=== PATIENT | male | born 1945 | race Caucasian/White ===

== ENCOUNTER → 2020-03-13 14:28 | Outpatient (BNVA) | payer MEDICARE, SELFPAY | PROVIDERS: PCP Internal Medicine; Visit Provider Surgery | DX: D05.11 Intraductal carcinoma in situ of right breast (principal) | CPT/HCPCS: 99212 ==

== ENCOUNTER 2020-05-15 06:57 | Outpatient (REF) | payer MEDICARE, SELFPAY ==
[2020-05-15 07:47] LABS: MANUAL DIFF FLAG NO
[2020-05-15 07:58] LABS: Basophils Percent Auto 0.2 % (0-2); Eosinophils Absolute Auto 0.1 X10*3/uL (0.0-0.4); Eosinophils Percent Auto 2.6 % (0-4); Hemoglobin 13.9 g/dl (14.0-18.0); Imm Gran Abs Auto 0.03 X10*3/uL (0.00-0.03); Imm Gran Pct Auto 0.6 % (0.0-0.4); Lymphocytes Absolute Auto 1.3 X10*3/uL (1.2-4.9); Lymphocytes Percent Auto 28.7 % (20-40); Mean Corpuscular HGB Conc 33.1 g/dl (31.0-36.0); Mean Corpuscular Hemoglobin 30.3 pg (27.0-33.0); Mean Corpuscular Volume 91.5 fL (80-98); Mean Platelet Volume 9.2 fL (9.4-12.4); Monocytes Absolute Auto 0.6 X10*3/uL (0.1-1.2); Monocytes Percent Auto 12.5 % (2-11); Neutrophils Absolute Auto 2.6 X10*3/uL (2.0-8.3); Neutrophils Percent Auto 55.4 % (45-73); Platelet Count 229 X10*3/uL (160-400); Red Blood Count 4.59 X10*6/uL (4.60-5.80); Red Cell Distribution Width 12.6 % (11.0-16.0); White Blood Count 4.6 X10*3/uL (4.8-10.8)
[2020-05-15 08:05] LABS: Estimated Average Glucose 120 mg/dL; Hemoglobin A1c % 5.8 %
[2020-05-15 08:15] LABS: Glucose Urine UA NEG (NEG); Leukocyte Esterase Urine NEG (NEG); Nitrite Urine NEG (NEG); PH 6.5 (5.0-8.0); Urine Blood NEG (NEG); Urine Ketones NEG (NEG); Urine Protein NEG (NEG-TRACE)
[2020-05-15 08:19] LABS: Cholesterol 146 mg/dL; HDL Cholesterol 68 mg/dL; LDL Cholesterol Calculated 68 mg/dl; Triglycerides 51 mg/dL
[2020-05-15 08:20] LABS: Appearance Urine CLEAR; Color Urine YELLOW
[2020-05-15 08:23] LABS: Alanine Aminotransferase 12 U/L (0-40); Albumin Level 4.1 g/dL (3.5-5.0); Alkaline Phosphatase 81 U/L (39-117); Anion Gap 12 (12-20); Aspartate Amino Transferase 28 U/L (5-37); Bilirubin Total 0.8 mg/dL (0.0-1.0); Blood Urea Nitrogen 16 mg/dL (9-16); Carbon Dioxide 29 mmol/L (22-29); Chloride 102 mmol/L (96-108); Estimated Glomerular Filt Rate > 60; Glucose Fasting 182 mg/dL (60-99); Potassium 5.1 mmol/L (3.3-5.1); Sodium 138 mmol/L (135-145); Total Protein 6.9 g/dL (6.5-8.0)
[2020-05-15 08:26] LABS: Reflex LDLD? No
[2020-05-15 08:55] LABS: Prostate Specific Antigen Scr < 0.05 ng/mL (<0.05-4.0)
[2020-05-15 09:13] LABS: Creatinine Urine 75.25 mg/dL; Microalbumin Urine < 5.0 mg/L
== END 2020-05-15 06:58 | disposition home or self-care (01) ==
LOC: HO.LAB 06:57
PROVIDERS: Visit Provider Internal Medicine
DX: Z00.00 Encounter for general adult medical examination without abnormal findings (principal); E78.00 Pure hypercholesterolemia, unspecified; E10.9 Type 1 diabetes mellitus without complications
CPT/HCPCS: 36415; 80053; 80061; 81003; 82043; 83036; 84153; 85025

== ENCOUNTER → 2020-10-02 10:15 | Outpatient (BNVA) | payer MEDICARE, SELFPAY | PROVIDERS: PCP Internal Medicine; Referring Provider Internal Medicine; Visit Provider Surgery | DX: D05.11 Intraductal carcinoma in situ of right breast (principal) | CPT/HCPCS: 99212 ==

== ENCOUNTER 2020-10-16 15:36 | Outpatient (REF) | payer MEDICARE, SELFPAY ==
--- NOTE | ~2020-10-16 | XR_ITS ---
EXAMINATION: XR CHEST CLINICAL INFORMATION: Chest discomfort COMPARISON: None TECHNIQUE: 2 views of the chest were obtained. FINDINGS: The lungs are well-expanded and clear. Incidentally noted is a right upper lobe azygos lobe. The heart size and pulmonary vascularity is normal. There is moderate spondylosis dorsal spine. No lytic process. XR/XR chest 2V IMPRESSION: Unremarkable chest exam except for moderate dorsal spine spondylosis.
== END 2020-10-16 15:37 | disposition home or self-care (01) ==
LOC: HO.XRAY 15:36
PROVIDERS: PCP Internal Medicine; Visit Provider Internal Medicine
DX: R07.89 Other chest pain (principal)
CPT/HCPCS: 71046

== ENCOUNTER 2020-11-09 10:29 | Outpatient (REF) | payer MEDICARE, SELFPAY ==
[2020-11-09 11:03] LABS: Estimated Average Glucose 117 mg/dL; Hemoglobin A1c % 5.7 %
[2020-11-09 11:06] LABS: Alanine Aminotransferase 10 U/L (0-40); Albumin Level 3.9 g/dL (3.5-5.0); Alkaline Phosphatase 76 U/L (39-117); Aspartate Amino Transferase 27 U/L (5-37); Bilirubin Direct 0.4 mg/dL (0.0-0.5); Bilirubin Total 0.8 mg/dL (0.0-1.0); Cholesterol 139 mg/dL; Glucose Fasting 146 mg/dL (60-99); HDL Cholesterol 67 mg/dL; LDL Cholesterol Calculated 63 mg/dl; Total Protein 6.8 g/dL (6.5-8.0); Triglycerides 46 mg/dL
[2020-11-09 11:29] LABS: Reflex LDLD? No
== END 2020-11-09 10:30 | disposition home or self-care (01) ==
LOC: HO.LNP 10:29
PROVIDERS: Visit Provider Internal Medicine
DX: E78.00 Pure hypercholesterolemia, unspecified (principal); E10.9 Type 1 diabetes mellitus without complications
CPT/HCPCS: 80061; 80076; 82947; 83036

== ENCOUNTER → 2021-04-02 10:07 | Outpatient (BNVA) | payer MEDICARE, SELFPAY | PROVIDERS: PCP Internal Medicine; Referring Provider Internal Medicine; Visit Provider Surgery | DX: Z85.3 Personal history of malignant neoplasm of breast (principal); Z90.11 Acquired absence of right breast and nipple | CPT/HCPCS: 99212 ==

== ENCOUNTER 2021-05-30 11:27 | Outpatient (REF) | payer MEDICARE, SELFPAY ==
[2021-05-30 11:30] LABS: MANUAL DIFF FLAG NO
[2021-05-30 12:05] LABS: Appearance Urine HAZY; Color Urine YELLOW; Glucose Urine UA NEG (NEG); Leukocyte Esterase Urine NEG (NEG); Nitrite Urine NEG (NEG); PH 7.5 (5.0-8.0); Urine Blood NEG (NEG); Urine Ketones 5 MG/DL (NEG); Urine Protein NEG (NEG-TRACE)
[2021-05-30 12:07] LABS: Basophils Percent Auto 0.6 % (0-2); Eosinophils Absolute Auto 0.1 X10*3/uL (0.0-0.4); Eosinophils Percent Auto 2.9 % (0-4); Hematocrit 42.5 % (42.0-52.0); Hemoglobin 14.1 g/dl (14.0-18.0); Imm Gran Abs Auto 0.03 X10*3/uL (0.00-0.03); Imm Gran Pct Auto 0.6 % (0.0-0.4); Lymphocytes Absolute Auto 1.3 X10*3/uL (1.2-4.9); Lymphocytes Percent Auto 27.7 % (20-40); Mean Corpuscular HGB Conc 33.2 g/dl (31.0-36.0); Mean Corpuscular Hemoglobin 30.4 pg (27.0-33.0); Mean Corpuscular Volume 91.6 fL (80.0-98.0); Mean Platelet Volume 9.7 fL (9.4-12.4); Monocytes Absolute Auto 0.6 X10*3/uL (0.1-1.2); Neutrophils Absolute Auto 2.6 x10*3/uL (2.0-8.3); Neutrophils Percent Auto 55.2 % (45-73); Platelet Count 241 X10*3/uL (160-400); Red Blood Count 4.64 X10*6/uL (4.60-5.80); Red Cell Distribution Width 12.8 % (11.0-16.0); White Blood Count 4.8 X10*3/uL (4.8-10.8)
[2021-05-30 12:20] LABS: Estimated Average Glucose 131 mg/dL; Hemoglobin A1c % 6.2 %
[2021-05-30 12:30] LABS: Alanine Aminotransferase 12 U/L (0-40); Alkaline Phosphatase 78 U/L (39-117); Anion Gap 11 (12-20); Aspartate Amino Transferase 31 U/L (5-37); Blood Urea Nitrogen 19 mg/dL (9-16); Calcium 9.1 mg/dL (8.4-10.2); Carbon Dioxide 29 mmol/L (22-29); Chloride 102 mmol/L (96-108); Cholesterol 152 mg/dL; Estimated Glomerular Filt Rate > 60; Glucose Fasting 135 mg/dL (60-99); HDL Cholesterol 69 mg/dL; LDL Cholesterol Calculated 74 mg/dl; Potassium 4.2 mmol/L (3.3-5.1); Sodium 138 mmol/L (135-145); Total Protein 6.8 g/dL (6.5-8.0); Triglycerides 48 mg/dL
[2021-05-30 12:41] LABS: PSA,Total (Free>4and<10) < 0.05 ng/mL (0.00-4.00)
[2021-05-30 12:43] LABS: Creatinine Urine 64.76 mg/dL; Microalbumin Urine < 5.0 mg/L
== END 2021-05-30 11:28 | disposition home or self-care (01) ==
LOC: HO.LNP 11:27
PROVIDERS: PCP Internal Medicine; Visit Provider Internal Medicine
DX: Z12.5 Encounter for screening for malignant neoplasm of prostate (principal); C61 Malignant neoplasm of prostate; E10.9 Type 1 diabetes mellitus without complications; E78.00 Pure hypercholesterolemia, unspecified
CPT/HCPCS: 80053; 80061; 81003; 82043; 83036; 84153; 85025

== ENCOUNTER 2021-07-12 07:10 | Day surgery (SDC) | payer MEDICARE, SELFPAY ==
[2021-07-08 14:55] VITALS: BMI 24.7
--- NOTE | 2021-07-11 12:01 | P.CONAN_ITS ---
Documented by User: Raquel Jara NP 07/11/21 12:02 HPI - Anesthesia Eval Consult details Narrative: 75yo M for Colonoscopy insulin pump in situ PMFSH Active Problems Active Problems: All Active Problems (Updated 07/08/21 @ 14:57 by Laura Bustamante RN) Ductal carcinoma in situ (DCIS) of right breast (Acute) Past Medical History Medical History (Updated 07/08/21 @ 14:57 by Laura Bustamante RN) COVID-19 vaccine series completed Diabetes mellitus Ductal carcinoma in situ (DCIS) of right breast Elevated cholesterol Prostate cancer Ulcerative colitis Surgical History Surgical History (Updated 07/08/21 @ 14:33 by Laura Bustamante RN) History of appendectomy History of colonoscopy History of penile implant History of prostate surgery (2000) History of right total mastectomy Social History Social History Are you a primary post acute care nurse practitioner to a significant other at home: No Do you presently have visiting nurse or other home services: No Alcohol intake: current Alcohol intake frequency: does not drink Alcohol type: beer Patient Tobacco Use Status: Never used Tobacco Use of substances other than those prescribed or required for medical reasons: No Have you been hit, kicked, punched, or otherwise hurt by someone within the past year? If so, by whom?: No Are you DNR?: No Advance Directives Information Provided: Yes (will bring copy DOS) Advance Directives on File: No Recently lost weight without trying: No Eating poorly because of decreased appetite: No Nutrition Risks: No Nutritional Risk Meds Allergies Allergy/AdvReac Type Severity Reaction Status Date / Time Seasonal Allergies Allergy Mild Unknown Verified 04/02/21 10:19 Home Medications Medication Instructions Recorded Confirmed Last Taken Type atorvastatin 20 mg tablet 20 mg PO DAILY 03/13/20 07/08/21 Unknown History balsalazide 750 mg capsule 2,250 mg PO BID 03/13/20 07/08/21 Unknown History fluticasone propionate 50 1 spray INTRANASAL DAILY 03/13/20 07/08/21 Unknown History mcg/actuation nasal spray,suspension insulin lispro 100 unit/mL 100 unit SUBCUT CONT 03/13/20 07/08/21 Unknown History subcutaneous solution lisinopril 2.5 mg tablet 2.5 mg PO DAILY 03/13/20 04/03/21 Unknown History ascorbic acid (vitamin C) 500 mg 500 mg PO DAILY 12/03/20 07/08/21 Unknown History tablet (Vitamin C) aspirin 81 mg tablet,delayed 81 mg PO DAILY 12/03/20 07/08/21 Unknown History release multivitamin 1 tab PO DAILY 12/03/20 07/08/21 Unknown History omega 5-krk-kme-fish oil 1,200 mg 1 cap PO DAILY 12/03/20 07/08/21 Unknown History (144 mg-216 mg) capsule (Fish Oil) Exam Exam Date and Time: July 11, 2021 1201 Height,Weight and Vital Signs: Height 5 ft 6 in Weight 69.4 kg Pertinent Lab Results Pertinent Lab Results: Laboratory Tests 05/30/21 05/30/21 07:00 07:00 WBC 4.8 Hgb 14.1 Hct 42.5 Plt Count 241 Sodium 138 Potassium 4.2 Chloride 102 Carbon Dioxide 29 BUN 19 H Creatinine 0.82 Assessment and Plan Assessment Anesthesia Assessment: Chart Reviewed Documented by User: Diego Warner MD 07/12/21 09:59 [facility] Past Medical History Medical History (Updated 07/08/21 @ 14:57 by Laura Bustamante RN) COVID-19 vaccine series completed Diabetes mellitus Ductal carcinoma in situ (DCIS) of right breast Elevated cholesterol Prostate cancer Ulcerative colitis Functional capacity: independent ambulation Family History Family history of problems with anesthesia: No Surgical History Surgical History (Updated 07/08/21 @ 14:33 by Laura Bustamante RN) History of appendectomy History of colonoscopy History of penile implant History of prostate surgery (2000) History of right total mastectomy History of Problems with Anesthesia: No Social History Social History Are you a primary post acute care nurse practitioner to a significant other at home: No Do you presently have visiting nurse or other home services: No Alcohol intake: current Alcohol intake frequency: does not drink Alcohol type: beer Patient Tobacco Use Status: Never used Tobacco Use of substances other than those prescribed or required for medical reasons: No Have you been hit, kicked, punched, or otherwise hurt by someone within the past year? If so, by whom?: No Are you DNR?: No Advance Directives Information Provided: Yes (will bring copy DOS) Advance Directives on File: No Recently lost weight without trying: No Eating poorly because of decreased appetite: No Nutrition Risks: No Nutritional Risk Meds Allergies Allergy/AdvReac Type Severity Reaction Status Date / Time Seasonal Allergies Allergy Mild Unknown Verified 04/02/21 10:19 Home Medications Medication Instructions Recorded Confirmed Last Taken Type atorvastatin 20 mg tablet 20 mg PO DAILY 03/13/20 07/08/21 Unknown History balsalazide 750 mg capsule 2,250 mg PO BID 03/13/20 07/08/21 Unknown History fluticasone propionate 50 1 spray INTRANASAL DAILY 03/13/20 07/08/21 Unknown History mcg/actuation nasal spray,suspension insulin lispro 100 unit/mL 100 unit SUBCUT CONT 03/13/20 07/08/21 Unknown History subcutaneous solution lisinopril 2.5 mg tablet 2.5 mg PO DAILY 03/13/20 04/03/21 Unknown History ascorbic acid (vitamin C) 500 mg 500 mg PO DAILY 12/03/20 07/08/21 Unknown History tablet (Vitamin C) aspirin 81 mg tablet,delayed 81 mg PO DAILY 12/03/20 07/08/21 Unknown History release multivitamin 1 tab PO DAILY 12/03/20 07/08/21 Unknown History omega 7-cwa-pbt-fish oil 1,200 mg 1 cap PO DAILY 12/03/20 07/08/21 Unknown History (144 mg-216 mg) capsule (Fish Oil) Exam Airway Mallampati Class: III TM Dist: >3cm Neck ROM: Full Loose/Missing/Broken Teeth: Yes (Chipped teeth ) Heart: RRR Lungs: b/l breath sounds Assessment and Plan Assessment Anesthesia Assessment: Anesthesia Plan Discussed Final Anesthetic Review Family History of Problems with Anesthesia: No History of Problems with Anesthesia: No NPO: Yes ASA Class: II Final Preanesthetic Review: Meds/Allgs Chart Reviewed, Consent Obtained/Reviewed and Anes Risks/Benef Reviewed Patient Risk: Intermediate Procedure Risk: Intermediate Anesthetic Plan Anesthetic Plan: MAC: Disposition: Standard PACU
[2021-07-12 07:53] VITALS: BP 121/57; PULSE 87; RESP 16; TEMP 36.1; O2SAT 100
[2021-07-12 07:57] LABS: Glucose, Whole Blood 185 mg/dL (60-115)
[2021-07-12] MEDS: Lactated Ringers 1,000 ML 100 ML IVCONT (08:09)
[2021-07-12 09:36] VITALS: BP 109/51; PULSE 80; RESP 16; TEMP 36.2; O2SAT 100
--- NOTE | 2021-07-12 09:38 | PM.OP ---
Brief Operative Note Date of Service: 07/12/21 Pre-op diagnosis: Screening, Ulcerative colitis Post-op diagnosis: other (R/O dysplasia, Diverticulosis) Procedure: Colonoscopy to the cecum and TI with biopsies Surgeon: Raul Li Anesthesia: MAC Was an [employer] Advisor used for this Procedure?: No Estimated blood loss (mL): 2.0 Pathology: other (A. Ascending colon B. Transverse colon C. Descending colon D. Sigmoid colon E. Rectum) Condition: stable Disposition: PACU
[2021-07-12 09:50] VITALS: BP 122/53; PULSE 79; RESP 20; TEMP 36.2; O2SAT 100
[2021-07-12 09:59] LABS: Glucose, Whole Blood 196 mg/dL (60-115)
--- NOTE | 2021-07-12 10:01 | OP_ITS ---
SURGEON: Raul Li MD INDICATIONS: The patient presents for evaluation of underlying ulcerative colitis and colorectal cancer screening. Full consent has been obtained from him for this, including risks of bleeding and perforation. PREOPERATIVE DIAGNOSIS: POSTOPERATIVE DIAGNOSIS: PROCEDURE PERFORMED: Colonoscopy to cecum and terminal ileum with multiple biopsies. ESTIMATED BLOOD LOSS: COMPLICATIONS: ANESTHESIA: Monitored anesthesia care. ASSISTANTS: SPECIMENS: PREOPERATIVE DIAGNOSES: Colorectal cancer screening and history of ulcerative colitis. POSTOPERATIVE DIAGNOSES: Colorectal cancer screening and history of ulcerative colitis, rule out dysplasia, sigmoid diverticulosis, and small internal hemorrhoids. DESCRIPTION OF PROCEDURE: The patient was placed in left lateral decubitus position. The digital rectal exam revealed no abnormalities. The Olympus video pediatric colonoscope was entered into the rectum and advanced easily to the cecum. Once in the cecum, I did identify normal-appearing cecal pouch with appendiceal orifice and a normal-appearing ileocecal valve. The terminal ileum was cannulated and appeared normal. Scope was withdrawn back in the colon. The entire cecum and ileocecal valve appeared normal. The scope was slowly withdrawn assessing all mucosal surfaces carefully. Preparation was excellent. I did not visualize any sign of colitis, polyps, nor angiodysplasia. There was a very minimal scarring in the rectum. Random biopsies were obtained in the ascending colon, transverse colon, descending colon, sigmoid colon, and rectum. There was a mild amount of sigmoid diverticulosis. In the rectum, scope was retroflexed visualizing some small internal hemorrhoids, but no other pathology. The scope was straightened and withdrawn from the patient. He tolerated the procedure well and was returned to recovery area in stable condition. IMPRESSION: 1. History of ulcerative colitis, rule out dysplasia. 2. Diverticulosis. 3. Internal hemorrhoids. PLAN: The results of the biopsies will be checked. Given his age, I do not think he will need any further screening colonoscopies in the future. He was advised not to use any aspirin and NSAIDs for at least 1 week. He was advised to see me in 1 year for followup in regard to the underlying colitis and was advised to continue his current regimen of the balsalazide 2.25 g b.i.d. He will call sooner as needed. MD MIKE Gil/MASOOD / [id number] [facility]
== END 2021-07-12 10:34 | disposition home or self-care (01) ==
PROVIDERS: PCP Internal Medicine; Visit Provider Internal Medicine
PROC: 0DJD8ZZ Inspection of Lower Intestinal Tract, Via Natural or Artificial Opening Endoscopic (ICD-10-PCS; CPT 45378; principal; 2021-07-12 08:20)
DX: Z12.11 Encounter for screening for malignant neoplasm of colon (principal); Z87.19 Personal history of other diseases of the digestive system; K51.90 Ulcerative colitis, unspecified, without complications; K64.8 Other hemorrhoids; E78.5 Hyperlipidemia, unspecified; E11.8 Type 2 diabetes mellitus with unspecified complications; Z96.41 Presence of insulin pump (external) (internal); Z79.4 Long term (current) use of insulin; Z79.899 Other long term (current) drug therapy; Z85.46 Personal history of malignant neoplasm of prostate; Z85.3 Personal history of malignant neoplasm of breast; Z98.890 Other specified postprocedural states
CPT/HCPCS: 45380; 82947; 88305

== ENCOUNTER → 2021-10-17 13:55 | Outpatient (BNVA) | payer MEDICARE, SELFPAY | PROVIDERS: PCP Internal Medicine; Visit Provider Surgery | DX: D05.11 Intraductal carcinoma in situ of right breast (principal); Z90.11 Acquired absence of right breast and nipple | CPT/HCPCS: 99212 ==

== ENCOUNTER 2021-11-29 10:32 | Outpatient (REF) | payer MEDICARE, SELFPAY ==
[2021-11-29 11:30] LABS: Estimated Average Glucose 114 mg/dL; Hemoglobin A1c % 5.6 %
[2021-11-29 11:32] LABS: Alanine Aminotransferase 11 U/L (0-40); Alkaline Phosphatase 73 U/L (39-117); Aspartate Amino Transferase 30 U/L (5-37); Bilirubin Direct 0.4 mg/dL (0.0-0.5); Cholesterol 130 mg/dL; Glucose Fasting 159 mg/dL (60-99); HDL Cholesterol 63 mg/dL; LDL Cholesterol Calculated 58 mg/dl; Total Protein 6.7 g/dL (6.5-8.0); Triglycerides 46 mg/dL
[2021-11-29 12:37] LABS: Reflex LDLD? No
== END 2021-11-29 10:33 | disposition home or self-care (01) ==
LOC: HO.LNP 10:32
PROVIDERS: Visit Provider Internal Medicine
DX: E10.9 Type 1 diabetes mellitus without complications (principal); E78.00 Pure hypercholesterolemia, unspecified
CPT/HCPCS: 80061; 80076; 82947; 83036

== ENCOUNTER 2022-06-05 10:43 | Outpatient (REF) | payer MEDICARE, SELFPAY ==
[2022-06-05 10:47] LABS: MANUAL DIFF FLAG NO
[2022-06-05 11:28] LABS: Appearance Urine Clear; Color Urine Yellow; Glucose Urine UA Negative (Negative); Leukocyte Esterase Urine Negative (Negative); Nitrite Urine Negative (Negative); Specific Gravity - Urine 1.015 (1.005-1.025); Urine Blood Negative (Negative); Urine Ketones 15 mg/dL (Negative); Urine Protein Negative (Neg-Trace)
[2022-06-05 11:33] LABS: Bacteria Urine None Seen (None Seen); Hyaline Casts Urine 0-2 /LPF (0-2); RBC Urine 0-2 /HPF (0-2); Squamous Epithelial Cell Urine 0-2 /HPF (0-2); WBC Urine 0-5 /HPF (0-5)
[2022-06-05 11:34] LABS: Estimated Average Glucose 120 mg/dL; Hemoglobin A1c % 5.8 %
[2022-06-05 11:41] LABS: Alanine Aminotransferase 18 U/L (0-40); Alkaline Phosphatase 76 U/L (39-117); Anion Gap 15 (12-20); Aspartate Amino Transferase 39 U/L (5-37); Bilirubin Total 1.2 mg/dL (0.0-1.0); Blood Urea Nitrogen 16 mg/dL (9-16); Calcium 8.8 mg/dL (8.4-10.2); Carbon Dioxide 27 mmol/L (22-29); Chloride 100 mmol/L (96-108); Cholesterol 140 mg/dL; Estimated Glomerular Filt Rate > 60; Glucose Fasting 138 mg/dL (60-99); HDL Cholesterol 52 mg/dL; LDL Cholesterol Calculated 70 mg/dl; Potassium 4.7 mmol/L (3.3-5.1); Sodium 137 mmol/L (135-145); Total Protein 6.7 g/dL (6.5-8.0); Triglycerides 90 mg/dL
[2022-06-05 12:02] LABS: PSA,Total (Free>4and<10) < 0.10 ng/mL (0.00-4.00)
[2022-06-05 12:26] LABS: Creatinine Urine 93.89 mg/dL; Microalbum/Creatinine Ratio Ur 6.3 ug/mg cr
[2022-06-05 14:06] LABS: Mean Corpuscular Hemoglobin 29.9 pg (27.0-33.0)
[2022-06-05 14:18] LABS: Basophils Percent Auto 0.4 % (0-2); Eosinophils Absolute Auto 0.2 X10*3/uL (0.0-0.4); Eosinophils Percent Auto 3.6 % (0-4); Hematocrit 41.6 % (42.0-52.0); Hemoglobin 13.9 g/dl (14.0-18.0); Imm Gran Abs Auto 0.01 X10*3/uL (0.00-0.03); Imm Gran Pct Auto 0.2 % (0.0-0.4); Lymphocytes Absolute Auto 1.2 X10*3/uL (1.2-4.9); Lymphocytes Percent Auto 21.5 % (20-40); Mean Corpuscular HGB Conc 33.4 g/dl (31.0-36.0); Mean Corpuscular Volume 89.5 fL (80.0-98.0); Mean Platelet Volume 9.2 fL (9.4-12.4); Monocytes Absolute Auto 0.7 X10*3/uL (0.1-1.2); Monocytes Percent Auto 12.6 % (2-11); Neutrophils Absolute Auto 3.4 x10*3/uL (2.0-8.3); Neutrophils Percent Auto 61.7 % (45-73); Platelet Count 241 X10*3/uL (160-400); Red Blood Count 4.65 X10*6/uL (4.60-5.80); Red Cell Distribution Width 13.1 % (11.0-16.0); White Blood Count 5.5 X10*3/uL (4.8-10.8)
== END 2022-06-05 10:44 | disposition home or self-care (01) ==
LOC: HO.LNP 10:43
PROVIDERS: Visit Provider Internal Medicine
DX: Z00.00 Encounter for general adult medical examination without abnormal findings (principal); E10.9 Type 1 diabetes mellitus without complications; E78.00 Pure hypercholesterolemia, unspecified; Z12.5 Encounter for screening for malignant neoplasm of prostate
CPT/HCPCS: 80053; 80061; 81001; 82043; 83036; 84153; 85025

== ENCOUNTER 2022-10-21 09:51 | Outpatient (AMB) | payer MEDICARE, SELFPAY ==
--- NOTE | 2022-10-21 09:56 | MHC.OFFVIS ---
Intake Vital Signs 10/21/22 10:03 Height 5 ft 6 in Weight 154 lb 4 oz BMI 24.9 BP 145/71 H Blood Pressure Location Lt brachial Position Sitting Pulse 76 Intake Visit Reasons: 1 year follow up breast exam Intake Note: Patient is seen in office for yearly breast exam. Pt c/o: denies any concerns or changes at the time of visit Nutrition Internship Required: No Accompanied by: Self / Same As Patient Allergies Seasonal Allergies Allergy (Mild, Verified 10/21/22 10:02) Unknown Medication List - Last Reconciled 10/21/22 by Jerry Lama MD ascorbic acid (vitamin C) (Vitamin C) 500 mg PO DAILY aspirin 81 mg PO DAILY atorvastatin 20 mg PO DAILY balsalazide 2,250 mg PO BID blood sugar diagnostic (FreeStyle Lite Strips) As directed fluticasone propionate 50 mcg/actuation 1 spray intranasal DAILY insulin lispro 100 units subcut CONT lisinopril 2.5 mg PO DAILY multivitamin 1 tab PO DAILY omega 7-rlz-nvx-fish oil 1,200 (144-216) mg (Fish Oil) 1 cap PO DAILY HPI HPI Comments History of Present Illness Details ?76-year-old male patient, former patient of Dr. Hniojosa, returning for follow-up? breast examination following surgery for ductal carcinoma in situ of the right breast.? Patient was noted to have a right breast lump noted on examination.? Subsequent core biopsy revealed ductal carcinoma in situ.? He underwent a right simple mastectomy and sentinel node biopsy on 02/03/[address] Hinojosa.? Pathology revealed a 4 mm focus of ductal carcinoma in situ.? Two right axillary sentinel nodes were benign. ? Genetic testing performed on 02/01/2018 revealed no deleterious mutations and no variants of uncertain significance.? Since his last visit he reports no new medical problems, no new medications, and no new breast/chest symptoms on either side.? He denies hand/arm swelling.? He is currently on no medications for the breast cancer. [facility] Medical History COVID-19 vaccine series completed Diabetes mellitus Ductal carcinoma in situ (DCIS) of right breast Elevated cholesterol Prostate cancer Ulcerative colitis Surgical History History of appendectomy History of colonoscopy History of penile implant History of prostate surgery (2000) History of right total mastectomy Social History Are you a primary reproductive healthcare assistant to a significant other at home: No Do you presently have visiting nurse or other home services: No Alcohol intake: current Alcohol intake frequency: does not drink Alcohol type: beer Patient Tobacco Use Status: Never used Tobacco Review of Systems Const All systems reviewed & are unremarkable except as noted in HPI and below Skin/Breast Denies breast skin changes, Denies breast pain, Denies breast mass, Denies change in breast shape, Denies change in pigmentation and Denies nipple discharge Tip/Lymph Denies lymphadenopathy Physical Exam Const General: cooperative, comfortable, no acute distress and well developed Orientation/consciousness: patient oriented x3 Limitations: no limitations Neck Neck: Yes no lymphadenopathy Chest Other: Well-healed right mastectomy incision with no palpable subcutaneous masses. No enlarged right axillary lymph nodes. No supraclavicular lymphadenopathy. Left breast with no skin changes, nipple discharge, nipple retraction, palpable mass or enlarged lymph nodes. Resp Effort & Inspection: normal respiratory effort, no cough, no stridor and not tachypneic Cardio Jugular venous distension: no JVD GI Inspection: Yes normal to inspection Skin General skin exam: no rashes or lesions noted Neuro General: patient oriented x3 Extrem General: Yes no clubbing, cyanosis or edema Assessment & Plan Assessment & Plan (1) Ductal carcinoma in situ (DCIS) of right breast: Comment: He continues to do well with regard to his history of DCIS of the right breast. Code(s): D05.11 - Intraductal carcinoma in situ of right breast Plan: 76-year-old male patient with a previous history of ductal carcinoma in situ, right breast status post right simple mastectomy. He continues to do well; examination today reveals no evidence of recurrence disease. He should continue self examination and return in 6 months for follow-up evaluation. He is welcome to call sooner for any concerns. Coding Level of Care Code Est Pt Level 3 (48375) Diagnoses Ductal carcinoma in situ (DCIS) of right breast D05.11
[2022-10-21 10:03] VITALS: BP 145/71; PULSE 76; BMI 24.9
== END 2022-10-21 10:08 | disposition home or self-care (01) ==
PROVIDERS: PCP Internal Medicine; Visit Provider Surgery
DX: Z86.000 Personal history of in-situ neoplasm of breast (principal)
CPT/HCPCS: 99213

== ENCOUNTER → 2022-10-21 09:51 | Outpatient (BNVA) | payer MEDICARE, SELFPAY | PROVIDERS: PCP Internal Medicine; Visit Provider Surgery | DX: D05.11 Intraductal carcinoma in situ of right breast (principal); C61 Malignant neoplasm of prostate; Z90.11 Acquired absence of right breast and nipple | CPT/HCPCS: 99212 ==

== ENCOUNTER 2022-12-12 11:30 | Outpatient (REF) | payer MEDICARE, SELFPAY ==
[2022-12-12 12:17] LABS: Cholesterol 144 mg/dL (<200); HDL Cholesterol 61 mg/dL (>40); LDL Cholesterol Calculated 72 mg/dL (<100); Triglycerides 57 mg/dL (<150)
[2022-12-12 12:19] LABS: Alanine Aminotransferase 11 U/L (0-40); Alkaline Phosphatase 66 U/L (39-117); Aspartate Amino Transferase 31 U/L (5-37); Bilirubin Direct 0.4 mg/dL (0.0-0.5); Bilirubin Total 0.9 mg/dL (0.0-1.0); Glucose Fasting 172 mg/dL (60-99); Total Protein 6.9 g/dL (6.5-8.0)
[2022-12-12 12:40] LABS: Reflex LDLD? No
[2022-12-12 12:58] LABS: Estimated Average Glucose 120 mg/dL; Hemoglobin A1c % 5.8 % (<6.0)
== END 2022-12-12 11:31 | disposition home or self-care (01) ==
LOC: HO.LNP 11:30
PROVIDERS: Visit Provider Internal Medicine
DX: E10.9 Type 1 diabetes mellitus without complications (principal); E78.00 Pure hypercholesterolemia, unspecified
CPT/HCPCS: 80061; 80076; 82947; 83036

== ENCOUNTER 2023-01-29 10:38 | Outpatient (REF) | payer MEDICARE, SELFPAY ==
[2023-01-29 12:02] LABS: Estimated Average Glucose 117 mg/dL; Hemoglobin A1c % 5.7 % (<6.0)
== END 2023-01-29 10:39 | disposition home or self-care (01) ==
LOC: HO.LAB 10:38
PROVIDERS: PCP Internal Medicine; Visit Provider Pediatrics
DX: E10.42 Type 1 diabetes mellitus with diabetic polyneuropathy (principal)
CPT/HCPCS: 36415; 83036

== ENCOUNTER 2023-02-19 23:10 | Emergency (ER) | payer MEDICARE, SELFPAY ==
[2023-02-19 23:21] VITALS: BP 145/65; PULSE 88; RESP 16; TEMP 36.6; O2SAT 98; BMI 24.1
[2023-02-19 23:24] LABS: Glucose, Whole Blood 79 mg/dL (60-115)
[2023-02-19 23:33] LABS: Glucose, Whole Blood 73 mg/dL (60-115)
--- NOTE | 2023-02-19 23:33 | PC.NURSE ---
provider into assess pt, food given per provider, poc was 79 repeat was 73, Will report off to ESTRELLITA Chaudhry.
--- NOTE | 2023-02-19 23:42 | ED_ITS ---
HPI - General Adult General Chief complaint: General Medical Stated complaint: HYPOGLYCEMIA,BGL 40-50'S Time Seen by Provider: 02/19/23 23:18 Source: patient and family Mode of arrival: ambulatory Limitations: no limitations History of Present Illness HPI narrative: Patient diabetic type 1 insulin-dependent on insulin pump for a while got a new brand insulin before yesterday unable to about its function, blood sugar was in 200 range few hours ago the patient took 5 units of bolus and then again he got another bolus total 3 boluses then started feeling lightheaded and dizzy with blood sugar checked at home was 29 patient had some marshmallows when EMS reached blood sugar was 53 and then dropped to 45 again was given D10 bolus and when patient arrived blood sugar was 112 and then it dropped to 73 again patient otherwise healthy does not have any fever or chills no cough patient was given sandwich Related Data Home Medications Medication Instructions Recorded Confirmed atorvastatin 20 mg tablet 20 mg PO DAILY 03/13/20 10/21/22 balsalazide 750 mg capsule 2,250 mg PO BID 03/13/20 10/21/22 fluticasone propionate 50 1 spray intranasal DAILY 03/13/20 10/21/22 mcg/actuation nasal spray,suspension insulin lispro 100 unit/mL 100 unit subcut CONT 03/13/20 10/21/22 subcutaneous solution lisinopril 2.5 mg tablet 2.5 mg PO DAILY 03/13/20 10/21/22 ascorbic acid (vitamin C) 500 mg 500 mg PO DAILY 12/03/20 10/21/22 tablet (Vitamin C) aspirin 81 mg tablet,delayed 81 mg PO DAILY 12/03/20 10/21/22 release multivitamin 1 tab PO DAILY 12/03/20 10/21/22 omega 8-lxp-ffg-fish oil 1,200 mg 1 cap PO DAILY 12/03/20 10/21/22 (144 mg-216 mg) capsule (Fish Oil) blood sugar diagnostic (FreeStyle #10 ea 10/21/22 10/21/22 Lite Strips) Allergies Allergy/AdvReac Type Severity Reaction Status Date / Time Seasonal Allergies Allergy Mild Unknown Verified 10/21/22 10:02 Review of Systems Review of Systems: Yes all other systems are reviewed and are negative PMFSH Past Medical History Medical History COVID-19 vaccine series completed Elevated cholesterol Diabetes mellitus Ulcerative colitis Prostate cancer Ductal carcinoma in situ (DCIS) of right breast Surgical History History of penile implant History of prostate surgery (2000) History of appendectomy History of colonoscopy History of right total mastectomy Social History Social History Are you a primary child care leader to a significant other at home: No Do you presently have visiting nurse or other home services: No Alcohol intake: current Alcohol intake frequency: does not drink Alcohol type: beer Patient Tobacco Use Status: Never used Tobacco Advance Directives: No Advance Directives Information Provided: Yes Physical Exam ED Vital Signs: Vital Signs - 24 hr 02/19/23 23:21 Temperature 97.8 F Pulse Rate 88 Respiratory Rate 16 Blood Pressure 145/65 H Pulse Oximetry 98 Oxygen Delivery Method Room Air BMI result Body Mass Index 24.1 Appearance: Alert. Oriented X3. No acute distress. Eyes: PERRLA, No Nystagmus ENT: Pharynx normal. Oral Mucosa moist Neck: Normal inspection. Neck supple. CVS: Normal heart rate and rhythm. Pulses normal. Respiratory: No respiratory distress. Equal air entry bilateral, no wheezing/rales/rhonchi Abdomen: Soft and nontender. Bowel sounds are present, no mass palpable, no CVA tenderness Skin: Skin warm and dry. Normal skin color. Normal skin turgor. Extremities: No lower extremity edema. No calf tenderness Neuro: Oriented X 3. No motor deficit. No sensory deficit.No cerebellar signs , cranial nerves II-XII intact Medications Administered Discontinued Medications Generic Name Dose Route Start Last Admin Trade Name Chikiq PRN Reason Stop Dose Admin Glucagon 1 mg 02/20/23 01:07 02/20/23 01:22 Glucagon Hcl 1 Mg Vial IM 02/20/23 01:08 1 mg ONCE ONE Administration Medical Decision Making Medical Decision Making [facility] Narrative: Patient hypoglycemic secondary to insulin use likely patient took extra insulin patient's blood sugar improved after patient had p.o. fluid and food was also given glucagon last POC was 101 will discharge patient home after rechecking 1 more time Differential Diagnosis Per [facility] Admission/Observation Consideration of admission/observation: Escalation of care including admission/observation considered Lab Data [facility] Lab Attestation statement: I reviewed the patient's lab results. Labs: Lab Results 02/19/23 02/19/23 02/19/23 Range/Units 23:17 23:30 23:55 POC Glucose 79 73 82 (60-115) mg/dL 02/20/23 02/20/23 Range/Units 00:29 01:07 POC Glucose 69 68 (60-115) mg/dL Discharge Plan Discharge Clinical Impression: Diabetes mellitus with hypoglycemia Patient Disposition: Home, Self-Care Instructions: Hypoglycemia in a Person with Diabetes (ED) Additional Instructions: Use a sliding scale of insulin as advised Read about how to use insulin pump Discussed with your PCP about a new insulin pump Prescriptions: No Action multivitamin Tablet 1 tab PO DAILY aspirin [Aspirin Low-Strength] 81 mg Tablet,Delayed Release (Dr/Ec) 81 mg PO DAILY ascorbic acid (vitamin C) [Vitamin C] 500 mg Tablet 500 mg PO DAILY omega 3-cct-akz-fish oil [Fish Oil] 1,200 (144-216) mg Capsule 1 cap PO DAILY lisinopril 2.5 mg tablet 2.5 mg PO DAILY atorvastatin 20 mg tablet 20 mg PO DAILY insulin lispro 100 unit/mL solution 100 unit subcut CONT Rx Instructions: via insulin pump-basal rate 0.5 ml/hr balsalazide 750 mg capsule 2,250 mg PO BID fluticasone propionate 50 mcg/actuation spray,suspension 1 spray intranasal DAILY (DME) FreeStyle Lite Strips Strip See Rx Instructions .ROUTE .MEDSUPPLY Qty: 10 Rx Instructions: As directed
--- OUTSIDE RECORDS SUMMARY | 2023-02-19 23:50 | XMS_ITS | Patient Health Record ---
Author Name Unknown Organization [facility] Address [address] [place] [id number] Care Team Providers Care Stem Sizer Name Role Phone Cliff Menjivar MD Primary Care Provider Raul Bhatt [phone] ALLERGIES No Known Allergies REASON FOR REFERRAL No Information MEDICATIONS Medication SIG (Take, Route, Frequency, Duration) Notes Start Date End Date Status Calcium Citrate 630mg 1 tablet Orally ev tao other day Active Aspirin 81 MG 1 tablet Orally Once a day Active Fish Oil 1200 MG 1 capsule Orally Onc e a day Active Simvastatin 20 MG 1 tablet in the even ing Orally Once a day Active Vitamin E 400 UNIT 1 capsule Orally Onc e a day Active HumaLOG 100 UNIT/ML Subcutaneous Active Balsalazide Disodium 750 MG 3 Orally Twice a day for 90 days 07/31/2022 Active Balsalazide Disodium 750 MG TAKE 3 CAPSULES BY MOUTH TWICE A DAY FOR 90 DAYS for 90 Active Lisinopril 2.5 MG 1 tablet Orally Once a day Not-Taking Multi Vitamin/Minerals - 250mcg senior Orally once in am Act armani Vitamin C 500 MG 1 tablet Orally Once a day Active IMMUNIZATIONS Vaccine Route Administration Date Status Comme nts Influenza Unknown 01/12/2018 Administered Influenza Unknown 01/05/2020 Administered SOCIAL HISTORY Sex Assigned At : Social History Observation Description Sex Assigned At Unknown PROBLEMS Problem Type ICD Code Onset Dates Problem Status W/U Status Risk SNOMED Code Notes Problem Encounter for screening for malignant neoplasm of colon (Z12.11) Active confirmed 311152794 Problem 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 21087246 Problem Ulcerative colitis (K51.90) Active confirmed Ulcerative colitis (90089858) Problem Diverticulosis of colon (K57.30) Active confirmed Diverticulosi s of colon (496906283) Encounters Encounter Location Date Provider Diagnosis [facility] [address] [place] [address] 02/05/2023 Raul Li Ulcerative colitis K51.90 [facility] [address] [place] [address] 07/31/2022 Raul Li ASSESSMENTS Encounter Date Diagnosis Assessment Notes Treatment Notes Treatment Clinical Notes 02/05/2023 Ulcerative colitis (ICD-10 - K51.90) Continue the 3 Balsalazide twice a day for the colitis PLAN OF TREATMENT Future Test Test Name Order Date COLONOSCOPY 02/21/2015 COLONOSCOPY 10/24/2020 Next Appt Details Provider Name:Raul Li , 02/11/2024 11:00:00 AM, [address], [address], [place], [address], Insurance Providers Payer Name Payer Address Payer Phone Subscriber Number Group Number Insured Name Patient Relationship to Insured Coverage Start Date Coverage End Date [address] [place] [phone] [id number] BRADLEY SHEPPARD Self - patient is the insured MEDICAL (GENERAL) HISTORY Medical History History ICD Code Colonoscopy 3--2009-no acti ve colitis, polyps, dysplasia-just some diverticulosis and internal hemorrhoids Ulcerative colitis-dx'd in the 1969's-ca me off the 6-MP in mid-2010 IDDM with insulin pump Prostate cancer treated with radioactive seed implants-2000 Denies NC,CVA,Lung disease,renal disease Hyperlipidemia Colonoscopy 08/2012-no active colitis, no polyps, bx neg for dysplasia Colonoscopy 07/2015--no acrti ve colitis, no polyps, biopsies negative for dysplasia Breast cancer on right breas t--had surgery with Dr. Hinojosa--no chemo, no XRT Colonoscopy 07/2021--no activ e colitis, no polyps; biopsies negataive for dysplasia Surgical History Surgery Date(Month/Year) Appendectomy Penile implant, with subsequent removal Cataract surgery Prostatectomy Right breast cancer surgery as above
--- OUTSIDE RECORDS SUMMARY | 2023-02-19 23:50 | XMS_ITS | Patient Health Record ---
Author Name Unknown Organization Cliff Menjivar MD Address [address] [place] [phone] Care Team Providers Care Logger Name Role Phone Cliff Menjivar Primary Care Provider ALLERGIES No Known Allergies RESULTS Component Value Reference Range Notes Complete Blood Count Auto Di ff Reviewed date:06/05/2022 05:02:41 PM Interpretation: Performing Lab:[facility], [address] [place] [phone] Notes/Report: White Blood Count 5.5 4.8-10.8 X10*3/uL Red Blood Count 4.65 4.60-5.80 X10*6/uL Hemoglobin 13.9 14.0-18.0 g/dl Hematocrit 41.6 42.0-52.0 % Mean Corpuscular Volume 89.5 80.0-98.0 fL Mean Corpuscular Hemoglobin 29.9 27.0-33.0 pg Mean Corpuscular HGB Conc 33.4 31.0-36.0 g/dl Red Cell Distribution Width 13.1 11.0-16.0 % Platelet Count 241 160-400 X10*3/uL Mean Platelet Volume 9.2 9.4-12.4 fL Neutrophils Percent Auto 61.7 45-73 % Imm Gran Pct Auto 0.2 0.0-0.4 % Lymphocytes Percent Auto 21.5 20-40 % Monocytes Percent Auto 12.6 2-11 % Eosinophils Percent Auto 3.6 0-4 % Basophils Percent Auto 0.4 0-2 % NRBC Pct Auto 0.0 0.0-0.2 /100WBC Neutrophils Absolute Auto 3.4 2.0-8.3 x10*3/u L Imm Gran Abs Auto 0.01 0.00-0.03 X10*3/uL Lymphocytes Absolute Auto 1.2 1.2-4.9 X10*3/u L Monocytes Absolute Auto 0.7 0.1-1.2 X10*3/uL Eosinophils Absolute Auto 0.2 0.0-0.4 X10*3/u L Basophils Absolute Auto 0.0 0.0-0.2 X10*3/uL NRBC Abs Auto 0.000 0.0-0.012 X10*3/uL Comprehensive [place]. Panel Fa st Reviewed date:06/05/2022 05:02:20 PM Interpretation: Performing Lab:[facility], [address] [place] [id number] Notes/Report: Sodium 137 135-145 mmol/L Potassium 4.7 3.3-5.1 mmol/L Chloride 100 96-108 mmol/L Carbon Dioxide 27 22-29 mmol/L Anion Gap 15 12-20 Blood Urea Nitrogen 16 9-16 mg/dL Creatinine 0.86 0.5-1.4 mg/dL Estimated Glomerular Filt Rate > 60 NOTE: For -E[place]ian individuals, multiply the result by 1.210. Chronic Kidney Disease: Estimated GFR < 60 mL/min/1.73m2 Severe Kidney Disease: Estimated GFR < 15 mL/min/1.73m2 Glucose Fasting 138 60-99 mg/dL A fasting glucose of 126 mg/dl or greater on more than one occasion is considered diagnostic of diabetes. Calcium 8.8 8.4-10.2 mg/dL Bilirubin Total 1.2 0.0-1.0 mg/dL Aspartate Amino Transferase 39 5-37 U/L Alanine Aminotransferase 18 0-40 U/L Total Protein 6.7 6.5-8.0 g/dL Albumin Level 4.0 3.5-5.0 g/dL Alkaline Phosphatase 76 39-117 U/L Lipid Panel Reviewed date:06/05/2022 12:30:21 PM Interpretation: Performing Lab:[facility], [address] [place] [phone] Notes/Report: Triglycerides 90 Desirable Triglyceride: less than 150 mg/dL Borderline High Triglyceride 150-199 mg/dL High Triglyceride: 200-499 mg/dL Very High Triglyceride: greater than or equal to 5OO mg/dL Cholesterol 140 Desirable Cholesterol: less than 200 mg/dL Borderline High Cholesterol: 200-239 mg/dL High Cholesterol: greater than 239 mg/dL LDL Cholesterol Calculated 70 Desirable LDL: less than 100 mg/dL Near Optimal/Above Optimal LDL: 110-129 mg/dL Borderline High LDL: 130-159 mg/dL High LDL: 160-189 mg/dL Very High LDL: greater than or equal to 190 mg/dL HDL Cholesterol 52 Desirable HDL: greater than 40 mg/dL Note: This HDL assay may give artificially low results in patients with liver disease. PSA,Total (Free>4and<10) Reviewed date:06/05/2022 12:29:53 PM Interpretation: Performing Lab:[facility], [address] [place] [phone] Notes/Report: PSA,Total (Free>4and<10) < 0.10 0.00-4.00 ng/mL A Free PSA was not performed: The percentage of Free PSA can be used to enhance the differentiation of prostate cancer from benign prostatic disease in subjects whose PSA levels are between 4.0 and 10.0 ng/mL. For subjects whose PSA levels are below 4.0 or above 10.0 ng/mL, the risk of prostate cancer is determined on the basis of the PSA alone. Therefore the % Free PSA is recommended only for those subjects whose PSA levels are between 4.0 and 10.0 ng/mL. PSA methodology: Morton Alinity i Chemiluminescent Microparticle Immunoassay (CMIA) Microalbumin, Random Reviewed date:06/05/2022 12:30:02 PM Interpretation: Performing Lab:[facility], [address] [place] [phone] Notes/Report: Creatinine Urine 93.89 Microalbumin Urine 6.0 Microalbum/Creatinine Ratio Ur 6.3 Albumin/Creatinine Ratio Reference Ranges: Normal: < 30 ug/mg creatinine Microalbuminuria: 30 - 300 ug/mg creatinine Clinical Albuminuria: > 300 ug/mg creatinine Hemoglobin A1c Reviewed date:06/05/2022 12:29:44 PM Interpretation: Performing Lab:[facility], [address] [place] [phone] Notes/Report: Hemoglobin A1c % 5.8 Hemoglobin A1C Reference Range Adults: 4.8 - 6.0 % Non diabetic: < 6.0 % Goal: < 7.0 % Additional Action Suggested: > 8.0 % Note: Hemoglobin A1c results are invalid for patients with abnormal amounts of HbF. Blood transfusions may impact the HbA1c concentration in the patient sample. Estimated Average Glucose 120 eAG = Estimated average glucose which is %A1C expressed as average glucose, using the formula of the J2O-Pgskggv Average Glucose study (ADAG), Diabetes Care, Vol.31,#8, 2007 UA ClnCatch+Micro w/rflx Cul t Reviewed date:06/05/2022 12:32:18 PM Interpretation: Performing Lab:[facility], [address] [place] [phone] Notes/Report: [id number] Urine, Clean Catch Color Urine Yellow Appearance Urine Clear PH 7.0 5.0-9.0 Glucose Urine UA Negative Negative mg/dL Urine Blood Negative Negative Specific Arnold - Urine 1.015 1.005-1.025 Urine Protein Negative Neg-Trace mg/dL Urine Ketones 15 Negative mg/dL Nitrite Urine Negative Negative Leukocyte Esterase Urine Negative Negative RBC Urine 0-2 0-2 /HPF WBC Urine 0-5 0-5 /HPF Squamous Epithelial Cell Urine 0-2 0-2 /HPF Bacteria Urine None Seen None Seen Hyaline Casts Urine 0-2 0-2 /LPF Diabetic Eye Exam Reviewed date:07/28/2022 09:58:26 AM Interpretation:No Diabetic Retinopathy Performing Lab: Notes/Report: No Diabetic Retinopathy Diabetic Eye Exam Reviewed date:02/17/2023 01:07:10 PM Interpretation:Nonproliferative diabetic retinopathy OU Performing Lab: Notes/Report: Nonproliferative diabetic retinopathy OU Liver Panel Reviewed date:12/13/2022 06:25:28 PM Interpretation: Performing Lab:[facility], [address] [place] [phone] Notes/Report: Bilirubin Total 0.9 0.0-1.0 mg/dL Bilirubin Direct 0.4 0.0-0.5 mg/dL Aspartate Amino Transferase 31 5-37 U/L Alanine Aminotransferase 11 0-40 U/L Total Protein 6.9 6.5-8.0 g/dL Albumin Level 4.0 3.5-5.0 g/dL Alkaline Phosphatase 66 39-117 U/L Glucose Fasting Reviewed date:12/13/2022 06:24:09 PM Interpretation: Performing Lab:[facility], [address] [place] [phone] Notes/Report: Glucose Fasting 172 60-99 mg/dL A fasting glucose of 126 mg/dl or greater on more than one occasion is considered diagnostic of diabetes. Lipid Panel with Reflex Reviewed date:12/14/2022 08:24:06 AM Interpretation: Performing Lab:[facility], [address] [place] [phone] Notes/Report: Triglycerides 57 <150 mg/dL Desirable Triglyceride: less than 150 mg/dL Borderline High Triglyceride 150-199 mg/dL High Triglyceride: 200-499 mg/dL Very High Triglyceride: greater than or equal to 5OO mg/dL Cholesterol 144 <200 mg/dL Desirable Cholesterol: less than 200 mg/dL Borderline High Cholesterol: 200-239 mg/dL High Cholesterol: greater than 239 mg/dL LDL Cholesterol Calculated 72 <100 mg/dL Desirable LDL: less than 100 mg/dL Near Optimal/Above Optimal LDL: 110-129 mg/dL Borderline High LDL: 130-159 mg/dL High LDL: 160-189 mg/dL Very High LDL: greater than or equal to 190 mg/dL HDL Cholesterol 61 >40 mg/dL Desirable HDL: greater than 40 mg/dL Note: This HDL assay may give artificially low results in patients with liver disease. Hemoglobin A1c Reviewed date:12/13/2022 06:24:19 PM Interpretation: Performing Lab:[facility], [address] [place] [phone] Notes/Report: Hemoglobin A1c % 5.8 <6.0 % Hemoglobin A1C Reference Range Adults: 4.8 - 6.0 % Non diabetic: < 6.0 % Goal: < 7.0 % Additional Action Suggested: > 8.0 % Note: Hemoglobin A1c results are invalid for patients with abnormal amounts of HbF. Blood transfusions may impact the HbA1c concentration in the patient sample. Estimated Average Glucose 120 eAG = Estimated average glucose which is %A1C expressed as average glucose, using the formula of the U5N-Bhpehpr Average Glucose study (ADAG), Diabetes Care, Vol.31,#8, Nov. 2007 REASON FOR REFERRAL No Information MEDICATIONS Medication SIG (Take, Route, Frequency, Duration) Notes Start Date End Date Status Balsalazide Disodium 750 MG 3 capsules Orally Twice a day Active Insulin Pump Eng/Vietnamese R1000 Active Loratadine 10 MG 1 tablet Orally Once a day for 30 day(s) Active Atorvastatin Calcium 20 MG TAKE 1 TABLET BY MOUTH EVERY DAY FOR 90 DAYS Active Calcium 500 MG 1 tablet with meals Orally Twice a day for 30 day(s) Active Cyclobenzaprine HCl 10 MG as directed Or ally twice a day for 10 days 09/12/2019 Not-Taking Senior Multivitamin Plus as directed Orally Active Fluticasone Propionate 50 MCG/ACT INSTILL 1 SPRAY IN EACH NOSTRIL ONCE DAILY for 90 Not-Taking Tylenol 8 Hour 650 MG 2 tablets as neede d Orally every 8 hrs Active Triamcinolone Acetonide 0.1 % 1 application Externally Once a day for 30 days 04/09/2021 Active Fish Oil 500 MG 1 capsule Orally Onc e a day Active Diprolene AF 0.05 % 1 application to affected area Externally Once a day for 30 days 06/14/2013 Active Aspirin 81 MG 1 tablet Orally Once a day for 30 day(s) Active Doxycycline Hyclate 100 MG 1 capsule Ora lly Twice a day for 10 day(s) 02/02/2023 Active Vitamin C 500 MG 1 tablet Orally ever y 2 days Active Ketoconazole 2 % 1 application to affected area Externally Once a day Active Magnesium 400 MG 1 capsule with a alex l Orally every other day Active IMMUNIZATIONS Vaccine Route Administration Date Status Comme nts Flu Vaccine IM Intramuscular 12/17/2010 Administered Flu Vaccine Unknown 12/26/2010 Administered Shingles IM Intramuscular 07/14/2011 Administered Flu Vaccine IM Intramuscular 01/13/2012 Administered Flu Vaccine IM Intramuscular 01/11/2013 Administered Prevnar 13 IM Intramuscular 01/11/2013 Administered PPSV23 (Pnemovax) Unknown 08/15/2006 Administered zzz Unknown 01/11/2013 Administered Fluarix Quadrivalent IM Intramuscular 01/09/2014 Administe red Fluarix Quadrivalent IM Intramuscular 01/11/2015 Administe red Fluarix Quadrivalent IM Intramuscular 02/04/2016 Admindonnye red PPSV23 (Pnemovax) IM Intramuscular 04/01/2016 Administered Fluarix Quadrivalent IM Intramuscular 12/29/2016 Adminhussain red TDaP Unknown 08/05/2011 Administered Fluarix Quadrivalent IM Intramuscular 12/14/2017 Admindonnye red Influenza High Dose IM Intramuscular 01/11/2019 Administer ed Influenza High Dose IM Intramuscular 12/09/2019 Administer ed Covid Vaccine Unknown 05/10/2020 Administered SARS-COV-2 Pfizer Unknown 05/31/2020 Administered Influenza High Dose IM Intramuscular 01/11/2021 Administer ed SARS-COV-2 Pfizer Unknown 12/31/2020 Administered Influenza High Dose IM Intramuscular 01/14/2022 Administer ed Influenza High Dose IM Intramuscular 02/02/2023 Administer ed Flu Vaccine Unknown 01/09/2014 Pending SOCIAL HISTORY Tobacco Use: Social History Observation Description Date Details (start date - stop date) Never Smoker NA - NA Sex Assigned At : Social History Observation Description Sex Assigned At Unknown Tobacco Use/Smoking Question Answer Notes Patient is a nonsmoker Additional Findings: Tobacco Non-User Cu rrent non-smoker, currently using no form of tobacco Alcohol Screen Question Answer Notes Did you have a drink containing alcohol in the p ast year? 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 [id number] Encounters Encounter Location Date Provider Diagnosis Cliff Menjivar MD [address] [place], [place] [phone] 06/10/2022 Cliff Menjivar Pure hypercholestero lemia E78.00 ; Adult general medical exam Z00.00 ; Type 1 diabetes mellitus without complication E10.9 ; Prostate cancer C61 ; Ductal carcinoma in situ (DCIS) of right breast D05.11 and Depression screen Z13.31 Cliff Menjivar MD [address] [place] [id number] 06/05/2022 Cliff Menjivar Blood tests for rout ine general physical examination Z00.00 ; Type 1 diabetes mellitus without complication E10.9 and Pure hypercholesterolemia E78.00 Cliff Menjivar MD [address] [place] [id number] 12/12/2022 Cliff Menjivar Type 1 diabetes blade itus without complication E10.9 and Pure hypercholesterolemia E78.00 Cliff Menjivar MD [address] [place] [id number] 02/02/2023 Cliff Menjivar Encounter for immuni zation Z23 Cliff Menjivar MD [address] [place] [id number] 12/19/2022 Cliff Menjivar Prostate cancer C61 ; Type 1 diabetes mellitus without complication E10.9 and Ductal carcinoma in situ (DCIS) of right breast D05.11 Cliff Menjivar MD [address] [place] [id number] 02/02/2023 Cliff Menjivar Insect bite (nonveno mous) of abdominal wall, initial encounter S30.861A ASSESSMENTS Encounter Date Diagnosis Assessment Notes Treatment Notes Treatment Clinical Notes 06/10/2022 Pure hypercholestero lemia (ICD-10 - E78.00) doing great, will continue current regiment 06/10/2022 Adult general medica l exam (ICD-10 - Z00.00) labs reviewed and discussed with patient 06/05/2022 Type 1 diabetes blade itus without complication (ICD-10 - E10.9) 06/05/[address] ine general physical examination (ICD-10 - Z00.00) 12/12/2022 Type 1 diabetes blade itus without complication (ICD-10 - E10.9) 12/12/2022 Pure hypercholestero lemia (ICD-10 - E78.00) 02/02/2023 Encounter for immuni zation (ICD-10 - Z23) 12/19/2022 Prostate cancer (ICD -10 - C61) has no evidence of recurrance 12/19/2022 Type 1 diabetes blade itus without complication (ICD-10 - E10.9) very well controlled, will continue current regiment 02/02/2023 Insect bite (nonveno mous) of abdominal wall, initial encounter (ICD-10 - S30.861A) 06/10/2022 Type 1 diabetes blade itus without complication (ICD-10 - E10.9) good a1c, will continue current regiment 06/05/2022 Pure hypercholestero lemia (ICD-10 - E78.00) 12/19/2022 Ductal carcinoma in situ (DCIS) of right breast (ICD-10 - D05.11) follow by surgery 06/10/2022 Prostate cancer (ICD -10 - C61) no sign of recurrence 06/10/2022 Ductal carcinoma in situ (DCIS) of right breast (ICD-10 - D05.11) is going to surgeon 06/10/2022 Depression screen (I CD-10 - Z13.31) negative screen PLAN OF TREATMENT Pending Test Test Name Order Date Electrocardiogram (EKG) 03/12/2015 Electrocardiogram (EKG) 04/24/2017 Electrocardiogram (EKG) 05/13/2018 Electrocardiogram (EKG) 05/19/2019 XR CHEST 2 VIEW PA & LAT 10/16/2020 Future Test Test Name Order Date [facility] BREAST RIGHT ([facility] 018 Next Appt Details Provider Name:Cliff sarabia, 06/08/2023 07:45:00 AM, [address] [place] [address], [place] [id number], [place], [place], [phone], Provider Name:Cliff sarabia, 06/15/2023 01:00:00 PM, [address] [place] [address], [address], [place], [place], [phone], Insurance Providers Payer Name Payer Address Payer Phone Subscriber Number Group Number Insured Name Patient Relationship to Insured Coverage Start Date Coverage End Date [employer] PLAN [employer] [place] [employer] [address] [facility] [place] [phone] [id number] Lit Burnham Self - patient is the insured MEDICAL (GENERAL) HISTORY Medical History History ICD Code diabetes mellitus type I diabetes ulcerative colitis prostate cancer with seed implant 2001 colonoscopy 2009 due in 4 or 5 years; colonoscopy done 07/2015 - due in [address] Li: 07/12/21 colonoscopy done, no further needed. Intertriginous candidiasis
--- NOTE | 2023-02-19 23:57 | PC.NURSE ---
rechecked poc was 82 reported to Quincy Chaudhry
[2023-02-19 23:59] LABS: Glucose, Whole Blood 82 mg/dL (60-115)
[2023-02-20 00:33] LABS: Glucose, Whole Blood 69 mg/dL (60-115)
[2023-02-20 01:13] LABS: Glucose, Whole Blood 68 mg/dL (60-115)
[2023-02-20] MEDS: glucagon HCL 1 MG VIAL IM (01:22)
[2023-02-20 01:58] LABS: Glucose, Whole Blood 101 mg/dL (60-115)
[2023-02-20 02:25] VITALS: BP 131/62; PULSE 97; RESP 17; TEMP 36.7; O2SAT 96
[2023-02-20 02:34] LABS: Glucose, Whole Blood 113 mg/dL (60-115)
[2023-02-20 03:20] LABS: Glucose, Whole Blood 195 mg/dL (60-115)
== END 2023-02-20 03:23 | disposition home or self-care (01) ==
PROVIDERS: Emergency Provider Internal Medicine; PCP Internal Medicine
DX: E11.649 Type 2 diabetes mellitus with hypoglycemia without coma (principal); R42 Dizziness and giddiness; Z79.899 Other long term (current) drug therapy; Z79.4 Long term (current) use of insulin
CPT/HCPCS: 82947; 96372; 99284; J1610

== ENCOUNTER 2023-06-08 10:44 | Outpatient (REF) | payer MEDICARE, SELFPAY ==
[2023-06-08 10:47] LABS: MANUAL DIFF FLAG NO
[2023-06-08 11:42] LABS: Basophils Percent Auto 0.4 % (0-2); Eosinophils Absolute Auto 0.2 X10*3/uL (0.0-0.4); Eosinophils Percent Auto 4.2 % (0-4); Hematocrit 42.4 % (42.0-52.0); Hemoglobin 14.4 g/dl (14.0-18.0); Imm Gran Abs Auto 0.02 X10*3/uL (0.00-0.03); Imm Gran Pct Auto 0.4 % (0.0-0.4); Lymphocytes Absolute Auto 1.4 X10*3/uL (1.2-4.9); Mean Corpuscular Hemoglobin 30.5 pg (27.0-33.0); Mean Corpuscular Volume 89.8 fL (80.0-98.0); Mean Platelet Volume 9.2 fL (9.4-12.4); Monocytes Absolute Auto 0.6 X10*3/uL (0.1-1.2); Monocytes Percent Auto 11.6 % (2-11); Neutrophils Absolute Auto 2.5 x10*3/uL (2.0-8.3); Neutrophils Percent Auto 53.4 % (45-73); Platelet Count 231 X10*3/uL (160-400); Red Blood Count 4.72 X10*6/uL (4.60-5.80); Red Cell Distribution Width 12.9 % (11.0-16.0); White Blood Count 4.7 X10*3/uL (4.8-10.8)
[2023-06-08 11:43] LABS: Appearance Urine Clear; Color Urine Yellow; Glucose Urine UA Negative (Negative); Leukocyte Esterase Urine Negative (Negative); Nitrite Urine Negative (Negative); PH 7.5 (5.0-9.0); Urine Blood Negative (Negative); Urine Ketones Trace mg/dL (Negative); Urine Protein Negative (Neg-Trace)
[2023-06-08 11:47] LABS: Bacteria Urine None Seen (None Seen); Hyaline Casts Urine 0-2 /LPF (0-2); RBC Urine 0-2 /HPF (0-2); Squamous Epithelial Cell Urine 0-2 /HPF (0-2); WBC Urine 0-5 /HPF (0-5)
[2023-06-08 11:49] LABS: Estimated Average Glucose 134 mg/dL; Hemoglobin A1c % 6.3 % (<6.0)
[2023-06-08 11:55] LABS: Alanine Aminotransferase 13 U/L (0-40); Alkaline Phosphatase 76 U/L (39-117); Anion Gap 13 (12-20); Aspartate Amino Transferase 33 U/L (5-37); Blood Urea Nitrogen 12 mg/dL (9-16); Calcium 9.6 mg/dL (8.4-10.2); Carbon Dioxide 28 mmol/L (22-29); Chloride 101 mmol/L (96-108); Cholesterol 156 mg/dL (<200); Estimated Glomerular Filt Rate > 60; Glucose Fasting 170 mg/dL (60-99); HDL Cholesterol 75 mg/dL (>40); LDL Cholesterol Calculated 67 mg/dL (<100); Potassium 4.4 mmol/L (3.3-5.1); Sodium 138 mmol/L (135-145); Total Protein 7.4 g/dL (6.5-8.0); Triglycerides 70 mg/dL (<150)
[2023-06-08 12:11] LABS: PSA,Total (Free>4and<10) < 0.10 ng/mL (0.00-4.00)
[2023-06-08 13:06] LABS: Creatinine Urine 40.87 mg/dL; Microalbumin Urine < 5.0 mg/L
== END 2023-06-08 10:45 | disposition home or self-care (01) ==
LOC: HO.LNP 10:44
PROVIDERS: Visit Provider Internal Medicine
DX: Z00.00 Encounter for general adult medical examination without abnormal findings (principal); E10.9 Type 1 diabetes mellitus without complications; Z12.5 Encounter for screening for malignant neoplasm of prostate
CPT/HCPCS: 80053; 80061; 81001; 82043; 82570; 83036; 84153; 85025

== ENCOUNTER 2023-10-23 09:58 | Outpatient (AMB) | payer MEDICARE, SELFPAY ==
--- NOTE | 2023-10-23 09:59 | A.OFFVIS_ITS ---
Vital Signs 3 10/23/23 10:07 Height 5 ft 8 in Weight 156 lb BMI 23.7 BP 150/72 H Blood Pressure Location Lt brachial Position Sitting Pulse 80 Intake Visit Reasons: Yearly Breast Exam Intake Note: Patient is seen in office for yearly breast examination. Pt c/o: denies any new lump or bumps, did notice a skin lesion on the middle of the chest for the last 3 months, denies any discharge, redness or pain Nurse Practitioner Physicians Assistant Required: No Accompanied by: Family/Other Allergies Seasonal Allergies Allergy (Mild, Verified 10/21/22 10:02) Unknown Medication List - Last Reconciled 10/23/23 by Jerry Lama MD ascorbic acid (vitamin C) (Vitamin C) 500 mg PO DAILY aspirin 81 mg PO DAILY atorvastatin 20 mg PO DAILY balsalazide 2,250 mg PO BID blood sugar diagnostic (FreeStyle Lite Strips) As directed fluticasone propionate 50 mcg/actuation 1 spray intranasal DAILY insulin lispro 100 units subcut CONT lisinopril 2.5 mg PO DAILY multivitamin 1 tab PO DAILY omega 5-bla-bcw-fish oil 1,200 (144-216) mg (Fish Oil) 1 cap PO DAILY HPI Comments Details: ?77-year-old male patient, former patient of Dr. Hinojosa, returning for follow- up? breast examination following surgery for ductal carcinoma in situ of the right breast.? Patient was noted to have a right breast lump noted on examination.? Subsequent core biopsy revealed ductal carcinoma in situ.? He underwent a right simple mastectomy and sentinel node biopsy on 02/03/[address] Hinojosa.? Pathology revealed a 4 mm focus of ductal carcinoma in situ.? Two right axillary sentinel nodes were benign. ? Genetic testing performed on 02/01/2018 revealed no deleterious mutations and no variants of uncertain significance.? Since his last visit he reports no new medical problems, no new medications, and no new breast/chest symptoms on either side.? He denies hand/arm swelling.? He is currently on no medications for the breast cancer. Does report a skin tag located in the central portion of his chest but denies any pain or bleeding. [facility] Medical History COVID-19 vaccine series completed Elevated cholesterol Diabetes mellitus Ulcerative colitis Prostate cancer Ductal carcinoma in situ (DCIS) of right breast Surgical History History of penile implant History of prostate surgery (2000) History of appendectomy History of colonoscopy History of right total mastectomy Social History Are you a primary urgent care physician to a significant other at home: No Do you presently have visiting nurse or other home services: No Alcohol intake: current Alcohol intake frequency: does not drink Alcohol type: beer Patient Tobacco Use Status: Never used Tobacco Review of Systems Const All systems reviewed & are unremarkable except as noted in HPI and below Skin/Breast Reports breast skin changes, Denies breast pain, Denies breast mass, Denies change in breast shape, Denies change in pigmentation and Denies nipple discharge Tip/Lymph Denies lymphadenopathy Physical Exam Vital Signs: Last Vital Signs Pulse 80 10/23/23 10:07 BP 150/72 H 10/23/23 10:07 BMI result Body Mass Index 23.7 Const General: cooperative, comfortable, no acute distress and well developed Orientation/consciousness: patient oriented x3 Limitations: no limitations Neck Neck: Yes no lymphadenopathy Chest Other: Well-healed right mastectomy incision with no palpable subcutaneous masses. No enlarged right axillary lymph nodes. No supraclavicular lymphadenopathy. Left breast with no skin changes, nipple discharge, nipple retraction, palpable mass or enlarged lymph nodes. Midsternum area reveals a cutaneous horn measuring approximately 2 mm in diameter and 1 mm above the skin. No ulceration or pigmentation is identified. The lesion may be a keratotic cyst or small squamous cell. Chest/axillae images: 2 1. Mastectomy incision 2. Site of 2 mm ?horn Resp Effort & Inspection: normal respiratory effort, no cough, no stridor and not tachypneic Cardio Jugular venous distension: no JVD GI Inspection: Yes normal to inspection Skin General skin exam: no rashes or lesions noted Neuro General: patient oriented x3 Extrem General: Yes no clubbing, cyanosis or edema Assessment & Plan Assessment & Plan (1) Ductal carcinoma in situ (DCIS) of right breast: Comment: He continues to do well with regard to his history of DCIS of the right breast. Code(s): D05.11 - Intraductal carcinoma in situ of right breast Category: Medical Plan: 77-year-old male patient with a previous history of ductal carcinoma in situ, right breast status post right simple mastectomy. He continues to do well; examination today reveals no evidence of recurrence disease. He should continue self examination and return in1 year for follow-up evaluation. He is welcome to call sooner for any concerns. I offered to excise the cutaneous horn located in the mid chest. He wishes to hold off on any surgical procedure at this time but will call should the lesion increase in size or develop any symptoms including pain, bleeding or discharge. Coding Level of Care Code Est Pt Level 3 (41312) Diagnoses Ductal carcinoma in situ (DCIS) of right breast D05.11
[2023-10-23 10:07] VITALS: BP 150/72; PULSE 80; BMI 23.7
== END 2023-10-23 10:13 | disposition home or self-care (01) ==
PROVIDERS: PCP Internal Medicine; Visit Provider Surgery
DX: Z85.3 Personal history of malignant neoplasm of breast (principal)
CPT/HCPCS: 99213

== ENCOUNTER → 2023-10-23 09:58 | Outpatient (BNVA) | payer MEDICARE, SELFPAY | PROVIDERS: PCP Internal Medicine; Visit Provider Surgery | DX: D05.11 Intraductal carcinoma in situ of right breast (principal); Z90.11 Acquired absence of right breast and nipple | CPT/HCPCS: 99212 ==

== ENCOUNTER 2023-12-26 20:08 | Emergency (ER) | payer MEDICARE, SELFPAY ==
--- NOTE | 2023-12-26 | ECG_ITS ---
Test Reason : SYNCOPEE Blood Pressure : / mmHG Vent. Rate : 078 BPM Atrial Rate : 078 BPM P-R Int : 110 ms QRS Dur : 100 ms QT Int : 402 ms P-R-T Axes : 052 057 050 degrees QTc Int : 458 ms Sinus rhythm with short FL Otherwise normal ECG When compared with ECG of 29-JUL-2011 08:45, No significant change was found Referred By: Generic ED Physician Electronically Signed By:BONITA KUHN
[2023-12-26 20:17] VITALS: BP 164/00; BP 170/71; PULSE 80; PULSE 83; RESP 18; TEMP 36.9; O2SAT 100; O2SAT 98; BMI 24.3
[2023-12-26 20:45] VITALS: BP 152/68; PULSE 91; RESP 16; TEMP 36.3; O2SAT 97
--- NOTE | 2023-12-26 20:46 | MHC.EDTECH ---
Patient was biba from home for a syncope episode ,Vitals taken ,ekg done and was read by Provider ,blood drawn and sent to lab ,blood sugar check ,Patient was hooked up to radiographer cardiac catheterization ,Patient is alert and oriented ,not able to change Patient into hospital attire because Pt have a c caller on ,Pt and daughter at bedside ,,red sock on ,Call hendrickson within Pt reach .
[2023-12-26 20:47] LABS: MANUAL DIFF FLAG NO
[2023-12-26 20:48] LABS: Basophils Percent Auto 0.2 % (0-2); Eosinophils Absolute Auto 0.1 X10*3/uL (0.0-0.4); Eosinophils Percent Auto 1.4 % (0-4); Hematocrit 37.9 % (42.0-52.0); Imm Gran Abs Auto 0.06 X10*3/uL (0.00-0.03); Imm Gran Pct Auto 0.6 % (0.0-0.4); Lymphocytes Absolute Auto 1.3 X10*3/uL (1.2-4.9); Lymphocytes Percent Auto 14.5 % (20-40); Mean Corpuscular HGB Conc 34.3 g/dl (31.0-36.0); Mean Corpuscular Hemoglobin 30.8 pg (27.0-33.0); Mean Corpuscular Volume 89.8 fL (80.0-98.0); Mean Platelet Volume 8.5 fL (9.4-12.4); Monocytes Absolute Auto 1.1 X10*3/uL (0.1-1.2); Neutrophils Absolute Auto 6.6 x10*3/uL (2.0-8.3); Neutrophils Percent Auto 71.3 % (45-73); Platelet Count 205 X10*3/uL (160-400); Red Blood Count 4.22 X10*6/uL (4.60-5.80); Red Cell Distribution Width 13.1 % (11.0-16.0); White Blood Count 9.3 X10*3/uL (4.8-10.8)
[2023-12-26 20:49] VITALS: PULSE 82; O2SAT 98
[2023-12-26 21:02] LABS: Alanine Aminotransferase 14 U/L (0-40); Albumin Level 4.2 g/dL (3.5-5.0); Alkaline Phosphatase 73 U/L (39-117); Anion Gap 11 (12-20); Aspartate Amino Transferase 32 U/L (5-37); Bilirubin Total 0.5 mg/dL (0.0-1.0); Blood Urea Nitrogen 15 mg/dL (9-16); Calcium 8.9 mg/dL (8.4-10.2); Carbon Dioxide 26 mmol/L (22-29); Chloride 105 mmol/L (96-108); Creatinine Clr Calc Pharmacy 66.3; Estimated Glomerular Filt Rate > 60; Glucose Random 114 mg/dL (60-115); Potassium 3.3 mmol/L (3.3-5.1); Sodium 139 mmol/L (135-145); Total Protein 7.2 g/dL (6.5-8.0)
[2023-12-26 21:09] LABS: Glucose, Whole Blood 165 mg/dL (60-115)
[2023-12-26 21:14] LABS: Troponin-I High Sensitivity < 2.7 ng/L (<3.5-35.0)
--- OUTSIDE RECORDS SUMMARY | 2023-12-26 21:17 | XMS_ITS ---
Author Organization Cliff Menjivar MD Address [address] [place] [phone] Care Team Providers Care Deckhand Clam Dredge Name Role Phone Cliff Menjivar Primary Care Provider [phone] ALLERGIES No Known Allergies RESULTS Component Value Reference Range Notes Hemoglobin A1c Reviewed date:12/10/2023 10:00:17 AM Interpretation: Performing Lab: Notes/Report: Value Hemoglobin A1c 6.8 Glucose, finger stick Reviewed date:12/10/2023 09:53:35 AM Interpretation: Performing Lab: Notes/Report: Value 63 REASON FOR VISIT 6 MO F/U MEDICATIONS Medication SIG (Take, Route, Frequency, Duration) Notes Start Date End Date Status Fluticasone Propionate 50 MCG/ACT INSTILL 1 SPRAY IN EACH NOSTRIL ONCE DAILY for 90 Not-Taking Insulin Pump Eng/Jordanian R1000 Active Tylenol 8 Hour 650 MG 2 tablets as neede d Orally every 8 hrs Active Loratadine 10 MG 1 tablet Orally Once a day for 30 day(s) Active Cyclobenzaprine HCl 10 MG as directed Or ally twice a day for 10 days 09/12/2019 Not-Taking Atorvastatin Calcium 20 MG TAKE 1 TABLET BY MOUTH EVERY DAY Active Diprolene AF 0.05 % 1 application to affected area Externally Once a day for 30 days 06/14/2013 Active Fish Oil 500 MG 1 capsule Orally Onc e a day Active Triamcinolone Acetonide 0.1 % 1 application Externally Once a day for 30 days 04/09/2021 Active Fluticasone Propionate 50 MCG/ACT 1 spray in each nostril Nasally Once a day for 30 day(s) 06/15/2023 Active Calcium 500 MG 1 tablet with meals Orally Twice a day for 30 day(s) Active Vitamin C 500 MG 1 tablet Orally ever y 2 days Active Aspirin 81 MG 1 tablet Orally Once a day for 30 day(s) Active Magnesium 400 MG 1 capsule with a alex l Orally every other day Active Ketoconazole 2 % 1 application to affected area Externally Once a day Active Balsalazide Disodium 750 MG 3 capsules Orally Twice a day Active Senior Multivitamin Plus as directed Orally Active PROBLEMS Problem Type ICD Code Onset Dates Problem Status W/U Status Risk SNOMED Code Notes Problem 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 [address] [place], [place] [phone] 12/10/2023 Cliff Menjivar Type 1 diabetes mellitus without complication E10.9 and Edentulous K08.109 ASSESSMENTS Encounter Date Diagnosis Assessment Notes Treatment Notes Treatment Clinical Notes 12/10/2023 Type 1 diabetes mellitus without complication (ICD-10 - E10.9) is a little low today but no reaction. has candy, will continue current regiment and will continue to monitor 12/10/2023 Edentulous (ICD-10 - K08.109) having trouble getting his teeth done by [facility] PLAN OF TREATMENT Medication Medication Name Sig Start Date Stop Date Notes Insulin Pump Eng/Jordanian R1000 Treatment Notes Assessment Notes Type 1 diabetes mellitus without complic ation is a little low today but no reaction. has candy, will continue current regiment and will continue to monitor Edentulous having trouble getti ng his teeth done by [facility] Next Appt Details Follow Up: 6 Months, Reason: com Provider Name:Cliff Israel Loreto sarabia, 06/09/2024 08:00:00 AM, [address], [address], [place], [place], [phone], Provider Name:Cliff sarabia, 06/16/2024 01:00:00 PM, [address], [address], [place], [place], [phone], Progress Notes * Examination Category Sub-Category Detail Notes General Examination GENERAL APPEARANCE: alert, w ell hydrated, in no distress HEAD: normocephalic HEART: no murmurs, rubs, ga llops, regular rate and rhythm LUNGS: no wheezes, rales, r honchi, good air movement, clear to auscultation bilaterally ABDOMEN: soft, nontender, non distended SKIN: good turgor EXTREMITIES: no edema
--- OUTSIDE RECORDS SUMMARY | 2023-12-26 21:17 | XMS_ITS ---
Author Organization Cliff Menjivar MD Address [address] [place] [phone] Care Team Providers Care Intramural Director Name Role Phone Cliff Menjivar Primary Care Provider RESULTS Component Value Reference Range Notes Complete Blood Count Auto Di ff Reviewed date:06/08/2023 12:44:38 PM Interpretation: Performing Lab:[facility], [address] [place] [phone] Notes/Report: White Blood Count 4.7 4.8-10.8 X10*3/uL Red Blood Count 4.72 4.60-5.80 X10*6/uL Hemoglobin 14.4 14.0-18.0 g/dl Hematocrit 42.4 42.0-52.0 % Mean Corpuscular Volume 89.8 80.0-98.0 fL Mean Corpuscular Hemoglobin 30.5 27.0-33.0 pg Mean Corpuscular HGB Conc 34.0 31.0-36.0 g/dl Red Cell Distribution Width 12.9 11.0-16.0 % Platelet Count 231 160-400 X10*3/uL Mean Platelet Volume 9.2 9.4-12.4 fL Neutrophils Percent Auto 53.4 45-73 % Imm Gran Pct Auto 0.4 0.0-0.4 % Lymphocytes Percent Auto 30.0 20-40 % Monocytes Percent Auto 11.6 2-11 % Eosinophils Percent Auto 4.2 0-4 % Basophils Percent Auto 0.4 0-2 % NRBC Pct Auto 0.0 0.0-0.2 /100WBC Neutrophils Absolute Auto 2.5 2.0-8.3 x10*3/u L Imm Gran Abs Auto 0.02 0.00-0.03 X10*3/uL Lymphocytes Absolute Auto 1.4 1.2-4.9 X10*3/u L Monocytes Absolute Auto 0.6 0.1-1.2 X10*3/uL Eosinophils Absolute Auto 0.2 0.0-0.4 X10*3/u L Basophils Absolute Auto 0.0 0.0-0.2 X10*3/uL NRBC Abs Auto 0.000 0.0-0.012 X10*3/uL Comprehensive Cyclone. Panel Fa st Reviewed date:06/08/2023 12:38:56 PM Interpretation: Performing Lab:[facility], [address] [place] [phone] Notes/Report: Sodium 138 135-145 mmol/L Potassium 4.4 3.3-5.1 mmol/L Chloride 101 96-108 mmol/L Carbon Dioxide 28 22-29 mmol/L Anion Gap 13 12-20 Blood Urea Nitrogen 12 9-16 mg/dL Creatinine 0.80 0.5-1.4 mg/dL Estimated Glomerular Filt Rate > 60 NOTE: For -Australian individuals, multiply the result by 1.210. Chronic Kidney Disease: Estimated GFR < 60 mL/min/1.73m2 Severe Kidney Disease: Estimated GFR < 15 mL/min/1.73m2 Glucose Fasting 170 60-99 mg/dL A fasting glucose of 126 mg/dl or greater on more than one occasion is considered diagnostic of diabetes. Calcium 9.6 8.4-10.2 mg/dL Bilirubin Total 1.0 0.0-1.0 mg/dL Aspartate Amino Transferase 33 5-37 U/L Alanine Aminotransferase 13 0-40 U/L Total Protein 7.4 6.5-8.0 g/dL Albumin Level 4.0 3.5-5.0 g/dL Alkaline Phosphatase 76 39-117 U/L Lipid Panel Reviewed date:06/08/2023 12:30:15 PM Interpretation: Performing Lab:[address] [phone] Notes/Report: Triglycerides 70 <150 mg/dL Desirable Triglyceride: less than 150 mg/dL Borderline High Triglyceride 150-199 mg/dL High Triglyceride: 200-499 mg/dL Very High Triglyceride: greater than or equal to 5OO mg/dL Cholesterol 156 <200 mg/dL Desirable Cholesterol: less than 200 mg/dL Borderline High Cholesterol: 200-239 mg/dL High Cholesterol: greater than 239 mg/dL LDL Cholesterol Calculated 67 <100 mg/dL Desirable LDL: less than 100 mg/dL Near Optimal/Above Optimal LDL: 110-129 mg/dL Borderline High LDL: 130-159 mg/dL High LDL: 160-189 mg/dL Very High LDL: greater than or equal to 190 mg/dL HDL Cholesterol 75 >40 mg/dL Desirable HDL: greater than 40 mg/dL Note: This HDL assay may give artificially low results in patients with liver disease. PSA,Total (Free>4and<10) Reviewed date:06/08/2023 12:31:46 PM Interpretation: Performing Lab:[address] [phone] Notes/Report: PSA,Total (Free>4and<10) < 0.10 0.00-4.00 ng/mL [...] Chemiluminescent Microparticle Immunoassay (CMIA) Microalbumin, Random Reviewed date:06/08/2023 01:21:41 PM Interpretation: Performing Lab:[address] [place] [phone] Notes/Report: Creatinine Urine 40.87 Microalbumin Urine < 5.0 Microalbum/Creatinine Ratio Ur TNP <30 ug/mg cr Unable to calculate albumin/creatinine ratio due to low microalbumin or creatinine result. Hemoglobin A1c Reviewed date:06/08/2023 12:31:36 PM Interpretation: Performing Lab:[facility], [address] [place] [phone] Notes/Report: Hemoglobin A1c % 6.3 <6.0 % Hemoglobin A1C Reference Range Adults: 4.8 - 6.0 % Non diabetic: < 6.0 % Goal: < 7.0 % Additional Action Suggested: > 8.0 % Note: Hemoglobin A1c results are invalid for patients with abnormal amounts of HbF. Blood transfusions may impact the HbA1c concentration in the patient sample. Estimated Average Glucose 134 eAG = Estimated average glucose which is %A1C expressed as average glucose, using the formula of the [id number] Average Glucose study (ADAG), Diabetes Care, Vol.31,#8, Nov. 2007 UA ClnCatch+Micro w/rflx Cul t Reviewed date:06/08/2023 12:40:30 PM Interpretation: Performing Lab:[facility], [address] [place] [phone] Notes/Report: Urine, Clean Catch Color Urine Yellow Appearance Urine Clear PH 7.5 5.0-9.0 Glucose Urine UA Negative Negative mg/dL Urine Blood Negative Negative Specific Sullivan - Urine 1.010 1.005-1.025 Urine Protein Negative Neg-Trace mg/dL Urine Ketones Trace Negative mg/dL Nitrite Urine Negative Negative Leukocyte Esterase Urine Negative Negative RBC Urine 0-2 0-2 /HPF WBC Urine 0-5 0-5 /HPF Squamous Epithelial Cell Urine 0-2 0-2 /HPF Bacteria Urine None Seen None Seen Hyaline Casts Urine 0-2 0-2 /LPF REASON FOR VISIT FASTING LABS Encounters Encounter Location Date Provider Diagnosis Cliff Menjivar MD [address] [place] [address] Drive [address] [place], [place] [phone] 06/08/2023 Cliff Menjivar Blood tests for routine general physical examination Z00.00 and Type 1 diabetes mellitus without complication E10.9 ASSESSMENTS Encounter Date Diagnosis Assessment Notes Treatment Notes Treatment Clinical Notes 06/08/2023 Blood tests for routine general physical examination (ICD-10 - Z00.00) 06/08/2023 Type 1 diabetes mellitus without complication (ICD-10 - E10.9) PLAN OF TREATMENT Next Appt Details Provider Name:Cliff sarabia, 06/09/2024 08:00:00 AM, [address] [place] [address], [address], [place], [place], [phone], Provider Name:Cliff sarabia, 06/16/2024 01:00:00 PM, [address] [facility], [address], [place], [place], [phone],
--- OUTSIDE RECORDS SUMMARY | 2023-12-26 21:17 | XMS_ITS ---
Author Organization Cliff Menjivar MD Address [address] [place] [phone] Care Team Providers Care Supervisor Composing Room Name Role Phone Cliff Menjivar Primary Care Provider ALLERGIES No Known Allergies RESULTS Component Value Reference Range Notes Occult Blood, Stool, Guaiac Reviewed date:06/16/2023 09:11:22 AM Interpretation:Negative Performing Lab: Notes/Report: Negative Occult Blood, Stool, Guaiac Neg REASON FOR VISIT ANNUAL EXAM, NO Covid symptoms MEDICATIONS Medication SIG (Take, Route, Frequency, Duration) Notes Start Date End Date Status Triamcinolone Acetonide 0.1 % 1 application Externally Once a day for 30 days 04/09/2021 Active Fish Oil 500 MG 1 capsule Orally Onc e a day Active Cyclobenzaprine HCl 10 MG as directed Or ally twice a day for 10 days 09/12/2019 Not-Taking Fluticasone Propionate 50 MCG/ACT INSTILL 1 SPRAY IN EACH NOSTRIL ONCE DAILY for 90 Not-Taking Diprolene AF 0.05 % 1 application to affected area Externally Once a day for 30 days 06/14/2013 Active Ketoconazole 2 % 1 application to affected area Externally Once a day Active Magnesium 400 MG 1 capsule with a alex l Orally every other day Active Aspirin 81 MG 1 tablet Orally Once a day for 30 day(s) Active Vitamin C 500 MG 1 tablet Orally ever y 2 days Active Tylenol 8 Hour 650 MG 2 tablets as neede d Orally every 8 hrs Active Calcium 500 MG 1 tablet with meals Orally Twice a day for 30 day(s) Active Senior Multivitamin Plus as directed Orally Active Balsalazide Disodium 750 MG 3 capsules Orally Twice a day Active Loratadine 10 MG 1 tablet Orally Once a day for 30 day(s) Active Atorvastatin Calcium 20 MG TAKE 1 TABLET BY MOUTH EVERY DAY Active Insulin Pump Eng/Yoruba R1000 Active Fluticasone Propionate 50 MCG/ACT 1 spray in each nostril Nasally Once a day for 30 day(s) 06/15/2023 Active SOCIAL HISTORY Tobacco Use: Social History Observation [...] W/U Status Risk SNOMED Code Notes Problem Chronic rhinitis (J31.0) Active confirmed [id number] VITAL SIGNS BMI 26.22 kg/m2 06/15/2023 Blood pressure systolic 138 mm Hg 06/15/19 24 Blood pressure diastolic 60 mm Hg 024 Height 65.5 in 06/15/2023 Weight 160 lbs 06/15/2023 weight is up 5 pounds since 02-02-23 Encounters Encounter Location Date Provider Diagnosis Cliff Menjivar MD [address] [place], [place] [phone] 06/15/2023 Cliff Menjivar Ductal carcinoma in situ (DCIS) of right breast D05.11 ; Annual physical exam Z00.00 ; Type 1 diabetes mellitus without complication E10.9 ; Onychomycosis B35.1 ; Chronic rhinitis J31.0 ; Pure hypercholesterolemia E78.00 and Colon cancer screening Z12.11 ASSESSMENTS Encounter Date Diagnosis Assessment Notes Treatment Notes Treatment Clinical Notes 06/15/2023 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 06/15/2023 Annual physical exam (ICD-10 - Z00.00) labs reviewed and discussed with pt 06/15/2023 Type 1 diabetes blade itus without complication (ICD-10 - E10.9) is followed in [place] and doing well, will continue current regiment 06/15/2023 Onychomycosis (ICD-1 0 - B35.1) doing well on meds, will continue 06/15/2023 Chronic rhinitis (IC D-10 - J31.0) patient verbalized understandoing of medication and directions for use 06/15/2023 Pure hypercholestero lemia (ICD-10 - E78.00) stable, will continue current 06/15/2023 Colon cancer screeni ng (ICD-10 - Z12.11) guaiac negative PLAN OF TREATMENT Medication Medication Name Sig Start Date Stop Date Notes Atorvastatin Calcium 20 MG TAKE 1 TABLET BY MOUTH EVERY DAY Insulin Pump Eng/Yoruba R1000 Fluticasone Propionate 50 MCG/ACT 1 spray in each nostril Nasally Once a day for 30 day(s) 06/15/2023 Treatment Notes Assessment Notes 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 no evidence of recurrence Annual physical exam labs reviewed and d iscussed with pt Type 1 diabetes mellitus without complic ation is followed in [place] and doing well, will continue current regiment Onychomycosis doing well on meds, will continue Chronic rhinitis patient verbalized u nderstandoing of medication and directions for use Pure hypercholesterolemia stable, will c ontinue current Colon cancer screening guaiac negative Next Appt Details Follow Up: 6 Months, Reason: Provider Name:Cliff sarabia, 06/09/2024 08:00:00 AM, [address], [address], [place], [place], [phone], Provider Name:Cliff sarabia, 06/16/2024 01:00:00 PM, [address], [address], [place], [place], [phone], Progress Notes * Examination Category Sub-Category Detail Notes General Examination GENERAL APPEARANCE: well dev eloped, well nourished, in no acute distress HEAD: normocephalic, atrau matic EYES: pupils equal, round, reactive to light and accommodation, sclera non-icteric EARS: normal THROAT: clear NECK/THYROID: neck supple, full ra nge of motion, no cervical lymphadenopathy, no bruits HEART: regular rate and rhy thm, S1, S2 normal, no murmurs LUNGS: clear to auscultatio n bilaterally ABDOMEN: soft, nontender, non distended, bowel sounds present, normal, no organomegaly , no masses palpable NEUROLOGIC: nonfocal, motor stre ngth normal upper and lower extremities, sensory exam intact SKIN: warm and dry, no bry picious lesions EXTREMITIES: no clubbing, cyanosi s, or edema MALE GENITOURINARY: uncircumcised, no pe nile lesions or discharge RECTAL EXAM: normal tone, no exte rnal hemorrhoids, no masses palpable, prostate normal, stool guaiac negative ORAL CAVITY: mucosa moist FOOT EXAM: Date: 06/15/2023 normal pinprick . normal pulse. normal light touch. PODIATRIC: normal pinprick, nor mal pulse, normal light touch History and Physical Notes * HPI (History of Present Illness) Category Sub-Category Detail Notes Depression Screening PHQ-9 Little inte rest or pleasure in doing things: Not at all Feeling down, depressed, or hopeless: No t at all Trouble falling or staying asleep, or sl eeping too much: Not at all Feeling tired or having little energy: N ot at all Poor appetite or overeating: Not at all Feeling bad about yourself o r that you are a failure, or have let yourself or your family down: Not at all Trouble concentrating on thi ngs, such as reading the newspaper or watching television: Not at all Moving or speaking so slowly that other people could have noticed; or the opposite, being so fidgety or restless that you have been moving around a lot more than usual: Not at all Thoughts that you would be b tsering off or of hurting yourself in some way: Not at all Total Score: 0 SDOH Questions SDOH Questions In the past year have you been worried about losing housing?: No In the past year have you or any family members you live with been unable to get any of the following when it was really needed? Check all that apply:: None Fall Risk History Have you had any falls with injury in the past year?: No Have you had two or more falls in the st year?: No Communication Needs Communication Needs Does the patient have a hearing impairment: Yes ?If yes, what is the hearing impairment? : Hearing Aids Does the patient have a vision impairmen t?: Yes ?If yes, what is the vision impairment?: Glasses Does the patient have a cognition impair ment?: No
--- OUTSIDE RECORDS SUMMARY | 2023-12-26 21:18 | XMS_ITS ---
Author Organization [facility] Address [address] [place] [phone] Care Team Providers Care Wind Energy Project Manager Name Role Phone Cliff Menjivar MD Primary Care Provider Raul Bhatt [phone] ALLERGIES No Known Allergies REASON FOR VISIT Patient presents today for ulcerative colitis MEDICATIONS Medication SIG (Take, Route, Frequency, Duration) Notes Start Date End Date Status Fish Oil 1200 MG 1 capsule Orally Onc e a day Active Vitamin E 400 UNIT 1 capsule Orally Onc e a day Active HumaLOG 100 UNIT/ML Subcutaneous Active Balsalazide Disodium 750 MG 3 Orally Twice a day for 90 days 07/31/2022 Active Balsalazide Disodium 750 MG TAKE 3 CAPSULES BY MOUTH TWICE A DAY FOR 90 DAYS for 90 Active Calcium Citrate 630mg 1 tablet Orally ev tao other day Active Aspirin 81 MG 1 tablet Orally Once a day Active Simvastatin 20 MG 1 tablet in the even ing Orally Once a day Active Lisinopril 2.5 MG 1 tablet Orally Once a day Not-Taking Vitamin C 500 MG 1 tablet Orally Once a day Active Multi Vitamin/Minerals - 250mcg senior Orally once in am Act armani VITAL SIGNS BMI 24.53 kg/m2 02/05/2023 Blood pressure systolic 00 mm Hg 02/06/20 23 Blood pressure diastolic 00 mm Hg 023 Height 66 in 02/05/2023 Temperature 97.3 degrees Fahrenheit 02/06/20 23 Weight 152 lbs 02/05/2023 Encounters Encounter Location Date Provider Diagnosis [facility] [address] [place] [phone] 02/05/2023 Raul Li Ulcerative colitis K51.90 ASSESSMENTS Encounter Date Diagnosis Assessment Notes Treatment Notes Treatment Clinical Notes 02/05/2023 Ulcerative colitis (ICD-10 - K51.90) Continue the 3 Balsalazide twice a day for the colitis PLAN OF TREATMENT Treatment Notes Assessment Notes Ulcerative colitis Continue the 3 Balsa lazide twice a day for the colitis Next Appt Details Follow Up: 1 Year, Reason: Provider Name:Raul Li , 02/11/2024 11:00:00 AM, [address] [facility], [address], [place], [phone], Progress Notes * Examination Category Sub-Category Detail Notes General Examination GENERAL APPEARANCE: pleasant , well nourished, well developed, in no acute distress HEAD: EYES: sclera non-icteric EARS: NOSE: THROAT: NECK/THYROID: no cervical lymphade nopathy, neck supple HEART: S1, S2 normal CHEST: LUNGS: clear to auscultatio n bilaterally ABDOMEN: normal bowel sounds, no guarding or rigidity, no guarding or rigidity, no masses palpable, soft, nontender, nondistended NEUROLOGIC: alert and oriented SKIN: nonjaundiced, no spi tori angiomata EXTREMITIES: no edema PERIPHERAL PULSES: BACK: BREASTS: MUSCULOSKELETAL: MALE GENITOURINARY: LYMPH NODES: RECTAL EXAM: FEMALE GENITOURINARY: ORAL CAVITY: mucosa moist
--- OUTSIDE RECORDS SUMMARY | 2023-12-26 21:18 | XMS_ITS | Patient Health Record ---
Author Organization Cliff Menjivar MD Address [address] [place] [id number] Care Team Providers Care Training And Quality Manager Name Role Phone Cliff Menjivar Primary Care Provider [phone] ALLERGIES No Known Allergies RESULTS Component Value Reference Range Notes Hemoglobin A1c Reviewed date:12/10/2023 10:00:17 AM Interpretation: Performing Lab: Notes/Report: Value Hemoglobin A1c 6.8 Glucose, Whole Blood Reviewed date:02/20/2023 08:32:27 AM Interpretation: Performing Lab:[facility], [address] [place] [phone] Notes/Report: Glucose, Whole Blood 82 60-115 mg/dL METER # : [id number] Glucose, Whole Blood Reviewed date:02/20/2023 08:32:27 AM Interpretation: Performing Lab:[facility], [address] [place] [phone] Notes/Report: Glucose, Whole Blood 69 60-115 mg/dL METER # : [id number] Glucose, Whole Blood Reviewed date:02/20/2023 08:32:27 AM Interpretation: Performing Lab:[facility], [address] [place] [phone] Notes/Report: Glucose, Whole Blood 68 60-115 mg/dL METER # : [id number] Glucose, Whole Blood Reviewed date:02/20/2023 08:32:27 AM Interpretation: Performing Lab:[facility], [address] [place] [phone] Notes/Report: Glucose, Whole Blood 101 60-115 mg/dL METER # : [id number] Glucose, Whole Blood Reviewed date:02/20/2023 08:32:27 AM Interpretation: Performing Lab:[facility], [address] [place] [phone] Notes/Report: Glucose, Whole Blood 113 60-115 mg/dL METER # : [id number] Glucose, Whole Blood Reviewed date:02/20/2023 08:32:27 AM Interpretation: Performing Lab:[facility], [address] [place] [phone] Notes/Report: Glucose, Whole Blood 195 60-115 mg/dL METER # : [id number] Complete Blood Count Auto Di ff Reviewed date:06/08/2023 12:44:38 PM Interpretation: Performing Lab:[facility], [address] [place] [phone] Notes/Report: White Blood Count 4.7 4.8-10.8 X10*3/uL [...] NRBC Abs Auto 0.000 0.0-0.012 X10*3/uL Comprehensive [place]. Panel Fa st Reviewed date:06/08/2023 12:38:56 PM Interpretation: Performing Lab:[facility], [address] [place] [phone] Notes/Report: Sodium 138 135-145 mmol/L Potassium 4.4 3.3-5.1 mmol/L Chloride 101 96-108 mmol/L Carbon Dioxide 28 22-29 mmol/L Anion Gap 13 12-20 Blood Urea Nitrogen 12 9-16 mg/dL Creatinine 0.80 0.5-1.4 mg/dL Estimated Glomerular Filt Rate > 60 NOTE: For -Mexican individuals, multiply the result by 1.210. Chronic [...] Panel Reviewed date:06/08/2023 12:30:15 PM Interpretation: Performing Lab:[facility], [address] [place] [phone] Notes/Report: Triglycerides 70 <150 mg/dL Desirable Triglyceride: [...] (Free>4and<10) Reviewed date:06/08/2023 12:31:46 PM Interpretation: Performing Lab:[facility], [address] [place] [phone] Notes/Report: PSA,Total (Free>4and<10) < 0.10 0.00-4.00 ng/mL [...] Random Reviewed date:06/08/2023 01:21:41 PM Interpretation: Performing Lab:[facility], [address] [place] [phone] Notes/Report: Creatinine Urine 40.87 Microalbumin Urine < 5.0 Microalbum/Creatinine Ratio Ur TNP <30 ug/mg cr Unable to calculate albumin/creatinine ratio due to low microalbumin or creatinine result. Hemoglobin A1c Reviewed date:06/08/2023 12:31:36 PM Interpretation: Performing Lab:[facility], [address] [place] [phone] Notes/Report: Hemoglobin A1c % 6.3 <6.0 % [...] average glucose, using the formula of the Z2Z-Vuqutmg Average Glucose study (ADAG), Diabetes Care, Vol.31,#8, Nov. 2007 UA ClnCatch+Micro w/rflx Cul t Reviewed date:06/08/2023 12:40:30 PM Interpretation: Performing Lab:[facility], [address] [place] [phone] Notes/Report: Urine, Clean Catch Color Urine Yellow Appearance Urine Clear PH 7.5 5.0-9.0 Glucose Urine UA Negative Negative mg/dL Urine Blood Negative Negative Specific [place] - Urine 1.010 1.005-1.025 Urine Protein Negative Neg-Trace mg/dL Urine Ketones Trace Negative mg/dL Nitrite Urine Negative Negative Leukocyte Esterase Urine Negative Negative RBC Urine 0-2 0-2 /HPF WBC Urine 0-5 0-5 /HPF Squamous Epithelial Cell Urine 0-2 0-2 /HPF Bacteria Urine None Seen None Seen Hyaline Casts Urine 0-2 0-2 /LPF Occult Blood, Stool, Guaiac Reviewed date:06/16/2023 09:11:22 AM Interpretation:Negative Performing Lab: Notes/Report: Negative Occult Blood, Stool, Guaiac Neg Glucose, finger stick Reviewed date:12/10/2023 09:53:35 AM Interpretation: Performing Lab: Notes/Report: Value 63 REASON FOR REFERRAL No Information MEDICATIONS Medication SIG (Take, Route, Frequency, Duration) Notes Start Date End Date Status Balsalazide Disodium 750 MG 3 capsules Orally Twice a day Active Senior Multivitamin Plus as directed Orally Active Atorvastatin Calcium 20 MG TAKE 1 TABLET BY MOUTH EVERY DAY Active Calcium 500 MG 1 tablet with meals Orally Twice a day for 30 day(s) Active Fluticasone Propionate 50 MCG/ACT INSTILL 1 SPRAY IN EACH NOSTRIL ONCE DAILY for 90 Not-Taking Vitamin C 500 MG 1 tablet Orally ever y 2 days Active Diprolene AF 0.05 % 1 application to affected area Externally Once a day for 30 days 06/14/2013 Active Insulin Pump Eng/Turkish R1000 Active Fish Oil 500 MG 1 capsule Orally Onc e a day Active Tylenol 8 Hour 650 MG 2 tablets as neede d Orally every 8 hrs Active Triamcinolone Acetonide 0.1 % 1 application Externally Once a day for 30 days 04/09/2021 Active Loratadine 10 MG 1 tablet Orally Once a day for 30 day(s) Active Fluticasone Propionate 50 MCG/ACT 1 spray in each nostril Nasally Once a day for 30 day(s) 06/15/2023 Active Cyclobenzaprine HCl 10 MG as directed Or ally twice a day for 10 days 09/12/2019 Not-Taking Aspirin 81 MG 1 tablet Orally Once a day for 30 day(s) Active Magnesium 400 MG 1 capsule with a alex l Orally every other day Active Ketoconazole 2 % 1 application to affected area Externally Once a day Active IMMUNIZATIONS Vaccine Route [...] Administe red Fluarix Quadrivalent IM Intramuscular 02/04/2016 Administe red PPSV23 (Pnemovax) IM Intramuscular 04/01/2016 Administered Fluarix Quadrivalent IM Intramuscular 12/29/2016 Administe red TDaP Unknown 08/05/2011 Administered Fluarix Quadrivalent IM Intramuscular 12/14/2017 Administe red Influenza High Dose IM Intramuscular 01/11/2019 [...] Notes Problem Chronic rhinitis (J31.0) Active confirmed 21234388 Problem Prostate cancer (C61) Active confirmed 468030021 Problem Type 1 diabetes mellitus without complication (E10.9) Active confirmed 286003246 Problem Pure hypercholesterolemia (E78.00) Active confirmed 571798299 Problem History of ulcerativ e colitis (Z87.19) Active confirmed 725987409 Problem 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 confirmed 3782678076995813 Problem 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) Active confirmed 2 66376881 VITAL SIGNS Blood pressure diastolic 58 mm Hg 12/10/2023 belkis ght is down 4 pounds since 06-15-23 Height 65.5 in 12/10/2023 weight is down 4 pounds since 06-15-23 Blood pressure systolic 134 mm Hg 12/10/2023 weig ht is down 4 pounds since 06-15-23 Weight 156 lbs 12/10/2023 weight is down 4 pounds since 06-15-23 BMI 25.56 kg/m2 12/10/2023 weight is down 4 pounds since 06-15-23 Encounters Encounter Location Date Provider Diagnosis Cliff Menjivar MD [address] [place], [place] [phone] 06/15/2023 Cliff Menjivar Ductal carcinoma in situ (DCIS) of right breast D05.11 ; Annual physical exam Z00.00 ; Type 1 diabetes mellitus without complication E10.9 ; Onychomycosis B35.1 ; Chronic rhinitis J31.0 ; Pure hypercholesterolemia E78.00 and Colon cancer screening Z12.11 Cliff Menjivar MD [address] [place] [id number] 06/08/2023 Cliff Menjivar Blood tests for routine general physical examination Z00.00 and Type 1 diabetes mellitus without complication E10.9 Cliff Menjivar MD [address] [place] [id number] 02/02/2023 Cliff Menjivar Encounter for immunization Z23 Cliff Menjivar MD [address] [place] [id number] 12/10/2023 Cliff Menjivar Type 1 diabetes mellitus without complication E10.9 and Edentulous K08.109 Cliff Menjivar MD [address] [id number] 02/02/2023 Cliff Menjivar Insect bite (nonvenomous) of abdominal wall, initial encounter S30.861A Cliff Menjivar MD [address] [place] [address] [id number] 02/20/2023 Cliff Menjivar ASSESSMENTS Encounter Date Diagnosis Assessment Notes Treatment Notes Treatment Clinical Notes 06/15/2023 Annual physical exam (ICD-10 - Z00.00) labs reviewed and discussed with pt 06/15/2023 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 06/08/2023 Type 1 diabetes blade itus without complication (ICD-10 - E10.9) 06/08/[address] ine general physical examination (ICD-10 - Z00.00) 02/02/2023 Encounter for immunization (ICD-10 - Z23) 12/10/2023 Type 1 diabetes blade itus without complication (ICD-10 - E10.9) is a little low today but no reaction. has candy, will continue current regiment and will continue to monitor 12/10/2023 Edentulous (ICD-10 - K08.109) having trouble getting his teeth done by [facility] 02/02/2023 Insect bite (nonveno mous) of abdominal wall, initial encounter (ICD-10 - S30.861A) 06/15/2023 Type 1 diabetes blade itus without complication (ICD-10 - E10.9) is followed in [place] and doing well, will continue current regiment 06/15/2023 Onychomycosis (ICD-1 0 - B35.1) doing well on meds, will continue 06/15/2023 Chronic rhinitis (IC D-10 - J31.0) patient verbalized understandoing of medication and directions for use 06/15/2023 Pure hypercholestero lemia (ICD-10 - E78.00) stable, will continue current 06/15/2023 Colon cancer screeni ng (ICD-10 - Z12.11) guaiac negative PLAN OF TREATMENT Pending Test Test Name Order Date Electrocardiogram (EKG) 03/12/2015 Electrocardiogram (EKG) 04/24/2017 Electrocardiogram (EKG) 05/13/2018 Electrocardiogram (EKG) 05/19/2019 XR CHEST 2 VIEW PA & LAT 10/16/2020 Future Test Test Name Order Date [facility] BREAST RIGHT [facility] 018 Next Appt Details Provider Name:Cliff sarabia, 06/09/2024 08:00:00 AM, [address] [place] [address], [address], [place], [place], [phone], Provider Name:Cliff sarabia, 06/16/2024 01:00:00 PM, [address] [place] [address], [address], [place], [place], [phone], Insurance Providers Payer Name Payer Address Payer Phone Subscriber Number Group Number Insured Name Patient Relationship to Insured Coverage Start Date Coverage End Date [employer] PLAN [facility] [address] [facility] [place] [phone] [id number] Lit Burnham Self - patient is the insured MEDICAL (GENERAL) HISTORY Medical History History ICD Code diabetes mellitus type I diabetes ulcerative colitis prostate cancer with seed implant 2000 colonoscopy 2009 due in 4 or 5 years; colonoscopy done 07/2015 - due in [address] Li: 07/12/21 colonoscopy done, no further needed. Intertriginous candidiasis
--- OUTSIDE RECORDS SUMMARY | 2023-12-26 21:18 | XMS_ITS | Patient Health Record ---
Author Organization [facility] Address [address] [place] [id number] Care Team Providers Care Obstetrical Nurse Name Role Phone Cliff Menjivar MD Primary Care Provider Raul Bhatt Unavailable [phone] ALLERGIES No Known Allergies REASON FOR REFERRAL No Information MEDICATIONS Medication SIG (Take, Route, Frequency, Duration) Notes Start Date End Date Status Calcium Citrate 630mg 1 tablet Orally ev tao other day Active Aspirin 81 MG 1 tablet Orally Once a day Active Fish Oil 1200 MG 1 capsule Orally Onc e a day Active Balsalazide Disodium 750 MG TAKE 3 CAPSULE BY MOUTH TWICE A DAY for 90 Active Simvastatin 20 MG 1 tablet in the even ing Orally Once a day Active Vitamin E 400 UNIT 1 capsule Orally Onc e a day Active HumaLOG 100 UNIT/ML Subcutaneous Active Lisinopril 2.5 MG 1 tablet Orally [...] malignant neoplasm of colon (Z12.11) Active confirmed 749712129 Problem 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 90112262 Problem Ulcerative colitis (K51.90) Active confirmed Ulcerative colitis (34800226) Problem Diverticulosis of colon (K57.30) Active confirmed Diverticulosi s of colon (716776957) VITAL SIGNS Temperature 97.3 degrees Fahrenheit 02/05/2023 Blood pressure diastolic 00 mm Hg 02/05/2023 Height 66 in 02/05/2023 Blood pressure systolic 00 mm Hg 02/05/2023 Weight 152 lbs 02/05/2023 BMI 24.53 kg/m2 02/05/2023 Encounters Encounter Location Date Provider Diagnosis [facility] [address] [place] [address] 02/05/2023 Raul iL Ulcerative colitis K51.90 ASSESSMENTS Encounter Date Diagnosis Assessment Notes Treatment Notes Treatment Clinical Notes 02/05/2023 Ulcerative colitis (ICD-10 - K51.90) Continue the 3 Balsalazide twice a day for the colitis PLAN OF TREATMENT Future Test Test Name Order Date COLONOSCOPY 02/21/2015 COLONOSCOPY 10/24/2020 Next Appt Details Provider Name:Raul Li , 02/11/2024 11:00:00 AM, [address], [address], [place], [address], Insurance Providers Payer Name Payer Address Payer Phone Subscriber Number Group Number Insured Name Patient Relationship to Insured Coverage Start Date Coverage End Date [facility] [address] [place] [phone] [id number] BRADLEY SHEPPARD Self - patient is the insured MEDICAL (GENERAL) HISTORY Medical History History ICD Code Colonoscopy 06-05-2009-no acti ve colitis, polyps, dysplasia-just some diverticulosis and internal hemorrhoids Ulcerative colitis-dx'd in the [facility] off the 6-MP in mid-2010 IDDM with insulin pump Prostate cancer treated with radioactive seed implants-2000 Denies MD,CVA,Lung disease,renal disease Hyperlipidemia Colonoscopy 08/2012-no active colitis, [...]
--- OUTSIDE RECORDS SUMMARY | 2023-12-26 21:18 | XMS_ITS ---
Author Organization [facility] Address [address] [place] [address] Care Team Providers Care Popped Corn Oven Attendant Name Role Phone Otto MCCRACKEN, Cliff Primary Care Provider Raul Bhatt [phone] MEDICATIONS Medication SIG (Take, Route, Frequency, Duration) Notes Start Date End Date Status Balsalazide Disodium 750 MG 3 Orally Twi ce a day for 90 days 07/31/2022 Active Encounters Encounter Location Date Provider Diagnosis [facility] [address] [place] [address] 07/31/2022 Raul Li PLAN OF TREATMENT Medication Medication Name Sig Start Date Stop Date Notes Balsalazide Disodium 750 MG 3 Orally Twi ce a day for 90 days 07/31/2022 Next Appt Details Provider Name:Raul Li , 02/11/2024 11:00:00 AM, [address] [facility], [address], [place], [address],
[2023-12-26 21:55] VITALS: BP 159/70; PULSE 86; RESP 17; TEMP 36.7; O2SAT 97
[2023-12-26] MEDS: 0.9 % Sodium Chloride 1,000 ML 999 ML IV (22:02)
[2023-12-26 22:10] LABS: Appearance Urine Clear; Color Urine Yellow; Glucose Urine UA 500 mg/dL (Negative); Leukocyte Esterase Urine Negative (Negative); Nitrite Urine Negative (Negative); PH 6.5 (5.0-9.0); Specific Gravity - Urine 1.015 (1.005-1.025); Urine Blood Negative (Negative); Urine Ketones Negative (Negative); Urine Protein Negative (Neg-Trace)
--- NOTE | 2023-12-26 22:14 | MHC.EDTECH ---
2200 Rounding done ,vitals taken ,blood sugar check ,urine sample collected and sent to lab ,patient was given tuna sandwich and diet oliver zhanna for snack .
--- NOTE | 2023-12-26 22:22 | ED_ITS ---
HPI - General Adult General Chief complaint: Syncope Stated complaint: Hypoglycemia /S/P fall Time Seen by Provider: 12/26/23 21:32 Source: patient, family and EMS Mode of arrival: EMS Limitations: no limitations History of Present Illness ED Provider: Dr. Burris HPI narrative: Patient is a diabetic on an insulin pump. 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 He did not eat enough, then he had an episode where he was weak and went to his knees, family states to me no LOC. His sugar was 26 she gave him fluff, EMS gave glucagon and D10. Patient feeling better at baseline currently. Onset (ago): minute(s) Severity: severe Related Data Home Medications ?Medication ?Instructions ?Recorded ?Confirmed atorvastatin 20 mg tablet 20 mg PO DAILY 03/13/20 10/23/23 balsalazide 750 mg capsule 2,250 mg PO BID 03/13/20 10/23/23 fluticasone propionate 50 1 spray intranasal DAILY 03/13/20 10/23/23 mcg/actuation nasal spray,suspension insulin lispro 100 unit/mL 100 unit subcut CONT 03/13/20 10/23/23 subcutaneous solution lisinopril 2.5 mg tablet 2.5 mg PO DAILY 03/13/20 10/23/23 ascorbic acid (vitamin C) 500 mg 500 mg PO DAILY 12/03/20 10/23/23 tablet (Vitamin C) aspirin 81 mg tablet,delayed 81 mg PO DAILY 12/03/20 10/23/23 release multivitamin 1 tab PO DAILY 12/03/20 10/23/23 omega 5-ojs-eoi-fish oil 1,200 mg 1 cap PO DAILY 12/03/20 10/23/23 (144 mg-216 mg) capsule (Fish Oil) blood sugar diagnostic (FreeStyle #10 ea 10/21/22 10/23/23 Lite Strips) Allergies Allergy/AdvReac Type Severity Reaction Status Date / Time Seasonal Allergies Allergy Mild Unknown Verified 12/26/23 20:18 Review of Systems 2 Review of Systems: Yes all other systems are reviewed and are negative Neurologic: Denies Sensory deficit (Neuro) PMFSH Past Medical History Medical History COVID-19 vaccine series completed Elevated cholesterol Diabetes mellitus Ulcerative colitis Prostate cancer Ductal carcinoma in situ (DCIS) of right breast Surgical History History of penile implant History of prostate surgery (2000) History of appendectomy History of colonoscopy History of right total mastectomy Social History Social History Are you a primary residential caregiver to a significant other at home: No Do you presently have visiting nurse or other home services: No Alcohol intake: current Alcohol intake frequency: does not drink Alcohol type: beer Patient Tobacco Use Status: Never used Tobacco Smoked in Last 30 Days: No Use of substances other than those prescribed or required for medical reasons: No Advance Directives: Yes Advance Directives on File: Yes Advance Directives Date on File: 07/12/21 Physical Exam ED Vital Signs: Vital Signs - 24 hr 12/26/23 20:17 12/26/23 20:45 12/26/23 20:49 Temperature 98.4 F 97.4 F Pulse Rate 83 91 Respiratory Rate 18 16 Blood Pressure 170/71 H 152/68 H Pulse Oximetry 100 97 98 Oxygen Delivery Method Room Air Room Air Room Air 12/26/23 21:55 Temperature 98.1 F Pulse Rate 86 Respiratory Rate 17 Blood Pressure 159/70 H Pulse Oximetry 97 Oxygen Delivery Method Room Air BMI result Body Mass Index 24.3 Const General: healthy appearing Nutritional Appearance: average body habitus Orientation/consciousness: oriented to person and patient oriented x3 Limitations: no limitations HENMT Head: Yes normal to inspection Ears: external ears normal General nose exam: Normal external nose present Mouth: Normal oral and palatal mucosa present and oropharynx normal Throat: Yes posterior oropharynx normal Eyes General: appearance normal, both eyes and all related structures Neck Neck: Yes normal visual inspection Chest Chest palpation & inspection: normal inspection of the chest Resp Auscultation: clear to auscultation bilaterally Cardio Jugular venous distension: no JVD Rate: regular rate Rhythm: regular rhythm Heart sounds: S1 normal heart sound present and S2 normal heart sound present GI Inspection: Yes normal to inspection Palpation (GI): Soft to palpation, nontender and No hepatosplenomegaly present Auscultation: normal bowel sounds General: Yes no CVA tenderness Back/Spine/Pelvis Back: no CVA tenderness Skin General skin exam: no rashes or lesions noted Neuro General: oriented to person and patient oriented x3 Cranial nerves: Yes CN's II-XII intact bilaterally Motor exam (neuro): 5/5 motor strength present throughout Sensory Exam: No Sensory deficit (Neuro) Extrem General: Yes normal to inspection Psych Appearance: grossly normal Course Reevaluation(s) Reevaluation #1: patient is a diabetic on insulin pump, after a very strenuous day physically in which he did not eat enough he had an episode of hypoglycemia with no LOC. Patient being fed, IV hydration will dc home Time: 22:27 Medications Administered Generic Name Dose Route Start Last Admin Trade Name Freq PRN Reason Stop Dose Admin Sodium Chloride 1,000 mls @ 999 mls/hr 12/26/23 22:00 12/26/23 22:02 Ns IV 12/26/23 23:00 999 mls/hr .Q1H1M PASCUAL Administration Medical Decision Making Differential Diagnosis Differential Diagnoses: The differential diagnosis associated with the presentation includes (hypoglycemia, sepsis, UTI, cardiac arrhythmia, dehydration were all considered) Admission/Observation Consideration of admission/observation: Escalation of care including admission/observation considered (upon arrival patient was considered for admission) Lab Data 12/26/23 20:43 12/26/23 20:43 Labs: Lab Results 12/26/23 12/26/23 12/26/23 Range/Units 20:23 20:43 21:59 WBC 9.3 (4.8-10.8) X10*3/uL RBC 4.22 L (4.60-5.80) X10*6/uL Hgb 13.0 L (14.0-18.0) g/dl Hct 37.9 L (42.0-52.0) % MCV 89.8 (80.0-98.0) fL MCH 30.8 (27.0-33.0) pg MCHC 34.3 (31.0-36.0) g/dl RDW 13.1 (11.0-16.0) % Plt Count 205 (160-400) X10*3/uL MPV 8.5 L (9.4-12.4) fL Immature Gran % (Auto) 0.6 H (0.0-0.4) % Neut % (Auto) 71.3 (45-73) % Lymph % (Auto) 14.5 L (20-40) % [place] % (Auto) 12.0 H (2-11) % Eos % (Auto) 1.4 (0-4) % Baso % (Auto) 0.2 (0-2) % Lymph # (Auto) 1.3 (1.2-4.9) X10*3/uL [place] # (Auto) 1.1 (0.1-1.2) X10*3/uL Eos # (Auto) 0.1 (0.0-0.4) X10*3/uL Baso # (Auto) 0.0 (0.0-0.2) X10*3/uL Abs Immat Gran (auto) 0.06 H (0.00-0.03) X10*3/uL Absolute Neuts (auto) 6.6 (2.0-8.3) x10*3/uL Absolute Nucleated RBC 0.000 (0.0-0.012) X10*3/uL Nucleated RBC % (auto) 0.0 (0.0-0.2) /100WBC Sodium 139 (135-145) mmol/L Potassium 3.3 D (3.3-5.1) mmol/L Chloride 105 (96-108) mmol/L Carbon Dioxide 26 (22-29) mmol/L Anion Gap 11 L (12-20) BUN 15 (9-16) mg/dL Creatinine 0.83 (0.5-1.4) mg/dL Estim Creat Clear Calc 66.3 Estimated GFR > 60 POC Glucose 165 H (60-115) mg/dL Random Glucose 114 (60-115) mg/dL Calcium 8.9 D (8.4-10.2) mg/dL Total Bilirubin 0.5 (0.0-1.0) mg/dL AST 32 (5-37) U/L ALT 14 (0-40) U/L Alkaline Phosphatase 73 (39-117) U/L Troponin I High Sens < 2.7 (<3.5-35.0) ng/L Total Protein 7.2 (6.5-8.0) g/dL Albumin 4.2 (3.5-5.0) g/dL Urine Color Yellow Urine Appearance Clear Urine pH 6.5 (5.0-9.0) Ur Specific [place] 1.015 (1.005-1.025) Urine Protein Negative (Neg-Trace) mg/dL Urine Glucose (UA) 500 H (Negative) mg/dL Urine Ketones Negative (Negative) mg/dL Urine Blood Negative (Negative) Urine Nitrite Negative (Negative) Ur Leukocyte Esterase Negative (Negative) Independent Interpretation I performed an independent interpretation of an: EKG (sinus 80, no st or twave changes) Independent Historian Clinical information obtained from an independent historian. History obtained from or confirmed by: Spouse and Other (family) Prescription Management I considered prescription management with: Antibiotic (no evidence of any bacterial infection) Chronic Conditions Patient?s care impacted by: Diabetes Discharge Plan Discharge Clinical Impression: Hypoglycemia Patient Disposition: Still a Patient Prescriptions: No Action multivitamin Tablet 1 tab PO DAILY aspirin [Aspirin Low-Strength] 81 mg Tablet,Delayed Release (Dr/Ec) 81 mg PO DAILY ascorbic acid (vitamin C) [Vitamin C] 500 mg Tablet 500 mg PO DAILY omega 8-ksx-dqt-fish oil [Fish Oil] 1,200 (144-216) mg Capsule 1 cap PO DAILY lisinopril 2.5 mg tablet 2.5 mg PO DAILY atorvastatin 20 mg tablet 20 mg PO DAILY insulin lispro 100 unit/mL solution 100 unit subcut CONT Rx Instructions: via insulin pump-basal rate 0.5 ml/hr balsalazide 750 mg capsule 2,250 mg PO BID fluticasone propionate 50 mcg/actuation spray,suspension 1 spray intranasal DAILY (DME) FreeStyle Lite Strips Strip See Rx Instructions .ROUTE .MEDSUPPLY Qty: 10 Rx Instructions: As directed Print Language: Comoran
[2023-12-26 22:44] LABS: Glucose, Whole Blood 143 mg/dL (60-115)
[2023-12-26 22:44] LABS: Glucose, Whole Blood 119 mg/dL (60-115)
[2023-12-26 23:18] LABS: Glucose, Whole Blood 86 mg/dL (60-115)
[2023-12-26 23:32] VITALS: BP 159/70; PULSE 86; RESP 17; TEMP 36.7; O2SAT 97
== END 2023-12-26 23:32 | disposition home or self-care (01) ==
PROVIDERS: Emergency Provider Emergency Medicine
DX: E11.649 Type 2 diabetes mellitus with hypoglycemia without coma (principal); R55 Syncope and collapse; Z79.4 Long term (current) use of insulin; Z96.41 Presence of insulin pump (external) (internal)
CPT/HCPCS: 36415; 80053; 81003; 82947; 84484; 85025; 93005; 96360; 99284; 99285

== ENCOUNTER 2024-06-09 10:07 | Outpatient (REF) | payer MEDICARE, SELFPAY ==
[2024-06-09 10:15] LABS: MANUAL DIFF FLAG NO
[2024-06-09 11:24] LABS: Basophils Percent Auto 0.4 % (0-2); Eosinophils Absolute Auto 0.2 X10*3/uL (0.0-0.4); Eosinophils Percent Auto 3.3 % (0-4); Hematocrit 41.3 % (42.0-52.0); Hemoglobin 13.7 g/dl (14.0-18.0); Imm Gran Abs Auto 0.02 X10*3/uL (0.00-0.03); Imm Gran Pct Auto 0.4 % (0.0-0.4); Lymphocytes Absolute Auto 1.4 X10*3/uL (1.2-4.9); Lymphocytes Percent Auto 28.7 % (20-40); Mean Corpuscular HGB Conc 33.2 g/dl (31.0-36.0); Mean Corpuscular Hemoglobin 30.6 pg (27.0-33.0); Mean Corpuscular Volume 92.4 fL (80.0-98.0); Mean Platelet Volume 9.2 fL (9.4-12.4); Monocytes Absolute Auto 0.7 X10*3/uL (0.1-1.2); Monocytes Percent Auto 13.7 % (2-11); Neutrophils Absolute Auto 2.6 x10*3/uL (2.0-8.3); Neutrophils Percent Auto 53.5 % (45-73); Platelet Count 254 X10*3/uL (160-400); Red Blood Count 4.47 X10*6/uL (4.60-5.80); Red Cell Distribution Width 13.2 % (11.0-16.0); White Blood Count 4.9 X10*3/uL (4.8-10.8)
[2024-06-09 11:26] LABS: Appearance Urine Clear; Color Urine Yellow; Glucose Urine UA Negative (Negative); Leukocyte Esterase Urine Negative (Negative); Nitrite Urine Negative (Negative); PH 7.5 (5.0-9.0); Urine Blood Negative (Negative); Urine Ketones Negative (Negative); Urine Protein Negative (Neg-Trace)
[2024-06-09 11:34] LABS: Bacteria Urine None Seen (None Seen); Hyaline Casts Urine 0-2 /LPF (0-2); RBC Urine 0-2 /HPF (0-2); Squamous Epithelial Cell Urine 0-2 /HPF (0-2); WBC Urine 0-5 /HPF (0-5)
[2024-06-09 11:35] LABS: Estimated Average Glucose 151 mg/dL; Hemoglobin A1c % 6.9 % (<6.0)
[2024-06-09 11:44] LABS: Alanine Aminotransferase 13 U/L (0-40); Alkaline Phosphatase 82 U/L (39-117); Anion Gap 15 (12-20); Aspartate Amino Transferase 37 U/L (5-37); Bilirubin Total 0.8 mg/dL (0.0-1.0); Blood Urea Nitrogen 12 mg/dL (9-16); Calcium 9.3 mg/dL (8.4-10.2); Carbon Dioxide 27 mmol/L (22-29); Chloride 101 mmol/L (96-108); Cholesterol 156 mg/dL (<200); Estimated Glomerular Filt Rate > 60; Glucose Fasting 207 mg/dL (60-99); HDL Cholesterol 70 mg/dL (>40); LDL Cholesterol Calculated 69 mg/dL (<100); Potassium 4.5 mmol/L (3.3-5.1); Sodium 138 mmol/L (135-145); Total Protein 7.4 g/dL (6.5-8.0); Triglycerides 85 mg/dL (<150)
--- OUTSIDE RECORDS SUMMARY | 2024-06-09 11:51 | XMS_ITS ---
Author Organization Cliff Menjivar MD Address [address] [place] [phone] Care Team Providers Care City Attorney Name Role Phone Cliff Menjivar Primary Care Provider [phone] Results Component Value Reference Range Notes Complete Blood Count Auto Di ff (Not yet reviewed by provider) Interpretation: Performing Lab:[facility], [address] [place] [phone] Notes/Report: White Blood Count 4.9 4.8-10.8 X10*3/uL Red Blood Count 4.47 4.60-5.80 X10*6/uL Hemoglobin 13.7 14.0-18.0 g/dl Hematocrit 41.3 42.0-52.0 % Mean Corpuscular Volume 92.4 80.0-98.0 fL Mean Corpuscular Hemoglobin 30.6 27.0-33.0 pg Mean Corpuscular HGB Conc 33.2 31.0-36.0 g/dl Red Cell Distribution Width 13.2 11.0-16.0 % Platelet Count 254 160-400 X10*3/uL Mean Platelet Volume 9.2 9.4-12.4 fL Neutrophils Percent Auto 53.5 45-73 % Imm Gran Pct Auto 0.4 0.0-0.4 % Lymphocytes Percent Auto 28.7 20-40 % Monocytes Percent Auto 13.7 2-11 % Eosinophils Percent Auto 3.3 0-4 % Basophils Percent Auto 0.4 0-2 % NRBC Pct Auto 0.0 0.0-0.2 /100WBC Neutrophils Absolute Auto 2.6 2.0-8.3 x10*3/u L Imm Gran Abs Auto 0.02 0.00-0.03 X10*3/uL Lymphocytes Absolute Auto 1.4 1.2-4.9 X10*3/u L Monocytes Absolute Auto 0.7 0.1-1.2 X10*3/uL Eosinophils Absolute Auto 0.2 0.0-0.4 X10*3/u L Basophils Absolute Auto 0.0 0.0-0.2 X10*3/uL NRBC Abs Auto 0.000 0.0-0.012 X10*3/uL Comprehensive [place]. Panel Fa st (Not yet reviewed by provider) Interpretation: Performing Lab:[facility], [address] [place] [phone] Notes/Report: Sodium 138 135-145 mmol/L Potassium 4.5 3.3-5.1 mmol/L Chloride 101 96-108 mmol/L Carbon Dioxide 27 22-29 mmol/L Anion Gap 15 12-20 Blood Urea Nitrogen 12 9-16 mg/dL Creatinine 0.86 0.5-1.4 mg/dL Estimated Glomerular Filt Rate > 60 Chronic Kidney Disease: Estimated GFR < 60 mL/min/1.73m2 Severe Kidney Disease: Estimated GFR < 15 mL/min/1.73m2 Glucose Fasting 207 60-99 mg/dL A fasting glucose of 126 mg/dl or greater on more than one occasion is considered diagnostic of diabetes. Calcium 9.3 8.4-10.2 mg/dL Bilirubin Total 0.8 0.0-1.0 mg/dL Aspartate Amino Transferase 37 5-37 U/L Alanine Aminotransferase 13 0-40 U/L Total Protein 7.4 6.5-8.0 g/dL Albumin Level 4.0 3.5-5.0 g/dL Alkaline Phosphatase 82 39-117 U/L Lipid Panel (Not yet reviewe d by provider) Interpretation: Performing Lab:[facility], [address] [place] [phone] Notes/Report: Triglycerides 85 <150 mg/dL Desirable Triglyceride: less than 150 mg/dL Borderline High Triglyceride 150-199 mg/dL High Triglyceride: 200-499 mg/dL Very High Triglyceride: greater than or equal to 5OO mg/dL Cholesterol 156 <200 mg/dL Desirable Cholesterol: less than 200 mg/dL Borderline High Cholesterol: 200-239 mg/dL High Cholesterol: greater than 239 mg/dL LDL Cholesterol Calculated 69 <100 mg/dL Desirable LDL: less than 100 mg/dL Near Optimal/Above Optimal LDL: 110-129 mg/dL Borderline High LDL: 130-159 mg/dL High LDL: 160-189 mg/dL Very High LDL: greater than or equal to 190 mg/dL HDL Cholesterol 70 >40 mg/dL Desirable HDL: greater than 40 mg/dL Note: This HDL assay may give artificially low results in patients with liver disease. Hemoglobin A1c (Not yet revi ewed by provider) Interpretation: Performing Lab:[facility], [address] [place] [phone] Notes/Report: Hemoglobin A1c % 6.9 <6.0 % Hemoglobin A1C Reference Range Adults: 4.8 - 6.0 % Non diabetic: < 6.0 % Goal: < 7.0 % Additional Action Suggested: > 8.0 % Note: Hemoglobin A1c results are invalid for patients with abnormal amounts of HbF. Blood transfusions may impact the HbA1c concentration in the patient sample. Estimated Average Glucose 151 eAG = Estimated average glucose which is %A1C expressed as average glucose, using the formula of the P0P-Usympxe Average Glucose study (ADAG), Diabetes Care, Vol.31,#8, 2007 UA ClnCatch+Micro w/rflx Cul t (Not yet reviewed by provider) Interpretation: Performing Lab:[facility], [address] [place] [phone] Notes/Report: Urine, Clean Catch Color Urine Yellow Appearance Urine Clear PH 7.5 5.0-9.0 Glucose Urine UA Negative Negative mg/dL Urine Blood Negative Negative Specific Zachary - Urine 1.010 1.005-1.025 Urine Protein Negative Neg-Trace mg/dL Urine Ketones Negative Negative mg/dL Nitrite Urine Negative Negative Leukocyte Esterase Urine Negative Negative RBC Urine 0-2 0-2 /HPF WBC Urine 0-5 0-5 /HPF Squamous Epithelial Cell Urine 0-2 0-2 /HPF Bacteria Urine None Seen None Seen Hyaline Casts Urine 0-2 0-2 /LPF REASON FOR VISIT FASTING LABS with micror Encounters Encounter Location Date Provider Diagnosis Cliff Menjivar MD [address] [place] [address] Drive [address] [place], [place] [phone] 06/09/2024 Cliff Menjivar Blood tests for rout ine general physical examination Z00.00 ; Type 1 diabetes mellitus without complication E10.9 and Pure hypercholesterolemia E78.00 Assessments Encounter Date Diagnosis (ICD Code) Assessment Notes Treatment Notes Treatment Clinical Notes Section Notes 06/09/2024 Blood tests for rout ine general physical examination (ICD-10 - Z00.00) 06/09/2024 Type 1 diabetes blade itus without complication (ICD-10 - E10.9) 06/09/2024 Pure hypercholesterolemia (ICD-10 - E78.00) Plan Of Treatment Pending Test Test Name Order Date Complete Blood Count Auto Diff 5 Comprehensive [place]. Panel Fast 5 Lipid Panel 06/09/2024 PSA,Total (Free>4and<10) 06/09/2024 Microalbumin, Random 06/09/2024 Hemoglobin A1c 06/09/2024 UA ClnCatch+Micro w/rflx Cult 06/09/2024 Next Appt Details Provider Name:Cliff Dangelo ier, 06/16/2024 01:00:00 PM, [address], [address], [place], [place], [phone], Progress Notes * Lit SHEPPARD JrDOB: 4 (78 yo M)Acc No.[id number]:06/09/2024 Progress Note Patient:?Lit SHEPPARD Jr Provider:?Cliff Menjivar MD :1945???Age:78 Y???Sex:Male Jim e:06/09/2024 Address: [facility] Subjective: * Chief Complaints: * ???1. FASTING LABS with micr or. * Medical History:? Objective: * Vitals:? Assessment: * Assessment: 1.?Blood tests for routine g eneral physical examination - Z00.00 (Primary)???2.?Type 1 diabetes mellitus without complication - E10.9???3.?Pure hypercholesterolemia - E78.00??? Plan: * Treatment: 2.?Type 1 diabetes mellitus without complication?LAB: Complete Blood Count Auto Diff (Collection Date & Time - 06/09/2024 08:00 AM) ?LAB: Comprehensive [place]. Panel Fast (Collection Date & Time - 06/09/2024 08:00 AM) ?LAB: Lipid Panel (Collection Date & Time - 06/09/2024 08:00 AM) ?LAB: PSA,Total (Free>4and<10) ?LAB: Microalbumin, Random ?LAB: Hemoglobin A1c (Collection Date & Time - 06/09/2024 08:00 AM) ?LAB: UA ClnCatch+Micro w/rflx Cult (Collection Date & Time - 06/09/2024 08:00 AM) 3.?Pure hypercholesterolemia ?LAB: Complete Blood Count Auto Diff (Collection Date & Time - 06/09/2024 08:00 AM) ?LAB: Comprehensive [place]. Panel Fast (Collection Date & Time - 06/09/2024 08:00 AM) ?LAB: Lipid Panel (Collection Date & Time - 06/09/2024 08:00 AM) ?LAB: PSA,Total (Free>4and<10) ?LAB: Microalbumin, Random ?LAB: Hemoglobin A1c (Collection Date & Time - 06/09/2024 08:00 AM) ?LAB: UA ClnCatch+Micro w/rflx Cult (Collection Date & Time - 06/09/2024 08:00 AM) * Procedure Codes:?59142 VENIP UNCT, ROUTINE* * * The named appointment provid er may or may not be the originator of this progress note, and it is not deemed complete until electronically signed by the appointment provider. Sign off status: Pending * Provider:?Cliff Menjivar MD Date:?0 06/09/2024 Generated for Yelena price/Oneil/Joshitting on:?06/09/2024 11:51 AM EST
--- OUTSIDE RECORDS SUMMARY | 2024-06-09 11:51 | XMS_ITS ---
Author Organization [facility] Address [address] [place] [phone] Care Team Providers Care Marketing Technologist Name Role Phone Otto MCCRACKEN, Cliff Primary Care Provider Raul Bhatt [phone] Allergies No Known Allergies REASON FOR VISIT Patient presents today for ulcerative colitis Medications Medication SIG (Take, Route, Frequency, Duration) Notes [...] senior Orally once in am Act armani Vital Signs Temperature 97.3 degrees Fahrenheit 02/06/20 23 Blood pressure systolic 00 mm Hg 02/06/20 23 Blood pressure diastolic 00 mm Hg 023 Height 66 in 02/05/2023 Weight 152 lbs 02/05/2023 BMI 24.53 kg/m2 02/05/2023 Encounters Encounter Location Date Provider Diagnosis [facility] [address] [place] [phone] 02/05/2023 Raul Li Ulcerative colitis K51.90 Assessments Encounter Date Diagnosis (ICD Code) Assessment Notes Treatment Notes Treatment Clinical Notes Section Notes 02/05/2023 Ulcerative colitis (ICD-10 - K51.90) Continue the 3 Balsalazide twice a day for the colitis Overall, Antoni appears quite well. I did review with him that his ulcerative colitis appears to be in clinical remission based on his current history and most recent colonoscopy from last year. As such, I did advise him certainly continue the balsalazide at the current regimen to hopefully maintain remission. I don't think he'll need any further screening colonoscopies at this point given the results from last year and his age of 77. If things remain well I will plan to see him in one year for a followup office visit. I advised him to certainly call prior to that if he has any problems or questions I can be of assistance with. Antoni was comfortable with this plan. Thank you again for allowing me to participate in Antoni's care. I shall continue to keep you advised of his progress. Plan Of Treatment Treatment Notes Assessment Notes Ulcerative colitis Continue the 3 Balsa lazide twice a day for the colitis Next Appt Details Follow Up: 1 Year, Reason: Provider Name:Raul Li , 09/02/2024 02:20:00 PM, [address] [place] [address], [address], [place], [address], Progress Notes * SILVERBRADLEY TorresDOB:1945 ( 77 yo M)Acc No.[id number]:02/05/2023 Progress Notes Patient:?BRADLEY SHEPPARD Provider:?Raul Li MD :1945???Age:77 Y???Sex:Male Jim e:02/05/2023 Address:[address] [place] [address] [address] [facility] Pcp:Cliff Menjivar MD Subjective: * Chief Complaints: * ???Patient presents today fo r ulcerative colitis * HPI: ???incontinence:? I saw Antoni in followup today in regard to his underlying history of ulcerative colitis. ?I last saw Antoni in July of 2021, at which time he underwent a followup screening colonoscopy. This did not reveal any sign of active colitis nor polyps. Biopsies throughout the colon were all negative for dysplasia. Since that time he has remained on his balsalazide 2.25 g b.i.d.. He has not had any symptoms of active colitis and specifically denies any diarrhea, hematochezia, nor melena. He enjoys a good appetite, without any significant heartburn or dysphagia. He denies abdominal pain, jaundice, nor any unintentional weight loss. ?Laboratories in June revealed a normal CBC, normal chemistries, and normal renal function. Laboratories in December revealed a normal liver profile. * ROS:?General/Constitutional:?Change in appetite?denies.?Chills?denies.?Fatigue?denies.?Ophthalmologic:?Comments?all negative.?ENT:?Comments?all negative.?Respiratory:?hemoptysis?denies.?Cough?denies.?Cardiovascular:?Chest pain?denies.?Orthopnea?denies.?Gastrointestinal:?Comments?See HPI for details.?Genitourinary:?Hematuria?denies.?Dysuria?denies.?Musculoskeletal:?Painful joints?denies.?Weakness?denies.?Skin:?Itching?denies.?Rash?denies.?Neurologic:?Headache?denies.?Seizures?denies.?Psychiatric:?Comments?all negative.? * Medical History:? * Surgical History:?Appendecto my Penile implant, with subsequent removal Cataract surgery Prostatectomy Right breast cancer surgery as above 02/03/2018 * Hospitalization/Major Diagno stic Procedure:? * Family History:?Father: dece ased.?Mother: , diagnosed with HTN (hypertension).?Children: Son has Crohn's disease.? There is no family history of colorectal cancer. * Social History:?Tobacco Use:?Tobacco Use/Smoking?Are you a: nonsmoker.?Drugs/Alcohol:?Alcohol Screen?Points: 1, Interpretation: Negative.?Miscellaneous:?Marital status: . Occupation: Retired. ???Nonsmoker; occasional alcohol. * Medications:?TakingMulti Vit alfaro/Minerals - 250mcg Tablet senior Orally once in amVitamin C 500 MG Tablet Chewable 1 tablet Orally Once a dayAspirin 81 MG Tablet Delayed Release 1 tablet Orally Once a dayCalcium Citrate 630mg 1 tablet Orally every other daySimvastatin 20 MG Tablet 1 tablet in the evening Orally Once a dayFish Oil 1200 MG Capsule 1 capsule Orally Once a dayHumaLOG 100 UNIT/ML Solution Cartridge Subcutaneous Vitamin E 400 UNIT Capsule 1 capsule Orally Once a dayBalsalazide Disodium 750 MG Capsule TAKE 3 CAPSULES BY MOUTH TWICE A DAY FOR 90 DAYS Balsalazide Disodium 750 MG Capsule 3 Orally Twice a dayTaking Multi Vitamin/Minerals - 250mcg Tablet senior Orally once in amTaking Vitamin C 500 MG Tablet Chewable 1 tablet Orally Once a dayTaking Aspirin 81 MG Tablet Delayed Release 1 tablet Orally Once a dayTaking Calcium Citrate 630mg 1 tablet Orally every other dayTaking Simvastatin 20 MG Tablet 1 tablet in the evening Orally Once a dayTaking Fish Oil 1200 MG Capsule 1 capsule Orally Once a dayTaking HumaLOG 100 UNIT/ML Solution Cartridge Subcutaneous Taking Vitamin E 400 UNIT Capsule 1 capsule Orally Once a dayTaking Balsalazide Disodium 750 MG Capsule TAKE 3 CAPSULES BY MOUTH TWICE A DAY FOR 90 DAYS Taking Balsalazide Disodium 750 MG Capsule 3 Orally Twice a dayNot-Taking/PRNLisinopril 2.5 MG Tablet 1 tablet Orally Once a dayNot-Taking/PRN Lisinopril 2.5 MG Tablet 1 tablet Orally Once a day * Allergies:?N.K.D.A.yes[Aller gies Verified] Objective: * Vitals:?Wt: 152 lbs, Ht: 66 in, BMI:24.53 Index, BP: 00/00 mm Hg, Temp: 97.3. * Examination: ???General Examination: ?GENERAL APPEARANCE:?pleasant, well nourished, well developed, in no acute distress.?EYES:?sclera non-icteric.?ORAL CAVITY:?mucosa moist.?NECK/THYROID:?no cervical lymphadenopathy, neck supple.?SKIN:?nonjaundiced, no spider angiomata.?HEART:?S1, S2 normal.?LUNGS:?clear to auscultation bilaterally.?ABDOMEN:?normal bowel sounds, no guarding or rigidity, no guarding or rigidity, no masses palpable, soft, nontender, nondistended.?EXTREMITIES:?no edema.?NEUROLOGIC:?alert and oriented.? Assessment: * Assessment: 1.?Ulcerative colitis - K51. 90 (Primary)? Overall, Antoni appears quite w ell. I did review with him that his ulcerative colitis appears to be in clinical remission based on his current history and most recent colonoscopy from last year. As such, I did advise him certainly continue the balsalazide at the current regimen to hopefully maintain remission. I don't think he'll need any further screening colonoscopies at this point given the results from last year and his age of 77. If things remain well I will plan to see him in one year for a followup office visit. I advised him to certainly call prior to that if he has any problems or questions I can be of assistance with. Antoni was comfortable with this plan. Thank you again for allowing me to participate in Antoni's care. I shall continue to keep you advised of his progress. Plan: * Treatment: * Procedure Codes:?1036F TOBAC CO [id number] BP SCR NOT PRFRM REC REASON NOS * Follow Up:?1 Year * * Sign off status: Completed true * Provider:?Raul Li MD Date:? 023 Generated for Yelena price/Oneil/Joshitting on:?06/09/2024 11:51 AM EST History and Physical Notes * HPI (History of Present Illness) Category Sub-Category Detail Notes Category Not es incontinence I saw Antoni in followup today in regard to his underlying history of ulcerative colitis. I last saw Antoni in July of 2021, at which time he underwent a followup screening colonoscopy. This did not reveal any sign of active colitis nor polyps. Biopsies throughout the colon were all negative for dysplasia. Since that time he has remained on his balsalazide 2.25 g b.i.d.. He has not had any symptoms of active colitis and specifically denies any diarrhea, hematochezia, nor melena. He enjoys a good appetite, without any significant heartburn or dysphagia. He denies abdominal pain, jaundice, nor any unintentional weight loss. Laboratories in June revealed a normal CBC, normal chemistries, and normal renal function. Laboratories in December revealed a normal liver profile. Examination Category Sub-Category Detail Notes Category Not es General Examination GENERAL APPEARANCE: pleasant , well [...]
--- OUTSIDE RECORDS SUMMARY | 2024-06-09 11:51 | XMS_ITS ---
Author Organization Cliff Menjivar MD Address [address] [place] [phone] Care Team Providers Care Farm Adviser Name Role Phone Cliff Menjivar Primary Care Provider [phone] REASON FOR VISIT HDF Immunizations Vaccine Route Administration Date Status Comme nts Influenza High Dose IM Intramuscular 02/01/2024 Administer ed Encounters Encounter Location Date Provider Diagnosis Cliff Menjivar MD [address] [place] [phone] 02/01/2024 Cliff Menjivar Encounter for immunization Z23 Assessments Encounter Date Diagnosis (ICD Code) Assessment Notes Treatment Notes Treatment Clinical Notes Section Notes 02/01/2024 Encounter for immunization (ICD-10 - Z23) Plan Of Treatment Next Appt Details Provider Name:Cliff sarabia, 06/16/2024 01:00:00 PM, [address] [facility], [address] [facility], [place], [place], [phone], Progress Notes * Lit SHEPPARD JrDOB: 4 (78 yo M)Acc No.[id number]:02/01/2024 Progress Note Patient:Lit Engle Provider:?Cliff Menjivar MD :1945???Age:78 Y???Sex:Male Jim e:02/01/2024 Address:[address] [place], [place] [phone] Subjective: * Chief Complaints: * ???HDF * Medical History:? * Surgical History:? * Hospitalization/Major Diagno stic Procedure:? * Medications:? Objective: Assessment: * Assessment: 1.?Encounter for immunizatio n - Z23 (Primary)? Plan: * Treatment: * Immunizations:? Influenza High Dose : 0.5 mL (Dose No:1) (Route: Intramuscular) given by Julissa Mittal on Left Deltoid * Procedure Codes:?22372 FLU V ACC PRSV FREE INC [id number] ADMN FLU VAC NO FEE SCHED SAME DAY * * Sign off status: Completed true * Provider:?Cliff Menjivar MD Date:?1 Generated for Yelena price/Oneil/eTransmitting on:?06/09/2024 11:51 AM EST
--- OUTSIDE RECORDS SUMMARY | 2024-06-09 11:52 | XMS_ITS | Patient Health Record ---
Author Organization [facility] Address [address] [place] [address] Care Team Providers Care Six Sigma Black Belt Engineer Name Role Phone Cliff Menjivar MD Primary Care Provider Raul Bhatt Unavailable [phone] Allergies No Known Allergies Reason For Referral No Information Medications Medication SIG (Take, Route, Frequency, Duration) [...] 1 tablet Orally Once a day Active Immunizations Vaccine Route Administration Date Status Comme nts Influenza Unknown 01/12/2018 Administered Influenza Unknown 01/05/2020 Administered Problems Problem Type SNOMED Code ICD Code Onset Dates Problem Status W/U Status Risk Notes Problem 716925655 Encounter for screening for malignant neoplasm of colon (Z12.11) Active confirmed Problem 89480330 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 Problem Ulcerative colitis (65044927) Ulcerative colitis (K51.90) Active confirmed Problem Diverticulosis of colon (487457723) Diverticulosis of colon (K57.30) Active confirmed Encounters Encounter Location Date Provider Diagnosis [facility] [address] [place] [address] 02/10/2024 Raul Li Plan Of Treatment Future Test Test Name Order Date COLONOSCOPY 02/21/2015 COLONOSCOPY 10/24/2020 Next Appt Details Provider Name:Raul Li , 09/02/2024 02:20:00 PM, [address], [address], [place], [address], Insurance Providers Payer Name Payer Address Payer Phone Subscriber Number Group Number Insured Name Patient Relationship to Insured Coverage Start Date Coverage End Date [address] [place] [phone] [id number] BRADLEY SHEPPARD Self - patient is the insured Medical (General) History Medical History History ICD Code Colonoscopy 06-05-2009-no acti ve colitis, polyps, dysplasia-just some diverticulosis and internal hemorrhoids Ulcerative colitis-dx'd in the 1969's-ca me off the 6-MP in mid-2010 IDDM with insulin pump Prostate cancer treated with radioactive seed implants-2000 Denies IA,CVA,Lung disease,renal disease Hyperlipidemia Colonoscopy 08/2012-no active colitis, [...]
--- OUTSIDE RECORDS SUMMARY | 2024-06-09 11:52 | XMS_ITS ---
Author Organization [facility] Address [address] [place] [address] Care Team Providers Care Emergency Management Consultant Name Role Phone Otto MCCRACKEN, Cliff Primary Care Provider Raul Bhatt [phone] REASON FOR VISIT Patient presents today for ulcerative colitis Encounters Encounter Location Date Provider Diagnosis [facility] [address] [facility] [address] [place] [phone] 02/11/2024 Raul Li Plan Of Treatment Next Appt Details Provider Name:Raul Li , 09/02/2024 02:20:00 PM, [address], [address], [place], [address], Progress Notes * SILVERBRADLEY TorresDOB:1945 ( 78 yo M)Acc No.[id number]:02/11/2024 Progress Notes Patient:?SILVERBRADLEY Torres Provider:?Raul Li MD :1945???Age:78 Y???Sex:Male Jim e:02/11/2024 Address: [id number] Pcp:Cliff Menjivar MD Subjective: * Chief Complaints: * ???1. Patient presents today for ulcerative colitis. * Medical History:? Objective: * Vitals:? Assessment: Plan: * Treatment: * * The named appointment provid er may or may not be the originator of this progress note, and it is not deemed complete until electronically signed by the appointment provider. Sign off status: Pending * Provider:?Raul Li MD Date:? 024 Generated for Yelena price/Oneil/Joshitting on:?06/09/2024 11:51 AM EST
--- OUTSIDE RECORDS SUMMARY | 2024-06-09 11:52 | XMS_ITS ---
Author Organization [facility] Address [address] [place] [phone] Care Team Providers Care Drilling Contractor Name Role Phone Cliff Menjivar MD Primary Care Provider Raul Bhatt [phone] REASON FOR VISIT cancelled tomorrows appt feb 10 at 11 Encounters Encounter Location Date Provider Diagnosis [facility] [address] [facility] [address] [place] [phone] 02/10/2024 Raul Li Plan Of Treatment Next Appt Details Provider Name:Raul Li , 09/02/2024 02:20:00 PM, [address] [facility], [address], [place], [phone], Progress Notes * SILVER, BRADLEYDOB:1945 ( 78 yo M)Acc No.[id number]:02/10/2024 Patient:?SILVERBRADLEY Torres :1945???Age:78 Y???Sex:Male Address: [place] [address] * true * Date:? Generated for Nataliiai albert/Oneil/eTransmitting on:?06/09/2024 11:52 AM EST
--- OUTSIDE RECORDS SUMMARY | 2024-06-09 11:52 | XMS_ITS ---
Author Organization Cliff Menjivar MD Address [address] [place] [phone] Care Team Providers Care Irrigation Supervisor Name Role Phone Cliff Menjivar Primary Care Provider REASON FOR VISIT Quality metrics Encounters Encounter Location Date Provider Diagnosis Cliff Menjivar MD [address] [place] [phone] 05/12/2024 Cliff Menjivar Plan Of Treatment Next Appt Details Provider Name:Cliff Dangelo ier, 06/16/2024 01:00:00 PM, [address], [address] [place] [address], [phone], Progress Notes * Lit SHEPPARD JrDOB: 4 (78 yo M)Acc No.[id number]:05/12/2024 Patient:?Lit SHEPPARD Jr :1945???Age:78 Y???Sex:Male Address:[address] [place] [address] * true * Date:? Generated for Yelena price/Oneil/Joshitting on:?06/09/2024 11:52 AM EST
[2024-06-09 11:55] LABS: PSA,Total (Free>4and<10) < 0.10 ng/mL (0.00-4.00)
[2024-06-09 12:11] LABS: Creatinine Urine 56.32 mg/dL; Microalbumin Urine < 5.0 mg/L
== END 2024-06-09 10:08 | disposition home or self-care (01) ==
LOC: HO.LNP 10:07
PROVIDERS: Visit Provider Internal Medicine
DX: Z00.00 Encounter for general adult medical examination without abnormal findings (principal); E10.9 Type 1 diabetes mellitus without complications; E78.00 Pure hypercholesterolemia, unspecified; Z12.5 Encounter for screening for malignant neoplasm of prostate
CPT/HCPCS: 80053; 80061; 81001; 82043; 82570; 83036; 84153; 85025

== ENCOUNTER 2024-06-20 00:27 | Emergency (ER) | payer MEDICARE, SELFPAY ==
--- NOTE | ~2024-06-20 | CT_ITS ---
CLINICAL HISTORY: fall CT head without contrast Comparison: None Findings: There is no acute intracranial hemorrhage. Ventricles are within normal limits in size. No mass effect or midline shift is present. The wise-white matter differentiation appears normal. There is generalized cerebral atrophy. Hypoattenuation in the deep cerebral white matter is consistent with chronic small vessel ischemic disease. The visualized portions of the orbits, paranasal sinuses, and mastoids are unremarkable. No fractures are identified. IMPRESSION: No acute intracranial abnormality. This document has been electronically signed by: Pascual Dawson MD on 06/20/2024 02:33:35
--- NOTE | 2024-06-20 00:36 | ECG_ITS ---
Test Reason : FALL Blood Pressure : */* mmHG Vent. Rate : 86 BPM Atrial Rate : 86 BPM P-R Int : 166 ms QRS Dur : 94 ms QT Int : 384 ms P-R-T Axes : 74 75 45 degrees QTcB Int : 459 ms Normal sinus rhythm with sinus arrhythmia Normal ECG When compared with ECG of 26-Dec-2023 20:28, AL interval has increased Referred By: Alfreda Jasso Electronically Signed By: Elbert Mills
--- NOTE | 2024-06-20 00:38 | ED.FALL ---
HPI - Fall General Chief Complaint: Fall Stated Complaint: FALL Time Seen by Provider: 06/20/24 00:29 Source: patient and EMS Mode of arrival: EMS Limitations: no limitations History of Present Illness ED Provider: DR. Jasso HPI Narrative: 78-year-old male DM 1 insulin dependence on insulin pump for over 3 years, patient was found on the ground next to his bed by his for unknown time, patient has no recollection how this happened, called 911 on arrival patient was agitated, blood sugar was checked was in the 50s, patient was give by EMS a bolus of D10 to ensure went up to 190, patient was transported to the hospital, patient now returns to his baseline mental status, no confusion, AAO x3, able to provide history but patient do not remember will happen, complain of no headache, pain, no deformity is appreciated. No CP, no dizziness. Patient did not eat much last night before going to bed. Declined using any Anticoagulation therapy. Related Data Home Medications ?Medication ?Instructions ?Recorded ?Confirmed atorvastatin 20 mg tablet 20 mg PO DAILY 03/13/20 10/23/23 balsalazide 750 mg capsule 2,250 mg PO BID 03/13/20 10/23/23 fluticasone propionate 50 1 spray intranasal DAILY 03/13/20 10/23/23 mcg/actuation nasal spray,suspension insulin lispro 100 unit/mL 100 unit subcut CONT 03/13/20 10/23/23 subcutaneous solution lisinopril 2.5 mg tablet 2.5 mg PO DAILY 03/13/20 10/23/23 ascorbic acid (vitamin C) 500 mg 500 mg PO DAILY 12/03/20 10/23/23 tablet (Vitamin C) aspirin 81 mg tablet,delayed 81 mg PO DAILY 12/03/20 10/23/23 release multivitamin 1 tab PO DAILY 12/03/20 10/23/23 omega 1-caa-ptp-fish oil 1,200 mg 1 cap PO DAILY 12/03/20 10/23/23 (144 mg-216 mg) capsule (Fish Oil) blood sugar diagnostic (FreeStyle #10 ea 10/21/22 10/23/23 Lite Strips) Allergies Allergy/AdvReac Type Severity Reaction Status Date / Time Seasonal Allergies Allergy Mild Unknown Verified 06/20/24 00:40 Review of Systems Review of Systems: All other systems are reviewed and are negative Constitutional: Reports as per HPI and Reports no additional constitutional complaints Eyes: Reports as per HPI and Reports no additional eye complaints Reports system reviewed and no additional complaints, except as documented Cardiovascular: Reports as per HPI and Reports no additional cardiovascular complaints Respiratory: Reports as per HPI and Reports no additional respiratory complaints Gastrointestinal: Reports as per HPI and Reports no additional gastrointestinal complaints Genitourinary: Reports no additional female genitourinary complaints Musculoskeletal: Reports no additional musculoskeletal complaints Skin/Breast: Reports system reviewed and no additional complaints, except as docu Psychiatric: Reports no additional psychiatric complaints Endocrine: Reports no additional endocrine complaints Hematologic/Lymphatic: Reports no additional hematologic/lymphatic complaints Allergic/Immunologic: Reports no additional allergic/immunologic complaints Reports system reviewed and no additional complaints, except as documented and Reports Abnormal speech present [facility] Past Medical History Medical History COVID-19 vaccine series completed Elevated cholesterol Diabetes mellitus Ulcerative colitis Prostate cancer Ductal carcinoma in situ (DCIS) of right breast Surgical History History of penile implant History of prostate surgery (2000) History of appendectomy History of colonoscopy History of right total mastectomy Social History Social History Are you a primary career guidance counselor to a significant other at home: No Do you presently have visiting nurse or other home services: No Alcohol intake: current Alcohol intake frequency: does not drink Alcohol type: beer Patient Tobacco Use Status: Never used Tobacco Advance Directives: Yes Advance Directives on File: Yes Advance Directives Date on File: 07/12/21 Physical Exam Vital Signs: Vital Signs: Last Vital Signs Temp 96.9 F 06/20/24 00:39 Pulse 88 06/20/24 02:31 Resp 18 06/20/24 02:31 BP 132/59 L 06/20/24 02:31 Pulse Ox 99 06/20/24 02:31 O2 Del Method Room Air 06/20/24 02:31 BMI result Body Mass Index 24.3 Vital signs have been reviewed and appear to be correct. Blood pressure elevated. Heart rate normal. Respiratory rate normal. Temperature normal. Oxygen saturation normal. Appearance: Alert. Oriented X3. No acute distress. Head: Normal external exam. Normocephalic. Atraumatic. No Perez signs noted. No raccoon eyes noted Eyes: PERRLA. EOMI. Conjunctiva and sclera normal. Eyelids normal. ENT: TM's Normal. Pharynx normal. Uvula midline. Moist mucous membranes. No trismus noted. No drooling noted. No muffled voice noted. Neck: Normal inspection. Neck supple. FROM. No adenopathy. Thyroid Normal. No meningeal signs. No neck mass noted. CVS: Normal heart rate and rhythm. Heart sound normal. No murmurs noted. Pulses normal throughout. Respiratory: No respiratory distress. Painless inspiration. Breath sounds normal. No wheezes/rales/rhonchi noted. Chest nontender. No accessory muscle usage noted or decreased air movement noted. Abdomen: Soft and nontender. Bowel sounds normal in all 4 quadrants. No distention noted. No organomegaly noted. No visible injury noted. Back: No CVA tenderness. Full range of motion noted. Skin: Skin warm and dry. Normal skin color. Normal skin turgor. No rashes/lesions/lacerations noted. Extremities: No lower extremity edema. Extremities exhibit normal range of motion. Extremities nontender. Neuro: Oriented X 3. Cranial nerve exam: II-XII are grossly intact No motor deficit. No sensory deficit. Reflexes normal. NIH Stroke Scale Internal: Initial- Upon Arrival Time: 00:43 Level of Consciousness: Alert Level of Consciousness Questions: Answers both questions correctly Level of Consciousness Commands: Performs both tasks correctly Best Gaze: Normal Visual: No visual loss Facial Palsy: Normal Motor Arm (Right): No drift Motor Arm (Left): No drift Motor Leg (Right): No drift Motor Leg (Left): No drift Limb Ataxia: Absent Sensory: Normal Best Language: No aphasia Dysarthia: Normal Extinction and Inattention: No abnormality Score: 0 Course Reevaluation(s) Reevaluation #1: 78-year-old male with T1 DM on insulin bone found to be hypoglycemic on the ground next to his bed, labs are unremarkable, patient now at his baseline mental status with no confusion or disorientation. Blood workup, head CT is unremarkable. Will discharge with instruction to how to check blood sugar more frequently, And eat snack before bedtime to avoid hypoglycemia. Time: 03:07 Medical Decision Making Differential Diagnosis Differential Diagnoses: The differential diagnosis associated with the presentation includes ( CVA, hypoglycemia, electrolyte derangement, dehydration, severe anemia, intracranial bleed, rhabdomyolysis, extremity injury.) Admission/Observation Consideration of admission/observation: Escalation of care including admission/observation considered Lab Data MDM Lab Attestation statement: I reviewed the patient's lab results. 06/20/24 00:59 06/20/24 00:59 Labs: Lab Results 06/20/24 06/20/24 06/20/24 Range/Units 00:48 00:59 01:57 WBC 7.8 (4.8-10.8) X10*3/uL RBC 4.32 L (4.60-5.80) X10*6/uL Hgb 13.3 L (14.0-18.0) g/dl Hct 38.8 L (42.0-52.0) % MCV 89.8 (80.0-98.0) fL MCH 30.8 (27.0-33.0) pg MCHC 34.3 (31.0-36.0) g/dl RDW 12.8 (11.0-16.0) % Plt Count 203 (160-400) X10*3/uL MPV 8.8 L (9.4-12.4) fL Immature Gran % (Auto) 0.5 H (0.0-0.4) % Neut % (Auto) 72.4 (45-73) % Lymph % (Auto) 14.3 L (20-40) % [place] % (Auto) 11.0 (2-11) % Eos % (Auto) 1.7 (0-4) % Baso % (Auto) 0.1 (0-2) % Lymph # (Auto) 1.1 L (1.2-4.9) X10*3/uL [place] # (Auto) 0.9 (0.1-1.2) X10*3/uL Eos # (Auto) 0.1 (0.0-0.4) X10*3/uL Baso # (Auto) 0.0 (0.0-0.2) X10*3/uL Abs Immat Gran (auto) 0.04 H (0.00-0.03) X10*3/uL Absolute Neuts (auto) 5.7 (2.0-8.3) x10*3/uL Absolute Nucleated RBC 0.000 (0.0-0.012) X10*3/uL Nucleated RBC % (auto) 0.0 (0.0-0.2) /100WBC Sodium 140 (135-145) mmol/L Potassium 3.7 (3.3-5.1) mmol/L Chloride 102 (96-108) mmol/L Carbon Dioxide 26 (22-29) mmol/L Anion Gap 16 (12-20) BUN 17 H (9-16) mg/dL Creatinine 0.76 (0.5-1.4) mg/dL Estim Creat Clear Calc 72.4 Estimated GFR > 60 POC Glucose 186 H 265 H (60-115) mg/dL Random Glucose 185 H (60-115) mg/dL Calcium 9.3 (8.4-10.2) mg/dL Total Bilirubin 0.6 (0.0-1.0) mg/dL Direct Bilirubin 0.3 (0.0-0.5) mg/dL AST 37 (5-37) U/L ALT 8 (0-40) U/L Alkaline Phosphatase 80 (39-117) U/L Total Creatine Kinase 126 (38-174) U/L Troponin I High Sens < 2.7 (<3.5-35.0) ng/L Total Protein 7.4 (6.5-8.0) g/dL Albumin 4.0 (3.5-5.0) g/dL Lipase 25 (8-78) U/L Independent Interpretation I performed an independent interpretation of an: CT Scan ( Head CT: No acute intracranial pathology.) Radiology Impression Discussion of test interpretation with radiology: I have reviewed the radiologist's reading. Discharge Plan Discharge Clinical Impression: Hypoglycemia due to type 1 diabetes mellitus Patient Disposition: Home, Self-Care Instructions: Diabetes Type 1: Management (ED) Prescriptions: No Action multivitamin Tablet 1 tab PO DAILY aspirin [Aspirin Low-Strength] 81 mg Tablet,Delayed Release (Dr/Ec) 81 mg PO DAILY ascorbic acid (vitamin C) [Vitamin C] 500 mg Tablet 500 mg PO DAILY omega 1-osw-dtb-fish oil [Fish Oil] 1,200 (144-216) mg Capsule 1 cap PO DAILY lisinopril 2.5 mg tablet 2.5 mg PO DAILY atorvastatin 20 mg tablet 20 mg PO DAILY insulin lispro 100 unit/mL solution 100 unit subcut CONT Rx Instructions: via insulin pump-basal rate 0.5 ml/hr balsalazide 750 mg capsule 2,250 mg PO BID fluticasone propionate 50 mcg/actuation spray,suspension 1 spray intranasal DAILY (DME) FreeStyle Lite Strips Strip See Rx Instructions .ROUTE .MEDSUPPLY Qty: 10 Rx Instructions: As directed Print Language: Spanish
[2024-06-20 00:39] VITALS: BP 161/68; PULSE 97; RESP 18; TEMP 36.1; O2SAT 100; BMI 24.3
[2024-06-20 00:52] LABS: Glucose, Whole Blood 186 mg/dL (60-115)
[2024-06-20 01:04] LABS: Basophils Percent Auto 0.1 % (0-2); Eosinophils Absolute Auto 0.1 X10*3/uL (0.0-0.4); Eosinophils Percent Auto 1.7 % (0-4); Hematocrit 38.8 % (42.0-52.0); Hemoglobin 13.3 g/dl (14.0-18.0); Imm Gran Abs Auto 0.04 X10*3/uL (0.00-0.03); Imm Gran Pct Auto 0.5 % (0.0-0.4); Lymphocytes Absolute Auto 1.1 X10*3/uL (1.2-4.9); Lymphocytes Percent Auto 14.3 % (20-40); MANUAL DIFF FLAG NO; Mean Corpuscular HGB Conc 34.3 g/dl (31.0-36.0); Mean Corpuscular Hemoglobin 30.8 pg (27.0-33.0); Mean Corpuscular Volume 89.8 fL (80.0-98.0); Mean Platelet Volume 8.8 fL (9.4-12.4); Monocytes Absolute Auto 0.9 X10*3/uL (0.1-1.2); Neutrophils Absolute Auto 5.7 x10*3/uL (2.0-8.3); Neutrophils Percent Auto 72.4 % (45-73); Platelet Count 203 X10*3/uL (160-400); Red Blood Count 4.32 X10*6/uL (4.60-5.80); Red Cell Distribution Width 12.8 % (11.0-16.0); White Blood Count 7.8 X10*3/uL (4.8-10.8)
[2024-06-20 01:25] LABS: Alanine Aminotransferase 8 U/L (0-40); Anion Gap 16 (12-20); Aspartate Amino Transferase 37 U/L (5-37); Bilirubin Direct 0.3 mg/dL (0.0-0.5); Bilirubin Total 0.6 mg/dL (0.0-1.0); Blood Urea Nitrogen 17 mg/dL (9-16); Calcium 9.3 mg/dL (8.4-10.2); Carbon Dioxide 26 mmol/L (22-29); Chloride 102 mmol/L (96-108); Creatinine Clr Calc Pharmacy 72.4; Estimated Glomerular Filt Rate > 60; Glucose Random 185 mg/dL (60-115); Lipase 25 U/L (8-78); Potassium 3.7 mmol/L (3.3-5.1); Sodium 140 mmol/L (135-145); Total Protein 7.4 g/dL (6.5-8.0)
[2024-06-20 01:31] LABS: Troponin-I High Sensitivity < 2.7 ng/L (<3.5-35.0)
[2024-06-20 02:01] LABS: Glucose, Whole Blood 265 mg/dL (60-115)
[2024-06-20 02:06] LABS: Alkaline Phosphatase 80 U/L (39-117)
[2024-06-20 02:31] VITALS: BP 132/59; PULSE 88; RESP 18; O2SAT 99
[2024-06-20 03:36] VITALS: BP 132/59; PULSE 88; RESP 18; TEMP 36.1; O2SAT 99
== END 2024-06-20 03:20 | disposition home or self-care (01) ==
PROVIDERS: Emergency Provider Emergency Medicine; PCP Internal Medicine
DX: E10.649 Type 1 diabetes mellitus with hypoglycemia without coma (principal); R55 Syncope and collapse; I49.8 Other specified cardiac arrhythmias; Z79.4 Long term (current) use of insulin; Z79.899 Other long term (current) drug therapy
CPT/HCPCS: 36415; 70450; 80048; 80076; 82550; 82947; 83690; 84484; 85025; 93005; 99284; 99285

== ENCOUNTER → 2024-06-20 00:36 | Outpatient (BNV) | payer MEDICARE, SELFPAY | PROVIDERS: Emergency Provider Emergency Medicine; PCP Internal Medicine; Visit Provider Internal Medicine Cardiovascular Disease | DX: I49.8 Other specified cardiac arrhythmias (principal) | CPT/HCPCS: 93010 ==

== ENCOUNTER → 2024-06-20 00:37 | Outpatient (BNV) | payer MEDICARE, SELFPAY | PROVIDERS: Emergency Provider Emergency Medicine; PCP Internal Medicine; Visit Provider Radiology Diagnostic Radiology | DX: I67.9 Cerebrovascular disease, unspecified (principal); W19.XXXA Unspecified fall, initial encounter | CPT/HCPCS: 70450 ==

== ENCOUNTER 2024-09-22 01:17 | Inpatient (IN) | payer MEDICARE, SELFPAY ==
[2024-09-22] VITALS (31 sets, daily range): BP systolic 95–145; BP diastolic 34–76; PULSE 73–111; RESP 14–28; TEMP 36.4–37.1; O2SAT 93–99; BMI 20.7; BMI 21.2
--- NOTE | ~2024-09-22 | CT_ITS ---
CLINICAL HISTORY: fall, AMS CT Head WO Contrast COMPARISON: CT/SR - CT HEAD/BRAIN WO IV CON - 06/20/24 01:17 EDT FINDINGS: No acute intracranial hemorrhage. No evidence of acute infarction. Diffuse cortical volume loss. Nonspecific white matter hypodensities, most commonly associated with chronic microangiopathic changes. No mass-effect or midline shift. No hydrocephalus. Visualized orbits are normal. Clear paranasal sinuses. Clear mastoid air cells. No acute fracture. Unremarkable soft tissues. IMPRESSION: No acute intracranial findings. Nonemergent/incidental findings in the report. This document has been electronically signed by: Unruly Bellamy MD on 09/22/2024 04:15:47
--- NOTE | ~2024-09-22 | CT_ITS ---
CLINICAL HISTORY: fall, AMS CT Cervical Spine WO Contrast COMPARISON: None FINDINGS: No acute fracture or malalignment. Degenerative changes in the spine. Soft tissues are normal. Normal variant azygos fissure/lobe noted. IMPRESSION: No acute findings. This document has been electronically signed by: Unruly Bellamy MD on 09/22/2024 04:13:34
--- NOTE | ~2024-09-22 | XR_ITS ---
CLINICAL HISTORY: dka r o pna 1 view chest x-ray. Comparison: None provided. Findings: The lungs are adequately expanded. No focal consolidation. No effusion or pneumothorax. Cardiac and mediastinal contours are within normal limits. No acute osseous abnormality Impression: No focal consolidation or overt edema. This document has been electronically signed by: Anupam Shelton MD on 09/22/2024 05:48:22
--- NOTE | 2024-09-22 01:25 | ECG_ITS ---
Test Reason : HYPERGLYCEMIA Blood Pressure : */* mmHG Vent. Rate : 104 BPM Atrial Rate : 104 BPM P-R Int : 182 ms QRS Dur : 100 ms QT Int : 354 ms P-R-T Axes : 70 93 29 degrees QTcB Int : 465 ms Sinus tachycardia Rightward axis Nonspecific ST abnormality Abnormal ECG When compared with ECG of 20-Jun-2024 00:49, No significant change was found Referred By: Le Menchaca Electronically Signed By: Elbert Mills
[2024-09-22 01:35] LABS: Glucose, Whole Blood > 600 mg/dL (60-115)
[2024-09-22 01:35] LABS: Glucose, Whole Blood > 600 mg/dL (60-115)
[2024-09-22 02:00] LABS: MANUAL DIFF FLAG NO
[2024-09-22 02:01] LABS: Basophils Percent Auto 0.1 % (0-2); Hematocrit 37.3 % (42.0-52.0); Hemoglobin 12.6 g/dl (14.0-18.0); Imm Gran Abs Auto 0.09 X10*3/uL (0.00-0.03); Imm Gran Pct Auto 0.6 % (0.0-0.4); Lymphocytes Absolute Auto 0.8 X10*3/uL (1.2-4.9); Lymphocytes Percent Auto 5.5 % (20-40); Mean Corpuscular HGB Conc 33.8 g/dl (31.0-36.0); Mean Corpuscular Hemoglobin 30.6 pg (27.0-33.0); Mean Corpuscular Volume 90.5 fL (80.0-98.0); Mean Platelet Volume 9.9 fL (9.4-12.4); Monocytes Absolute Auto 0.9 X10*3/uL (0.1-1.2); Monocytes Percent Auto 5.9 % (2-11); Neutrophils Absolute Auto 12.8 x10*3/uL (2.0-8.3); Neutrophils Percent Auto 87.9 % (45-73); Platelet Count 267 X10*3/uL (160-400); Red Blood Count 4.12 X10*6/uL (4.60-5.80); Red Cell Distribution Width 13.2 % (11.0-16.0); White Blood Count 14.5 X10*3/uL (4.8-10.8)
[2024-09-22 02:05] LABS: Venous Blood Gas Refer to POC result
[2024-09-22 02:06] LABS: VBG HCO3 9 mmol/L (22-26); VBG pCO2 22 mmHg; VBG pO2 64 mmHg
[2024-09-22 02:10] LABS: Appearance Urine Clear; Color Urine Yellow; Glucose Urine UA >=1000 mg/dL (Negative); Leukocyte Esterase Urine Negative (Negative); Nitrite Urine Negative (Negative); Specific Gravity - Urine 1.025 (1.005-1.025); UMIC TRIGGER UACC YES; Urine Blood Negative (Negative); Urine Ketones 80 mg/dL (Negative); Urine Protein Negative (Neg-Trace)
[2024-09-22] MEDS: diazePAM 10 MG/2 ML CARTRIDGE 2.5 MG IVPUSH (02:24)
[2024-09-22 02:26] LABS: Bacteria Urine None Seen (None Seen); Hyaline Casts Urine 0-2 /LPF (0-2); RBC Urine 0-2 /HPF (0-2); Squamous Epithelial Cell Urine 0-2 /HPF (0-2); WBC Urine 0-5 /HPF (0-5)
[2024-09-22] MEDS: Insulin Regular, Human 100 UNIT/ML 10 ML VIAL 10 UNIT IVPUSH (02:27)
[2024-09-22] MEDS: Lactated Ringers 1,000 ML 999 ML IV ×2 (02:29)
[2024-09-22 02:31] LABS: Alanine Aminotransferase 14 U/L (0-40); Albumin Level 4.2 g/dL (3.5-5.0); Alkaline Phosphatase 103 U/L (39-117); Anion Gap 37 (12-20); Aspartate Amino Transferase 36 U/L (5-37); Bilirubin Direct 0.3 mg/dL (0.0-0.5); Bilirubin Total 0.6 mg/dL (0.0-1.0); Blood Urea Nitrogen 34 mg/dL (9-16); Calcium 9.4 mg/dL (8.4-10.2); Carbon Dioxide 9 mmol/L (22-29); Chloride 97 mmol/L (96-108); Creatinine Clr Calc Pharmacy 38.7; Estimated Glomerular Filt Rate 48; Ethanol 13 mg/dL; Glucose Random 763 mg/dL (60-115); Magnesium 2.6 mg/dL (1.6-2.6); Potassium 5.5 mmol/L (3.3-5.1); Sodium 137 mmol/L (135-145); Total Protein 7.1 g/dL (6.5-8.0)
[2024-09-22 02:39] LABS: Beta-Hydroxybutyrate 8.35 mmol/L (0.02-0.27)
--- NOTE | 2024-09-22 03:09 | ED.AMS ---
HPI - Altered Mental Status General Chief Complaint: Altered Mental Status Stated Complaint: AMS FALL possible HS high BGL Time Seen by Provider: 09/22/24 01:24 Source: family and EMS Mode of arrival: EMS Limitations: altered mental status History of Present Illness ED Provider: Dr. Le Menchaca HPI narrative: patient comes to the emergency room via ambulance. According to the family, patient has been more confused than usual, had 2 falls back to back today, unclear if patient hit his head or, there was no loss of consciousness. Patient takes aspirin daily, no other blood thinners. According to the patient's , she called because the patient seemed to be more confused than usual. Patient's and his daughter believes that patient may have undiagnosed dementia that has been gradually been getting worse over last few months. However, today was something very acute. When EMS arrived, it was noted that patient's glucose was read as high which means greater than 600. The patient's daughter reports the patient is a type 1 diabetic. Never been in DKA Previously. The patient's daughter reports that the patient uses a pump, however, he has been having trouble using it, trying to figure out what numbers to insert. Patient has had multiple episodes of hypoglycemia over the last few months. Also, the patient's got a letter from the [employer] that dispenses the insulin pump, they informed the patient and his that the pump has not been working properly. This happened over a month ago. Patient is too confused to be able to give any history. Related Data Home Medications ?Medication ?Instructions ?Recorded ?Confirmed atorvastatin 20 mg tablet 20 mg PO DAILY 03/13/20 10/23/23 balsalazide 750 mg capsule 2,250 mg PO BID 03/13/20 10/23/23 fluticasone propionate 50 1 spray intranasal DAILY 03/13/20 10/23/23 mcg/actuation nasal spray,suspension insulin lispro 100 unit/mL 100 unit subcut CONT 03/13/20 10/23/23 subcutaneous solution lisinopril 2.5 mg tablet 2.5 mg PO DAILY 03/13/20 10/23/23 ascorbic acid (vitamin C) 500 mg 500 mg PO DAILY 12/03/20 10/23/23 tablet (Vitamin C) aspirin 81 mg tablet,delayed 81 mg PO DAILY 12/03/20 10/23/23 release multivitamin 1 tab PO DAILY 12/03/20 10/23/23 omega 1-hib-qxm-fish oil 1,200 mg 1 cap PO DAILY 12/03/20 10/23/23 (144 mg-216 mg) capsule (Fish Oil) blood sugar diagnostic (FreeStyle #10 ea 10/21/22 10/23/23 Lite Strips) Allergies Allergy/AdvReac Type Severity Reaction Status Date / Time Seasonal Allergies Allergy Mild Unknown Verified 09/22/24 01:28 Review of Systems Review of Systems: Yes Unobtainable due to mental status [facility] Past Medical History Medical History COVID-19 vaccine series completed Elevated cholesterol Diabetes mellitus Ulcerative colitis Prostate cancer Ductal carcinoma in situ (DCIS) of right breast Surgical History History of penile implant History of prostate surgery (2000) History of appendectomy History of colonoscopy History of right total mastectomy Social History Social History Are you a primary property caretaker to a significant other at home: No Do you presently have visiting nurse or other home services: No Alcohol intake: never Patient Tobacco Use Status: Never used Tobacco Smoked in Last 30 Days: No Use of substances other than those prescribed or required for medical reasons: No Advance Directives: Yes Advance Directives on File: Yes Advance Directives Date on File: 07/12/21 Physical Exam ED Vital Signs: Vital Signs - 24 hr 09/22/24 01:25 09/22/24 01:30 09/22/24 02:32 Temperature 98.4 F 98.8 F Pulse Rate 111 H 106 H Respiratory Rate 25 H 20 Blood Pressure 141/46 H 145/76 H Pulse Oximetry 99 99 Oxygen Delivery Method Room Air Room Air Room Air 09/22/24 02:37 Temperature Pulse Rate Respiratory Rate 25 H Blood Pressure Pulse Oximetry Oxygen Delivery Method BMI result Body Mass Index 20.7 Const Other: Appearance: Alert. Confused, answering questions inappropriately Eyes: Pupils equal, round and reactive to light. ENT: Pharynx normal. Neck: Normal inspection. Neck supple. No lymph nodes noted. No crepitus CVS: Normal heart rate and rhythm. Pulses normal. Normal S1 and S2 Respiratory: no respiratory distress, respiratory rate between 25 and 30, no wheezing, no rales or crackles Abdomen: Soft , does not seem to be tender on palpation, No rigidity. No distention. Skin: Skin warm and dry. Normal skin color. Normal skin turgor. Extremities: No lower extremity edema. No Lacerations. No Rash Neuro: cranial nerves 2-12 grossly intact Psych: a bit anxious, confused Course Course Course Narrative: overall, seems that patient may have progressive dementia, not formally diagnosed yet. Patient has been unable to manage his insulin pump appropriately. Patient has had multiple episodes of hypoglycemia now hyperglycemia. Overall, I do not think the patient is a good candidate for an insulin pump. I asked the patient's nurse to remove the insulin pump in the meantime, patient receiving IV fluids and insulin. All of patient's labs pending. It is very likely that patient is in DKA Medications Administered Generic Name Dose Route Start Last Admin Trade Name Freq PRN Reason Stop Dose Admin Lactated Ringer's 1,000 mls @ 999 mls/hr 09/22/24 01:45 09/22/24 02:29 Lr IV 09/22/24 03:45 999 mls/hr .[id number] PASCUAL Administration Discontinued Medications Generic Name Dose Route Start Last Admin Trade Name Freq PRN Reason Stop Dose Admin Diazepam 2.5 mg 09/22/24 02:16 09/22/24 02:24 Diazepam 10 Mg/2 Ml Cartridge IVPUSH 09/22/24 02:17 2.5 mg STAT STA Administration Insulin Human Regular 10 unit 09/22/24 01:43 09/22/24 02:27 Insulin Regular, Human 100 Unit/Ml 10 Ml Vial IVPUSH 09/22/24 01:44 10 unit ONCE ONE Administration Medical Decision Making Medical Decision Making [facility] Narrative: my interpretation of labs: Patient's white blood cell count 14.5, no obvious source of infection. Patient's blood gases show a pH of 7.2, pCO2 22, bicarb of 9, at the time, sodium is 137, potassium 5.5, creatinine 1.41, glucose 763, anion gap of 37. Patient's LFTs within normal limits, beta hydroxybutyrate 8.35. Patient already received IV fluids, insulin push, now patient will be started on an insulin pump. I discussed the above-metioned with Dr. James from the ICU, patient being admitted my interpretation of head CT: I do not see any obvious abnormality. Ventricle seem to be a bit enlarged, no obvious cervical injuries. Differential Diagnosis Differential Diagnoses: The differential diagnosis associated with the presentation includes ( medication noncompliance due to dementia, DKA) Admission/Observation Consideration of admission/observation: Escalation of care including admission/observation considered Consult Healthcare Provider Management of the patient was discussed with: [facility] Lab Data MDM Lab Attestation statement: I reviewed the patient's lab results. 09/22/24 01:51 09/22/24 01:51 Labs: Lab Results 09/22/24 09/22/24 09/22/24 Range/Units 01:23 01:31 01:51 WBC 14.5 H (4.8-10.8) X10*3/uL RBC 4.12 L (4.60-5.80) X10*6/uL Hgb 12.6 L (14.0-18.0) g/dl Hct 37.3 L (42.0-52.0) % MCV 90.5 (80.0-98.0) fL MCH 30.6 (27.0-33.0) pg MCHC 33.8 (31.0-36.0) g/dl RDW 13.2 (11.0-16.0) % Plt Count 267 D (160-400) X10*3/uL MPV 9.9 (9.4-12.4) fL Immature Gran % (Auto) 0.6 H (0.0-0.4) % Neut % (Auto) 87.9 H (45-73) % Lymph % (Auto) 5.5 L (20-40) % [place] % (Auto) 5.9 (2-11) % Eos % (Auto) 0.0 (0-4) % Baso % (Auto) 0.1 (0-2) % Lymph # (Auto) 0.8 L (1.2-4.9) X10*3/uL [place] # (Auto) 0.9 (0.1-1.2) X10*3/uL Eos # (Auto) 0.0 (0.0-0.4) X10*3/uL Baso # (Auto) 0.0 (0.0-0.2) X10*3/uL Abs Immat Gran (auto) 0.09 H (0.00-0.03) X10*3/uL Absolute Neuts (auto) 12.8 H (2.0-8.3) x10*3/uL Absolute Nucleated RBC 0.000 (0.0-0.012) X10*3/uL Nucleated RBC % (auto) 0.0 (0.0-0.2) /100WBC VBG pH (7.32-7.43) VBG pCO2 mmHg VBG pO2 mmHg VBG HCO3 (22-26) mmol/L VBG O2 Saturation % VBG Base Excess mmol/L Sodium 137 (135-145) mmol/L Potassium 5.5 H D (3.3-5.1) mmol/L Chloride 97 (96-108) mmol/L Carbon Dioxide 9 L* D (22-29) mmol/L Anion Gap 37 H (12-20) BUN 34 H (9-16) mg/dL Creatinine 1.41 H (0.5-1.4) mg/dL Estim Creat Clear Calc 38.7 Estimated GFR 48 POC Glucose > 600 H* > 600 H* (60-115) mg/dL Random Glucose 763 H* (60-115) mg/dL Calcium 9.4 (8.4-10.2) mg/dL Magnesium 2.6 (1.6-2.6) mg/dL Total Bilirubin 0.6 (0.0-1.0) mg/dL Direct Bilirubin 0.3 (0.0-0.5) mg/dL AST 36 (5-37) U/L ALT 14 (0-40) U/L Alkaline Phosphatase 103 (39-117) U/L Total Protein 7.1 (6.5-8.0) g/dL Albumin 4.2 (3.5-5.0) g/dL Beta-Hydroxybutyrate 8.35 H (0.02-0.27) mmol/L Urine Color Urine Appearance Urine pH (5.0-9.0) Ur Specific [place] (1.005-1.025) Urine Protein (Neg-Trace) mg/dL Urine Glucose (UA) (Negative) mg/dL Urine Ketones (Negative) mg/dL Urine Blood (Negative) Urine Nitrite (Negative) Ur Leukocyte Esterase (Negative) Urine RBC (0-2) /HPF Urine WBC (0-5) /HPF Ur Squamous Epith Cells (0-2) /HPF Urine Bacteria (None Seen) Hyaline Casts (0-2) /LPF Ethyl Alcohol mg/dL 09/22/24 09/22/24 09/22/24 Range/Units 01:51 01:51 01:59 WBC (4.8-10.8) X10*3/uL RBC (4.60-5.80) X10*6/uL Hgb (14.0-18.0) g/dl Hct (42.0-52.0) % MCV (80.0-98.0) fL MCH (27.0-33.0) pg MCHC (31.0-36.0) g/dl RDW (11.0-16.0) % Plt Count (160-400) X10*3/uL MPV (9.4-12.4) fL Immature Gran % (Auto) (0.0-0.4) % Neut % (Auto) (45-73) % Lymph % (Auto) (20-40) % [place] % (Auto) (2-11) % Eos % (Auto) (0-4) % Baso % (Auto) (0-2) % Lymph # (Auto) (1.2-4.9) X10*3/uL [place] # (Auto) (0.1-1.2) X10*3/uL Eos # (Auto) (0.0-0.4) X10*3/uL Baso # (Auto) (0.0-0.2) X10*3/uL Abs Immat Gran (auto) (0.00-0.03) X10*3/uL Absolute Neuts (auto) (2.0-8.3) x10*3/uL Absolute Nucleated RBC (0.0-0.012) X10*3/uL Nucleated RBC % (auto) (0.0-0.2) /100WBC VBG pH (7.32-7.43) VBG pCO2 mmHg VBG pO2 mmHg VBG HCO3 (22-26) mmol/L VBG O2 Saturation % VBG Base Excess mmol/L Sodium (135-145) mmol/L Potassium (3.3-5.1) mmol/L Chloride (96-108) mmol/L Carbon Dioxide (22-29) mmol/L Anion Gap (12-20) BUN (9-16) mg/dL Creatinine (0.5-1.4) mg/dL Estim Creat Clear Calc Estimated GFR POC Glucose (60-115) mg/dL Random Glucose (60-115) mg/dL Calcium (8.4-10.2) mg/dL Magnesium (1.6-2.6) mg/dL Total Bilirubin (0.0-1.0) mg/dL Direct Bilirubin (0.0-0.5) mg/dL AST (5-37) U/L ALT (0-40) U/L Alkaline Phosphatase (39-117) U/L Total Protein (6.5-8.0) g/dL Albumin (3.5-5.0) g/dL Beta-Hydroxybutyrate Cancelled (0.02-0.27) mmol/L Urine Color Yellow Urine Appearance Clear Urine pH 5.0 (5.0-9.0) Ur Specific [place] 1.025 (1.005-1.025) Urine Protein Negative (Neg-Trace) mg/dL Urine Glucose (UA) >=1000 H (Negative) mg/dL Urine Ketones 80 (Negative) mg/dL Urine Blood Negative (Negative) Urine Nitrite Negative (Negative) Ur Leukocyte Esterase Negative (Negative) Urine RBC 0-2 (0-2) /HPF Urine WBC 0-5 (0-5) /HPF Ur Squamous Epith Cells 0-2 (0-2) /HPF Urine Bacteria None Seen (None Seen) Hyaline Casts 0-2 (0-2) /LPF Ethyl Alcohol 13 Cancelled mg/dL 09/22/24 Range/Units 02:00 WBC (4.8-10.8) X10*3/uL RBC (4.60-5.80) X10*6/uL Hgb (14.0-18.0) g/dl Hct (42.0-52.0) % MCV (80.0-98.0) fL MCH (27.0-33.0) pg MCHC (31.0-36.0) g/dl RDW (11.0-16.0) % Plt Count (160-400) X10*3/uL MPV (9.4-12.4) fL Immature Gran % (Auto) (0.0-0.4) % Neut % (Auto) (45-73) % Lymph % (Auto) (20-40) % [place] % (Auto) (2-11) % Eos % (Auto) (0-4) % Baso % (Auto) (0-2) % Lymph # (Auto) (1.2-4.9) X10*3/uL [place] # (Auto) (0.1-1.2) X10*3/uL Eos # (Auto) (0.0-0.4) X10*3/uL Baso # (Auto) (0.0-0.2) X10*3/uL Abs Immat Gran (auto) (0.00-0.03) X10*3/uL Absolute Neuts (auto) (2.0-8.3) x10*3/uL Absolute Nucleated RBC (0.0-0.012) X10*3/uL Nucleated RBC % (auto) (0.0-0.2) /100WBC VBG pH 7.20 L* (7.32-7.43) VBG pCO2 22 mmHg VBG pO2 64 mmHg VBG HCO3 9 L (22-26) mmol/L VBG O2 Saturation 84.0 % VBG Base Excess -17.0 mmol/L Sodium (135-145) mmol/L Potassium (3.3-5.1) mmol/L Chloride (96-108) mmol/L Carbon Dioxide (22-29) mmol/L Anion Gap (12-20) BUN (9-16) mg/dL Creatinine (0.5-1.4) mg/dL Estim Creat Clear Calc Estimated GFR POC Glucose (60-115) mg/dL Random Glucose (60-115) mg/dL Calcium (8.4-10.2) mg/dL Magnesium (1.6-2.6) mg/dL Total Bilirubin (0.0-1.0) mg/dL Direct Bilirubin (0.0-0.5) mg/dL AST (5-37) U/L ALT (0-40) U/L Alkaline Phosphatase (39-117) U/L Total Protein (6.5-8.0) g/dL Albumin (3.5-5.0) g/dL Beta-Hydroxybutyrate (0.02-0.27) mmol/L Urine Color Urine Appearance Urine pH (5.0-9.0) Ur Specific [place] (1.005-1.025) Urine Protein (Neg-Trace) mg/dL Urine Glucose (UA) (Negative) mg/dL Urine Ketones (Negative) mg/dL Urine Blood (Negative) Urine Nitrite (Negative) Ur Leukocyte Esterase (Negative) Urine RBC (0-2) /HPF Urine WBC (0-5) /HPF Ur Squamous Epith Cells (0-2) /HPF Urine Bacteria (None Seen) Hyaline Casts (0-2) /LPF Ethyl Alcohol mg/dL Critical Care Time Critical Care Time Critical Care Time: Yes Total Critical Care Time: 90 Attestation: I have personally provided critical care time. Time includes review of lab data, radiology results, discussion with consultants, and monitoring for potential decompensation. Intervention performed as documented. Discharge Plan Discharge Clinical Impression: DKA (diabetic ketoacidosis) Patient Disposition: Admitted As Inpatient Print Language: Arabic
[2024-09-22] MEDS: Insulin Regular/NS 100 UNIT/100 ML PLAST..BAG 7 UNIT IVCONT (03:14)
--- NOTE | 2024-09-22 03:14 | PM.CCHP ---
History of Present Illness Date of Service: 09/22/24 Attending physician on admission: Maninder James Chief Complaint: DKA, Falls ?78-year-old male with underlying history of ulcerative colitis, type 1 diabetes on a pump for which they recently received a letter from [employer] supplier stating the pump maybe mild functioning, prostate cancer, right breast ductal carcinoma in Situ, hyperlipidemia among others.? The patient has had 2 ER visits for hypoglycemia in the past couple of months.? Two the patient came to the ER with increased confusion and 2 falls which were unwitnessed therefore there is unknown if there was head trauma or loss of consciousness.? The patient's called EMS because the patient appeared more confused than usual, glucose level by EMS was greater than 600. ?On arrival the patient was normotensive, somewhat tachycardic at 01:11 unable to provide a history. The workup in the emergency room reveal a white count 14.5, H and H of 12.6 and 37.3 respectively, sodium 137, potassium 5.5, chloride 97, carbon dioxide 9, anion gap 37, BUN 34, creatinine 1.41, glucose 763, beta hydroxybutyrate acid 8.35.? Urinalysis negative.? Venous blood gas pH 7.20, pCO2 22, PO2 64, bicarb 9. ?Head CT and cervical CT of the spine are pending radiology reads.? The patient did receive loading dose of insulin IV and is currently on insulin pump.? 2 L of IV fluids were administered.? The patient will be admitted to the ICU for further care of his DKA. Review of Systems Review of Systems: Yes Unobtainable due to mental status PMFSH Past Medical History Medical History COVID-19 vaccine series completed Elevated cholesterol Diabetes mellitus Ulcerative colitis Prostate cancer Ductal carcinoma in situ (DCIS) of right breast Surgical History Surgical History History of penile implant History of prostate surgery (2000) History of appendectomy History of colonoscopy History of right total mastectomy Social History Social History Household Members: Spouse Housing: House Are you a primary memory care program director to a significant other at home: No Do you presently have visiting nurse or other home services: No Alcohol intake: never Patient Tobacco Use Status: Never used Tobacco Smoked in Last 30 Days: No Use of substances other than those prescribed or required for medical reasons: No Have you been hit, kicked, punched, or otherwise hurt by someone within the past year? If so, by whom?: No Do you feel safe in your current relationship?: Yes Is there a partner from a previous relationship who is making you feel unsafe now?: No Are you made to feel afraid or neglected: No Advance Directives: Yes Advance Directives on File: Yes Advance Directives Date on File: 07/12/21 Do you have a plan to hurt others: No Plan Recently lost weight without trying: No How much weight loss: Not applicable Eating poorly because of decreased appetite: No Nutrition screen score: 0 Nutrition Risks: Dental problems Poor oral hygiene: No Meds Allergies Allergy/AdvReac Type Severity Reaction Status Date / Time Seasonal Allergies Allergy Mild Unknown Verified 09/22/24 01:28 Active Medications: Current Medications Dextrose (Dextrose 50 % 25 Gm/50 Ml Syringe) 25 gm IVPUSH Q30M PRN PRN Reason: BG < 70 Lactated Ringer's (Lr) 1,000 mls @ 999 mls/hr IV .Q1H1M PASCUAL Stop: 09/22/24 03:45 Last Admin: 09/22/24 02:29 Dose: 999 mls/hr Insulin Human Regular (Myxredlin) 100 unit in 100 mls @ 7 mls/hr IVCONT .[id number] PASCUAL; Protocol Lactated Ringer's (Lr) 1,000 mls @ 100 mls/hr IVCONT .Q10H [facility] Home Medications ?Medication ?Instructions ?Recorded ?Confirmed ?Last Taken ?Type atorvastatin 20 mg tablet 20 mg PO DAILY 03/13/20 10/23/23 Unknown History balsalazide 750 mg capsule 2,250 mg PO BID 03/13/20 10/23/23 Unknown History fluticasone propionate 50 1 spray intranasal DAILY 03/13/20 10/23/23 Unknown History mcg/actuation nasal spray,suspension insulin lispro 100 unit/mL 100 unit subcut CONT 03/13/20 10/23/23 Unknown History subcutaneous solution (Humalog U-100 Insulin) lisinopril 2.5 mg tablet 2.5 mg PO DAILY 03/13/20 10/23/23 Unknown History ascorbic acid (vitamin C) 500 mg 500 mg PO DAILY 12/03/20 10/23/23 Unknown History tablet (Vitamin C) aspirin 81 mg tablet,delayed 81 mg PO DAILY 12/03/20 10/23/23 Unknown History release multivitamin 1 tab PO DAILY 12/03/20 10/23/23 Unknown History omega 0-bpn-rto-fish oil 1,200 mg 1 cap PO DAILY 12/03/20 10/23/23 Unknown History (144 mg-216 mg) capsule (Fish Oil) blood sugar diagnostic (FreeStyle #10 ea 10/21/22 10/23/23 Unknown History Lite Strips) Physical Exam Vital Signs: Vital Signs: Last Vital Signs Temp 98.8 F 09/22/24 01:30 Pulse 106 H 09/22/24 02:32 Resp 25 H 09/22/24 02:37 BP 145/76 H 09/22/24 02:32 Pulse Ox 99 09/22/24 02:32 O2 Del Method Room Air 09/22/24 02:32 BMI result Body Mass Index 20.7 Sepsis exam done at 430 am General:? Alert, unable to determine orientation. Skin:?R arm tatto. Thin, Intact, no lesions, edema, erythema, clubbing or cyanosis.? No ulcers. HEENT:? Head is normocephalic, atraumatic, pupils equal. Buccal mucosa is dry Neck is supple without lymphadenopathy. Cardiac:? Clear S1-S2, tachycardic at 102 beats per minute no murmurs rubs or gallops. Pulmonary:? Diminished lung sounds bilaterally with fine coarseness and slight rhonchi at the right lower lobe. No crackles. Abdomen:? Protuberant, positive bowel sounds in all 4 quadrants.? Soft, nontender, no rebound or guarding.? Feng Cath in place with clear urine. Musculoskeletal:? Moving all 4 extremities upon request a major joints, there is no crepitus or tenderness.? The strength is 5/5 bilaterally and throughout all 4 extremities.? There is no leg edema , no calf tenderness , no leg asymmetry.? Gait not assessed at this point. Neurologic:? As above.? No focal deficits noted. Vascular:? 2+ pulses upper and lower extremities distally.? Less than 2nd capillary refill of fingers and toes bilaterally upper and lower extremities Results Labs 09/22/24 01:51 09/22/24 05:19 Labs: Laboratory Results - last 24 hr 09/22/24 09/22/24 09/22/24 01:23 01:31 01:51 MCV 90.5 MCH 30.6 MCHC 33.8 RDW 13.2 Plt Count 267 D MPV 9.9 Immature Gran % (Auto) 0.6 H Neut % (Auto) 87.9 H Lymph % (Auto) 5.5 L [place] % (Auto) 5.9 Eos % (Auto) 0.0 Baso % (Auto) 0.1 Lymph # (Auto) 0.8 L [place] # (Auto) 0.9 Eos # (Auto) 0.0 Baso # (Auto) 0.0 Abs Immat Gran (auto) 0.09 H Absolute Neuts (auto) 12.8 H Absolute Nucleated RBC 0.000 Nucleated RBC % (auto) 0.0 VBG pH VBG pCO2 VBG pO2 VBG HCO3 VBG O2 Saturation VBG Base Excess Anion Gap 37 H Estim Creat Clear Calc 38.7 Estimated GFR 48 POC Glucose > 600 H* > 600 H* Random Glucose 763 H* Calcium 9.4 Magnesium 2.6 Total Bilirubin 0.6 Direct Bilirubin 0.3 AST 36 ALT 14 Alkaline Phosphatase 103 Total Protein 7.1 Albumin 4.2 Beta-Hydroxybutyrate 8.35 H Urine Color Urine Appearance Urine pH Ur Specific [place] Urine Protein Urine Glucose (UA) Urine Ketones Urine Blood Urine Nitrite Ur Leukocyte Esterase Urine RBC Urine WBC Ur Squamous Epith Cells Urine Bacteria Hyaline Casts Ethyl Alcohol 09/22/24 09/22/24 09/22/24 01:51 01:51 01:59 MCV MCH MCHC RDW Plt Count MPV Immature Gran % (Auto) Neut % (Auto) Lymph % (Auto) [place] % (Auto) Eos % (Auto) Baso % (Auto) Lymph # (Auto) [place] # (Auto) Eos # (Auto) Baso # (Auto) Abs Immat Gran (auto) Absolute Neuts (auto) Absolute Nucleated RBC Nucleated RBC % (auto) VBG pH VBG pCO2 VBG pO2 VBG HCO3 VBG O2 Saturation VBG Base Excess Anion Gap Estim Creat Clear Calc Estimated GFR POC Glucose Random Glucose Calcium Magnesium Total Bilirubin Direct Bilirubin AST ALT Alkaline Phosphatase Total Protein Albumin Beta-Hydroxybutyrate Cancelled Urine Color Yellow Urine Appearance Clear Urine pH 5.0 Ur Specific [place] 1.025 Urine Protein Negative Urine Glucose (UA) >=1000 H Urine Ketones 80 Urine Blood Negative Urine Nitrite Negative Ur Leukocyte Esterase Negative Urine RBC 0-2 Urine WBC 0-5 Ur Squamous Epith Cells 0-2 Urine Bacteria None Seen Hyaline Casts 0-2 Ethyl Alcohol 13 Cancelled 09/22/24 02:00 MCV MCH MCHC RDW Plt Count MPV Immature Gran % (Auto) Neut % (Auto) Lymph % (Auto) [place] % (Auto) Eos % (Auto) Baso % (Auto) Lymph # (Auto) [place] # (Auto) Eos # (Auto) Baso # (Auto) Abs Immat Gran (auto) Absolute Neuts (auto) Absolute Nucleated RBC Nucleated RBC % (auto) VBG pH 7.20 L* VBG pCO2 22 VBG pO2 64 VBG HCO3 9 L VBG O2 Saturation 84.0 VBG Base Excess -17.0 Anion Gap Estim Creat Clear Calc Estimated GFR POC Glucose Random Glucose Calcium Magnesium Total Bilirubin Direct Bilirubin AST ALT Alkaline Phosphatase Total Protein Albumin Beta-Hydroxybutyrate Urine Color Urine Appearance Urine pH Ur Specific [place] Urine Protein Urine Glucose (UA) Urine Ketones Urine Blood Urine Nitrite Ur Leukocyte Esterase Urine RBC Urine WBC Ur Squamous Epith Cells Urine Bacteria Hyaline Casts Ethyl Alcohol Assessment and Plan (1) DKA (diabetic ketoacidosis): Status: Acute Plan ASSESSMENT : 1. Acute DKA due to Malfunctioning insulin pump 2. Acute early Sepsis (WBC, Tachy, suspected infection of RLL, end organ damage) 3. Acute Lactic and metabolic acidosis due to 1 and possibly due to RLL PNA 4. Chronic normocytic anemia 5. Reactive leukocytosis rule out pneumonia 6. CHUCK due to volume depletion and worsen by VLAD intake 7. History of breast cancer and prostate cancer 8. Acute Metabolic encephalopathy superimposed to suspected underlying dementia 9. Suspected right lower lobe pneumonia PLAN OF CARE: Patient with me admitted to the ICU, monitor vital signs, I's and O's, POC is Q 1 hour, chemistries q.4 hours, replete potassium and other electrolytes as needed.? Continue with insulin drip until the gap closes.? Meanwhile when blood sugar gets below 250 we will switch IV fluids from lactated Ringer's to LR D5 to avoid hypoglycemia.? Chest x-ray has been ordered.? Awaiting results of CT of the head and cervical spine.? To my view I do not see any evidence of intracranial hemorrhage or ischemia however final reading by radiologist is necessary.? Chest x-ray to my view shows small right lower lobe density which in light of his white count, rhonchi of the right lower lobe lung on exam, tachycardia is likely to represent a pneumonia, this was compared to study from 2020, final radiology reading pending. Order blood cultures, labs, lactic acid and will start him on Rocephin and Zithromax. Obtain sputum culture and gram stain. He did receive 2.5 L of IVF and become hypotensive at 0630am will place him on levophed as more IVF bloluses will likely throw him into CHF. Hold VLAD. GI PROPHYLAXIS: ?IV ppi DVT PROPHYLAXIS:? SubQ Lovenox Critical care time used for critical evaluation of this patient, diagnosis, treatment and coordination of care, review her records and documentation TOTAL CRITICAL CARE TIME? 90 ?MIN . discussion and coordination with consultants, completely separate from any procedures performed. Patient's care was discussed in detail with Dr. James who is aware of all the above as well as the plan of care for this patient.
[2024-09-22 03:32] LABS: Glucose, Whole Blood 501 mg/dL (60-115)
[2024-09-22 03:39] LABS: Anion Gap 34 (12-20); Blood Urea Nitrogen 33 mg/dL (9-16); Calcium 9.1 mg/dL (8.4-10.2); Carbon Dioxide 8 mmol/L (22-29); Chloride 102 mmol/L (96-108); Creatinine Clr Calc Pharmacy 39.2; Estimated Glomerular Filt Rate 49; Glucose Random 645 mg/dL (60-115); Potassium 4.3 mmol/L (3.3-5.1); Sodium 140 mmol/L (135-145)
[2024-09-22] MEDS: Lactated Ringers 1,000 ML 100 ML IVCONT (03:56)
--- NOTE | 2024-09-22 03:58 | PC.NURSE ---
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 -thinners, daily aspirin. on ems arrival poc reads high and as well as on arrival to ed. type 1 diabetic, family reports issues with insulin pump/managing bs. family reports confused at baseline, confusion worsening x months. on arrival 2nd iv established. labs ekg obtained. pt provided urine sample, no incontinence at that time. pt was then taken to ct scan where he was restless, unable to obtain images. 2.5mg IVP valium given per jun, pt then tolerated imaging. upon return ivf and ivp insulin given. tachypneic and tachycardic, md aware. rectal temp was wnl as documented. 0310 insulin drip started per jun. pt was then admitted to ICU. phone verbal report given to Jennifer HARO and pt transported to icu approx 0350. Arlette and daughter Marisela remained with pt during entire care and came with to ICU.
[2024-09-22 04:46] LABS: Glucose, Whole Blood 390 mg/dL (60-115)
[2024-09-22 05:43] LABS: Glucose, Whole Blood 414 mg/dL (60-115)
[2024-09-22 05:48] LABS: Anion Gap 26 (12-20); Blood Urea Nitrogen 31 mg/dL (9-16); Carbon Dioxide 12 mmol/L (22-29); Chloride 107 mmol/L (96-108); Creatinine Clr Calc Pharmacy 44.7; Estimated Glomerular Filt Rate 56; Glucose Random 461 mg/dL (60-115); Sodium 141 mmol/L (135-145)
[2024-09-22 05:49] LABS: Lactic Acid 5.1 mmol/L (0.5-2.0)
[2024-09-22] MEDS: Pantoprazole Sodium 40 MG/10 ML VIAL IVPUSH (05:53)
[2024-09-22] MEDS: cefTRIAXone sodium 1 GM VIAL IVPUSH (05:54)
[2024-09-22] MEDS: Azithromycin 500 MG in 0.9 % Sodium Chloride 250 ML 125 MG IV (05:57)
[2024-09-22 06:39] LABS: Glucose, Whole Blood 401 mg/dL (60-115)
[2024-09-22] MEDS: Norepinephrine Bitartrate/D5W 8 MG/250 ML PLAST..BAG 6.29 MG IVCONT (06:51)
[2024-09-22 07:08] LABS: Glucose, Whole Blood 359 mg/dL (60-115)
[2024-09-22 07:17] LABS: Estimated Average Glucose 229 mg/dL; Hemoglobin A1c % 9.6 % (<6.0)
[2024-09-22 07:24] LABS: Reflex Lactate? Lactic Acid Added
--- NOTE | 2024-09-22 07:29 | PC.NURSE ---
Patient arrived to unit at 0350. Insulin drip was infusing, DKA protocol followed or provider directed. At 0620 patient with drop in blood pressure, HERMILO Morrison notified, levophed drip initiated per protocol. Critical lab values communicated to PA and antibiotics started after blood cultures were obtained.
[2024-09-22 07:41] LABS: Glucose, Whole Blood 336 mg/dL (60-115)
[2024-09-22 08:30] LABS: Glucose, Whole Blood 309 mg/dL (60-115)
[2024-09-22 08:36] LABS: ~Lactic Acid-LAB USE ONLY 2.5 mmol/L (0.5-2.0)
[2024-09-22 09:04] LABS: Glucose, Whole Blood 295 mg/dL (60-115)
[2024-09-22 09:33] LABS: Glucose, Whole Blood 252 mg/dL (60-115)
[2024-09-22] MEDS: Enoxaparin Sodium 40 MG/0.4 ML SYRINGE SUBCUT (09:45)
[2024-09-22 09:49] LABS: Anion Gap 14 (12-20); Blood Urea Nitrogen 32 mg/dL (9-16); Calcium 9.1 mg/dL (8.4-10.2); Carbon Dioxide 22 mmol/L (22-29); Chloride 109 mmol/L (96-108); Creatinine Clr Calc Pharmacy 51.2; Estimated Glomerular Filt Rate > 60; Glucose Random 274 mg/dL (60-115); Potassium 3.5 mmol/L (3.3-5.1); Sodium 141 mmol/L (135-145)
--- NOTE | 2024-09-22 09:50 | MHC.CM.PN ---
[facility] DELIVERED CM SPOKE WITH TO OBTAIN INTAKE INFORMATION.PT LIVES WITH SPOUSE AND IS FUNCTIONALLY INDEPENDENT. PT HAS INSULIN PUMP VIA [employer] AND IS A PATIENT OF [employer] DR. CAMILA BURGOS. NO SERVICES CURRENTLY. + HCP ON FILE AND VERIFIED. PCP DR. DOELL DP: HOME WITH SERVICES , IS AGREEABLE TO [facility] FOR NURSING AND NO PREFERENCE TO [facility]. REFERRALS SENT. PT'S WILL TRANSPORT HOME. CM WILL CONTINUE TO FOLLOW FOR ANY CHANGE TO DC PLAN/NEEDS.
[2024-09-22 10:13] LABS: Reflex Lactate? 2 Y
[2024-09-22] MEDS: Dextrose 5 % and Lactated Ring 1,000 ML 100 ML IVCONT (10:30)
[2024-09-22 10:33] LABS: Glucose, Whole Blood 174 mg/dL (60-115)
--- NOTE | 2024-09-22 11:02 | PHA.MEDREC ---
Addendum entered by Trino Mercer PharmD 09/22/24 11:38: reviewed Original Note: Pharmacy Consult ? Medication Reconciliation Pharmacy has completed the medication reconciliation. Spoke with pt spouse (Arlette) over the phone and she confirmed the pt medications. Spouse confirmed the pt still takes Balsalazide 750mg tab and states the pt is taking 3 caps (2250mg) once in the morning. Pt spouse confirmed the pt uses the [employer]Med 780G insulin pump and isnt sure how many units the pt does when he checks it.
[2024-09-22 11:08] LABS: Glucose, Whole Blood 188 mg/dL (60-115)
[2024-09-22 11:17] LABS: ~Lactic Acid-LAB USE ONLY 10.4 mmol/L (0.5-2.0)
[2024-09-22 11:40] LABS: Glucose, Whole Blood 161 mg/dL (60-115)
[2024-09-22 12:49] LABS: Glucose, Whole Blood 127 mg/dL (60-115)
[2024-09-22 13:38] LABS: Glucose, Whole Blood 109 mg/dL (60-115)
[2024-09-22 13:49] LABS: Anion Gap 11 (12-20); Blood Urea Nitrogen 28 mg/dL (9-16); Calcium 8.3 mg/dL (8.4-10.2); Carbon Dioxide 22 mmol/L (22-29); Chloride 112 mmol/L (96-108); Creatinine Clr Calc Pharmacy 64.2; Estimated Glomerular Filt Rate > 60; Glucose Random 113 mg/dL (60-115); Potassium 3.2 mmol/L (3.3-5.1); Sodium 142 mmol/L (135-145)
[2024-09-22 14:43] LABS: Glucose, Whole Blood 89 mg/dL (60-115)
[2024-09-22] MEDS: Insulin Glargine,Hum.rec.anlog 100 UNIT/ML 10 ML VIAL 10 UNIT SUBCUT (15:12)
[2024-09-22 15:23] LABS: Glucose, Whole Blood 113 mg/dL (60-115)
[2024-09-22 15:38] LABS: Lactic Acid 1.7 mmol/L (0.5-2.0)
[2024-09-22 16:33] LABS: Glucose, Whole Blood 87 mg/dL (60-115)
[2024-09-22] MEDS: Midodrine HCl 10 MG TABLET PO ×2 (17:02→20:39)
[2024-09-22] MEDS: Potassium Chloride/H20 10 MEQ/100 ML PIGGYBACK 100 MEQ IV ×4 (17:03→20:39)
[2024-09-22 17:39] LABS: Anion Gap 12 (12-20); Blood Urea Nitrogen 28 mg/dL (9-16); Calcium 8.6 mg/dL (8.4-10.2); Carbon Dioxide 22 mmol/L (22-29); Chloride 113 mmol/L (96-108); Creatinine Clr Calc Pharmacy 69.8; Estimated Glomerular Filt Rate > 60; Glucose Random 90 mg/dL (60-115); Potassium 3.4 mmol/L (3.3-5.1); Sodium 144 mmol/L (135-145)
--- NOTE | 2024-09-22 18:35 | HO.WOUND ---
Wound Consult: Initial 78yr old?male admitted to [facility] on 09/22/24 03:06- See progress notes and H&P for detailed history.? Wound consult placed for Coccyx.? Patient agreeable to assessment and photo documentation.? Coccyx Etiology: Deep Tissue Injury Present on Admission??Present on Admission Wound Bed: intact dark purple nonblanchable tissue Drainage / Odor: None Edges: ? attached and well defined [place] wound: intact ? No Induration, Fluctuance or Warmth noted Pain: denies Goals of Treatment: ? off load pressure and foam dressing in place Left Heel - intact red remains blanchable - foam dressings and off loaded pressure in place. Right heel noted for pink tissue remain intact and blanchable - foam dressings and off loaded pressure in place. Right Hip bruise noted - not consistent with Pressure Injury. Recommendations: 1. Turn and Reposition every 2 hours and as needed for patient comfort.? Use pillows or wedges to support off loading positions. 2. Off Load all bony prominences with use of pillows and heel boots if needed.? Apply Preventative foams where needed. ? 3. Monitor for incontinence and moisture control, use barrier creams when needed for prevention and treatment. 4. Provide adequate and supplemental nutrition.? 5. Order low air loss mattress. 6. When applicable maintain blood glucose levels per Providers order. Coccyx - Off Load Pressure with Q2 hr turns and use of pillows - Routine cleansing.? Apply skin prep allow to dry.? Cover with foam dressing to aid in off loading and protection from friction. Change every 3 days and PRN. Bilateral Heels - Elevate heels off of bed surface with pillows.? Float heels off of pillows.? Apply skin prep allow to dry.? Apply heel foam dressings, peel back and assess Q shift and change every 5-7 days and PRN. Re-consult wound care Nurse for wound deterioration or wound changes.
--- NOTE | 2024-09-22 19:09 | PC.NURSE ---
Assumed care @ 0700? Neuro: confused, requiring frequent redirection.? Respiratory:? RA, clear lung sounds.? Cardiac:? Sinus Rhythm, on norepinephrine gtt per JUN. MAP goal >65? GI/: LBM 09/22, Diabetic Diet, poor PO intake, External catheter in place.? Endocrine:? Transition from insulin gtt to SQ insulin per JUN Infectious: IV antibiotics Lines: Peripheral IVs
[2024-09-22 20:35] LABS: Glucose, Whole Blood 138 mg/dL (60-115)
[2024-09-22 21:57] LABS: Anion Gap 11 (12-20); Blood Urea Nitrogen 28 mg/dL (9-16); Calcium 8.4 mg/dL (8.4-10.2); Carbon Dioxide 22 mmol/L (22-29); Chloride 113 mmol/L (96-108); Creatinine Clr Calc Pharmacy 66.5; Estimated Glomerular Filt Rate > 60; Glucose Random 152 mg/dL (60-115); Sodium 142 mmol/L (135-145)
[2024-09-23] VITALS (16 sets, daily range): BP systolic 117–169; BP diastolic 52–77; PULSE 66–88; RESP 13–22; TEMP 35.8–36.8; O2SAT 92–99; BMI 21.2; BMI 21.6
[2024-09-23] MEDS: cefTRIAXone sodium 1 GM VIAL IVPUSH (05:13)
[2024-09-23] MEDS: Pantoprazole Sodium 40 MG/10 ML VIAL IVPUSH (05:13)
[2024-09-23] MEDS: Azithromycin 500 MG in 0.9 % Sodium Chloride 250 ML 125 MG IV (05:23)
[2024-09-23 05:28] LABS: Basophils Percent Auto 0.1 % (0-2); Eosinophils Absolute Auto 0.1 X10*3/uL (0.0-0.4); Eosinophils Percent Auto 0.3 % (0-4); Hematocrit 30.3 % (42.0-52.0); Hemoglobin 10.8 g/dl (14.0-18.0); Imm Gran Abs Auto 0.08 X10*3/uL (0.00-0.03); Imm Gran Pct Auto 0.6 % (0.0-0.4); Lymphocytes Absolute Auto 1.5 X10*3/uL (1.2-4.9); Lymphocytes Percent Auto 10.4 % (20-40); MANUAL DIFF FLAG NO; Mean Corpuscular HGB Conc 35.6 g/dl (31.0-36.0); Mean Corpuscular Hemoglobin 30.9 pg (27.0-33.0); Mean Corpuscular Volume 86.8 fL (80.0-98.0); Mean Platelet Volume 9.3 fL (9.4-12.4); Monocytes Percent Auto 6.6 % (2-11); Neutrophils Absolute Auto 11.8 x10*3/uL (2.0-8.3); Platelet Count 194 X10*3/uL (160-400); Red Blood Count 3.49 X10*6/uL (4.60-5.80); Red Cell Distribution Width 13.5 % (11.0-16.0); White Blood Count 14.3 X10*3/uL (4.8-10.8)
[2024-09-23 05:47] LABS: Alanine Aminotransferase 25 U/L (0-40); Albumin Level 3.1 g/dL (3.5-5.0); Alkaline Phosphatase 74 U/L (39-117); Anion Gap 8 (12-20); Aspartate Amino Transferase 85 U/L (5-37); Bilirubin Total 0.6 mg/dL (0.0-1.0); Blood Urea Nitrogen 24 mg/dL (9-16); Calcium 8.5 mg/dL (8.4-10.2); Carbon Dioxide 24 mmol/L (22-29); Chloride 112 mmol/L (96-108); Creatinine Clr Calc Pharmacy 72.5; Estimated Glomerular Filt Rate > 60; Glucose Random 138 mg/dL (60-115); Magnesium 2.1 mg/dL (1.6-2.6); Phosphorus 1.3 mg/dL (2.7-4.5); Potassium 3.7 mmol/L (3.3-5.1); Sodium 140 mmol/L (135-145); Total Protein 5.2 g/dL (6.5-8.0)
--- NOTE | 2024-09-23 06:29 | PC.NURSE ---
Patient successfully weaned off of vasopressor at the beginning of the shift and continued to maintain goal MAP >65. Patient did not have much appetite, but did take some crackers for bedtime snack. Patient was confused, forgetful, and impulsive during the shift, requiring monitoring camera at bedside for safety and frequent redirections and reorientations throughout the night. Patient was able to hold an appropriate conversation for prolonged period of time about different subjects, but seemed to be experiencing visual hallucination and short-term memory loss. Patient stated that he felt trapped in the hospital like he was a prisoner and expressed some anxiety and frustration with his situation. He did not have any understanding of his conditions or current treatment plan. A few phone calls were made to the for emotional support.
[2024-09-23 07:59] LABS: Glucose, Whole Blood 130 mg/dL (60-115)
[2024-09-23] MEDS: Potassium Phosphate/NS 15 MMOL/250 ML PLAST..BAG 62.5 MMOL IV ×2 (08:29→12:30)
[2024-09-23] MEDS: Aspirin Enteric Coated 81 MG TABLET.DR PO (08:33)
[2024-09-23] MEDS: Insulin Glargine,Hum.rec.anlog 100 UNIT/ML 10 ML VIAL 10 UNIT SUBCUT (08:33)
[2024-09-23] MEDS: Enoxaparin Sodium 40 MG/0.4 ML SYRINGE SUBCUT (08:33)
[2024-09-23] MEDS: Balsalazide Disodium 750 MG CAPSULE 2250 MG PO (08:34)
[2024-09-23] MEDS: Atorvastatin Calcium 20 MG TABLET PO (08:34)
[2024-09-23] MEDS: Midodrine HCl 10 MG TABLET PO (08:34)
--- NOTE | 2024-09-23 09:13 | PC.NURSE ---
Assumed care @ 0700? Neuro: confused, requiring frequent redirection.? Respiratory:? RA, Fine crackles to left base. Cardiac:? Sinus Rhythm, on midodrine per JUN. GI/: LBM 09/22, Diabetic Diet, poor PO intake, Sliding scale per JUN. External catheter in place.? Infectious: IV antibiotics Lines: Peripheral IVs Plan: Transfer to Medical floor . No longer requiring ICU-level care.
--- NOTE | 2024-09-23 10:05 | P.PNCC_ITS ---
Subjective Subjective Date of Service: 09/23/24 Interval History: Blood sugars better controlled, off vasopressor support since last night Critical Care Time (minutes): 35 Physical Exam 2 Vital Signs: Vital Signs: Last Vital Signs Temp 96.5 F L 09/23/24 09:00 Pulse 73 09/23/24 09:00 Resp 21 H 09/23/24 09:00 BP 139/57 L 09/23/24 09:00 Pulse Ox 93 09/23/24 09:00 O2 Del Method Room Air 09/23/24 09:00 BMI result Body Mass Index 21.2 General: a elderly male slightly confused, not in any acute distress Nutritional Appearance: well nourished and overweight Eyes: appearance normal, both eyes and all related structures; Alignment and Position: alignment normal and position normal Neck: No lymphadenopathy, no thyromegaly Resp: bilateral air entry equal, occasional added sounds present in the lung bases Cardio: Regular rate, regular rhythm; Heart sounds: S1 normal heart sound present and S2 normal heart sound present GI: soft, nontender, no guarding, no hepatosplenomegaly : bladder normal to inspection, bladder normal to palpation, no renal angle tenderness Skin: no rashes or lesions noted and elasticity normal Neuro: No focal deficits, confusion present, moves all extremities Objective Data Labs 09/23/24 05:14 09/23/24 05:14 Labs: Laboratory Results - last 24 hr 09/22/24 09/22/24 09/22/24 10:29 10:44 11:04 WBC RBC Hgb Hct MCV MCH MCHC RDW Plt Count MPV Immature Gran % (Auto) Neut % (Auto) Lymph % (Auto) Rankin % (Auto) Eos % (Auto) Baso % (Auto) Lymph # (Auto) Rankin # (Auto) Eos # (Auto) Baso # (Auto) Abs Immat Gran (auto) Absolute Neuts (auto) Absolute Nucleated RBC Nucleated RBC % (auto) Sodium Potassium Chloride Carbon Dioxide Anion Gap BUN Creatinine Estim Creat Clear Calc Estimated GFR POC Glucose 174 H 188 H Random Glucose Lactic Acid Lactic Acid F/U @ 4Hr 10.4 H* Calcium Phosphorus Magnesium Total Bilirubin AST ALT Alkaline Phosphatase Total Protein Albumin 09/22/24 09/22/24 09/22/24 11:35 12:45 13:05 WBC RBC Hgb Hct MCV MCH MCHC RDW Plt Count MPV Immature Gran % (Auto) Neut % (Auto) Lymph % (Auto) Rankin % (Auto) Eos % (Auto) Baso % (Auto) Lymph # (Auto) Rankin # (Auto) Eos # (Auto) Baso # (Auto) Abs Immat Gran (auto) Absolute Neuts (auto) Absolute Nucleated RBC Nucleated RBC % (auto) Sodium 142 Potassium 3.2 L Chloride 112 H Carbon Dioxide 22 Anion Gap 11 L BUN 28 H Creatinine 0.87 Estim Creat Clear Calc 64.2 Estimated GFR > 60 POC Glucose 161 H 127 H Random Glucose 113 Lactic Acid Lactic Acid F/U @ 4Hr Calcium 8.3 L D Phosphorus Magnesium Total Bilirubin AST ALT Alkaline Phosphatase Total Protein Albumin 09/22/24 09/22/24 09/22/24 13:33 14:38 15:17 WBC RBC Hgb Hct MCV MCH MCHC RDW Plt Count MPV Immature Gran % (Auto) Neut % (Auto) Lymph % (Auto) Rankin % (Auto) Eos % (Auto) Baso % (Auto) Lymph # (Auto) Rankin # (Auto) Eos # (Auto) Baso # (Auto) Abs Immat Gran (auto) Absolute Neuts (auto) Absolute Nucleated RBC Nucleated RBC % (auto) Sodium Potassium Chloride Carbon Dioxide Anion Gap BUN Creatinine Estim Creat Clear Calc Estimated GFR POC Glucose 109 89 Random Glucose Lactic Acid 1.7 Lactic Acid F/U @ 4Hr Calcium Phosphorus Magnesium Total Bilirubin AST ALT Alkaline Phosphatase Total Protein Albumin 09/22/24 09/22/24 09/22/24 15:21 16:30 17:17 WBC RBC Hgb Hct MCV MCH MCHC RDW Plt Count MPV Immature Gran % (Auto) Neut % (Auto) Lymph % (Auto) Rankin % (Auto) Eos % (Auto) Baso % (Auto) Lymph # (Auto) Rankin # (Auto) Eos # (Auto) Baso # (Auto) Abs Immat Gran (auto) Absolute Neuts (auto) Absolute Nucleated RBC Nucleated RBC % (auto) Sodium 144 Potassium 3.4 Chloride 113 H Carbon Dioxide 22 Anion Gap 12 BUN 28 H Creatinine 0.80 Estim Creat Clear Calc 69.8 Estimated GFR > 60 POC Glucose 113 87 Random Glucose 90 Lactic Acid Lactic Acid F/U @ 4Hr Calcium 8.6 Phosphorus Magnesium Total Bilirubin AST ALT Alkaline Phosphatase Total Protein Albumin 09/22/24 09/22/24 09/23/24 20:31 21:05 05:14 WBC 14.3 H RBC 3.49 L Hgb 10.8 L Hct 30.3 L MCV 86.8 MCH 30.9 MCHC 35.6 RDW 13.5 Plt Count 194 D MPV 9.3 L Immature Gran % (Auto) 0.6 H Neut % (Auto) 82.0 H Lymph % (Auto) 10.4 L Rankin % (Auto) 6.6 Eos % (Auto) 0.3 Baso % (Auto) 0.1 Lymph # (Auto) 1.5 Rankin # (Auto) 1.0 Eos # (Auto) 0.1 Baso # (Auto) 0.0 Abs Immat Gran (auto) 0.08 H Absolute Neuts (auto) 11.8 H Absolute Nucleated RBC 0.000 Nucleated RBC % (auto) 0.0 Sodium 142 140 Potassium 4.0 3.7 Chloride 113 H 112 H Carbon Dioxide 22 24 Anion Gap 11 L 8 L BUN 28 H 24 H Creatinine 0.84 0.77 Estim Creat Clear Calc 66.5 72.5 Estimated GFR > 60 > 60 POC Glucose 138 H Random Glucose 152 H 138 H Lactic Acid Lactic Acid F/U @ 4Hr Calcium 8.4 8.5 Phosphorus 1.3 L Magnesium 2.1 Total Bilirubin 0.6 AST 85 H ALT 25 Alkaline Phosphatase 74 Total Protein 5.2 L Albumin 3.1 L 09/23/24 07:49 WBC RBC Hgb Hct MCV MCH MCHC RDW Plt Count MPV Immature Gran % (Auto) Neut % (Auto) Lymph % (Auto) Rankin % (Auto) Eos % (Auto) Baso % (Auto) Lymph # (Auto) Rankin # (Auto) Eos # (Auto) Baso # (Auto) Abs Immat Gran (auto) Absolute Neuts (auto) Absolute Nucleated RBC Nucleated RBC % (auto) Sodium Potassium Chloride Carbon Dioxide Anion Gap BUN Creatinine Estim Creat Clear Calc Estimated GFR POC Glucose 130 H Random Glucose Lactic Acid Lactic Acid F/U @ 4Hr Calcium Phosphorus Magnesium Total Bilirubin AST ALT Alkaline Phosphatase Total Protein Albumin Microbiology Microbiology Results: Microbiology 09/22/24 05:19 Blood - Venous Blood Culture - Preliminary No growth after 24 hours. 09/22/24 05:19 Blood - Venous Blood Culture - Preliminary No growth after 24 hours. Progress Note: A&P Assessment and plan (1) DKA (diabetic ketoacidosis): Status: Acute Plan Acute encephalopathy: Secondary to metabolic encephalopathy from DKA and is improving. His confusion has been slowly improving, he has a history of significant underlying dementia. Head CT upon admission did not show any acute intracranial pathology. Type 1 diabetes mellitus: DKA: Admitted to the hospital due to pump malfunction. Since he has been having some dementia and confusion lately he has not been able to use his pump accurately and give boluses as needed. This has led to hyperglycemia thereby causing DKA. He was presented to the ED in June due to hypoglycemia secondary to pump malfunction. He does not want to go back on the insulin pump but wants to switch to subcu insulin. He wishes to establish with the metal furniture glazier at [facility]. DKA resolved, currently switch to insulin Lantus 10 units daily with which his sugars are well-controlled, he did not require any doses unless sliding scale insulin Hypovolemic shock: Patient was on Levophed support until last night which has been discontinued. Has some right-sided unspecified pneumonia, he has on empiric ceftriaxone and azithromycin. Ulcerative colitis: Not want symptomatic from it, continue balsalazide. Chronic anemia: Drop in the hemoglobin to 10.4 possibly secondary to volume replacement. No active bleeding Prophylaxis: Lovenox, omeprazole Quality Stroke Does the patient have a stroke diagnosis?: No VTE Prior VTE?: No VTE Risk Level:: Medical - moderate - high VTE Device Contraindication: N/A - Device Ordered VTE Drug Contraindication: N/A - Med Ordered
[2024-09-23 11:39] LABS: Glucose, Whole Blood 215 mg/dL (60-115)
[2024-09-23] MEDS: Insulin Lispro 100 UNIT/ML 3 ML VIAL SUBCUT (12:00)
[2024-09-23 15:37] LABS: Glucose, Whole Blood 161 mg/dL (60-115)
--- NOTE | 2024-09-23 16:08 | MHC.CM.PN ---
PT DOWNGRADED TO MED- TELE UNIT FROM ICU. CM WILL CONTINUE TO FOLLOW FOR ANY CHANGES TO DC PLAN. [facility] HAS ACCEPTED FOR HOME SERVICES AND IS FOLLOWING.
--- NOTE | 2024-09-23 17:01 | PM.EVENT ---
Event Note Date of Service: 09/23/24 Event Note: Transferred out of ICU, discussed with ICU provider and assuming care 78-year-old male with underlying history of ulcerative colitis, type 1 diabetes on a pump for which they recently received a letter from [employer] supplier stating the pump maybe malfunctioning. He has been having episodes of hypoglycemia, and before coming to the ED had 2 falls, confusion and blood sugars reading very high. Glucose level > 600 when checked by EMS, upon eval in the ED he was in DKA with AGAP 37 and bicab of 8. He was admitted through ICU for IVF and IV insulin, his ICU course was complicated by Hypovolemic shock. Acute metabolic encephalopathy d/t DKA, hyperglycemia. CT head showed no acute pathology resolved with IVF and treatment of underlying DKA and shock Type 1 diabetes mellitus, DKA: Admitted to the hospital due to pump malfunction. Since he has been having some dementia and confusion lately he has not been able to use his pump accurately and give boluses as needed. This has led to hyperglycemia thereby causing DKA. He was presented to the ED in June due to hypoglycemia secondary to pump malfunction. He does not want to go back on the insulin pump but wants to switch to subcu insulin. He wishes to establish with the coal passer at [facility]. DKA resolved, currently switch to insulin Lantus 10 units daily with which his sugars are well-controlled, he did not require any doses unless sliding scale insulin Hypovolemic shock: Patient was on Levophed support until last night which has been discontinued. Has some right-sided unspecified pneumonia, he has on empiric ceftriaxone and azithromycin. Ulcerative colitis: no flare, continue balsalazide. Chronic anemia: Drop in the hemoglobin to 10.4 possibly secondary to volume replacement/hemodilution No active bleeding Time Spent With Patient Time: Total time managing care of this patient today ____ minutes.
[2024-09-23 19:48] LABS: Glucose, Whole Blood 189 mg/dL (60-115)
[2024-09-23] MEDS: Melatonin 3 MG TABLET 9 MG PO (20:09)
[2024-09-23] MEDS: OLANZapine 10 MG VIAL 5 MG IM (21:03)
[2024-09-24] VITALS (7 sets, daily range): BP systolic 134–178; BP diastolic 64–92; PULSE 73–125; RESP 16–18; TEMP 36.3–37; O2SAT 96–99; BMI 20.4
[2024-09-24 07:45] LABS: Glucose, Whole Blood 254 mg/dL (60-115)
[2024-09-24] MEDS: cefTRIAXone sodium 1 GM VIAL IVPUSH (09:29)
[2024-09-24] MEDS: Insulin Glargine,Hum.rec.anlog 100 UNIT/ML 10 ML VIAL 10 UNIT SUBCUT (09:30)
[2024-09-24] MEDS: Azithromycin 500 MG in 0.9 % Sodium Chloride 250 ML 125 MG IV (09:30)
[2024-09-24] MEDS: Balsalazide Disodium 750 MG CAPSULE 2250 MG PO (09:31)
[2024-09-24] MEDS: Atorvastatin Calcium 20 MG TABLET PO (09:31)
[2024-09-24] MEDS: Aspirin Enteric Coated 81 MG TABLET.DR PO (09:31)
[2024-09-24] MEDS: Enoxaparin Sodium 40 MG/0.4 ML SYRINGE SUBCUT (09:32)
[2024-09-24 11:20] LABS: Glucose, Whole Blood 395 mg/dL (60-115)
[2024-09-24 11:35] LABS: Anion Gap 19 (12-20); Blood Urea Nitrogen 11 mg/dL (9-16); Calcium 8.7 mg/dL (8.4-10.2); Carbon Dioxide 21 mmol/L (22-29); Chloride 103 mmol/L (96-108); Creatinine Clr Calc Pharmacy 82.5; Estimated Glomerular Filt Rate > 60; Glucose Random 398 mg/dL (60-115); Potassium 4.1 mmol/L (3.3-5.1); Sodium 139 mmol/L (135-145)
[2024-09-24] MEDS: Insulin Glargine,Hum.rec.anlog 100 UNIT/ML 10 ML VIAL SUBCUT (11:57)
--- NOTE | 2024-09-24 14:54 | P.PNIM_ITS ---
Subjective Subjective Date of Service: 09/24/24 Interval History: f/u on dka s/p icu care blood sugar remains high but not in dka Physical Exam 2 Vital Signs: Vital Signs: Last Vital Signs Temp 97.8 F 09/24/24 11:23 Pulse 102 H 09/24/24 11:23 Resp 18 09/24/24 11:23 BP 134/64 09/24/24 11:23 Pulse Ox 98 09/24/24 11:23 O2 Del Method Room Air 09/24/24 11:23 BMI result Body Mass Index 20.4 Const: Other: General: AO X 2, no acute distress Resp: CTA bilateral CVS: S1,S2,RRR GI: +BS, NT, no distention Skin: No rash Neuro: motor grossly intact Psych: appropriate affect Objective Data Active Medications Acetaminophen (Acetaminophen 325 Mg Tablet) 975 mg PO DAILY PRN PRN Reason: Pain Aspirin (Aspirin Enteric Coated 81 Mg Tablet.) 81 mg PO DAILY [facility] Last Admin: 09/24/24 09:31 Dose: 81 mg Documented By: MARI Atorvastatin Calcium (Atorvastatin Calcium 20 Mg Tablet) 20 mg PO DAILY [facility] Last Admin: 09/24/24 09:31 Dose: 20 mg Documented By: MARI Balsalazide (Balsalazide Disodium 750 Mg Capsule) 2,250 mg PO DAILY [facility] Last Admin: 09/24/24 09:31 Dose: 2,250 mg Documented By: MARI Ceftriaxone Sodium (Ceftriaxone Sodium 1 Gm Vial) 1 gm IVPUSH Q24H [facility] Last Admin: 09/24/24 09:29 Dose: 1 gm Documented By: MARI Dextrose (Dextrose 50 % 25 Gm/50 Ml Syringe) 25 gm IVPUSH Q30M PRN PRN Reason: BG < 70 Dextrose (Dextrose 50 % 25 Gm/50 Ml Syringe) 25 gm IVPUSH Q15M PRN; Protocol PRN Reason: per Hypoglycemia Standing Ord. Enoxaparin Sodium (Enoxaparin Sodium 40 Mg/0.4 Ml Syringe) 40 mg SUBCUT Q24H [facility] Last Admin: 09/24/24 09:32 Dose: 40 mg Documented By: MARI Glucose (Glucose Gel 15 Gm Gel..Gram.) 15 gm PO Q15M PRN; Protocol PRN Reason: per Hypoglycemia Standing Ord. Azithromycin 500 mg/ Sodium (Chloride) 250 mls @ 125 mls/hr IV Q24H [facility] Last Infusion: 09/24/24 11:48 Dose: Infused Documented By: MARI Insulin Glargine (Insulin Glargine,Hum.Rec.Anlog 100 Unit/Ml 10 Ml Vial) 15 unit SUBCUT DAILY [facility] Melatonin (Melatonin 3 Mg Tablet) 9 mg PO BEDTIME [facility] Last Admin: 09/23/24 20:09 Dose: 9 mg Documented By: LOYD Omeprazole (Omeprazole 20 Mg Capsule.Dr) 20 mg PO DAILY@0630 [facility] Last Admin: 09/24/24 06:07 Dose: Not Given Documented By: LOYD Non-Admin Reason: Patient Refused Labs 09/23/24 05:14 09/24/24 11:08 Labs: Laboratory Results - last 24 hr 09/23/24 09/23/24 09/24/24 15:32 19:39 07:41 Anion Gap Estim Creat Clear Calc Estimated GFR POC Glucose 161 H 189 H 254 H Random Glucose Calcium 09/24/24 09/24/24 11:08 11:15 Anion Gap 19 Estim Creat Clear Calc 82.5 Estimated GFR > 60 POC Glucose 395 H* Random Glucose 398 H* Calcium 8.7 Microbiology Microbiology Results: Microbiology 09/22/24 05:19 Blood Culture - Preliminary Blood - Venous No growth after 48 hours. 09/22/24 05:19 Blood Culture - Preliminary Blood - Venous No growth after 48 hours. Assessment and Plan (1) DKA (diabetic ketoacidosis): Status: Acute Plan 78-year-old male with underlying history of ulcerative colitis, type 1 diabetes on a pump for which they recently received a letter from [employer] supplier stating the pump maybe malfunctioning. He has been having episodes of hypoglycemia, and before coming to the ED had 2 falls, confusion and blood sugars reading very high. Glucose level > 600 when checked by EMS, upon eval in the ED he was in DKA with AGAP 37 and bicab of 8. He was admitted through ICU for IVF and IV insulin, his ICU course was complicated by Hypovolemic shock. Acute metabolic encephalopathy d/t DKA, hyperglycemia. CT head showed no acute pathology resolved with IVF and treatment of underlying DKA and shock Type 1 diabetes mellitus, DKA: Admitted to the hospital due to insulin pump malfunction. Since he has been having some dementia and confusion lately he has not been able to use his pump accurately and give boluses as needed. This has led to hyperglycemia thereby causing DKA. He was presented to the ED in June due to hypoglycemia secondary to pump malfunction. He does not want to go back on the insulin pump but wants to switch to subcu insulin. He wishes to establish with the pipe line inspector at [facility] after discharte DKA resolved, currently switch to insulin Lantus 15 today units daily and adjust as needed with sliding insulin twice a day insulin if sugar continue to be very high Hypovolemic shock: Patient was on Levophed support until last night which has been discontinued. Has some right-sided unspecified pneumonia, he has on empiric ceftriaxone and azithromycin. Ulcerative colitis: no flare, continue balsalazide. Chronic anemia: Drop in the hemoglobin to 10.4 possibly secondary to volume replacement/hemodilution No active bleeding Cognitive impairment: he is demonstrating confusion with dementia and will need family assistance for ADLs dvt prophylaixis: donovan frank tomorrow Quality Stroke Does the patient have a stroke diagnosis?: No VTE Prior VTE?: No VTE Risk Level:: Medical - moderate - high VTE Device Contraindication: N/A - Device Ordered VTE Drug Contraindication: N/A - Med Ordered
[2024-09-24 15:52] LABS: Glucose, Whole Blood 271 mg/dL (60-115)
[2024-09-24] MEDS: Melatonin 3 MG TABLET 9 MG PO (19:30)
[2024-09-24 20:00] LABS: Glucose, Whole Blood 226 mg/dL (60-115)
[2024-09-24] MEDS: traZODone HCL 50 MG TABLET PO (20:57)
[2024-09-25 02:56] VITALS: BP 151/77; PULSE 95; RESP 17; TEMP 36.8; O2SAT 96
[2024-09-25] MEDS: diazePAM 10 MG/2 ML CARTRIDGE 5 MG IVPUSH ×2 (04:03→23:53)
[2024-09-25 06:00] VITALS: BMI 20.1
[2024-09-25 07:42] LABS: Glucose, Whole Blood 143 mg/dL (60-115)
[2024-09-25 08:00] VITALS: BP 130/83; PULSE 82; RESP 18; TEMP 36.3; O2SAT 97
[2024-09-25 08:56] LABS: Anion Gap 14 (12-20); Blood Urea Nitrogen 15 mg/dL (9-16); Calcium 8.5 mg/dL (8.4-10.2); Carbon Dioxide 22 mmol/L (22-29); Chloride 109 mmol/L (96-108); Creatinine Clr Calc Pharmacy 89.6; Estimated Glomerular Filt Rate > 60; Glucose Random 154 mg/dL (60-115); Potassium 3.4 mmol/L (3.3-5.1); Sodium 142 mmol/L (135-145)
[2024-09-25] MEDS: Azithromycin 500 MG in 0.9 % Sodium Chloride 250 ML 125 MG IV (09:32)
[2024-09-25] MEDS: cefTRIAXone sodium 1 GM VIAL IVPUSH (09:38)
[2024-09-25] MEDS: Insulin Glargine,Hum.rec.anlog 100 UNIT/ML 10 ML VIAL 15 UNIT SUBCUT (09:38)
[2024-09-25] MEDS: Enoxaparin Sodium 40 MG/0.4 ML SYRINGE SUBCUT (09:45)
[2024-09-25] MEDS: Balsalazide Disodium 750 MG CAPSULE 2250 MG PO (10:42)
[2024-09-25] MEDS: Atorvastatin Calcium 20 MG TABLET PO (10:43)
[2024-09-25] MEDS: Aspirin Enteric Coated 81 MG TABLET.DR PO (10:43)
--- NOTE | 2024-09-25 11:05 | HO.PM.IMPN ---
Subjective Subjective Date of Service: 09/25/24 Interval History: f/u on dka s/p icu care blood sugars are controlled he was agitated last night and was given valium overnight and is sedated this morning. Physical Exam Vital Signs: Vital Signs: Last Vital Signs Temp 97.3 F 09/25/24 08:00 Pulse 82 09/25/24 08:00 Resp 18 09/25/24 08:00 BP 130/83 09/25/24 08:00 Pulse Ox 97 09/25/24 08:00 O2 Del Method Room Air 09/25/24 08:00 BMI result Body Mass Index 20.1 Const: Other: General: breathing fine, not able to asses mental status d./t sedation Resp: CTA bilateral CVS: S1,S2,RRR GI: +BS, NT, no distention Skin: No rash Neuro: motor grossly intact Psych: appropriate affect Objective Data Active Medications Acetaminophen (Acetaminophen 325 Mg Tablet) 975 mg PO DAILY PRN PRN Reason: Pain Aspirin (Aspirin Enteric Coated 81 Mg Tablet.) 81 mg PO DAILY [facility] Last Admin: 09/25/24 10:43 Dose: 81 mg Documented By: JAMEE Atorvastatin Calcium (Atorvastatin Calcium 20 Mg Tablet) 20 mg PO DAILY [facility] Last Admin: 09/25/24 10:43 Dose: 20 mg Documented By: JAMEE Balsalazide (Balsalazide Disodium 750 Mg Capsule) 2,250 mg PO DAILY [facility] Last Admin: 09/25/24 10:42 Dose: 2,250 mg Documented By: JAMEE Ceftriaxone Sodium (Ceftriaxone Sodium 1 Gm Vial) 1 gm IVPUSH Q24H [facility] Last Admin: 09/25/24 09:38 Dose: 1 gm Documented By: JAMEE Dextrose (Dextrose 50 % 25 Gm/50 Ml Syringe) 25 gm IVPUSH Q30M PRN PRN Reason: BG < 70 Dextrose (Dextrose 50 % 25 Gm/50 Ml Syringe) 25 gm IVPUSH Q15M PRN; Protocol PRN Reason: per Hypoglycemia Standing Ord. Enoxaparin Sodium (Enoxaparin Sodium 40 Mg/0.4 Ml Syringe) 40 mg SUBCUT Q24H [facility] Last Admin: 09/25/24 09:45 Dose: 40 mg Documented By: JAMEE Glucose (Glucose Gel 15 Gm Gel..Gram.) 15 gm PO Q15M PRN; Protocol PRN Reason: per Hypoglycemia Standing Ord. Azithromycin 500 mg/ Sodium (Chloride) 250 mls @ 125 mls/hr IV Q24H [facility] Last Admin: 09/25/24 09:32 Dose: 125 mls/hr Documented By: JAMEE Insulin Glargine (Insulin Glargine,Hum.Rec.Anlog 100 Unit/Ml 10 Ml Vial) 15 unit SUBCUT DAILY [facility] Last Admin: 09/25/24 09:38 Dose: 15 unit Documented By: JAMEE Melatonin (Melatonin 3 Mg Tablet) 9 mg PO BEDTIME [facility] Last Admin: 09/24/24 19:30 Dose: 9 mg Documented By: LOYD Omeprazole (Omeprazole 20 Mg Capsule.) 20 mg PO DAILY@0630 [facility] Last Admin: 09/25/24 05:10 Dose: Not Given Documented By: LOYD Non-Admin Reason: Patient Refused Labs 09/23/24 05:14 09/25/24 08:09 Labs: Laboratory Results - last 24 hr 09/24/24 09/24/24 09/24/24 11:08 11:15 15:39 Anion Gap 19 Estim Creat Clear Calc 82.5 Estimated GFR > 60 POC Glucose 395 H* 271 H Random Glucose 398 H* Calcium 8.7 09/24/24 09/25/24 09/25/24 19:27 07:36 08:09 Anion Gap 14 Estim Creat Clear Calc 89.6 Estimated GFR > 60 POC Glucose 226 H 143 H Random Glucose 154 H Calcium 8.5 Microbiology Microbiology Results: Microbiology 09/22/24 05:19 Blood Culture - Preliminary Blood - Venous No growth after 48 hours. 09/22/24 05:19 Blood Culture - Preliminary Blood - Venous No growth after 48 hours. Assessment and Plan (1) DKA (diabetic ketoacidosis): Status: Acute Plan 78-year-old male with underlying history of ulcerative colitis, type 1 diabetes on a pump for which they recently received a letter from [employer] supplier stating the pump maybe malfunctioning. He has been having episodes of hypoglycemia, and before coming to the ED had 2 falls, confusion and blood sugars reading very high. Glucose level > 600 when checked by EMS, upon eval in the ED he was in DKA with AGAP 37 and bicab of 8. He was admitted through ICU for IVF and IV insulin, his ICU course was complicated by Hypovolemic shock. Acute metabolic encephalopathy d/t DKA, hyperglycemia. CT head showed no acute pathology. Patient remains intermittently confused with periods of hallucination, family reports cognitive decline over time but no formnal diagnosis of dementia. Check TSH, folate B12, ammonia. Psych consult to help with med management. Type 1 diabetes mellitus since age 17 and admitted with DKA Admitted to the hospital due to insulin pump malfunction and DKA. Since he has been having some dementia and confusion lately he has not been able to use his pump accurately and give boluses as needed. This has led to hyperglycemia thereby causing DKA. He presented to the ED in June due to hypoglycemia secondary to pump malfunction. He does not want to go back on the insulin pump but wants to switch to subcu insulin. He wishes to establish with the billposting supervisor at [facility] after discharte DKA resolved, currently on Lantus 15 units with sliding scale. No recent A1X Hypovolemic shock: was on levophed support in ICU, shock likely d/t DKA. Was given empric Ceftriaxone and Azithro, CXR no PNA. UA was clean as well. Stop Abx Ulcerative colitis: no flare, continue balsalazide. Chronic anemia: Drop in the hemoglobin to 10. 4 possibly secondary to volume replacement/hemodilution No active bleeding Cognitive impairment: he is demonstrating confusion with dementia and will need family assistance for ADLs dvt prophylaixis: lovenox, dc tomorrow PT eval tomorrow and will discuss with family Quality Stroke Does the patient have a stroke diagnosis?: No VTE Prior VTE?: No VTE Risk Level:: Medical - moderate - high VTE Device Contraindication: N/A - Device Ordered VTE Drug Contraindication: N/A - Med Ordered
[2024-09-25 11:33] LABS: Glucose, Whole Blood 160 mg/dL (60-115)
[2024-09-25 11:51] LABS: Hematocrit 39.5 % (42.0-52.0); Hemoglobin 13.8 g/dl (14.0-18.0); Mean Corpuscular HGB Conc 34.9 g/dl (31.0-36.0); Mean Corpuscular Hemoglobin 30.9 pg (27.0-33.0); Mean Corpuscular Volume 88.4 fL (80.0-98.0); Mean Platelet Volume 9.2 fL (9.4-12.4); Platelet Count 188 X10*3/uL (160-400); Red Blood Count 4.47 X10*6/uL (4.60-5.80); Red Cell Distribution Width 13.5 % (11.0-16.0); White Blood Count 4.9 X10*3/uL (4.8-10.8)
[2024-09-25 11:58] LABS: Estimated Average Glucose 229 mg/dL; Hemoglobin A1c % 9.6 % (<6.0)
[2024-09-25 12:00] VITALS: BP 130/63; PULSE 102; RESP 18; TEMP 36.3; O2SAT 96
[2024-09-25 12:01] LABS: Ammonia 18 umol/L (13-55)
[2024-09-25 12:14] LABS: Albumin Level 3.8 g/dL (3.5-5.0); Alkaline Phosphatase 108 U/L (39-117); Aspartate Amino Transferase 81 U/L (5-37); Bilirubin Direct 0.4 mg/dL (0.0-0.5); Total Protein 6.6 g/dL (6.5-8.0)
[2024-09-25 12:29] LABS: Alanine Aminotransferase 42 U/L (0-40)
--- NOTE | 2024-09-25 12:29 | PM.PSYCN ---
History of Present Illness Date of Service: 09/25/2024 Chief Complaint: dka Reason for Consult: Agitation usually in the afternoon, evenings Requesting physician: Bakari Carroll Discussed with referring provider: Yes Sources of Information: patient interviewed and chart reviewed HPI Narrative: Lit is an 78-year-old white, , retired man who was brought to the hospital because of complications with his diabetes, insulin pump and DKA. He has multiple medical issues. He has been showing signs of dementia including auditory hallucinations, confusion and disorganization. He is aware of being in this hospital and the reasons for his hospitalization pertaining to his diabetes. No prior psychiatric history. He has been alcohol free for over a year. He has been eating and sleeping adequately. In the hospital he is showing signs of agitation and confusion in early evening and nights. He has responded to IV Valium.o physically aggressive behaviors. No suicidal ideations. 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 Substance History: Alcohol but none for the past year at least Trauma History: Unknown Diagnostics Vital Signs (24Hr): Vital Signs - 24 hr 09/24/24 15:56 09/24/24 19:23 09/24/24 23:40 Temperature 97.5 F 98.6 F 98.4 F Pulse Rate 103 H 109 H 125 H Respiratory Rate 18 16 18 Blood Pressure 148/76 H 177/86 H 174/92 H Pulse Oximetry 96 98 99 Oxygen Delivery Method Room Air Room Air Room Air 09/25/24 02:56 09/25/24 08:00 Temperature 98.2 F 97.3 F Pulse Rate 95 82 Respiratory Rate 17 18 Blood Pressure 151/77 H 130/83 Pulse Oximetry 96 97 Oxygen Delivery Method Room Air Room Air BMI result Body Mass Index 20.1 Labs 09/25/24 11:39 09/25/24 08:09 Labs: Laboratory Results - last 48 hr 09/23/24 09/23/24 09/24/24 15:32 19:39 07:41 WBC RBC Hgb Hct MCV MCH MCHC RDW Plt Count MPV Absolute Nucleated RBC Nucleated RBC % (auto) Sodium Potassium Chloride Carbon Dioxide Anion Gap BUN Creatinine Estim Creat Clear Calc Estimated GFR POC Glucose 161 H 189 H 254 H Random Glucose Estimat Average Glucose Hemoglobin A1c % Calcium Total Bilirubin Direct Bilirubin AST ALT Alkaline Phosphatase Ammonia Total Protein Albumin 09/24/24 09/24/24 09/24/24 11:08 11:15 15:39 WBC RBC Hgb Hct MCV MCH MCHC RDW Plt Count MPV Absolute Nucleated RBC Nucleated RBC % (auto) Sodium 139 Potassium 4.1 Chloride 103 Carbon Dioxide 21 L Anion Gap 19 BUN 11 Creatinine 0.65 Estim Creat Clear Calc 82.5 Estimated GFR > 60 POC Glucose 395 H* 271 H Random Glucose 398 H* Estimat Average Glucose Hemoglobin A1c % Calcium 8.7 Total Bilirubin Direct Bilirubin AST ALT Alkaline Phosphatase Ammonia Total Protein Albumin 09/24/24 09/25/24 09/25/24 19:27 07:36 08:09 WBC RBC Hgb Hct MCV MCH MCHC RDW Plt Count MPV Absolute Nucleated RBC Nucleated RBC % (auto) Sodium 142 Potassium 3.4 Chloride 109 H Carbon Dioxide 22 Anion Gap 14 BUN 15 Creatinine 0.59 Estim Creat Clear Calc 89.6 Estimated GFR > 60 POC Glucose 226 H 143 H Random Glucose 154 H Estimat Average Glucose Hemoglobin A1c % Calcium 8.5 Total Bilirubin Direct Bilirubin AST ALT Alkaline Phosphatase Ammonia Total Protein Albumin 09/25/24 09/25/24 11:29 11:39 WBC 4.9 RBC 4.47 L D Hgb 13.8 L D Hct 39.5 L D MCV 88.4 MCH 30.9 MCHC 34.9 RDW 13.5 Plt Count 188 MPV 9.2 L Absolute Nucleated RBC 0.000 Nucleated RBC % (auto) 0.0 Sodium Potassium Chloride Carbon Dioxide Anion Gap BUN Creatinine Estim Creat Clear Calc Estimated GFR POC Glucose 160 H Random Glucose Estimat Average Glucose 229 Hemoglobin A1c % 9.6 H Calcium Total Bilirubin 1.0 Direct Bilirubin 0.4 AST 81 H ALT 42 H Alkaline Phosphatase 108 Ammonia 18 Total Protein 6.6 Albumin 3.8 Mental Status Exam Mental Status Exam Narrative: In today's visit he is alert, oriented to person and place but not to time. Speech is normal. Thought processes are disorganized, tangential and circumstantial. Denies any auditory or visual hallucinations but reported to have auditory hallucinations. No SI. Judgment is impaired. Medications Medications Current Medications Acetaminophen (Acetaminophen 325 Mg Tablet) 975 mg PO DAILY PRN PRN Reason: Pain Aspirin (Aspirin Enteric Coated 81 Mg Tablet.) 81 mg PO DAILY [facility] Last Admin: 09/25/24 10:43 Dose: 81 mg Atorvastatin Calcium (Atorvastatin Calcium 20 Mg Tablet) 20 mg PO DAILY [facility] Last Admin: 09/25/24 10:43 Dose: 20 mg Balsalazide (Balsalazide Disodium 750 Mg Capsule) 2,250 mg PO DAILY [facility] Last Admin: 09/25/24 10:42 Dose: 2,250 mg Dextrose (Dextrose 50 % 25 Gm/50 Ml Syringe) 25 gm IVPUSH Q30M PRN PRN Reason: BG < 70 Dextrose (Dextrose 50 % 25 Gm/50 Ml Syringe) 25 gm IVPUSH Q15M PRN; Protocol PRN Reason: per Hypoglycemia Standing Ord. Enoxaparin Sodium (Enoxaparin Sodium 40 Mg/0.4 Ml Syringe) 40 mg SUBCUT Q24H [facility] Last Admin: 09/25/24 09:45 Dose: 40 mg Glucose (Glucose Gel 15 Gm Gel..Gram.) 15 gm PO Q15M PRN; Protocol PRN Reason: per Hypoglycemia Standing Ord. Insulin Glargine (Insulin Glargine,Hum.Rec.Anlog 100 Unit/Ml 10 Ml Vial) 15 unit SUBCUT DAILY [facility] Last Admin: 09/25/24 09:38 Dose: 15 unit Melatonin (Melatonin 3 Mg Tablet) 9 mg PO BEDTIME [facility] Last Admin: 09/24/24 19:30 Dose: 9 mg Omeprazole (Omeprazole 20 Mg Capsule.) 20 mg PO DAILY@0630 [facility] Last Admin: 09/25/24 05:10 Dose: Not Given Allergies Allergies Allergy/AdvReac Type Severity Reaction Status Date / Time Seasonal Allergies Allergy Mild Unknown Verified 09/22/24 01:28 Assessment & Plan Assessment & Plan (1) Dementia: Status: Acute Code(s): F03.90 - Unspecified dementia, unspecified severity, without behavioral disturbance, psychotic disturbance, mood disturbance, and anxiety Plan In conclusion Lit has signs and indications of dementia with worsening symptoms at [facility]. I would suggest putting him on a low-dose Risperdal 1 mg nightly and continue using p.r.n. Valium since it has been effective or Zyprexa 2.5 mg PO IM q.4 hours p.r.n. Total time managing care of this patient today ____ minutes. Patient educated on: medication risk/benefits
[2024-09-25 12:30] LABS: TSH reflex Free T4 1.26 uIU/mL (0.32-4.0)
[2024-09-25 12:44] LABS: Folate 12.6 ng/mL (> or = 4.0); Vitamin B12 1656 pg/mL (200-900)
[2024-09-25 15:59] VITALS: BP 151/70; PULSE 107; RESP 18; TEMP 36.6; O2SAT 94
[2024-09-25 16:32] LABS: Glucose, Whole Blood 263 mg/dL (60-115)
[2024-09-25 18:24] LABS: Glucose, Whole Blood 303 mg/dL (60-115)
[2024-09-25 20:00] VITALS: BP 125/72; PULSE 99; RESP 16; TEMP 37; O2SAT 99
[2024-09-25] MEDS: Melatonin 3 MG TABLET 9 MG PO (20:30)
[2024-09-26] VITALS (7 sets, daily range): BP systolic 120–165; BP diastolic 62–79; PULSE 87–99; RESP 14–17; TEMP 36.2–36.9; O2SAT 94–100; BMI 20.3
[2024-09-26 07:15] LABS: Glucose, Whole Blood 173 mg/dL (60-115)
[2024-09-26 07:46] LABS: Anion Gap 13 (12-20); Blood Urea Nitrogen 22 mg/dL (9-16); Carbon Dioxide 29 mmol/L (22-29); Chloride 104 mmol/L (96-108); Creatinine Clr Calc Pharmacy 79.7; Estimated Glomerular Filt Rate > 60; Glucose Random 203 mg/dL (60-115); Potassium 3.6 mmol/L (3.3-5.1); Sodium 142 mmol/L (135-145)
[2024-09-26] MEDS: Balsalazide Disodium 750 MG CAPSULE 2250 MG PO (09:45)
[2024-09-26] MEDS: Atorvastatin Calcium 20 MG TABLET PO (09:45)
[2024-09-26] MEDS: Insulin Glargine,Hum.rec.anlog 100 UNIT/ML 10 ML VIAL 15 UNIT SUBCUT (09:45)
[2024-09-26] MEDS: Aspirin Enteric Coated 81 MG TABLET.DR PO (09:45)
[2024-09-26] MEDS: Enoxaparin Sodium 40 MG/0.4 ML SYRINGE SUBCUT (09:46)
[2024-09-26 11:10] LABS: Glucose, Whole Blood 261 mg/dL (60-115)
--- NOTE | 2024-09-26 12:20 | W.MHC.F2F ---
Service Date Service Date: 09/26/24 Encounter Date of encounter: 09/26/24 Reasons for Services Signs and symptoms assessed: metabolic encephalopathy, DKA Reason for longterm: diabetic teaching, medication management and teach disease management Homebound: Leaving the home is medically contraindicated at this time without the asist of a device and/or another person due th the listed conditions above and below. Reason homebound: psychologically impaired / unsafe and weakness related to hospital stay Homebound supporting statement: homebound due to DKA with metabolic encephalopathy, deconditioned from hospitalization, mem issues no longer driving and therefore needs the assitance with another doctor Certification: Based on the above findings, I certify that this patient is confined to the home and needs intermittent longterm care, physical therapy and/or speech therapy, or continues to need occupational therapy. The patient is under my care, and I have initiated the establishment of the plan of care. The patient will be followed by a physician who will periodically review the plan of care. Time Spent With Patient Time: Total time managing care of this patient today ____ minutes.
--- NOTE | 2024-09-26 12:21 | MHC.CM.PN ---
PT TO DC HOME TODAY WITH COMFORT PLUS [facility] TO TRANSPORT
[2024-09-26 12:23] LABS: Glucose, Whole Blood > 600 mg/dL (60-115)
[2024-09-26 16:30] LABS: Glucose, Whole Blood 253 mg/dL (60-115)
--- NOTE | 2024-09-26 18:22 | P.PNIM_ITS ---
Subjective Subjective Date of Service: 09/26/24 Interval History: f/u on dka s/p icu care blood sugars are controlled mental status is much better today, and blood sugars seem better control as well Physical Exam 2 Vital Signs: Vital Signs: Last Vital Signs Temp 98.4 F 09/26/24 15:32 Pulse 99 09/26/24 15:32 Resp 14 09/26/24 15:32 BP 120/62 09/26/24 15:32 Pulse Ox 96 09/26/24 15:32 O2 Del Method Room Air 09/26/24 15:32 BMI result Body Mass Index 20.3 Const: Other: General: breathing fine, not able to asses mental status d./t sedation Resp: CTA bilateral CVS: S1,S2,RRR GI: +BS, NT, no distention Skin: No rash Neuro: motor grossly intact Psych: appropriate affect Objective Data Active Medications Acetaminophen (Acetaminophen 325 Mg Tablet) 975 mg PO DAILY PRN PRN Reason: Pain Aspirin (Aspirin Enteric Coated 81 Mg Tablet.) 81 mg PO DAILY [facility] Last Admin: 09/26/24 09:45 Dose: 81 mg Documented By: JAMEE Atorvastatin Calcium (Atorvastatin Calcium 20 Mg Tablet) 20 mg PO DAILY [facility] Last Admin: 09/26/24 09:45 Dose: 20 mg Documented By: JAMEE Balsalazide (Balsalazide Disodium 750 Mg Capsule) 2,250 mg PO DAILY [facility] Last Admin: 09/26/24 09:45 Dose: 2,250 mg Documented By: JAMEE Dextrose (Dextrose 50 % 25 Gm/50 Ml Syringe) 25 gm IVPUSH Q30M PRN PRN Reason: BG < 70 Dextrose (Dextrose 50 % 25 Gm/50 Ml Syringe) 25 gm IVPUSH Q15M PRN; Protocol PRN Reason: per Hypoglycemia Standing Ord. Enoxaparin Sodium (Enoxaparin Sodium 40 Mg/0.4 Ml Syringe) 40 mg SUBCUT Q24H [facility] Last Admin: 09/26/24 09:46 Dose: 40 mg Documented By: JAMEE Glucose (Glucose Gel 15 Gm Gel..Gram.) 15 gm PO Q15M PRN; Protocol PRN Reason: per Hypoglycemia Standing Ord. Insulin Glargine (Insulin Glargine,Hum.Rec.Anlog 100 Unit/Ml 10 Ml Vial) 15 unit SUBCUT DAILY [facility] Last Admin: 09/26/24 09:45 Dose: 15 unit Documented By: BROMaggy Melatonin (Melatonin 3 Mg Tablet) 9 mg PO BEDTIME [facility] Last Admin: 09/25/24 20:30 Dose: 9 mg Documented By: ENID Omeprazole (Omeprazole 20 Mg Capsule.) 20 mg PO DAILY@0630 [facility] Last Admin: 09/26/24 05:44 Dose: Not Given Documented By: ENID Non-Admin Reason: Patient Refused Labs 09/25/24 11:39 09/26/24 07:11 Labs: Laboratory Results - last 24 hr 09/22/24 09/25/24 09/26/24 03:05 18:16 07:11 Anion Gap 13 Estim Creat Clear Calc 79.7 Estimated GFR > 60 POC Glucose > 600 H* 303 H 173 H Random Glucose 203 H Calcium 9.0 09/26/24 09/26/24 11:07 16:26 Anion Gap Estim Creat Clear Calc Estimated GFR POC Glucose 261 H 253 H Random Glucose Calcium Microbiology Microbiology Results: Microbiology 09/22/24 05:19 Blood Culture - Preliminary Blood - Venous No growth after 48 hours. 09/22/24 05:19 Blood Culture - Preliminary Blood - Venous No growth after 48 hours. Assessment and Plan (1) DKA (diabetic ketoacidosis): Status: Acute Plan 78-year-old male with underlying history of ulcerative colitis, type 1 diabetes on a pump for which they recently received a letter from [employer] supplier stating the pump maybe malfunctioning. He has been having episodes of hypoglycemia, and before coming to the ED had 2 falls, confusion and blood sugars reading very high. Glucose level > 600 when checked by EMS, upon eval in the ED he was in DKA with AGAP 37 and bicab of 8. He was admitted through ICU for IVF and IV insulin, his ICU course was complicated by Hypovolemic shock. Acute metabolic encephalopathy d/t DKA, hyperglycemia. CT head showed no acute pathology. Patient remains intermittently confused with periods of hallucination, family reports cognitive decline over time but no formnal diagnosis of dementia. Check TSH, folate B12, ammonia. TSH, Foate B12 levels unremarkable. Seen by Psych no med recommended, should have formal dementia eval onoutpatient basis. He seems more lucid today Type 1 diabetes mellitus since age 17 and admitted with DKA Admitted to the hospital due to insulin pump malfunction and DKA. Since he has been having some dementia and confusion lately he has not been able to use his pump accurately and give boluses as needed. This has led to hyperglycemia thereby causing DKA. He presented to the ED in June due to hypoglycemia secondary to pump malfunction. He does not want to go back on the insulin pump but wants to switch to subcu insulin. He wishes to establish with the protein scientist at [facility] after discharte DKA resolved, currently on Lantus 15 units with sliding scale. A1C is 9.6. Patient is now interested in Insulin by pen, will discharge with 20 of lantus and sliding scale Hypovolemic shock: was on levophed support in ICU, shock likely d/t DKA. Was given empric Ceftriaxone and Azithro, CXR no PNA. UA was clean as well. Stop Abx Ulcerative colitis: no flare, continue balsalazide. Chronic anemia: Drop in the hemoglobin to 10. 4 possibly secondary to volume replacement/hemodilution No active bleeding Cognitive impairment: he is demonstrating confusion with dementia and will need family assistance for ADLs Unfortunately, we are unable to discharge tonight, as not able to arrange insulin for home Quality Stroke Does the patient have a stroke diagnosis?: No VTE Prior VTE?: No VTE Risk Level:: Medical - moderate - high VTE Device Contraindication: N/A - Device Ordered VTE Drug Contraindication: N/A - Med Ordered
[2024-09-26 21:18] LABS: Glucose, Whole Blood 218 mg/dL (60-115)
[2024-09-26] MEDS: Melatonin 3 MG TABLET 9 MG PO (21:26)
[2024-09-27] MEDS: diazePAM 10 MG/2 ML CARTRIDGE 5 MG IVPUSH (00:50)
[2024-09-27 04:00] VITALS: BP 155/75; PULSE 92; RESP 16; TEMP 36.8; O2SAT 97
[2024-09-27 06:00] VITALS: BMI 20.2
[2024-09-27 07:40] LABS: Glucose, Whole Blood 135 mg/dL (60-115)
[2024-09-27 08:00] VITALS: BP 152/69; PULSE 83; RESP 18; TEMP 36.4; O2SAT 98
[2024-09-27] MEDS: Insulin Glargine,Hum.rec.anlog 100 UNIT/ML 10 ML VIAL 20 UNIT SUBCUT (09:21)
[2024-09-27] MEDS: Balsalazide Disodium 750 MG CAPSULE 2250 MG PO (09:22)
[2024-09-27] MEDS: Aspirin Enteric Coated 81 MG TABLET.DR PO (09:22)
[2024-09-27] MEDS: Enoxaparin Sodium 40 MG/0.4 ML SYRINGE SUBCUT (09:22)
[2024-09-27] MEDS: Atorvastatin Calcium 20 MG TABLET PO (09:22)
--- NOTE | 2024-09-27 10:40 | MHC.CLN ---
F/U PT WITH INCREASED NUTRITION RISK R/T PRESSURE INJURY PO INTAKE; VARIABLE DIET RX: 2000DM-APPROPRIATE RECEIVING ENSURE MAX BID TO PROMOTE WOUND HEALING SUPPP PROVIDES 300KCALS, 60G PROTEIN MONITOR PO INTAKE AND ENCOURAGE SUPPLEMENTS
--- NOTE | 2024-09-27 10:46 | PM.DS ---
DS: Providers Provider Date of Service: 09/26/24 Date of admission: 09/22/24 03:06 Date of discharge: 09/26/24 Primary care physician: Cliff Menjivar MD Consults: 09/22/24 13:33 Consult to Wound Care Routine Reason for consultation: ?? DTI to coccyx 09/25/24 10:57 Consult to Psychiatry Routine Consulting Provider: [facility] Psych Covering Reason for consultation: demetnia with bahavioral disturnbance DS: Diagnosis Discharge Diagnosis (1) Dementia: Status: Acute DS: Summary Hospital Course Hospital Course: Admission hpi 78-year-old male with underlying history of ulcerative colitis, type 1 diabetes on a pump for which they recently received a letter from [employer] stating the pump maybe mild functioning, prostate cancer, right breast ductal carcinoma in Situ, hyperlipidemia among others.? The patient has had 2 ER visits for hypoglycemia in the past couple of months.? Two the patient came to the ER with increased confusion and 2 falls which were unwitnessed therefore there is unknown if there was head trauma or loss of consciousness.? The patient's called EMS because the patient appeared more confused than usual, glucose level by EMS was greater than 600. ?On arrival the patient was normotensive, somewhat tachycardic at 01:11 unable to provide a history. The workup in the emergency room reveal a white count 14.5, H and H of 12.6 and 37.3 respectively, sodium 137, potassium 5.5, chloride 97, carbon dioxide 9, anion gap 37, BUN 34, creatinine 1.41, glucose 763, beta hydroxybutyrate acid 8.35.? Urinalysis negative.? Venous blood gas pH 7.20, pCO2 22, PO2 64, bicarb 9. ?Head CT and cervical CT of the spine are pending radiology reads.? The patient did receive loading dose of insulin IV and is currently on insulin pump.? 2 L of IV fluids were administered.? The patient will be admitted to the ICU for further care of his DKA. Hospital couurse: 78-year-old male with underlying history of ulcerative colitis, type 1 diabetes on a pump for which they recently received a letter from [employer] supplier stating the pump maybe malfunctioning. He has been having episodes of hypoglycemia, and before coming to the ED had 2 falls, confusion and blood sugars reading very high. Glucose level > 600 when checked by EMS, upon eval in the ED he was in DKA with AGAP 37 and bicab of 8. He was admitted through ICU for IVF and IV insulin, his ICU course was complicated by Hypovolemic shock. Acute metabolic encephalopathy d/t DKA, hyperglycemia. CT head showed no acute pathology. Patient remains intermittently confused with periods of hallucination, family reports cognitive decline over time but no formnal diagnosis of dementia. Check TSH, folate B12, ammonia. TSH, Foate B12 levels unremarkable. Seen by Psych no med recommended, should have formal dementia eval onoutpatient basis. He seems more lucid today Type 1 diabetes mellitus since age 17 and admitted with DKA Admitted to the hospital due to insulin pump malfunction and DKA. Since he has been having some dementia and confusion lately he has not been able to use his pump accurately and give boluses as needed. This has led to hyperglycemia thereby causing DKA. He presented to the ED in June due to hypoglycemia secondary to pump malfunction. He does not want to go back on the insulin pump but wants to switch to subcu insulin. He wishes to establish with the digital marketing assistant at [facility] after discharte DKA resolved, currently on Lantus 15 units with sliding scale. A1C is 9.6. Patient is now interested in Insulin by pen, will discharge with 20 of lantus and sliding scale Hypovolemic shock: was on levophed support in ICU, shock likely d/t DKA. Was given empric Ceftriaxone and Azithro, CXR no PNA. UA was clean as well. Stop Abx Ulcerative colitis: no flare, continue balsalazide. Chronic anemia: Drop in the hemoglobin to 10. 4 possibly secondary to volume replacement/hemodilution No active bleeding Cognitive impairment: he is demonstrating confusion with dementia and will need family assistance for ADLs Time Attestation Discharge Coordination Time (in mins): 40 Quality: Safe Use of Opioids Does Pt have an Active Cancer Diagnosis on the Problem List?: No Quality: Stroke Does the patient have a stroke diagnosis?: No Physical Exam Vital Signs: Vital Signs: Selected Entries 09/27/24 08:00 Temperature 97.6 F Pulse Rate 83 Respiratory Rate 18 Blood Pressure 152/69 H Pulse Oximetry 98 Oxygen Delivery Me thod Room Air DS: Data Data Completed and Pending Labs on day of discharge: Laboratory Results - last 24 hr 09/25/24 09/25/24 09/25/24 11:39 16:28 18:16 WBC 4.9 RBC 4.47 L D Hgb 13.8 L D Hct 39.5 L D MCV 88.4 MCH 30.9 MCHC 34.9 RDW 13.5 Plt Count 188 MPV 9.2 L Absolute Nucleated RBC 0.000 Nucleated RBC % (auto) 0.0 Sodium Potassium Chloride Carbon Dioxide Anion Gap BUN Creatinine Estim Creat Clear Calc Estimated GFR POC Glucose 263 H 303 H Random Glucose Estimat Average Glucose 229 Hemoglobin A1c % 9.6 H Calcium Total Bilirubin 1.0 Direct Bilirubin 0.4 AST 81 H ALT 42 H Alkaline Phosphatase 108 Ammonia 18 Total Protein 6.6 Albumin 3.8 Vitamin B12 1656 H Folate 12.6 TSH 1.26 09/26/24 09/26/24 07:11 11:07 WBC RBC Hgb Hct MCV MCH MCHC RDW Plt Count MPV Absolute Nucleated RBC Nucleated RBC % (auto) Sodium 142 Potassium 3.6 Chloride 104 Carbon Dioxide 29 Anion Gap 13 BUN 22 H Creatinine 0.67 Estim Creat Clear Calc 79.7 Estimated GFR > 60 POC Glucose 173 H 261 H Random Glucose 203 H Estimat Average Glucose Hemoglobin A1c % Calcium 9.0 Total Bilirubin Direct Bilirubin AST ALT Alkaline Phosphatase Ammonia Total Protein Albumin Vitamin B12 Folate TSH Preliminary micro results at discharge 09/22/24 05:19 Blood Culture - Preliminary Blood - Venous No growth after 48 hours. 09/22/24 05:19 Blood Culture - Preliminary Blood - Venous No growth after 48 hours. Discharge Plan Discharge Anticipated Discharge Date/Time: 09/27/24 10:46 Patient Disposition: Home Health Service Discharge Diagnosis: DKA, metabolic encephalopathy Referrals: [facility] [Outside] - 1 Week Cliff Menjivar MD [Primary Care Provider, Medical] - 1 Week Discharge Medications: New insulin glargine [Lantus Solostar U-100 Insulin] 100 unit/mL (3 mL) insulin pen 20 unit SUBCUT DAILY Qty: 15 0RF (DME) pen needle, diabetic 32 gauge x 1/4 needle Qty: 100 0RF Rx Instructions: Use four times a day or as directed. insulin lispro [Humalog U-100 Insulin] 100 unit/mL solution 1 sliding scale dose subcut USEASDIRECTD Qty: 3 0RF Rx Instructions: BG <111 0 units, 111-150 - 0 units, 151-200 2 units, 201-250 4 units, 251-300 6 units, 301-350 8 units, >350 10 units Use your current insulin vials for this Continued aspirin [Aspirin Low-Strength] 81 mg Tablet,Delayed Release (Dr/Ec) 81 mg PO DAILY ascorbic acid (vitamin C) [Vitamin C] 500 mg Tablet 500 mg PO DAILY omega 4-kpy-aax-fish oil [Fish Oil] 1,200 (144-216) mg Capsule 1 cap PO DAILY acetaminophen 500 mg Tablet 1,000 mg PO DAILY PRN (Reason: Pain) acetaminophen 500 mg Tablet 1,000 mg PO BEDTIME triamcinolone acetonide 0.1 % cream 1 appl topical DAILY PRN (Reason: Rash) docusate sodium [Stool Softener] 100 mg Tablet 100 mg PO DAILY cholecalciferol (vitamin D3) [Vitamin D3] 50 mcg (2,000 unit) Tablet 50 mcg PO DAILY Centrum Silver Ultra Men's [phone] mcg Tablet 1 tab PO DAILY atorvastatin 20 mg tablet 20 mg PO DAILY balsalazide 750 mg capsule 2,250 mg PO DAILY (DME) FreeStyle Lite Strips Strip See Rx Instructions .ROUTE .MEDSUPPLY Qty: 10 Rx Instructions: As directed Discontinued insulin lispro [Humalog U-100 Insulin] 100 unit/mL solution See Rx Instructions .ROUTE .COMPLEX Rx Instructions: via insulin pump-basal rate 0.5 ml/hr Discharge Orders: Discharge Order (Routine); Ordered 09/26/24 Ordered By: Bakari Carroll Diet: Diabetic diet Activity on Discharge: As tolerated Stand Alone Forms: Patient Portal Discharge page Print Language: Kyrgyz Care Plan Goals: recocvery from DKA, metabolic encephalopathy Health Concerns: recovery from diabetes dka and metabolic encephalopathy Plan of Treatment: take insulin lantus by the [facility] direction as written for insulin humalog, use your current vials and follow sliding scale instruction write down your sugar level and give to your pcp at nex visit follow diabetic diet follow up with your PCP and digital marketing assistant in a week Assessment: see above
--- NOTE | 2024-09-27 13:22 | MHC.CM.PN ---
PT DISCHARGED HOME W/NEW COMFORT PLUS [facility], FAMILY FOR TRANSPORT
--- NOTE | 2024-10-13 13:07 | P.CDIM_ITS ---
PROVIDER RESPONSE TEXT: To clarify, the appropriate diagnosis supported by the clinical indicators: Sepsis is/was present: present QUERY TEXT: PHYSICIAN'S DOCUMENTATION REQUEST Date of Query: 10/12/2024 09:31 AM EDT Patient Name: iLt Burnham Admit Date: 09/22/2024 Dear Bakari [place] MD, RETROSPECTIVE QUERY A review of the medical record indicates additional documentation may be needed. Please review below and update the documentation accordingly: Clinical indicators: ICU H&P 09/05/19 - Acute early Sepsis (WBC, tachy, suspected infection of RLL, end organ damage) Acute Lactic and metabolic acidosis due to DKA and possibly PNA. Zithromax and Rocephin, 2.5 L IVF Temp 98.4 HR 108 RR 23 WBC 14.5 Discharge summary 09/27/24 - DX: DKA, metabolic encephalopathy Sepsis Systemic manifestations of infection, with 2 or more SIRS criteria which include: Fever > 100.4?F or hypothermia < 96.8?F Leukocytosis - WBC > 12,000 or leukopenia, WBC < 4,000, or > 10% bands Tachycardia- > 90 beats/minute Tachypnea- RR > 20 breaths/minute or PaCO2 < 32mmHg Based on the above information and the recognized standard for sepsis, could you please clarify if this diagnoses is still accurate and reflective of the patient's condition to ensure quality of the medical record. Sepsis is/was present resolved, possible, probable, suspected, etc. After study Sepsis has been ruled out Other (explain) Clinically unable to determine (explain) Thank you, Jessica Goodwin, CCS, CDIS Use of terms such as suspected, likely, concern for, or probable (associated with a specific diagnosis that is being evaluated, monitored, or treated as if it exists) are acceptable and can be coded in the inpatient setting, when documented at the time of discharge. Please use your independent medical judgment in providing your response. THIS QUERY IS PART OF THE PERMANENT MEDICAL RECORD
--- NOTE | 2024-10-24 07:50 | P.CDIM_ITS ---
PROVIDER RESPONSE TEXT: To clarify, the appropriate diagnosis supported by the clinical indicators: Deep Tissue Injury Coccyx: suspected QUERY TEXT: PHYSICIAN'S DOCUMENTATION REQUEST Date of Query: 10/17/2024 08:04 AM EDT Patient Name: Lit Burnham Admit Date: 09/22/2024 Dear Bakari Carroll MD, RETROSPECTIVE QUERY A review of the medical record indicates additional documentation may be needed. Please review below and update the documentation accordingly. Clinical Indicators: Wound care notes 09/26/24 - Deep Tissue Injury Coccyx, Present on Admission Off load pressure Foam dressing applied Based on the above, could you please provide further information regarding the ulcer/wound/injury within the body of the written Plan or Addendum to Discharge Summary, if agree? Deep Tissue Injury Coccyx possible, suspected, cannot rule out etc. Pressure (decubitus) ulcer Other (explain) Clinically unable to determine (explain) Thank you, Jessica Goodwin, CCS, CDIS Use of terms such as suspected, likely, concern for, or probable (associated with a specific diagnosis that is being evaluated, monitored, or treated as if it exists) are acceptable and can be coded in the inpatient setting, when documented at the time of discharge. Please use your independent medical judgment in providing your response. THIS QUERY IS PART OF THE PERMANENT MEDICAL RECORD
== END 2024-09-27 11:45 | disposition home health service (06) | DRG 871 ==
LOC: HO.ED 03:23 → HO.EDOVER 03:30 → HO.ICU 03:30 → HO.IMC 09-23 13:04
PROVIDERS: Internal Medicine Critical Care Medicine; Admitting Provider Physician Assistant Medical; Emergency Provider Emergency Medicine; PCP Internal Medicine; Visit Provider Internal Medicine
DX: A41.9 Sepsis, unspecified organism (principal); E10.10 Type 1 diabetes mellitus with ketoacidosis without coma; G93.41 Metabolic encephalopathy; J18.9 Pneumonia, unspecified organism; R57.1 Hypovolemic shock; T85.694A Other mechanical complication of insulin pump, initial encounter; K51.90 Ulcerative colitis, unspecified, without complications; L89.156 Pressure-induced deep tissue damage of sacral region; F10.90 Alcohol use, unspecified, uncomplicated; F03.90 Unspecified dementia, unspecified severity, without behavioral disturbance, psychotic disturbance, mood disturbance, and anxiety; D64.9 Anemia, unspecified; Z85.46 Personal history of malignant neoplasm of prostate; Z85.3 Personal history of malignant neoplasm of breast; Z79.4 Long term (current) use of insulin; Z79.82 Long term (current) use of aspirin; Z79.899 Other long term (current) drug therapy
CPT/HCPCS: 36415; 70450; 71045; 72125; 80048; 80053; 80076; 80307; 81001; 82010; 82140; 82607; 82746; 82803; 82947; 83036; 83605; 83735; 84100; 84443; 85025; 85027; 87040; 93005; 97161; 99285; J0456; J0696; J1650; J2359; J2470; J3360; J3480; J7120

== ENCOUNTER → 2024-09-22 01:25 | Outpatient (BNV) | payer MEDICARE, SELFPAY | PROVIDERS: Admitting Provider Physician Assistant Medical; Emergency Provider Emergency Medicine; PCP Internal Medicine; Visit Provider Internal Medicine Cardiovascular Disease | DX: R00.0 Tachycardia, unspecified (principal) | CPT/HCPCS: 93010 ==

== ENCOUNTER → 2024-09-22 01:26 | Outpatient (BNV) | payer MEDICARE, SELFPAY | PROVIDERS: Admitting Provider Physician Assistant Medical; Emergency Provider Emergency Medicine; PCP Internal Medicine; Visit Provider Radiology Diagnostic Radiology | DX: R41.82 Altered mental status, unspecified (principal); W19.XXXA Unspecified fall, initial encounter | CPT/HCPCS: 70450; 71045; 72125 ==

== ENCOUNTER → 2024-09-22 03:06 | Outpatient (BNV) | payer MEDICARE, SELFPAY | PROVIDERS: Admitting Provider Physician Assistant Medical; Emergency Provider Emergency Medicine; PCP Internal Medicine; Visit Provider Internal Medicine | DX: F03.90 Unspecified dementia, unspecified severity, without behavioral disturbance, psychotic disturbance, mood disturbance, and anxiety (principal) | CPT/HCPCS: 99232; 99233; 99239; 99499; G0180 ==

== ENCOUNTER → 2024-09-22 03:06 | Outpatient (BNV) | payer MEDICARE, SELFPAY | PROVIDERS: Admitting Provider Physician Assistant Medical; Emergency Provider Emergency Medicine; PCP Internal Medicine; Visit Provider Physician Assistant Medical | DX: E11.10 Type 2 diabetes mellitus with ketoacidosis without coma (principal) | CPT/HCPCS: 99223; 99291 ==

== ENCOUNTER → 2024-09-22 03:06 | Outpatient (BNV) | payer MEDICARE, SELFPAY | PROVIDERS: Admitting Provider Physician Assistant Medical; Emergency Provider Emergency Medicine; PCP Internal Medicine; Visit Provider Psychiatry & Neurology Psychiatry | DX: F03.90 Unspecified dementia, unspecified severity, without behavioral disturbance, psychotic disturbance, mood disturbance, and anxiety (principal) | CPT/HCPCS: 99232 ==

== ENCOUNTER 2024-10-17 15:16 | Outpatient (AMB) | payer MEDICARE, SELFPAY ==
--- NOTE | 2024-10-17 15:27 | A.OFFVIS_ITS ---
Vital Signs 10/17/24 15:29 Height 5 ft 10 in Weight 145 lb 8.081 oz BMI 20.9 BP 140/78 H Blood Pressure Location Lt brachial Position Sitting Pulse 72 Pulse Source Pulse Oximeter Pulse Oximetry (%) 98 Oxygen Delivery Method Room Air Intake Visit Reasons: SWEDGER for Diabetes Type 1 Intake Note: New patient present today for Type 1 Diabetes Mellitus Last Diabetic eye exam: last year Last Podiatry Visit:?Doesn't have one Random Glucose:? 472 mg/dl @ 3:45pm HgA1C: 9.6%? 09/25/24 Accompanied by: Spouse Allergies Seasonal Allergies Allergy (Mild, Verified 10/17/24 15:31) Unknown Medication List - Last Reconciled 10/17/24 by Garima Ruiz MD acetaminophen 1,000 mg PO DAILY PRN acetaminophen 1,000 mg PO BEDTIME ascorbic acid (vitamin C) (Vitamin C) 500 mg PO DAILY aspirin 81 mg PO DAILY atorvastatin 20 mg PO DAILY balsalazide 2,250 mg PO DAILY blood sugar diagnostic (FreeStyle Lite Strips) As directed cholecalciferol (vitamin D3) (Vitamin D3) 50 mcg PO DAILY docusate sodium (Stool Softener) 100 mg PO DAILY insulin glargine (Lantus Solostar U-100 Insulin) 20 units (0.2 mL) subcut DAILY insulin lispro (Humalog U-100 Insulin) 1 sliding scale dose subcut USEASDIRECTD [id number] mcg (Centrum Silver Ultra Men's) 1 tab PO DAILY omega 3-owz-zuc-fish oil 1,200 (144-216) mg (Fish Oil) 1 cap PO DAILY pen needle, diabetic Use four times a day or as directed. triamcinolone acetonide 0.1% 1 appl topical DAILY PRN HPI Comments Details: 78-year-old male coming in today for initial evaluation of type 1 diabetes mellitus. Here today with Arlette. BG today 472 at 3 45 pm, he ate lunch this afternoon but didnt take insulin, denies nausea, vomiting, AMS, feeling food, i gave him three glasses of water to drink, he cannot stay an hour here so we couldnt adminoster insulin but said plans on taking insulin as soon as they reach home History of diabetes Diagnosed at 17 years old Was seeing Dr. Braga in [facility] because of distance last visit Spring 2024 Prior therapy: Medtronic pump 780 g up until 21 September 2024, has had issues with dementia , unable to function with it , pump malfunction in September 2024, leading to DKA and hospitalization , he was checking fingersticks , he wasnt using the sensor Was in the hospital for hypoglycemia 4 times the last 2 years June 2024 severe hypoglycemia was in the hospital Current regimen: lantus 20 units AM lispro three times a day with meals <111 0 units 111-150: 0 units 151- 200: 2 units 201- 250: 4 units 251-300: 6 units 301- 350 : 8 units >350 : 10 units Denies any symptoms of hyperglycemia including polyphagia, polyuria, polydipsia. Denies any hypoglycemic symptoms. SMBG's Very oppsed to a sensor , gets irritated with alarms Didnt bring glucometer. Complications Eye exam: Last eye exam was one year ago in 2023, [facility], Dr Doron España ? has to make an appointment , has history of retinopathy Neuropathy: denies symtpms Kidney disease: no history of kidney disease Macrovascular complications: No history of macrovascular complications. Statin:atorvastatin 20 mg daily , 69 mg /d ldl 06/28 VLAD/ARB: none Exercise: not recently but was walking before Diet control: doesnt count carbs anymore just doing scale Physical exam General: sitting comfortably in no acute distress HEENT: normocephalic/atraumatic, Neck: supple Cardiac: normal heart sounds Pulm: normal breath sounds B/L, no added breath sounds Abd: not distended, no tenderness Extremities: no edema, no signs of myxedema Neuro: AAO x3, Speech: normal, no facial droop, moving all 4 extremities Laboratory Tests 06/09/24 09/25/24 09/26/24 08:00 11:39 07:11 Hgb 13.8 L D Hct 39.5 L D Plt Count 188 Sodium 142 Potassium 3.6 Creatinine 0.67 Estimated GFR > 60 POC Glucose Random Glucose 203 H Estimat Average Glucose 229 Hemoglobin A1c % 9.6 H AST 81 H ALT 42 H LDL Cholesterol, Calc 69 TSH 1.26 Urine Creatinine 56.32 Urine Microalbumin < 5.0 09/26/24 09/27/24 21:14 07:21 Hgb Hct Plt Count Sodium Potassium Creatinine Estimated GFR POC Glucose 218 H 135 H Random Glucose Estimat Average Glucose Hemoglobin A1c % AST ALT LDL Cholesterol, Calc TSH Urine Creatinine Urine Microalbumin [facility] Medical History (Updated 10/17/24 @ 16:41 by Garima Ruiz MD) Type 1 diabetes mellitus COVID-19 vaccine series completed Elevated cholesterol Diabetes mellitus Ulcerative colitis Prostate cancer Ductal carcinoma in situ (DCIS) of right breast Surgical History History of penile implant History of prostate surgery (2000) History of appendectomy History of colonoscopy History of right total mastectomy Social History Household Members: Spouse Housing: House Are you a primary acute care certified nursing assistant to a significant other at home: No Do you presently have visiting nurse or other home services: No Alcohol intake: never Comment: 1:1 sitter Patient Tobacco Use Status: Never used Tobacco Advance Directives Date on File: 07/12/21 service: No Physical Exam Vital Signs: Last Vital Signs Pulse 72 10/17/24 15:29 BP 140/78 H 10/17/24 15:29 Pulse Ox 98 10/17/24 15:29 Oxygen Delivery Method Room Air 10/17/24 15:29 BMI result Body Mass Index 20.9 Assessment & Plan Assessment & Plan (1) Type 1 diabetes mellitus: Code(s): E10.9 - Type 1 diabetes mellitus without complications Category: Medical Qualifiers: Diabetes mellitus complication status: with hyperglycemia Qualified Code(s): E10.65 - Type 1 diabetes mellitus with hyperglycemia Plan: 78-year-old male coming in today for initial evaluation of 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 Diagnosed at 17 years of age. He has had recent hospitalization with diabetic ketoacidosis in September 2023, he has a issues with dementia, he was on a Medtronic 780 G pump but he has had issues with the operating it in the pump malfunctioned and he went into DKA. He has also had hospitalizations were severe hypoglycemia over the past year. Today he did not bring his glucometer I barely have any data to work with but his accompanied him and told me that he has been having low blood sugars in the morning around 60 to 80. I will lower down the dose of the Lantus. It seems like he is having hyperglycemia post meals. He is not carb counting anymore. He is following a sliding scale. I will adjust scale somewhat. New scale <111 0 units 111-150: 2 units 151- 200: 4 units 201- 250: 6 units 251-300: 8 units 301- 350 : 10 units >350 : 10 units Blood sugar was elevated today to 472, he denied any symptoms of nausea, vomiting, abdominal pain, mental status changes. I gave him 3 glasses of water to drink. Discussed with him that we need to inject some insulin to bring his blood sugars down but he said he could not wait an hour and we will address the blood sugars as soon as he gets home. Apparently did not take insulin with his lunch today. Discussed with him signs and symptoms of DKA and to go to the emergency room if those occur after visit. Patient and both verbalized understanding. Plan: -did hypoglycemia education -told him to follow up with his repatcher -reduce insulin Lantus to 18 units daily -adjusted insulin lispro scale as mentioned above -reiterated importance of walking 30 minutes 5 days a week -we discussed signs and symptoms of DKA, when to report to the emergency room, explained to them to use urine ketone strips -referral to clinical nurse educator placed, I do not think he will be a good candidate for pump anymore given my brief interaction with the him but I think he would definitely benefit from a sensor but he is very opposed to it today. We will continue to talk more about this. Plan I spent 60 minutes in reviewing the record, seeing the patient and documenting in the medical record. Orders: Referrals 2 Diabetes Education Referral E10.9 - Type 1 diabetes mellitus without complications Medications: New 2 insulin lispro (Humalog KwikPen (U-100) Insulin) subcutaneously 3 times a day; can use upto 40 units in a day 15 mL 4RF acetone (urine) test (Ketone Urine Test strips) As directed 100 ea 3RF Changed From insulin glargine (Lantus Solostar U-100 Insulin) 20 units (0.2 mL) subcut DAILY 15 mL 0RF To insulin glargine (Lantus Solostar U-100 Insulin) 18 units (0.18 mL) subcut DAILY 15 mL 4RF Refilled pen needle, diabetic Use four times a day or as directed. 100 ea 1RF E11.9 - Type 2 diabetes mellitus without complications Patient Instructions: book appointment with clinical nurse educator Reduce Lantus to 18 units daily in AM For insulin lispro / humalog continue to use three times a day scale <111 0 units 111-150: 2 units 151- 200: 4 units 201- 250: 6 units 251-300: 8 units 301- 350 : 10 units >350 : 10 units Rule of 15 Treatment for Hypoglycemia (Low blood sugar) If your blood glucose is low (70 and below)*, follow the steps below to treat: Eat or drink something from the list below equal to 15 grams of carbohydrate (carb). Rest for 15 minutes Re-check your blood glucose. If it is still low, (below 70), repeat step 1 above. ? If your next meal is more than an hour away, you will need to eat one carbohydrate choice as a snack to keep your blood glucose from going low again. ?If you can't figure out why you have low blood glucose, call your healthcare provider, as your medicine may need to be adjusted. ?Always carry something with you to treat an insulin reaction. Use food from the list below. ? Foods equal to One Carbohydrate Choice (15 grams of carbohydrate): 3 Glucose ?tablets or 4 Dextrose tablets 4 ounces of fruit juice 5-6 ounces (about 1/2 can) of regular soda such as Coke or Pepsi ? 7-8 gummy or regular Life Savers ? 1 Tbsp. of sugar or jelly NOTE: If your blood sugar is less than 50, double the portion above for a total of 30 gm. ?Carbohydrate. ? Follow meal plan of 45-60 g of consistent carbohydrates at 3 meals each day and 15 g of carbohydrate at 1-2 snacks each day. DIABETES PROBLEMS [facility]?INSTRUCTIONS? for High Blood Sugar and When to Test for Ketones Hyperglycemia is the technical term for high blood glucose (blood sugar). High blood sugar happens when the body has too little insulin or when the body can't use insulin properly. What causes hyperglycemia? A number of things can cause hyperglycemia: * If you have type 1, you may not have given yourself enough insulin.?If you have type 2, your body may have enough insulin, but it is not as effective as it should be. * You ate more than planned or exercised less than planned. * You have stress from an illness, such as a cold or flu. * You have other stress, such as family conflicts or school or dating problems. How to lower your blood sugar level. ?Take medications as directed by physician. ?Drink extra water or noncaffeinated, nonsugared drinks to prevented hydration. ?Exercise if you are not sick However, if your blood sugar is above 250 mg/dl, check your urine for ketones.? If you have ketones, do not exercise Exercising when ketones are present may make your blood sugar level go even higher. You'll need to work with your doctor to find the safest way for you to lower your blood sugar level. Regularly check blood sugar or urine for sugar and acetone during illness. Diabetic ketoacidosis (DKA) Is serious condition that can lead to diabetic coma (passing out for a long time) or even . When your cells don't get the glucose they need for energy, your body begins to burn fat for energy, which produces ketones. Ketones are chemicals that the body creates when it breaks down fat to use for energy. The body does this when it doesn?t have enough insulin to use glucose, the body?s normal source of energy. When ketones build up in the blood, they make it more acidic. They are a warning sign that your diabetes is out of control or that you are getting sick. Symptoms of Diabetic Ketoacidosis (DKA) ?DKA usually develops slowly. But when vomiting occurs, this life- threatening condition can develop in a few hours. Early symptoms include the following: ?Thirst or a very dry mouth ?Frequent urination ?High blood glucose (blood sugar) levels ?High levels of ketones in the urine ?Then, other symptoms appear: ?Constantly feeling tired ?Dry or flushed skin ?Nausea, vomiting, or abdominal pain ?(Vomiting can be caused by many illnesses, not just ketoacidosis. If vomiting continues for more than 2 hours, contact your health care provider.) ?Difficulty breathing ?Fruity odor on breath ?A hard time paying attention, or confusion When should you test for ketones? It is advisable to check for ketones under the following conditions when: Your blood glucose is higher than 250mg/dl. Feeling nauseated, throwing up, or have pains in your abdominal region. Have a cold or flu. Have general body fatigue. Feel thirsty or have a very dry mouth. Have flushed skin. Have a fruity breath or a hard time breathing. You feel perplexed or in fog. How to Test Urine for Ketones You can detect ketones with a simple urine test using a test strip, similar to a blood testing strip. Ask your health care provider when and how you should test for ketones. Many experts advise to check your urine for ketones when your blood glucose is more than 250 mg/dl. When you are ill (when you have a cold or the flu, for example), check for ketones every 4 to 6 hours. And check every 4 to 6 hours when your blood sugar is more than 250 mg/dl. Also, check for ketones when you have any symptoms of DKA. How to lower your blood sugar level. ?Take medications as directed by physician. ?Drink extra water or noncaffeinated, nonsugared drinks to prevented hydration. ?Exercise if you are not sick However, if your blood sugar is above 250 mg/dl, check your urine for ketones.? If you have ketones, do not exercise Exercising when ketones are present may make your blood sugar level go even higher. You'll need to work with your doctor to find the safest way for you to lower your blood sugar level. Regularly check blood sugar or urine for sugar and acetone during illness if you start having nausea, vomting , unable to take oral intake with blood sugars , go to emergency room Coding Level of Care Code New Pt Level 5 (93726) Diagnoses Type 1 diabetes mellitus with hyperglycemia E10.65 Diabetes mellitus complication status: with hyperglycemia Time Spent (min) 60
[2024-10-17 15:29] VITALS: BP 140/78; PULSE 72; O2SAT 98; BMI 20.9
[2024-10-17 15:58] LABS: Glucose, Whole Blood 472 mg/dL (60-115)
== END 2024-10-17 16:38 | disposition home or self-care (01) ==
LOC: HO.ENCR 15:17
PROVIDERS: PCP Internal Medicine; Visit Provider Student in an Organized Health Care Education/Training Program
DX: E10.65 Type 1 diabetes mellitus with hyperglycemia (principal)
CPT/HCPCS: 99205

== ENCOUNTER → 2024-10-17 15:16 | Outpatient (BNVA) | payer MEDICARE, SELFPAY | PROVIDERS: PCP Internal Medicine; Visit Provider Student in an Organized Health Care Education/Training Program | DX: E10.65 Type 1 diabetes mellitus with hyperglycemia (principal) | CPT/HCPCS: 82947; 99202 ==

== ENCOUNTER 2024-11-08 07:48 | Outpatient (AMB) | payer MEDICARE, SELFPAY ==
--- OUTSIDE RECORDS SUMMARY | 2024-11-08 07:50 | XMS_ITS | Encounter Summary ---
Author Organization [facility] Address [address] [place] [id number] Phone Care Team Providers Care Helper Coordinator Name Role Phone Cliff Menjivar MD Primary Care Provider Encounter Details Date Type Department Care Team (Late st Contact Info) Description 09/30/2016 Orders Only VIRTUAL DEPARTMENT Interface Provider, Scanning Social History Tobacco Use Types Packs/Day Years Used Date Smoking Tobacco: Never Assessed Sex and Gender Information Value Date Recorded Sex Assigned at Not on file Legal Sex Male 10:09 PM EDT Gender Identity Not on file Sexual Orientation Not on file documented as of this encounter Plan of Treatment Not on file documented as of this encounter Procedures Procedure Name Priority Date/Time Associated Diagnosis Comments OUTSIDE LAB Routine 09/30/2016 documented in this encounter Results * Outside Lab (09/30/2016) us Historical Provider LAB BLOOD ORDERABLES Rosey l Result documented in this encounter Visit Diagnoses Not on filedocumented in this encounter Care Teams Helper Coordinator Relationship Specialty Start Date End Date Cliff Menjivar MD [address] [place] [address] Dr VALDIVIA JEFFERY Mendez [id number] PCP - General Internal Medicine 02/09/17 documented as of this encounter Additional Source Comments The information contained in this document represents components of the legal health record. It is not the complete legal health record.[facility]
--- NOTE | 2024-11-08 08:45 | A.OFFVIS_ITS ---
Intake Intake Visit Reasons: T1DM Veneer Gluer Required: No Accompanied by: Spouse Allergies Seasonal Allergies Allergy (Mild, Verified 10/17/24 15:31) Unknown HPI Comprehensive Diabetes Asmnt Most Recent Diabetes Results: Microalb/Creat Ratio TNP 06/09/24 Cholesterol, (<200) 156 mg/dL 06/09/24 HDL Cholesterol, (>40) 70 mg/dL 06/09/24 Triglycerides, (<150) 85 mg/dL 06/09/24 Creatinine, (0.5-1.4) 0.67 mg/dL 09/26/24 BUN, (9-16) 22 mg/dL H 09/26/24 Sodium, (135-145) 142 mmol/L 09/26/24 Potassium, (3.3-5.1) 3.6 mmol/L 09/26/24 Chloride, (96-108) 104 mmol/L 09/26/24 Carbon Dioxide, (22-29) 29 mmol/L 09/26/24 Calcium, (8.4-10.2) 9.0 mg/dL 09/26/24 AST, (5-37) 81 U/L H 09/25/24 ALT, (0-40) 42 U/L H 09/25/24 Total Protein, (6.5-8.0) 6.6 g/dL 09/25/24 Albumin, (3.5-5.0) 3.8 g/dL 09/25/24 [facility] Medical History (Updated 10/17/24 @ 16:41 by Garima Ruiz MD) Type 1 diabetes mellitus COVID-19 vaccine series completed Elevated cholesterol Diabetes mellitus Ulcerative colitis Prostate cancer Ductal carcinoma in situ (DCIS) of right breast Surgical History History of penile implant History of prostate surgery (2000) History of appendectomy History of colonoscopy History of right total mastectomy Social History Household Members: Spouse Housing: House Are you a primary intensive care ambulance paramedic to a significant other at home: No Do you presently have visiting nurse or other home services: No Alcohol intake: never Comment: 1:1 sitter Patient Tobacco Use Status: Never used Tobacco Advance Directives Date on File: 07/12/21 service: No Assessment & Plan Assessment & Plan (1) Type 1 diabetes mellitus: Code(s): E10.9 - Type 1 diabetes mellitus without complications Qualifiers: Diabetes mellitus complication status: with hyperglycemia Qualified Code(s): E10.65 - Type 1 diabetes mellitus with hyperglycemia Plan: CGM Info Instructed Pt on what CGM can and can't do CGM Can: Give Pt minute by minute reading of glucose levels Displays glucose trend arrows that represents the direction glucose levels are fluctuating Give insight on decisions about how to dose insulin CGM cannot: Improve glucose control on its own Completely eliminate the need for all finger sticks Make dosing decision for you CGM is the reading of glucose in the interstitial fluid not actual blood glucose, finger sticks are still necessary when Pt's symptom?s do not match sensor reading and if sensors prompts Pt to do a fingerstick Patient? is interested in the [address]xuan Bruce 3+ with reader Reviewed delay of CGM from fingersticks Reminded pt that if symptoms do not match sensor still needs to check fingersticks. Signs and symptoms of low blood sugar (happen quickly) Each person's reaction to low blood sugar is different. Learn your own signs and symptoms of when your blood sugar is low. Taking time to write these symptoms down may help you learn your own symptoms of when your blood sugar is low. From milder, more common indicators to most severe, signs and symptoms of low blood sugar include: Feeling shaky Being nervous or anxious Sweating, chills and clamminess Irritability or impatience Confusion Fast heartbeat Feeling lightheaded or dizzy Hunger Nausea Color draining from the skin (pallor) Feeling Sleepy Feeling weak or having no energy Blurred/impaired vision Tingling or numbness in the lips, tongue, or cheeks Headaches Coordination problems, clumsiness Hypoglycemia or blood glucose under 80 mg/dL use the rule of 15's: If you have your blood glucose meter test your blood glucose, if you do not have your meter still follow below instruction: Keep quick-sugar foods with you at all times.? Take 15 grams of fast acting carbohydrates. Examples are 4 ounces of fruit juice or regular soda pop, 8 ounces fat-free milk, 1 tablespoon of table sugar, honey or corn syrup, jam, one miniature box of raisins, 7-8 gumdrops or Life Savers candy, 4 glucose tablets, and glucose gel.? Retest blood glucose in 15 minutes, if blood glucose is still under 90 mg/dL,repeat rule of 15's. If blood glucose is under 50, take 30 grams of fast acting carbohydrates If you are having hypoglycemia, or insulin reaction, more that a few times a week, call MD or informatics educator Hypoglycemic handout given F/U BG check Portions of this note were created using voice recognition software, please excuse any words or phrases that may have been misinterpreted. Patient Instructions: CGM provides information on blood glucose control throughout the day, including hyperglycemia and hypoglycemia. ? Continue to monitor blood glucose as instructed. Follow nutrition guidelines provided. Report any discomfort promptly to health care provider. ?Stay well-hydrated. You can bathe ,shower, swim and exerce while wearing the glucose sensor. Do not submerge glucose sensor in water for more than 30 minutes. Remove sensor for MRI or CAT scan. Avoid Xray machine in airports - remove sensor or request wand Call for CGM training when you receives equipment Coding Level of Care Code Est Pt Level 1 (72248) Diagnoses Type 1 diabetes mellitus with hyperglycemia E10.65 Diabetes mellitus complication status: with hyperglycemia
== END 2024-11-08 08:47 | disposition home or self-care (01) ==
LOC: HO.ENCR 07:49
PROVIDERS: PCP Internal Medicine; Visit Provider Registered Nurse Diabetes Educator
DX: E10.65 Type 1 diabetes mellitus with hyperglycemia (principal)

== ENCOUNTER → 2024-11-08 07:48 | Outpatient (BNVA) | payer MEDICARE, SELFPAY | PROVIDERS: PCP Internal Medicine; Visit Provider Registered Nurse Diabetes Educator | DX: E10.65 Type 1 diabetes mellitus with hyperglycemia (principal) | CPT/HCPCS: 99211 ==

== ENCOUNTER 2024-11-15 09:27 | Outpatient (AMB) | payer MEDICARE, SELFPAY ==
[2024-11-15 09:28] VITALS: BP 100/62; PULSE 96; O2SAT 97; BMI 21.2
--- NOTE | 2024-11-15 09:28 | MHC.OFFVIS ---
Vital Signs 11/15/24 09:28 Height 5 ft 10 in Weight 147 lb 14.883 oz BMI 21.2 BP 100/62 Blood Pressure Location Lt brachial Position Sitting Pulse 96 Pulse Source Pulse Oximeter Pulse Oximetry (%) 97 Oxygen Delivery Method Room Air Intake Visit Reasons: T1DM Intake Note: Patient present today for Type 1 Diabetes Mellitus Last Diabetic eye exam: Last exam was about 3 years ago. Patient said he doesn't need a referral. Last Podiatry Visit: Doesn't have one Random Glucose: 260 mg/dl HgA1C: 9.66% 09/25/24 Validation Intern Required: No Accompanied by: Spouse Allergies Seasonal Allergies Allergy (Mild, Verified 11/15/24 09:34) Unknown Medication List - Last Reconciled 11/15/24 by Garima Ruiz MD acetaminophen 1,000 mg PO DAILY PRN acetaminophen 1,000 mg PO BEDTIME acetone (urine) test (Ketone Urine Test strips) As directed ascorbic acid (vitamin C) (Vitamin C) 500 mg PO DAILY aspirin 81 mg PO DAILY atorvastatin 20 mg PO DAILY balsalazide 2,250 mg PO DAILY blood sugar diagnostic (FreeStyle Lite Strips) As directed blood-glucose sensor (FreeStyle Bruce 3 Plus Sensor device) As directed every 15 days blood-glucose,superintendent generating plant,cont (FreeStyle Bruce 3 [place]) As directed cholecalciferol (vitamin D3) (Vitamin D3) 50 mcg PO DAILY docusate sodium (Stool Softener) 100 mg PO DAILY insulin glargine (Lantus Solostar U-100 Insulin) 18 units (0.18 mL) subcut DAILY insulin lispro (Humalog KwikPen (U-100) Insulin) subcutaneously 3 times a day; can use upto 40 units in a day insulin syringe-needle U-100 (CareTouch Insulin Syringe) As directed to to use insulin via insulin pump [id number] mcg (Centrum Silver Ultra Men's) 1 tab PO DAILY omega 0-ksi-lvk-fish oil 1,200 (144-216) mg (Fish Oil) 1 cap PO DAILY pen needle, diabetic Use four times a day or as directed. triamcinolone acetonide 0.1% 1 appl topical DAILY PRN HPI Comments Details: 79-year-old male coming in today for follow up of type 1 diabetes mellitus. Here today with Arlette. History of diabetes Diagnosed at 17 years old [address] seeing [address] Braga in [facility], [facility] because of distance last visit with them Spring 2024 Prior therapy: Medtronic pump 780 g up until 21 September 2024, has had issues with dementia , unable to function with it , pump malfunction in September 2024, leading to DKA and hospitalization , he was checking fingersticks , he wasnt using the sensor Was in the hospital for hypoglycemia 4 times the last 2 years June 2024 severe hypoglycemia was in the hospital Current regimen: lantus 18 units AM For insulin lispro / humalog scale <111 0 units 111-150: 2 units 151- 200: 4 units 201- 250: 6 units 251-300: 8 units 301- 350 : 10 units >350 : 10 units Random Glucose: 260 mg/dl HgA1C: 9.66% 09/25/24 SMBG's Very oppsed to a pump , gets irritated with alarms , since he has met with the CDE is okay with the using a sensor. He is still has not heard back from pharmacy. Didnt bring glucometer. Complications Eye exam: Last eye exam was one year ago in 2023, [facility], Dr Doron España ? has to make an appointment , has history of retinopathy Neuropathy: denies symtpms Kidney disease: no history of kidney disease Macrovascular complications: No history of macrovascular complications. Statin:atorvastatin 20 mg daily , 69 mg /d ldl 06/28 VLAD/ARB: none Exercise: not recently but was walking before Diet control: doesnt count carbs anymore just doing scale Saw CDE 11/08/2024 for CGM info Physical exam General: sitting comfortably in no acute distress HEENT: normocephalic/atraumatic, Neck: supple Cardiac: normal heart sounds Pulm: normal breath sounds B/L, no added breath sounds Abd: not distended, no tenderness Extremities: no edema, no signs of myxedema Neuro: AAO x3, Speech: normal, no facial droop, moving all 4 extremities Foot exam: Intact sensation to monofilament, intact vibration, warm and well-perfused, intact pulses Laboratory Tests 06/09/24 09/25/24 09/26/24 08:00 11:39 07:11 Hgb 13.8 L D Hct 39.5 L D Plt Count 188 Sodium 142 Potassium 3.6 Creatinine 0.67 Estimated GFR > 60 POC Glucose Random Glucose 203 H Estimat Average Glucose 229 Hemoglobin A1c % 9.6 H AST 81 H ALT 42 H LDL Cholesterol, Calc 69 TSH 1.26 Urine Creatinine 56.32 Urine Microalbumin < 5.0 09/26/24 09/27/24 21:14 07:21 Hgb Hct Plt Count Sodium Potassium Creatinine Estimated GFR POC Glucose 218 H 135 H Random Glucose Estimat Average Glucose Hemoglobin A1c % AST ALT LDL Cholesterol, Calc TSH Urine Creatinine Urine Microalbumin PFSH Medical History (Updated 10/17/24 @ 16:41 by Garima Ruiz MD) Type 1 diabetes mellitus COVID-19 vaccine series completed Elevated cholesterol Diabetes mellitus Ulcerative colitis Prostate cancer Ductal carcinoma in situ (DCIS) of right breast Surgical History History of penile implant History of prostate surgery (2000) History of appendectomy History of colonoscopy History of right total mastectomy Social History Household Members: Spouse Housing: House Are you a primary md do resident urgent care to a significant other at home: No Do you presently have visiting nurse or other home services: No Alcohol intake: never Comment: 1:1 sitter Patient Tobacco Use Status: Never used Tobacco Advance Directives Date on File: 07/12/21 service: No Assessment & Plan Assessment & Plan (1) Type 1 diabetes mellitus: Code(s): E10.9 - Type 1 diabetes mellitus without complications Category: Medical Qualifiers: Diabetes mellitus complication status: with hyperglycemia Qualified Code(s): E10.65 - Type 1 diabetes mellitus with hyperglycemia Plan: 78-year-old male coming in today for initial evaluation of 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 Diagnosed at 17 years of age. He has had recent hospitalization with diabetic ketoacidosis in September 2023, he has a issues with dementia, he was on a Medtronic 780 G pump but he has had issues with the operating it in the pump malfunctioned and he went into DKA. He has also had hospitalizations were severe hypoglycemia over the past year. Today he did not bring his glucometer again today I barely have any data to work with per endorses that blood sugars have been better since we reduced the Lantus last time. He is not carb counting anymore. He is following a sliding scale. Plan: -continue current dose of Lantus 18 units daily -continue insulin lispro sliding scale 3 times before meals scale <111 0 units 111-150: 2 units 151- 200: 4 units 201- 250: 6 units 251-300: 8 units 301- 350 : 10 units >350 : 10 units -did hypoglycemia education -told him to follow up with his presales senior specialist -reiterated importance of walking 30 minutes 5 days a week -we discussed signs and symptoms of DKA, when to report to the emergency room, explained to them to use urine ketone strips -r follow up with CDE once has a sensor and reader. For CGM start -referral to Podiatry placed Plan I spent 30 minutes in reviewing the record, seeing the patient and documenting in the medical record. Orders: Referrals Podiatry Referral E10.65 - Type 1 diabetes mellitus with hyperglycemia Patient Instructions: continue Lantus 18 units daily in AM For insulin lispro / humalog continue to use three times a day scale <111 0 units 111-150: 2 units 151- 200: 4 units 201- 250: 6 units 251-300: 8 units 301- 350 : 10 units >350 : 10 units PLEASE BRING METER TO NEXT APPOINTMENT AND LOG OF BLOOD SUGARS make eye appointment Call [facility] to check on the status of your sensor and reader , once you pick these up call our office to make appointment with Ling Rule of 15 Treatment for Hypoglycemia (Low blood sugar) If your blood glucose is low (70 and below)*, follow the steps below to treat: Eat or drink something from the list below equal to 15 grams of carbohydrate (carb). Rest for 15 minutes Re-check your blood glucose. If it is still low, (below 70), repeat step 1 above. ? If your next meal is more than an hour away, you will need to eat one carbohydrate choice as a snack to keep your blood glucose from going low again. ?If you can't figure out why you have low blood glucose, call your healthcare provider, as your medicine may need to be adjusted. ?Always carry something with you to treat an insulin reaction. Use food from the list below. ? Foods equal to One Carbohydrate Choice (15 grams of carbohydrate): 3 Glucose ?tablets or 4 Dextrose tablets 4 ounces of fruit juice 5-6 ounces (about 1/2 can) of regular soda such as Coke or Pepsi ? 7-8 gummy or regular Life Savers ? 1 Tbsp. of sugar or jelly NOTE: If your blood sugar is less than 50, double the portion above for a total of 30 gm. ?Carbohydrate. ? Follow meal plan of 45-60 g of consistent carbohydrates at 3 meals each day and 15 g of carbohydrate at 1-2 snacks each day. See foot doctor , someone should be calling you from [facility] Coding Level of Care Code Est Pt Level 4 (23750) Complex EM visit Add On G2211 Diagnoses Type 1 diabetes mellitus with hyperglycemia E10.65 Diabetes mellitus complication status: with hyperglycemia Time Spent (min) 30
[2024-11-15 09:41] LABS: Glucose, Whole Blood 260 mg/dL (60-115)
--- OUTSIDE RECORDS SUMMARY | 2024-11-15 10:06 | XMS_ITS | Encounter Summary ---
Author Organization [facility] Address [address] [place] [phone] Phone Care Team Providers Care Stereo Plotter Operator Name Role Phone Cliff Menjivar MD Primary [...] on filedocumented in this encounter Care Teams Stereo Plotter Operator Relationship Specialty Start Date End Date Cliff Menjivar MD [address] [place] [address] [place] [address] PCP - General Internal Medicine 02/09/17 documented as of this encounter Additional Source Comments The information contained in this document represents components of the legal health record. It is not the complete legal health record.[facility]
== END 2024-11-15 09:59 | disposition home or self-care (01) ==
LOC: HO.ENCR 09:27
PROVIDERS: PCP Internal Medicine; Visit Provider Student in an Organized Health Care Education/Training Program
DX: E10.65 Type 1 diabetes mellitus with hyperglycemia (principal)
CPT/HCPCS: 99214; G2211

== ENCOUNTER → 2024-11-15 09:27 | Outpatient (BNVA) | payer MEDICARE, SELFPAY | PROVIDERS: PCP Internal Medicine; Visit Provider Student in an Organized Health Care Education/Training Program | DX: E10.65 Type 1 diabetes mellitus with hyperglycemia (principal); Z79.4 Long term (current) use of insulin | CPT/HCPCS: 82947; 99212 ==

== ENCOUNTER 2024-11-21 10:27 | Outpatient (AMB) | payer MEDICARE, SELFPAY ==
--- NOTE | 2024-11-21 11:04 | MHC.AMDMED ---
Intake Intake Visit Reasons: T1DM/set up CGM Enterprise Project Manager Required: No Accompanied by: Self / Same As Patient Allergies Seasonal Allergies Allergy (Mild, Verified 11/15/24 09:34) Unknown HPI Comprehensive Diabetes Asmnt Most Recent Diabetes Results: Creatinine, (0.5-1.4) 0.67 mg/dL 09/26/24 BUN, (9-16) 22 mg/dL H 09/26/24 Sodium, (135-145) 142 mmol/L 09/26/24 Potassium, (3.3-5.1) 3.6 mmol/L 09/26/24 Chloride, (96-108) 104 mmol/L 09/26/24 Carbon Dioxide, (22-29) 29 mmol/L 09/26/24 Calcium, (8.4-10.2) 9.0 mg/dL 09/26/24 AST, (5-37) 81 U/L H 09/25/24 ALT, (0-40) 42 U/L H 09/25/24 Total Protein, (6.5-8.0) 6.6 g/dL 09/25/24 Albumin, (3.5-5.0) 3.8 g/dL 09/25/24 [facility] Medical History (Updated 10/17/24 @ 16:41 by Garima Ruiz MD) Type 1 diabetes mellitus COVID-19 vaccine series completed Elevated cholesterol Diabetes mellitus Ulcerative colitis Prostate cancer Ductal carcinoma in situ (DCIS) of right breast Surgical History History of penile implant History of prostate surgery (2000) History of appendectomy History of colonoscopy History of right total mastectomy Social History Household Members: Spouse Housing: House Are you a primary home day care provider to a significant other at home: No Do you presently have visiting nurse or other home services: No Alcohol intake: never Comment: 1:1 sitter Patient Tobacco Use Status: Never used Tobacco Advance Directives Date on File: 07/12/21 service: No Assessment & Plan Assessment & Plan (1) Type 1 diabetes mellitus: Code(s): E10.9 - Type 1 diabetes mellitus without complications Qualifiers: Diabetes mellitus complication status: with hyperglycemia Qualified Code(s): E10.65 - Type 1 diabetes mellitus with hyperglycemia Plan: Patient at visit to set up an insert Bruce 3 with reader Instructed patient sensors water proof you can shower, or swim do not submerge sensor in water for over 30 minutes Is sensor falls off cannot put back in you need to replace sensor, customer service number given to patient for sensor replacement Sensor placed on the back of right arm Patient left visit with sensor in warmup Low alert increase to 80 mg/dL Reviewed how to interpret trend arrows Discussed lag time between finger stick and sensor data.? Instructed patient the importance of having blood glucometer for backup testing if needed Reviewed delay of CGM from fingersticks Reminded Pt that if symptoms do not match sensor still needs to check fingersticks. Patient has upcoming appointment with provider on 12/20/2024 Portions of this note were created using voice recognition software, please excuse any words or phrases that may have been misinterpreted. Patient Instructions: Patient instruction: CGM provides information on blood glucose control throughout the day, including hyperglycemia and hypoglycemia. ? Continue to monitor blood glucose as instructed. Follow nutrition guidelines provided. Report any discomfort promptly to health care provider. ?Stay well-hydrated. You can bathe ,shower, swim and exercise while wearing the glucose sensor. Do not submerge glucose sensor in water for more than 30 minutes. Coding Level of Care Code Est Pt Level 1 (75326) Diagnoses Type 1 diabetes mellitus with hyperglycemia E10.65 Diabetes mellitus complication status: with hyperglycemia
== END 2024-11-21 11:08 | disposition home or self-care (01) ==
LOC: HO.ENCR 10:27
PROVIDERS: PCP Internal Medicine; Visit Provider Registered Nurse Diabetes Educator
DX: E10.65 Type 1 diabetes mellitus with hyperglycemia (principal)

== ENCOUNTER → 2024-11-21 10:27 | Outpatient (BNVA) | payer MEDICARE, SELFPAY | PROVIDERS: PCP Internal Medicine; Visit Provider Registered Nurse Diabetes Educator | DX: E10.65 Type 1 diabetes mellitus with hyperglycemia (principal) | CPT/HCPCS: 99211 ==

== ENCOUNTER 2024-12-09 09:08 | Outpatient (REF) | payer MEDICARE, SELFPAY ==
[2024-12-09 09:28] LABS: MANUAL DIFF FLAG NO
--- OUTSIDE RECORDS SUMMARY | 2024-12-09 09:57 | XMS_ITS | Encounter Summary ---
Author Organization [facility] Address [address] [place] [phone] Phone Care Team Providers Care Software Quality Analyst Name Role Phone Cliff Menjivar MD Primary [...] on filedocumented in this encounter Care Teams Software Quality Analyst Relationship Specialty Start Date End Date Cliff Menjivar MD [address] [place] [address] [place] [address] PCP - General Internal Medicine 02/09/17 documented as of this encounter Additional Source Comments The information contained in this document represents components of the legal health record. It is not the complete legal health record.[facility]
--- OUTSIDE RECORDS SUMMARY | 2024-12-09 09:57 | XMS_ITS | Clinical Summary ---
Author Organization [facility] Address [address] [facility] [address] [place] [phone] Phone Care Team Providers Care Software Design Analyst Name Role Phone Cliff Menjivar MD Primary Care Provider Allergies No known active allergies Medications aspirin 81 mg chewable tablet 1 tablet Acti ve balsalazide (COLAZAL) 750 mg capsule 2 tabs Active calcium citrate 760 mg calcium /3.5 gram Gran as directed Act armani omega 9-mig-ird-fish oil 950 mg-320 mg- 630 mg-1,360 mg Cap 1 capsule with a meal Active ketoconazole 2 % cream 1 application to affected area Active lisinopril (PRINIVIL,ZESTRIL) 2.5 MG tablet 1 tablet Active multivitamin with minerals tablet as directed Ac tive diabetic supplies, miscellan. Misc Silhouette 13mm Active simvastatin (ZOCOR) 20 MG tablet 1 tablet every evening Active ascorbic Acid (VITAMIN C) 500 mg CpER as directed Active magnesium gluconate (MAGONATE) 500 mg (27 mg elemental) Tab Take 500 mg by mouth daily. Active ostomy supplies (PROTECTIVE BARRIER FILM WIPES) Misc Q 1-2 days for insulin pump site 20 each 12 07/25/19 20 Active atorvastatin (LIPITOR) 20 MG tablet Take 20 mg by mouth daily. 06/24/19 21 Active BAQSIMI 3 mg/actuation SpryIndications:Ty pe 1 diabetes mellitus with diabetic polyneuropathy 1 spray by Nasal route once as needed (for severe hypoglycemia, if unable to eat fasting acting carbs or unconscious). 2 each 2 04/27/19 25 Active HUMALOG U-100 INSULIN 100 unit/mL injection vialIndications:Ty pe 1 diabetes mellitus with diabetic polyneuropathy UP TO 50 UNITS DAILY VIA INSULIN PUMP 50 mL 3 05/05/19 25 Active FREESTYLE LITE Strp stripsIndications: Type 1 diabetes mellitus with diabetic polyneuropathy USE TO TEST BLOOD GLUCOSE 8 TIMES DAILY DIRECTED DX:E10.42 800 strip 3 08/05/19 25 Active insulin syringe-needle U-100 0.5 mL 31 gauge x 08/19 SyrgIndications:Ty pe 1 diabetes mellitus with diabetic polyneuropathy 1 each by Miscellaneous route daily as needed (in case of insulin pump failure or elevated glucose needing alternate route insulin delivery). 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, estrogen receptor negative 02/22/2018 Insulin pump fitting or adjustment 01/27/2018 Hyperlipidemia 03/19/2017 Assessment & Plan (08/08/2024 4:38 PM EDT): Continues on moderate intensity statin therapy No recent lipid panel on file, LDL goal <100, most optimally <70 Assessment & Plan (07/29/2023 12:32 PM EDT): Continues on moderate intensity statin therapy No recent lipid panel on file, LDL goal <100, most optimally <70 Assessment & Plan (01/19/2023 12:06 PM EDT): Continues on moderate intensity statin therapy No recent lipid panel on file, LDL goal <100, more optimally <70 Assessment & Plan (10/29/2022 10:54 AM EDT): Continues on moderate intensity statin therapy No recent lipid panel on file, LDL goal <100, more optimally <70 Assessment & Plan (07/11/2022 4:18 PM EDT): Continues on moderate intensity statin therapy No recent lipid panel on file, LDL goal <100, more optimally <70 Assessment & Plan (12/17/2021 4:43 PM EDT): Continues on moderate intensity statin therapy No recent lipid panel on file, LDL goal <100, more optimally <70 Assessment & Plan (06/17/2021 1:29 PM EDT): Continues on moderate intensity statin therapy No recent lipid panel on file, LDL goal <100, more optimally <70 Assessment & Plan (07/09/2020 4:45 PM EDT): Continues on moderate intensity statin therapy No recent lipid panel on file, LDL goal <100, more optimally <70 Assessment & Plan (01/05/2020 5:00 PM EDT): Continues on moderate intensity statin therapy Due for routine labs which have been ordered for him by PCP No recent lipid panel on file, LDL goal <100 Assessment & Plan (04/22/2018 3:03 PM EST): Continues on moderate intensity statin therapy Due for routine labs which have been ordered for him by PCP No recent lipid panel on file, LDL goal <100 Assessment & Plan (12/17/2017 2:47 PM EDT): No recent lipid profile on file to review Continues on moderate intensity statin therapy Assessment & Plan (03/19/2017 2:55 PM EST): Most recent lipid profile from September 2016 reviewed and discussed with patient, excellent control on current statin regimen Insulin pump in place 03/18/2017 Overview (02/22/2018): Upgraded pump 11/14/13 and started CGM but stopped CGM, did not like second site. Upgraded to the 670G pump only 01/18/18. Does not want CGM Assessment & Plan (08/08/2024 4:40 PM EDT): Current insulin pump setting Time Basal Rates? Time ICR Time ISF Time Target IOB 12am 0.025u/hr 12am 20 12am 90 12am 100 mg/dl 4 hrs 2a 0.25 430am 11 5am 65 5a 0.125 930am 37 8a 0.05 2pm 32 1p 0.10 6pm 22 330p 0.05 TOTAL 2.10u/day We did not adjust insulin pump settings today, there is much glucose variability and no apparent dosing adjustments are likely to address this optimally CGM trialed in the past but Antoni did not wish to continue this, he also considered the One Monthan CGM with the Medtronic 780G when he upgraded to this last summer, he did not want to continue this and in general finds this very confusing, Antoni is advised to let us know if he would be interested in another trial of nonintegrated sensor as this would help keep him safer and more proactively aware of hypoglycemia Encouraged to contact me with any questions or concerns, we will follow up in 6 months, Antoni will return to meet with Sherrill Kinney in 3 months Assessment & Plan (07/29/2023 12:37 PM EDT): Current insulin pump setting Time Basal Rates? Time ICR Time ISF Time Target IOB 12am 0.025u/hr 12am 20 12am 90 12am 100 mg/dl 4 hrs 2a 0.25 430am 11 5am 65 5a 0.125 930am 37 8a 0.05 2pm 32 1p 0.10 6pm 22 330p 0.05 TOTAL 2.10u/day We did not adjust insulin pump settings today CGM trialed in the past but Antoni did not wish to continue this, he may be interested in using an integrated CGM with his new Medtronic 780G but is not sure, he has met with [employer] rep today Encouraged to contact me with any questions or concerns, we will follow up in 6 months, Antoni will return to meet with Sherrill Kinney in 3 months Assessment & Plan (01/19/2023 12:05 PM EDT): Current insulin pump setting Time Basal Rates? Time ICR Time ISF Time Target IOB 12am 0.025u/hr 12am 20 12am 90 12am 100 mg/dl 4 hrs 2a 0.25 430am 11 5am 65 5a 0.125 930am 37 8a 0.05 2pm 32 1p 0.10 6pm 22 330p 0.05 TOTAL 2.10u/day We did not adjust insulin pump settings today Encouraged to reach out with high or low patterns with returning to using bolus wizard more consistently CGM started trialed but Antoni does not wish to continue this Encouraged to contact me with any questions or concerns, we will follow up in 6 months, Antoni will return to meet with Teagan Sepulveda in April Assessment & Plan (10/29/2022 10:36 AM EDT): Current insulin pump setting Time Basal Rates? Time ICR Time ISF Time Target IOB 12am 0.025u/hr 12am 20 12am 90 12am 100 mg/dl 4hrs 2am 0.25 430am 11 5am 65 5am 0.125 930am 37 8am 0.05 2pm 32 1pm 0.1 6pm 22 330pm 0.05 TOTAL 2.1u/day We did not adjust insulin pump settings today, though did place bolus wizard back on, it seems that somehow this was turned off since last visit and Antoni does not recall how. Encouraged to reach out with high or low patterns with returning to using bolus wizard more consistently CGM started today, this should help to better evaluate settings and assess for undetected hypoglycemia between fingersticks Encouraged to contact me with any questions or concerns Assessment & Plan (07/11/2022 4:30 PM EDT): Current insulin pump setting Time Basal Rates? Time ICR Time ISF Time Target IOB 12am 0.025u/hr 12am 20 12am 90 12am 100 mg/dl 4hrs 2am 0.25 430am 11 5am 65 5am 0.125 930am 37 8am 0.05 2pm 32 1pm 0.1 6pm 22 330pm 0.05 TOTAL 2.1u/day We did not adjust insulin pump settings today Antoni is now interested in CGM, we discussed the Dexcom G7 and Antoni will contact [facility] to request an order Glucagon emergency kit discussed at last visit with TORRIE COLLIER and prescription was sent to pharmacy Encouraged to contact me with any questions or concerns Assessment & Plan (12/17/2021 4:42 PM EDT): Current insulin pump setting Time Basal Rates? Time ICR Time ISF Time Target IOB 12am 0.025u/hr 12am 20 12am 90 12am 100 mg/dl 4hrs 2am 0.25 430am 11 5am 65 5am 0.125 930am 37 8am 0.05 2pm 32 1pm 0.1 6pm 22 330pm 0.05 TOTAL 2.1u/day We did not adjust insulin pump settings today We discussed upgrade vs recall, needs to discuss this with [employer], if due for upgrade this fall then ok to go through this process, if not due for upgrade until next fall (medicare 5 year warranty period) then should get replacement insulin pump from recall of clear O-ring Remains uninterested in CGM, reassured that he does not need to use CGM with his new insulin pump system once he upgrades Encouraged to contact me with any questions or concerns Assessment & Plan (06/17/2021 1:32 PM EDT): Current insulin pump setting Time Basal Rates? Time ICR Time ISF Time Target IOB 12am 0.025u/hr 12am 20 12am 90 12am 100 mg/dl 4hrs 2am 0.25 430am 11 5am 65 5am 0.125 930am 37 8am 0.05 2pm 32 1pm 0.1 6pm 22 330pm 0.05 TOTAL 2.1u/day We did not adjust insulin pump settings today We spent time discussing using temp basal rate for upcoming colonoscopy, Antoni was shown how to set this and demonstrated good understanding/ability to perform the task, written instructions were also provided for him regarding this We again reviewed transition to MDI, but given Antoni's insulin use/requirement he is likely to benefit most from CSII which will afford him the chance to take modest doses when needed Remains uninterested in CGM Encouraged to contact me with any questions or concerns Assessment & Plan (07/09/2020 4:47 PM EDT): Current insulin pump setting Time Basal Rates? Time ICR Time ISF Time Target IOB 12am 0.025u/hr 12am 20 12am 90 12am 100 mg/dl 4hrs 2am 0.25 430am 11 5am 65 5am 0.125 930am 37 8am 0.05 2pm 32 1pm 0.1 6pm 22 330pm 0.05 TOTAL 2.1u/day We did not adjust insulin pump settings today Insulin TDD is very skewed to bolus insulin, very modest basal insulin component Antoni is encouraged to consider return to MDI, we would help him calculate doses however due to his very modest need for background insulin the basal insulin dosing may prove most challenging, I strongly advised him to consider CGM regardless of how he chooses to dose his insulin Assessment & Plan (01/05/2020 5:01 PM EDT): Current insulin pump setting Time Basal Rates? Time ICR Time ISF Time Target IOB 12am 0.025u/hr 12am 20 12am 90 12am 100 mg/dl 4 hrs 2a 0.25 430am 11 5am 65 5a 0.125 930am 37 8a 0.05 2pm 32 1p 0.1 6pm 22 330p 0.05 Continues to do well on Medtronic 670G, not using CGM/automode, self-monitoring blood sugars consistently We did not adjust insulin pump settings today Has upcoming appointment with RN ASIA Assessment & Plan (02/28/2019 9:18 PM EST): Continues to do well on Medtronic 670G, not using CGM/automode, self-monitoring blood sugars consistently We did not adjust insulin pump settings today Has upcoming appointment with RN ASIA Assessment & Plan (04/22/2018 3:06 PM EST): Doing well on Medtronic 670G, not using CGM Glucose variability is very modest We did not make any changes to insulin pump settings Assessment & Plan (12/17/2017 2:45 PM EDT): We did not make any changes to insulin pump settings today Rotating insulin pump infusion sets well, changing insulin pump infusion sets every 2-3 days Assessment & Plan (03/19/2017 2:56 PM EST): Rotating insulin pump sites very well across abdomen, encouraged to continue 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 03/18/2017 Overview (12/17/2017): DIABETES HISTORY Diagnosis - type 1 diabetes, dx at age 16 Treatment history - insulin pump since 2005 Assessment & Plan (08/08/2024 4:46 PM EDT): Antoni has had variable blood sugar control but very consistent diabetes self management/self monitoring, reports checking blood sugars very frequently, Antoni did not like using CGMS and we reviewed this again briefly today He has required EMS and ED care for hypoglycemia in the recent past, we discussed that CGM use could help him manage this risk more effectively Antoni is currently using the Medtronic 780G which he started last year, this took some time to get accustomed to but feels he is doing well, he did not like using the CGM and prefers to not consider this at this time Requires enough testing supplies to check blood sugars up to 8-10 times daily We did not adjust insulin pump settings as the variability in patterns did not indicate an particular need for adjustment of background setting We discussed glucagon therapy, Baqsimi was sent to pharmacy in May, Antoni reports this was too expensive; he asks about Gvoke and has copay coupon, he is informed that this is not preferred on his insurance and that the copay coupon will not be honored as he has a Medicare plan Encouraged to continue efforts at healthy lifestyle No longer on ACEi, blood pressure is well controlled, no recent labs available for evaluation of renal function or microalbuminuria Advised to call with any questions or concerns, we will follow up in 6 months, Antoni will return to meet with Sherrill Kinney in 3 months Assessment & Plan (07/29/2023 12:35 PM EDT): Continues with excellent blood sugar control and diabetes self management, self monitoring blood sugars very frequently, Antoni did not like using CGMS and we reviewed this again briefly today He will be starting Medtronic 780G soon, had training today again, may be interested in CGM use with this in the future Requires enough testing supplies to check blood sugars up to 8 times daily, Antoni has been able to maintain good glucose control and proactively manage hypoglycemia risk We did not adjust insulin pump settings as these appear to be stable compared to the past, he is advised to continue his excellent efforts Encouraged to continue efforts at healthy lifestyle Continues on small dose of ACEi, blood pressure is well controlled, no labs available for evaluation of renal function or microalbuminuria Advised to call with any questions or concerns, we will follow up in 6 months, nAtoni will return to meet with Sherrill Kinney in 3 months Assessment & Plan (01/19/2023 12:04 PM EDT): Continues with excellent blood sugar control and diabetes self management, self monitoring blood sugars very frequently, Antoni did not like using CGMS and we reviewed this today We did not adjust insulin pump settings as these appear to be stable compared to the past, he is advised to take care with his morning dosing since he is running at lower end of desired range by midday often quite often Will be trained on the updated Medtronic system in the very near future, we reviewed this very briefly today Encouraged to continue efforts at healthy lifestyle Continues on small dose of ACEi, blood pressure is well controlled, no labs available for evaluation of renal function or microalbuminuria Advised to call with any questions or concerns, we will follow up in 6 months, Antoni will return to meet with Teagan Sepulveda in 3 months Assessment & Plan (10/29/2022 10:56 AM EDT): Continues with excellent blood sugar control and diabetes self management Encouraged to continue efforts at healthy lifestyle We did not adjust insulin infusion settings but did turn bolus wizard feature back on which was unknowlingly switched to off. Antoni had been manually bolusing and this seemed to be appropriate doses over the past 2 weeks, but finds more ease of bolusing with bolus wizard. Training provided on Dexcom G7 today Continues on small dose of ACEi, blood pressure is well controlled, no labs available for evaluation of renal function or microalbuminuria Advised to call with any questions or concerns, Antoni will return to meet with Dr. Braga in January and Teagan in April. He will return to do the first Dexcom change with one of our Mas in 10 days CGM Training Type of Diabetes: Diabetes mellitus Type 1 Assessment/HPI: Lit is here today for CGM training Procedures: Glucose Monitoring: Type of Sensor: Dexcom G7 personal Instruction: Patient Instructed on:, Calibrations, When to test BS, Troubleshooting, What to expect with the sensor, Patient instructed to remove sensor if redness, pain or bleeding occurs. Insertion Site Selected: right arm Site Prep: Insertion site wiped with alcohol. Insertion: completed, area looks good, no redness, no bleeding. Plan: Patient will remove sensor and return in 10 days for 1st sensor change to be done in front of one of our staff members Assessment & Plan (07/11/2022 4:58 PM EDT): Continues with excellent blood sugar control and diabetes self management Encouraged to continue efforts at healthy lifestyle We did not adjust insulin infusion settings, we discussed Medtronic pump upgrade which Antoni will be due for in the fall, he is having some issues with the battery cap and will be in touch with [employer] to replace if needed, he is aware that there have been some recalls on components of the insulin pump Antoni was able to get glucagon filled after last appt with Tegaan Sepulveda Has been encouraged to consider CGM and Antoni and his are not interested in considering the Dexcom G7, we discussed this today, he is advised to contact [facility] to request order for this since he would like to get pump and CGM supplies from the same supplier Continues on small dose of ACEi, blood pressure is well controlled, no labs available for evaluation of renal function or microalbuminuria Advised to call with any questions or concerns, we will follow up in 6 months, Antoni will return to meet with Teagan Sepulveda in 3 months Assessment & Plan (12/17/2021 4:45 PM EDT): Continues with excellent blood sugar control and diabetes self management Encouraged to continue efforts at healthy lifestyle We did not adjust insulin infusion settings, we discussed Medtronic pump upgrade which Antoni may be due for this fall or, more likely, next fall, and also his communication from [email or web address] regarding pump recall Has been encouraged to consider CGM but Antoni remains uninterested in this; he is reassured that he does not need to use CGM with his new insulin pump system once he upgrades We discussed benefits of staying in warranty Continues on small dose of ACEi, blood pressure is well controlled, no labs available for evaluation of renal function or microalbuminuria but Antoni reports that these are up to date Plans to get seasonal flu and new bivalent covid booster Advised to call with any questions or concerns, we will follow up in 6 months, Antoni will return to meet with Teagan Sepulveda in 3 months Assessment & Plan (06/17/2021 1:29 PM EDT): Continues with excellent blood sugar control and diabetes self management Encouraged to continue efforts at healthy lifestyle We did not adjust insulin infusion settings, we discussed transition to MDI and what this would entail; given Antoni's very small basal requirement and larger proportion of bolus insulin, he would likely need some adjustment of his doses and more of a balancing of the two, but he is quite insulin sensitive and he may in fact do better with respect to glucose stability and hypoglycemia prevention on CSII Has been encouraged to consider CGM but Antoni remains uninterested in this Continues on small dose of ACEi, blood pressure is well controlled, no labs available for evaluation of renal function or microalbuminuria but Antoni reports that these are up to date Up to date on flu and covid vaccines/booster Advised to call with any questions or concerns, we will follow up in 6 months Assessment & Plan (07/09/2020 4:49 PM EDT): Continues with excellent blood sugar control and diabetes self management Encouraged to continue efforts at healthy lifestyle We did not adjust insulin infusion settings, we discussed transition to MDI and what this would entail Encouraged to consider CGM Continues on small dose of ACEi, blood pressure is well controlled, no labs available for evaluation of renal function or microalbuminuria Up to date on flu and covid vaccines Advised to call with any questions or concerns Assessment & Plan (01/05/2020 5:04 PM EDT): Continues with excellent blood sugar control and diabetes self management Encouraged to continue efforts at healthy lifestyle We did not adjust insulin infusion settings We discussed glucagon options, Baqsimi preferred by [facility], Baqsimi demonstrated for patient, questions answered Up to date on flu vaccine Advised to call with any questions or concerns Assessment & Plan (02/28/2019 9:20 PM EST): Continues with excellent blood sugar control and diabetes self management Encouraged to continue efforts at healthy lifestyle We did not adjust insulin infusion settings Advised to call with any questions or concerns Assessment & Plan (04/22/2018 3:10 PM EST): Continues with excellent overall control No changes to insulin dosing made today Advised to continue excellent lifestyle habits Encouraged to call with any questions or concerns Will return in 3 months for a visit with our clinical informatics educator staff and in 6 months for a visit with me Assessment & Plan (12/17/2017 2:48 PM EDT): Continues to have excellent overall glycemic control with few blood sugar excursions and no hypoglycemia in the recent past We did not make changes to insulin doses today Will be upgrading to the Medtronic 670G next month and has appointments with Cori Draper for this Advised to continue healthy lifestyle and to call with any questions or concerns Assessment & Plan (03/19/2017 2:52 PM EST): Antoni has excellent control with very low frequency of hypoglycemia, his overall glycemic variability is modest We did not make any changes to insulin pump settings today Antoni is encouraged to call with any questions Encounters Date Type Department Care Team Description 10/03/2024 Refill [facility] [address] [place] [address] Chasity Erickson Medication Refill 09/28/2024 Telephone [facility] [address] [place] [address] Edith Braga MD Low Sugar Concern from Last 3 Months Immunizations Immunization Administration Dates Next Due COVID-19 (Pre-01/26) Pfizer Vaccine, mRNA, PF 12/31/2020,05/31/2020,05/10/2020 INFLUENZA, SPLIT VIRUS, TRIVALENT PF 12/14/2017, 12/29/2016,02/04/2016 Influenza High-Dose Trivalen t Preservative Free IM 01/11/2021,12/09/2019,01/11/2019 Pneumococcal polysaccharide PPSV23 04/01/2016 Tdap 08/05/2011 Family History Medical History Relation Comments CV disease Mother Rheumatoid arthritis Mother Relation Status Comments Mother Social History Tobacco Use Types Packs/Day Years Used Date Smoking Tobacco: Former Cigarettes 0.3 2 1 960 - 1962 Smokeless Tobacco: Never Tobacco Cessation:Counseling Given: Not Answered Alcohol Use Standard Drinks/Week Comments No 0 (1 standard drink = 0.6 oz pur e alcohol) Education Answer Date Recorded Are you interested in more education? Not on chelita e 08/01/2022 Are you concerned about learning? Not on file 08/01/2022 No 08/01/2022 No 08/01/2022 Digital Access Answer Date Recorded No 09/01/2022 No 09/01/2022 Reliable internet access at home? Not on file 09/01/2022 Device with a working camera? Not on file Sex and Gender Information Value Date Recorded Sex Assigned at Not on file Legal Sex Male 10:09 PM EDT Gender Identity Not on file Sexual Orientation Not on file Last Filed Vital Signs Vital Sign Reading Time Taken Comments Blood Pressure 120/72 08/08/2024 1:58 PM EDT Pulse 64 08/08/2024 1:58 PM EDT Temperature 36.7 C (98.1 F) 07/11/2022 4:06 PM EDT Respiratory Rate - - Oxygen Saturation 98% 07/11/2022 4:06 PM EDT Inhaled Oxygen Concentration - - Weight 70.3 kg (155 lb) 08/08/2024 1:58 PM EDT Height 167.6 cm (5' 5.98 ) 08/08/2024 1:58 PM ED T Body Mass Index 25.03 08/08/2024 1:58 PM EDT Plan of Treatment Health Maintenance Due Date Last Done Comments CREATININE LEVEL 1945 POTASSIUM LEVEL 1945 DEPRESSION SCREENING 1955 ZOSTER VACCINES (1 of 2) 10/26/1962 DIABETIC EYE EXAM 03/18/2017 PNEUMOCOCCAL VACCINES (50+ years) (2 of 2 - PCV) 04/01/2017 04/01/2016 INFLUENZA VACCINE (#1) 2024 4, 02/02/2023, 01/14/2022, Additional history exists COVID-19 VACCINE ( season) 2024 01/11/2023, 07/29/2022, 01/02/2022, Additional history exists BLOOD PRESSURE 02/08/2025 08/08/2024 HEMOGLOBIN A1C 02/08/2025 08/08/2024, 02/04, 06/08/2023, Additional history exists Adult Td,Tdap Booster 07/26/2031 07/25/2021, 012 RSV VACCINE Completed 01/05/2023 HEPATITIS A VACCINES Aged Out No long er eligible based on patient's age to complete this topic HIB VACCINES Aged Out No longer eligi ble based on patient's age to complete this topic MENINGOCOCCAL VACCINES (ACWY) Aged Out No longer eligible based on patient's age to complete this topic MENINGOCOCCAL VACCINES (B) Aged Out N o longer eligible based on patient's age to complete this topic Medical Devices Not on file Procedures Procedure Name Priority Date/Time Associated Diagnosis Comments POCT HEMOGLOBIN A1C Routine 08/08/2024 2 :20 PM EDT Type 1 diabetes mellitus with diabetic polyneuropathy Insulin pump in place Long-term insulin use Hyperlipidemia, unspecified hyperlipidemia type from Last 3 Months or Most Recently Relevant to Health Maintenance Results * (ABNORMAL) POCT Hemoglobin A1c (08/08/2024 2:20 PM EDT) Hemoglobin A1c 7.5(A) 4.2 - 5.6 % [facility] Other 08/08/2024 2:20 PM EDT us Edith Braga MD POINT OF CARE TEST ORDERABLES F inal Result [facility] [address] [place] [address], [facility] from Last 3 Months or Most Recently Relevant to Health Maintenance Insurance [facility] MED[facility] HMO REPLACEMENT [facility] HMO REPLACEMENT [facility] MEDIC[facility] HMO REPLACEMENT [place] [facility] MEDICARE HMO REPLACEMENT [facility] MEDICARE HMO [place] [address] [place] [address] MEDICARE HMO REPLACEMENT [facility] MEDIC[employer] HMO REPLACEMENT [facility] [employer] [employer] HMO REPLACEMENT Care Teams Software Design Analyst Relationship Specialty Start Date End Date Cliff Menjivar MD [address] [place] [id number] PCP - General Internal Medicine 02/09/17 Additional Source Comments The information contained in this document represents components of the legal health record. It is not the complete legal health record.[facility]
[2024-12-09 10:29] LABS: Hematocrit 37.9 % (42.0-52.0); Hemoglobin 13.2 g/dl (14.0-18.0); Imm Gran Abs Auto 0.02 X10*3/uL (0.00-0.03); Imm Gran Pct Auto 0.4 % (0.0-0.4); Lymphocytes Absolute Auto 1.1 X10*3/uL (1.2-4.9); Mean Corpuscular HGB Conc 34.8 g/dl (31.0-36.0); Mean Corpuscular Hemoglobin 31.1 pg (27.0-33.0); Mean Corpuscular Volume 89.2 fL (80.0-98.0); NRBC Abs Auto 0.000 X10*3/uL (0.0-0.012); NRBC Pct Auto 0.0 /100WBC (0.0-0.2); Platelet Count 230 X10*3/uL (160-400); Red Blood Count 4.25 X10*6/uL (4.60-5.80); White Blood Count 5.6 X10*3/uL (4.8-10.8)
[2024-12-09 10:56] LABS: Alanine Aminotransferase 12 U/L (0-40); Albumin Level 4.0 g/dL (3.5-5.0); Alkaline Phosphatase 89 U/L (39-117); Anion Gap 8 (12-20); Aspartate Amino Transferase 29 U/L (5-37); Blood Urea Nitrogen 15 mg/dL (9-16); Calcium 8.9 mg/dL (8.4-10.2); Carbon Dioxide 30 mmol/L (22-29); Chloride 104 mmol/L (96-108); Estimated Glomerular Filt Rate > 60; Lipase 68 U/L (8-78); Potassium 4.2 mmol/L (3.3-5.1); Sodium 138 mmol/L (135-145); Total Protein 6.7 g/dL (6.5-8.0)
== END 2024-12-09 09:09 | disposition home or self-care (01) ==
LOC: HO.LAB 09:08
PROVIDERS: PCP Internal Medicine; Visit Provider Internal Medicine
DX: R10.84 Generalized abdominal pain (principal); R19.7 Diarrhea, unspecified; K51.90 Ulcerative colitis, unspecified, without complications
CPT/HCPCS: 36415; 80048; 80076; 83690; 85025; 85652; 86140

== ENCOUNTER 2024-12-11 07:59 | Outpatient (REF) | payer MEDICARE, SELFPAY ==
--- OUTSIDE RECORDS SUMMARY | 2024-02-11 07:00 | XMS_ITS ---
Author Organization [facility] Address [address] [place] [address] Care Team Providers Care Reaming Press Operator Name Role Phone Otto MCCRACKEN, Cliff Primary Care Provider Raul Bhatt [phone] REASON FOR VISIT Patient presents today for ulcerative colitis Encounters Encounter Location Date Provider Diagnosis [facility] [address] [facility] [address] [place] [address] 02/11/2024 Raul Li Plan Of Treatment Next Appt Details Provider Name:Raul Li , 02/28/2025 02:00:00 PM, [address], [address], [place], [address], Progress Notes * BRADLEY SHEPPARDDOB:1945 ( 79 yo M)Acc No.[id number]:02/11/2024 Progress Notes Patient: BRADLEY IRENE Provider: Nati Li MD :1945 A ge:78 Y S ex:Male Date:02/11/2024 Address:[address] [place], [place] Pcp:Cliff Menjivar MD Subjective: * Chief Complaints: * 1 . Patient presents today for ulcerative colitis. * Medical History: Objective: * Vitals: Assessment: Plan: * Treatment: * * The named appointment provid er may or may not be the originator of this progress note, and it is not deemed complete until electronically signed by the appointment provider. Sign off status: Pending * Provider: Nati Li MD Date: 1 04/12/2023 Generated for Yelena price/Oneil/Joshitting on: 0 12/12/2024 08:03 AM EDT
--- OUTSIDE RECORDS SUMMARY | 2024-09-02 10:10 | XMS_ITS ---
Author Organization [facility] Address [address] [place] [phone] Care Team Providers Care Rn Advice Name Role Phone Otto MCCRACKEN, Cliff Primary Care Provider Raul Bhatt [phone] REASON FOR VISIT Patient presents today for ulcerative colitis Encounters Encounter Location Date Provider Diagnosis [facility] [address] [facility] [address] [place] [phone] 09/02/2024 Raul Li Plan Of Treatment Next Appt Details Provider Name:Raul Li , 02/28/2025 02:00:00 PM, [address], [address], [place], [address], Progress Notes * BRADLEY SHEPPARDDOB:1945 ( 79 yo M)Acc No.[id number]:09/02/2024 Progress Notes Patient: BRADLEY IRENE Provider: Nati Li MD :1945 A ge:78 Y S ex:Male Date:09/02/2024 Address: [place], [id number] Pcp:Cliff Menjivar MD Subjective: * Chief Complaints: [...] Pending * Provider: Nati Li MD Date: 0 09/02/2024 Generated for Yelena price/Oneil/Joshitting on: 0 12/12/2024 08:04 AM EDT
--- OUTSIDE RECORDS SUMMARY | 2024-12-07 09:55 | XMS_ITS ---
Author Organization [facility] Address [address] [place] [phone] Care Team Providers Care Tombstone Erector Name Role Phone Otto MCCRACKEN, Cliff Primary Care Provider Raul Bhatt [phone] Results Component Value Reference Range Notes Lipase Reviewed date:12/11/2024 08:30:44 PM Interpretation: Performing Lab:[facility], [address] [place] [id number] Notes/Report: Lipase 68 8-78 U/L REASON FOR VISIT abd pain Medications Medication SIG (Take, Route, Fr equency, Duration) Notes Start Date End Date Status Mesalamine ER 0.375 GM 4 capsules in the morning Orally Once a day for 90 days 12/11/2024 Ac tive Problems Problem Type SNOMED Code ICD Code Onset Dates Problem Status W/U Status Risk Notes Problem Generalized abdominal pain (975092861) Abdominal pain, acute, generalized (R10.84) Active confirmed Problem Diarrhea (36843600) Diarrhea (R19.7) Active confirmed Encounters Encounter Location Date Provider Diagnosis [facility] [address] [place] [phone] 12/07/2024 Raul Li Abdominal pain, acut e, generalized R10.84 ; Diarrhea R19.7 and Ulcerative colitis K51.90 Assessments Encounter Date Diagnosis (ICD Code) Assessment Notes Treatment Notes Treatment Clinical Notes Section Notes 12/07/2024 Abdominal pain, acute, generalized (ICD-10 - R10.84) 12/07/2024 Diarrhea (ICD-10 - R19.7) 12/07/2024 Ulcerative colitis (ICD-10 - K51.90) Plan Of Treatment Medication Medication Name Sig Start Date Stop Date Notes Mesalamine ER 0.375 GM 4 capsules in the morning Orally Once a day for 90 days 12/11/2024 Pending Test Test Name Order Date CHEM 7 PROFILE 12/07/2024 LIVER PROFILE 12/07/2024 CRP 12/07/2024 CBC w DIFF 12/07/2024 SED RATE (ESR) 12/07/2024 C DIFFICILE RFLX PCR 12/07/2024 Calprotectin, Fecal 12/07/2024 GI PANEL 12/07/2024 Next Appt Details Provider Name:Raul Li , 02/28/2025 02:00:00 PM, [address] [facility], [address], [place], [address], Progress Notes * SILVERBRADLEYDOB:1945 ( 79 yo M)Acc No.[id number]:12/07/2024 Patient: BRADLEY IRENE :1945 A ge:79 Y S ex:Male Address:[address] [place] [id number] * Refills Start Mesalamine ER Capsule Extended Release 24 Hour, 0.375 GM, Orally, 360 Capsule, 4 capsules in the morning, Once a day, 90 days, Refills=3 Subjective: * Chief Complaints: * A bd pain * Medical History: * Surgical History: * Hospitalization/Major Diagno stic Procedure: * Medications: Objective: * Vitals: * Physical Examination: Assessment: * Assessment: 1. A bdominal pain, acute, generalized - R10.84 (Primary) 2 . D iarrhea - R19.7 3 . U lcerative colitis - K51.90 Plan: * Treatment: Value Reference Range L ipase 68 8-78 - U/L 2.?Diarrhea?LAB: CHEM 7 PROFILE ?LAB: LIVER PROFILE ?LAB: CRP ?LAB: CBC w DIFF ?LAB: SED RATE (ESR) ?LAB: C DIFFICILE RFLX PCR ?LAB: Calprotectin, Fecal ?LAB: GI PANEL ?LAB: Lipase (Collection Date & Time - 12/09/2024 09:26 AM)* Value Reference Range L ipase 68 8-78 - U/L 3.?Ulcerative colitis?LAB: CHEM 7 PROFILE ?LAB: LIVER PROFILE ?LAB: CRP ?LAB: CBC w DIFF ?LAB: SED RATE (ESR) ?LAB: C DIFFICILE RFLX PCR ?LAB: Calprotectin, Fecal ?LAB: GI PANEL ?LAB: Lipase (Collection Date & Time - 12/09/2024 09:26 AM)* Value Reference Range L ipase 68 8-78 - U/L 4.?Others? Start Mesalamine ER Capsule Extended Release 24 Hour, 0.375 GM, 4 capsules in the morning, Orally, Once a day, 90 days, 360 Capsule, Refills 3.?? * Procedure Codes: * * Date:
--- OUTSIDE RECORDS SUMMARY | 2024-12-12 08:03 | XMS_ITS | Patient Health Record ---
Author Organization [facility] Address [address] [place] [address] Care Team Providers Care Cras Name Role Phone Cliff Menjivar MD Primary Care Provider Raul Bhatt Unavailable [phone] Allergies No Known Allergies Results Component Value Reference Range Notes Lipase Reviewed date:12/11/2024 08:30:44 PM Interpretation: Performing Lab:[facility], [address] [place] [phone] Notes/Report: Lipase 68 8-78 U/L Complete Blood Count Auto Di ff Reviewed date:12/11/2024 10:27:16 PM Interpretation: Performing Lab:[facility], [address] [place] [phone] Notes/Report: White Blood Count 5.6 4.8-10.8 X10*3/uL Red Blood Count 4.25 4.60-5.80 X10*6/uL Hemoglobin 13.2 14.0-18.0 g/dl Hematocrit 37.9 42.0-52.0 % Mean Corpuscular Volume 89.2 80.0-98.0 fL Mean Corpuscular Hemoglobin 31.1 27.0-33.0 pg Mean Corpuscular HGB Conc 34.8 31.0-36.0 g/dl Red Cell Distribution Width 12.4 11.0-16.0 % Platelet Count 230 160-400 X10*3/uL Mean Platelet Volume 9.2 9.4-12.4 fL Neutrophils Percent Auto 62.0 45-73 % Imm Gran Pct Auto 0.4 0.0-0.4 % Lymphocytes Percent Auto 18.8 20-40 % Monocytes Percent Auto 12.5 2-11 % Eosinophils Percent Auto 6.1 0-4 % Basophils Percent Auto 0.2 0-2 % NRBC Pct Auto 0.0 0.0-0.2 /100WBC Neutrophils Absolute Auto 3.5 2.0-8.3 x10*3/u L Imm Gran Abs Auto 0.02 0.00-0.03 X10*3/uL Lymphocytes Absolute Auto 1.1 1.2-4.9 X10*3/u L Monocytes Absolute Auto 0.7 0.1-1.2 X10*3/uL Eosinophils Absolute Auto 0.3 0.0-0.4 X10*3/u L Basophils Absolute Auto 0.0 0.0-0.2 X10*3/uL NRBC Abs Auto 0.000 0.0-0.012 X10*3/uL Erythrocyte Sedimentation Ra te Reviewed date:12/11/2024 10:28:24 PM Interpretation: Performing Lab:[address] [phone] Notes/Report: Erythrocyte Sedimentation Rate 12 0-15 MM/HR Patients with polycythemia and many hemoglobin abnormalities may have depressed sed rates whereas patients with anemia may have elevated sed rates. Liver Panel Reviewed date:12/11/2024 10:27:28 PM Interpretation: Performing Lab:[address] [phone] Notes/Report: Bilirubin Total 0.6 0.0-1.0 mg/dL Bilirubin Direct 0.2 0.0-0.5 mg/dL Aspartate Amino Transferase 29 5-37 U/L Alanine Aminotransferase 12 0-40 U/L Total Protein 6.7 6.5-8.0 g/dL Albumin Level 4.0 3.5-5.0 g/dL Alkaline Phosphatase 89 39-117 U/L Basic Metabolic Panel Reviewed date:12/11/2024 10:28:12 PM Interpretation: Performing Lab:[address] [phone] Notes/Report: Sodium 138 135-145 mmol/L Potassium 4.2 3.3-5.1 mmol/L Chloride 104 96-108 mmol/L Carbon Dioxide 30 22-29 mmol/L Anion Gap 8 12-20 Blood Urea Nitrogen 15 9-16 mg/dL Creatinine 0.73 0.5-1.4 mg/dL Estimated Glomerular Filt Rate > 60 Chronic Kidney Disease: Estimated GFR < 60 mL/min/1.73m2 Severe Kidney Disease: Estimated GFR < 15 mL/min/1.73m2 Glucose Random 225 60-115 mg/dL Calcium 8.9 8.4-10.2 mg/dL C Reactive Protein Reviewed date:12/11/2024 10:27:38 PM Interpretation: Performing Lab:[facility], [address] [place] [phone] Notes/Report: C Reactive Protein 0.30 < or = 0.50 mg/dL Reason For Referral No Information Medications Medication [...] 1 tablet Orally Once a day Active Mesalamine ER 0.375 GM 4 capsules in the morning Orally Once a day for 90 days 12/11/2024 Active Balsalazide Disodium 750 MG TAKE 3 CAPSULE BY MOUTH TWICE A DAY Orally Twice a day for 90 days Active Immunizations Vaccine Route Administration Date Status Comme nts Influenza Unknown 01/12/2018 Administered Influenza Unknown 01/05/2020 Administered Problems Problem Type SNOMED Code ICD Code Onset Dates Problem Status W/U Status Risk Notes Problem 533848956 Encounter for screening for malignant neoplasm of colon (Z12.11) Active confirmed Problem Diarrhea (46334969) Diarrhea (R19.7) Active confirmed Problem 52405509 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 Problem Ulcerative colitis (10283661) Ulcerative colitis (K51.90) Active confirmed Problem Diverticulosis of colon (137396787) Diverticulosis of colon (K57.30) Active confirmed Problem Generalized abdominal pain (455666349) Abdominal pain, acute, generalized (R10.84) Active confirmed Encounters Encounter Location Date Provider Diagnosis [facility] [address] [place] [address] 12/07/2024 Raul Li Abdominal pain, acut e, generalized R10.84 ; Diarrhea R19.7 and Ulcerative colitis K51.90 [facility] [address] [place] [address] 02/10/2024 Raul Li [facility] [address] [place] [address] 08/31/2024 Raul Li [facility] [address] [place] [address] 10/21/2024 Raul Li Assessments Encounter Date Diagnosis (ICD Code) Assessment Notes Treatment Notes Treatment Clinical Notes Section Notes 12/07/2024 Diarrhea (ICD-10 - R19.7) 12/07/2024 Abdominal pain, acute, generalized (ICD-10 - R10.84) 12/07/2024 Ulcerative colitis (ICD-10 - K51.90) Plan Of Treatment Pending Test Test Name Order Date CHEM 7 PROFILE 12/07/2024 LIVER PROFILE 12/07/2024 CRP 12/07/2024 CBC w DIFF 12/07/2024 SED RATE (ESR) 12/07/2024 C DIFFICILE RFLX PCR 12/07/2024 Calprotectin, Fecal 12/07/2024 GI PANEL 12/07/2024 Future Test Test Name Order Date COLONOSCOPY 02/21/2015 COLONOSCOPY 10/24/2020 Next Appt Details Provider Name:Raul Saldivar Li , 02/28/2025 02:00:00 PM, [address], [address], [place], [address], Insurance Providers Payer Name Payer Address Payer Phone Subscriber Number Group Number Insured Name Patient Relationship to Insured Coverage Start Date Coverage End Date [facility] [address] [place] [phone] [id number] BRADLEY SHEPPARD Self - patient is the insured Medical (General) History Medical History History ICD Code Colonoscopy 06-05-2009-no acti ve colitis, polyps, dysplasia-just some diverticulosis and internal hemorrhoids Ulcerative colitis-dx'd in the 1969's-ca me off the 6-MP in mid-2010 IDDM with insulin pump Prostate cancer treated with radioactive seed implants-2000 Denies VT,CVA,Lung disease,renal disease Hyperlipidemia Colonoscopy 08/2012-no active colitis, [...]
--- OUTSIDE RECORDS SUMMARY | 2024-12-12 08:03 | XMS_ITS | Encounter Summary ---
Author Organization [facility] Address [address] [place] [phone] Phone Care Team Providers Care Residential Recycle Driver Name Role Phone Cliff Menjivar MD Primary [...] on filedocumented in this encounter Care Teams Residential Recycle Driver Relationship Specialty Start Date End Date Cliff Menjivar MD [address] [place] [address] [place] [address] PCP - General Internal Medicine 02/09/17 documented as of this encounter Additional Source Comments The information contained in this document represents components of the legal health record. It is not the complete legal health record.[facility]
--- OUTSIDE RECORDS SUMMARY | 2024-12-12 08:04 | XMS_ITS | Clinical Summary ---
Author Organization [facility] Address [address] [place] [phone] Phone Care Team Providers Care Software Writer Name Role Phone Cliff Menjivar MD Primary Care Provider Allergies No known active allergies Medications aspirin 81 mg chewable tablet 1 tablet Acti ve balsalazide (COLAZAL) 750 mg capsule 2 tabs Active calcium citrate 760 mg calcium /3.5 gram Gran as directed Act armani omega 2-esi-hms-fish oil 950 mg-320 mg- 630 mg-1,360 mg [...] to continue this, he also considered the Return Pathan CGM with the Medtronic 780G when he [...] vs recall, needs to discuss this with [facility], if due for upgrade this fall then [...] get glucagon filled after last appt with Teagan Sepulveda Has been encouraged to consider CGM and Antoni and his are not interested in considering the Dexcom G7, we discussed this today, he is advised to contact [facility] to request order for this since he [...] next fall, and also his communication from [email or web address] regarding pump recall Has been encouraged to [...] 3 months for a visit with our end trimmer staff and in 6 months for a [...] Team Description 10/03/2024 Refill [facility] [address] [place] [address] Chasity Erickson Medication Refill 09/28/2024 Telephone [facility] [address] [place] [address] Edith Braga MD Low Sugar Concern from [...] Hemoglobin A1c 7.5(A) 4.2 - 5.6 % [facility] Other 08/08/2024 2:20 PM EDT us Edith Braga MD POINT OF CARE TEST ORDERABLES F inal Result [facility] [address] [place] [address], [facility] from Last 3 Months or Most Recently Relevant to Health Maintenance Insurance [facility] MEDICARE HMO REPLACEMENT [facility] MEDICARE HMO REPLACEMENT [facility] MEDICARE HMO REPLACEMENT [place], [place] [facility] MEDICARE HMO REPLACEMENT [facility] MEDICARE HMO REPLACEMENT [place] [address] [address] MEDICARE HMO REPLACEMENT [facility] MEDIC[employer] HMO REPLACEMENT [facility] [employer] [facility] [employer] HMO REPLACEMENT Care Teams Software Writer Relationship Specialty Start Date End Date Cliff Menjivar MD [address] [place] [address] PCP - General Internal Medicine 02/09/17 Additional Source Comments The information contained in this document represents components of the legal health record. It is not the complete legal health record.[facility]
[2024-12-12 11:35] LABS: E. coli EAEC Not Detected (Not Detect.); E. coli EPEC Not Detected (Not Detect.); E. coli ETEC Not Detected (Not Detect.); E. coli STEC Not Detected (Not Detect.); Shigella sp./EIEC Not Detected (Not Detect.)
[2024-12-12 13:21] LABS: CDiff Gene PCR NEGATIVE (Negative)
[2024-12-16 16:58] LABS: Calprotectin, Fecal 2430 mcg/g
== END 2024-12-11 08:00 | disposition home or self-care (01) ==
LOC: HO.LNP 07:59
PROVIDERS: Visit Provider Internal Medicine
DX: R10.84 Generalized abdominal pain (principal); R19.7 Diarrhea, unspecified; K51.90 Ulcerative colitis, unspecified, without complications
CPT/HCPCS: 83993; 87493; 87507

== ENCOUNTER 2024-12-16 11:19 | Outpatient (REF) | payer MEDICARE, SELFPAY ==
[2024-12-16 11:55] LABS: Hemoglobin A1C 235.3130 umol/L; Total Hemoglobin (HGBA1C) 3506.0551 umol/L
[2024-12-16 12:18] LABS: Alanine Aminotransferase 12 U/L (0-40); Albumin Level 4.1 g/dL (3.5-5.0); Alkaline Phosphatase 100 U/L (39-117); Aspartate Amino Transferase 36 U/L (5-37); Cholesterol 102 mg/dL (<200); HDL Cholesterol 47 mg/dL (>40); Total Protein 6.9 g/dL (6.5-8.0); Triglycerides 49 mg/dL (<150)
[2024-12-16 14:36] LABS: Reflex LDLD? No
== END 2024-12-16 11:20 | disposition home or self-care (01) ==
LOC: HO.LNP 11:19
PROVIDERS: Visit Provider Internal Medicine
DX: E10.9 Type 1 diabetes mellitus without complications (principal); E78.00 Pure hypercholesterolemia, unspecified
CPT/HCPCS: 80061; 80076; 82947; 83036

== ENCOUNTER 2024-12-20 10:32 | Outpatient (AMB) | payer MEDICARE, SELFPAY ==
[2024-12-20 10:40] VITALS: BP 118/56; PULSE 91; O2SAT 96; BMI 21.8
--- NOTE | 2024-12-20 10:40 | MHC.OFFVIS ---
Vital Signs 12/20/24 10:40 Height 5 ft 10 in Weight 152 lb 1.903 oz BMI 21.8 BP 118/56 L Blood Pressure Location Lt brachial Position Sitting Pulse 91 Pulse Source Pulse Oximeter Pulse Oximetry (%) 96 Oxygen Delivery Method Room Air Intake Visit Reasons: Type 2 dm Intake Note: Patient present today for Type 2 Diabetes Mellitus Last Diabetic eye exam: Last exam was about 2 years ago but has upcoming appt Last Podiatry Visit: Patient has appt next month Random Glucose: 177 mg/dl HgA1C: 8.3% 12/16/24 Sales Team Leader Required: No Accompanied by: Spouse Allergies Seasonal Allergies Allergy (Mild, Verified 12/20/24 10:45) Unknown Medication List - Last Reconciled 12/20/24 by Garima Ruiz MD acetaminophen 1,000 mg PO DAILY PRN acetaminophen 1,000 mg PO BEDTIME acetone (urine) test (Ketone Urine Test strips) As directed ascorbic acid (vitamin C) (Vitamin C) 500 mg PO DAILY aspirin 81 mg PO DAILY atorvastatin 20 mg PO DAILY balsalazide 2,250 mg PO DAILY blood sugar diagnostic (FreeStyle Lite Strips) As directed blood-glucose sensor (FreeStyle Bruce 3 Plus Sensor device) As directed every 15 days blood-glucose,counter molder,cont (FreeStyle Bruce 3 [place]) As directed cholecalciferol (vitamin D3) (Vitamin D3) 50 mcg PO DAILY docusate sodium (Stool Softener) 100 mg PO DAILY insulin glargine (Lantus Solostar U-100 Insulin) 18 units (0.18 mL) subcut DAILY insulin lispro (Humalog U-100 Insulin) subcutaneously 3 times a day; up to 40 units per day insulin syringe,safety needle (BD SafetyGlide Insulin Syringe) As directed to inject insulin 3 times a day [id number] [id number] mcg (Centrum Silver Ultra Men's) 1 tab PO DAILY omega 5-ssd-hnx-fish oil 1,200 (144-216) mg (Fish Oil) 1 cap PO DAILY pen needle, diabetic Use four times a day or as directed. triamcinolone acetonide 0.1% 1 appl topical DAILY PRN HPI Comments Details: 79-year-old male coming in today for follow up of type 1 diabetes mellitus. Here today with Arlette. Last seen November 2024 History of diabetes Diagnosed at 17 years old [address] seeing [address] Braga in [facility] because of distance last visit with them Spring 2024 Prior therapy: Medtronic pump 780 g up until 21 September 2024, has had issues with dementia , unable to function with it , pump malfunction in September 2024, leading to DKA and hospitalization , he was checking fingersticks , he wasnt using the sensor Was in the hospital for hypoglycemia 4 times the last 2 years June 2024 severe hypoglycemia was in the hospital Current regimen: lantus 18 units AM For insulin lispro / humalog scale <111 0 units 111-150: 2 units 151- 200: 4 units 201- 250: 6 units 251-300: 8 units 301- 350 : 10 units >350 : 10 units Random Glucose: 177 mg/dl HgA1C: 9.66% 09/25/24 HgA1C: 8.3% 12/16/24 Now wearing [employer] bruce 3 plus since 11/21 but forgot to bring reader They misunderstood and have been checking both fingersticks 3 times a day and wearing the sensor Brought in meter Fastings 140s to 170s, a few 200s, one 76 , one 99 Premeals Complications Eye exam: Last eye exam was one year ago in 2023, [facility], Dr Doron España ? has to make an appointment , has history of retinopathy, has upcoming appt per patient Neuropathy: denies symtpms , has appt next month Kidney disease: no history of kidney disease Macrovascular complications: No history of macrovascular complications. Statin:atorvastatin 20 mg daily , 69 mg /d ldl 06/28 VLAD/ARB: none Exercise: not recently but was walking before Diet control: doesnt count carbs anymore just doing scale Saw CDE 11/21/2024 for CGM application Physical exam General: sitting comfortably in no acute distress HEENT: normocephalic/atraumatic, Neck: supple Cardiac: normal heart sounds Pulm: normal breath sounds B/L, no added breath sounds Abd: not distended, no tenderness Extremities: no edema, no signs of myxedema Neuro: AAO x3, Speech: normal, no facial droop, moving all 4 extremities Foot exam: checked 11/15/24 Intact sensation to monofilament, intact vibration, warm and well-perfused, intact pulses Laboratory Tests 06/09/24 09/25/24 09/26/24 08:00 11:39 07:11 Hgb 13.8 L D Hct 39.5 L D Plt Count 188 Sodium 142 Potassium 3.6 Creatinine 0.67 Estimated GFR > 60 POC Glucose Random Glucose 203 H Estimat Average Glucose 229 Hemoglobin A1c % 9.6 H AST 81 H ALT 42 H LDL Cholesterol, Calc 69 TSH 1.26 Urine Creatinine 56.32 Urine Microalbumin < 5.0 09/26/24 09/27/24 21:14 07:21 Hgb Hct Plt Count Sodium Potassium Creatinine Estimated GFR POC Glucose 218 H 135 H Random Glucose Estimat Average Glucose Hemoglobin A1c % AST ALT LDL Cholesterol, Calc TSH Urine Creatinine Urine Microalbumin Laboratory Tests 06/09/24 12/09/24 12/16/24 08:00 09:26 08:00 Creatinine 0.73 Estimated GFR > 60 Glucose (Clinic) Fasting Glucose 227 H Estimat Average Glucose 192 Hemoglobin A1c % 8.3 H AST 36 ALT 12 Triglycerides 49 Cholesterol 102 LDL Cholesterol, Calc 46 HDL Cholesterol 47 Urine Creatinine 56.32 Urine Microalbumin < 5.0 12/20/24 10:47 Creatinine Estimated GFR Glucose (Clinic) 177 H Fasting Glucose Estimat Average Glucose Hemoglobin A1c % AST ALT Triglycerides Cholesterol LDL Cholesterol, Calc HDL Cholesterol Urine Creatinine Urine Microalbumin [facility] Medical History (Updated 10/17/24 @ 16:41 by Garima Ruiz MD) Type 1 diabetes mellitus COVID-19 vaccine series completed Elevated cholesterol Diabetes mellitus Ulcerative colitis Prostate cancer Ductal carcinoma in situ (DCIS) of right breast Surgical History History of penile implant History of prostate surgery (2000) History of appendectomy History of colonoscopy History of right total mastectomy Social History Household Members: Spouse Housing: House Are you a primary career services director to a significant other at home: No Do you presently have visiting nurse or other home services: No Alcohol intake: never Comment: 1:1 sitter Patient Tobacco Use Status: Never used Tobacco Advance Directives Date on File: 07/12/21 service: No Assessment & Plan Assessment & Plan (1) Type 1 diabetes mellitus: Code(s): E10.9 - Type 1 diabetes mellitus without complications Category: Medical Qualifiers: Diabetes mellitus complication status: with hyperglycemia Qualified Code(s): E10.65 - Type 1 diabetes mellitus with hyperglycemia Plan: 79-year-old male coming in today for fup of 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 Diagnosed at 17 years of age. He has had recent hospitalization with diabetic ketoacidosis in September 2023, he has a issues with dementia, he was on a Medtronic 780 G pump but he has had issues with the operating it in the pump malfunctioned and he went into DKA. He has also had hospitalizations were severe hypoglycemia over the past year. He has a freestyle Bruce 3 since 11/21/2024 but forgot to bring reader today. They misunderstood and however has been checking fingersticks as well and did bring the meter to this time. He is not carb counting anymore. He is following a sliding scale. He clearly has elevated fasting blood sugar readings, pre meal readings are variable. At this time I will go up on the dose of Lantus slightly. But I told them importance of bringing the reader of the sensor to the appointment and went to check fingersticks. Plan: -increase Lantus to 20 units daily -continue insulin lispro sliding scale 3 times before meals scale <111 0 units 111-150: 2 units 151- 200: 4 units 201- 250: 6 units 251-300: 8 units 301- 350 : 10 units >350 : 10 units -did hypoglycemia education -told him to follow up with his towel sorter -reiterated importance of walking 30 minutes 5 days a week -we discussed signs and symptoms of DKA, when to report to the emergency room, explained to them to use urine ketone strips -referral to Podiatry placed since last visit Plan I spent 30 minutes in reviewing the record, seeing the patient and documenting in the medical record. Patient Instructions: increase dose of Lantus 20 units daily -continue insulin lispro sliding scale 3 times before meals scale <111 0 units 111-150: 2 units 151- 200: 4 units 201- 250: 6 units 251-300: 8 units 301- 350 : 10 units >350 : 10 units Coding Level of Care Code Est Pt Level 4 (77112) Complex EM visit Add On G2211 Diagnoses Type 1 diabetes mellitus with hyperglycemia E10.65 Diabetes mellitus complication status: with hyperglycemia Time Spent (min) 30
[2024-12-20 10:51] LABS: Glucose, Whole Blood 177 mg/dL (60-115)
--- OUTSIDE RECORDS SUMMARY | 2024-12-20 13:51 | XMS_ITS | Encounter Summary ---
Author Organization [facility] Address [address] [place] [id number] Phone Care Team Providers Care Research Hydraulic Engineer Name Role Phone Cliff Menjivar MD [...] on filedocumented in this encounter Care Teams Research Hydraulic Engineer Relationship Specialty Start Date End Date Cliff Menjivar MD [address] [place] [address] [place] [address] PCP - General Internal Medicine 02/09/17 documented as of this encounter Additional Source Comments The information contained in this document represents components of the legal health record. It is not the complete legal health record.[facility]
--- OUTSIDE RECORDS SUMMARY | 2024-12-20 13:51 | XMS_ITS | Clinical Summary ---
Author Organization [facility] Address [address] [place] [id number] Phone Care Team Providers Care Security Assistant Name Role Phone Cliff Menjivar MD Primary Care Provider Allergies No known active allergies Medications aspirin 81 mg chewable tablet 1 tablet Acti ve balsalazide (COLAZAL) 750 mg capsule 2 tabs Active calcium citrate 760 mg calcium /3.5 gram Gran as directed Act armani omega 0-vjk-ryk-fish oil 950 mg-320 mg- 630 mg-1,360 mg [...] to continue this, he also considered the [employer] CGM with the Medtronic 780G when he [...] vs recall, needs to discuss this with [employer], if due for upgrade this fall then [...] this today, he is advised to contact [facility] to request order for this since [...] next fall, and also his communication from [employer] regarding pump recall Has been encouraged to [...] 3 months for a visit with our nurse educator staff and in 6 months for [...] Team Description 10/03/2024 Refill [facility] [address] [place] [address] Chasity Erickson Medication Refill 09/28/2024 Telephone [facility] [address] [place] [address] Edith Braga MD Low Sugar Concern from [...] Hemoglobin A1c 7.5(A) 4.2 - 5.6 % [facility] Other 08/08/2024 2:20 PM EDT us Edith Braga MD POINT OF CARE TEST ORDERABLES F inal Result [facility] [address] [place] [address], [facility] from Last 3 Months or Most Recently Relevant to Health Maintenance Insurance [facility] MEDICARE HMO REPLACEMENT [facility] MEDICARE HMO REPLACEMENT [facility] MEDICARE HMO REPLACEMENT [place] [facility] MEDICARE HMO REPLACEMENT [facility] [place] MEDICARE HMO [place] [place] [address] MEDICARE HMO REPLACEMENT [facility] [place] MEDICARE HMO REPLACEMENT [facility] [place] MEDIC[facility] HMO REPLACEMENT Care Teams Security Assistant Relationship Specialty Start Date End Date Cliff Menjivar MD [address] [place] [id number] PCP - General Internal Medicine 02/09/17 Additional Source Comments The information contained in this document represents components of the legal health record. It is not the complete legal health record.[facility]
== END 2024-12-20 11:09 | disposition home or self-care (01) ==
LOC: HO.ENCR 10:33
PROVIDERS: PCP Internal Medicine; Visit Provider Student in an Organized Health Care Education/Training Program
DX: E10.65 Type 1 diabetes mellitus with hyperglycemia (principal)
CPT/HCPCS: 99214; G2211

== ENCOUNTER → 2024-12-20 10:32 | Outpatient (BNVA) | payer MEDICARE, SELFPAY | PROVIDERS: PCP Internal Medicine; Visit Provider Student in an Organized Health Care Education/Training Program | DX: E10.65 Type 1 diabetes mellitus with hyperglycemia (principal) | CPT/HCPCS: 82947; 99212 ==

== ENCOUNTER 2025-01-21 04:07 | Emergency (ER) | payer MEDICARE, SELFPAY ==
--- NOTE | ~2025-01-21 | CT_ITS ---
CLINICAL HISTORY: mental status change CT head without contrast Comparison: CT/SR - CT HEAD/BRAIN WO IV CON - 09/22/24 02:11 EDT Findings: Age-related cortical volume loss is seen with associated mild prominence of the ventricular system. Mild bilateral periventricular hypodensities are present. There is no evidence of hemorrhage or mass. Mucosal thickening is seen in the left maxillary sinus. There has been prior bilateral cataract surgery. There is no acute fracture. IMPRESSION: 1. No acute intracranial findings. 2. Mild chronic microvascular ischemic disease. 3. Left maxillary sinus disease. This document has been electronically signed by: Kulwinder Ansari on 01/21/2025 08:03:44
--- NOTE | 2025-01-21 04:18 | ECG_ITS ---
Test Reason : AMS Blood Pressure : */* mmHG Vent. Rate : 88 BPM Atrial Rate : * BPM P-R Int : * ms QRS Dur : 92 ms QT Int : 374 ms P-R-T Axes : * 77 21 degrees QTcB Int : 452 ms Normal sinus rhythm Normal ECG When compared with ECG of 22-Sep-2024 01:53, No significant changes seen Referred By: Generic ED Physician Electronically Signed By: Elbert Mills
[2025-01-21 04:27] VITALS: BP 155/57; BP 160/92; PULSE 86; PULSE 99; RESP 15; TEMP 36.4; O2SAT 99; BMI 22.1
--- NOTE | 2025-01-21 04:47 | ECG_ITS ---
Test Reason : REPEAT AMS Blood Pressure : */* mmHG Vent. Rate : 88 BPM Atrial Rate : 88 BPM P-R Int : 130 ms QRS Dur : 90 ms QT Int : 380 ms P-R-T Axes : 66 75 46 degrees QTcB Int : 459 ms Sinus rhythm with Premature atrial complexes Otherwise normal ECG When compared with ECG of 21-Jan-2025 04:39, Sinus rhythm has replaced Atrial fibrillation T wave inversion no longer evident in Inferior leads Referred By: Alfreda Jasso Electronically Signed By: Elbert Mills
[2025-01-21 04:53] LABS: Hematocrit 35.5 % (42.0-52.0); Hemoglobin 11.8 g/dl (14.0-18.0); Imm Gran Abs Auto 0.03 X10*3/uL (0.00-0.03); Imm Gran Pct Auto 0.6 % (0.0-0.4); Lymphocytes Absolute Auto 0.6 X10*3/uL (1.2-4.9); MANUAL DIFF FLAG NO; Mean Corpuscular HGB Conc 33.2 g/dl (31.0-36.0); Mean Corpuscular Hemoglobin 29.0 pg (27.0-33.0); Mean Corpuscular Volume 87.2 fL (80.0-98.0); NRBC Abs Auto 0.000 X10*3/uL (0.0-0.012); NRBC Pct Auto 0.0 /100WBC (0.0-0.2); Platelet Count 304 X10*3/uL (160-400); Red Blood Count 4.07 X10*6/uL (4.60-5.80); White Blood Count 5.3 X10*3/uL (4.8-10.8)
[2025-01-21 04:53] LABS: Glucose, Whole Blood 283 mg/dL (60-115)
[2025-01-21 05:06] LABS: Alanine Aminotransferase 8 U/L (0-40); Albumin Level 3.9 g/dL (3.5-5.0); Alkaline Phosphatase 120 U/L (39-117); Anion Gap 14 (12-20); Aspartate Amino Transferase 30 U/L (5-37); Blood Urea Nitrogen 22 mg/dL (9-16); Calcium 8.8 mg/dL (8.4-10.2); Carbon Dioxide 26 mmol/L (22-29); Chloride 102 mmol/L (96-108); Creatinine Clr Calc Pharmacy 71.8; Estimated Glomerular Filt Rate > 60; Magnesium 2.0 mg/dL (1.6-2.6); Potassium 4.5 mmol/L (3.3-5.1); Sodium 137 mmol/L (135-145); Total Protein 7.0 g/dL (6.5-8.0)
[2025-01-21 05:08] LABS: Appearance Urine Clear; Glucose Urine UA >=1000 mg/dL (Negative); PH 6.0 (5.0-9.0); Specific Gravity - Urine >= 1.030 (1.005-1.025); UMIC TRIGGER UACC YES
--- NOTE | 2025-01-21 05:10 | PC.NURSE ---
Called pts , Arlette, who was made aware of pt being at the ED by [employer]. Arlette states pt has a hx of dementia and she was not aware he had taken the car as she believed the keys were locked away. Arlette states pt kept stating that he wanted to leave and that this is he third time he has done something similar. Arlette states she will be calling her daughter to be able to come down to the hospital. Arlette reports pt is a type 1 diabetic and is also on antibiotics for colitis. Arlette advised to bring in pts current med bottles or med list.
[2025-01-21 05:13] LABS: Troponin-I High Sensitivity 5.2 ng/L (<3.5-35.0)
[2025-01-21 05:21] LABS: Cannabinoid Screen Urine Not Detected (Not Detect)
--- NOTE | 2025-01-21 06:09 | ED.GENADULT ---
HPI - General Adult General Chief complaint: Altered Mental Status Stated complaint: Confusion, Hyperglycemic Time Seen by Provider: 01/21/25 06:08 Source: patient and EMS Mode of arrival: EMS Limitations: no limitations History of Present Illness ED Provider: DR. Jasso HPI narrative: 79-year-old male with underlying history of ulcerative colitis, T1 dm, prostate cancer breast cancer, hyperlipidemia among others patient brought in by ambulance after was found in the gas station confused and unable to pump gas for himself, patient otherwise on arrival to the emergency department is awake, alert, calm, cooperative and able to provide history, patient has no complaint currently no headache, no weakness, no numbness, no apparent confusion stated that he lives home with his patient remember the event well he said he took his car for right and fell up gas when he got to the gas station he had travel filling his car with gas. As reported by the patient with history of dementia patient left house in the morning without her knowing and she will be coming to the emergency department later on today. Related Data Home Medications ?Medication ?Instructions ?Recorded ?Confirmed atorvastatin 20 mg tablet 20 mg PO DAILY 03/13/20 12/20/24 balsalazide 750 mg capsule 2,250 mg PO DAILY 03/13/20 12/20/24 ascorbic acid (vitamin C) 500 mg 500 mg PO DAILY 12/03/20 12/20/24 tablet (Vitamin C) aspirin 81 mg tablet,delayed 81 mg PO DAILY 12/03/20 12/20/24 release omega 9-lli-ssi-fish oil 1,200 mg 1 cap PO DAILY 12/03/20 12/20/24 (144 mg-216 mg) capsule (Fish Oil) blood sugar diagnostic (FreeStyle #10 ea 10/21/22 12/20/24 Lite Strips) acetaminophen 500 mg tablet 1,000 mg PO BEDTIME 09/22/24 12/20/24 acetaminophen 500 mg tablet 1,000 mg PO DAILY PRN Pain 09/22/24 12/20/24 cholecalciferol (vitamin D3) 50 50 mcg PO DAILY 09/22/24 12/20/24 mcg (2,000 unit) tablet (Vitamin D3) docusate sodium 100 mg tablet 100 mg PO DAILY 09/22/24 12/20/24 (Stool Softener) cdhzrgen-yv-mfgai 300 mcg-K 60 1 tab PO DAILY 09/22/24 12/20/24 mcg-lycop 600 mcg-lutein 300 mcg tablet (Centrum Silver Ultra Men's) triamcinolone acetonide 0.1 % 1 appl topical DAILY PRN Rash 09/22/24 12/20/24 topical cream Previous Rx's ?Medication ?Instructions ?Recorded acetone (urine) test (Ketone Urine #100 ea 10/17/24 Test strips) insulin glargine 100 unit/mL (3 18 unit (0.18 mL) subcut DAILY #15 10/17/24 mL) subcutaneous pen (Lantus mL Solostar U-100 Insulin) blood-glucose sensor (FreeStyle #6 ea 11/08/24 Bruce 3 Plus Sensor device) blood-glucose,head boys tennis coach,cont #1 ea 11/08/24 (FreeStyle Bruce 3 [place]) insulin lispro 100 unit/mL See Rx Instructions subcut TID #10 12/01/24 subcutaneous solution (Humalog mL U-100 Insulin) insulin syringe,safety needle 0.3 #100 ea 12/01/24 mL 31 gauge x 15/64 (BD SafetyGlide Insulin Syringe) pen needle, diabetic 32 gauge x #100 ea 12/01/24 1/4 risperidone 0.25 mg tablet 0.25 mg PO DAILY #10 tabs 01/21/25 Allergies Allergy/AdvReac Type Severity Reaction Status Date / Time Seasonal Allergies Allergy Mild Unknown Verified 01/21/25 04:32 Review of Systems Review of Systems: All other systems are reviewed and are negative Constitutional: Reports as per HPI and Reports no additional constitutional complaints Eyes: Reports as per HPI and Reports no additional eye complaints Reports system reviewed and no additional complaints, except as documented Cardiovascular: Reports as per HPI and Reports no additional cardiovascular complaints Respiratory: Reports as per HPI and Reports no additional respiratory complaints Gastrointestinal: Reports as per HPI and Reports no additional gastrointestinal complaints Genitourinary: Reports no additional female genitourinary complaints Musculoskeletal: Reports no additional musculoskeletal complaints Skin/Breast: Reports system reviewed and no additional complaints, except as docu Psychiatric: Reports no additional psychiatric complaints Endocrine: Reports no additional endocrine complaints Hematologic/Lymphatic: Reports no additional hematologic/lymphatic complaints Allergic/Immunologic: Reports no additional allergic/immunologic complaints Reports system reviewed and no additional complaints, except as documented and Reports Abnormal speech present [facility] Past Medical History Medical History Type 1 diabetes mellitus COVID-19 vaccine series completed Elevated cholesterol Diabetes mellitus Ulcerative colitis Prostate cancer Ductal carcinoma in situ (DCIS) of right breast Surgical History History of penile implant History of prostate surgery (2000) History of appendectomy History of colonoscopy History of right total mastectomy Social History Social History Household Members: Spouse Housing: House Are you a primary post acute care nurse to a significant other at home: No Do you presently have visiting nurse or other home services: No Alcohol intake: never Comment: 1:1 sitter Patient Tobacco Use Status: Never used Tobacco Smoked in Last 30 Days: No Use of substances other than those prescribed or required for medical reasons: No Advance Directives: Yes Advance Directives on File: Yes Advance Directives Date on File: 07/12/21 Do you have a plan to hurt others: No Plan service: No Physical Exam ED Vital Signs: Vital Signs - 24 hr 01/21/25 04:27 01/21/25 06:22 01/21/25 08:36 Temperature 97.5 F 97.6 F 98.4 F Pulse Rate 86 87 88 Respiratory Rate 15 16 16 Blood Pressure 155/57 H 133/64 165/78 H Pulse Oximetry 99 99 99 Oxygen Delivery Method Room Air Room Air BMI result Body Mass Index 22.1 Vital signs have been reviewed and appear to be correct. Blood pressure elevated. Heart rate normal. Respiratory rate normal. Temperature normal. Oxygen saturation normal. Appearance: Alert. Oriented X3. No acute distress. Head: Normal external exam. Normocephalic. Atraumatic. No Perez signs noted. No raccoon eyes noted Eyes: PERRLA. EOMI. Conjunctiva and sclera normal. Eyelids normal. ENT: TM's Normal. Pharynx normal. Uvula midline. Moist mucous membranes. No trismus noted. No drooling noted. No muffled voice noted. Neck: Normal inspection. Neck supple. FROM. No adenopathy. Thyroid Normal. No meningeal signs. No neck mass noted. CVS: Normal heart rate and rhythm. Heart sound normal. No murmurs noted. Pulses normal throughout. Respiratory: No respiratory distress. Painless inspiration. Breath sounds normal. No wheezes/rales/rhonchi noted. Chest nontender. No accessory muscle usage noted or decreased air movement noted. Abdomen: Soft and nontender. Bowel sounds normal in all 4 quadrants. No distention noted. No organomegaly noted. No visible injury noted. Back: No CVA tenderness. Full range of motion noted. Skin: Skin warm and dry. Normal skin color. Normal skin turgor. No rashes/lesions/lacerations noted. Extremities: No lower extremity edema. Extremities exhibit normal range of motion. Extremities nontender. Neuro: Mental status: Normal attention, orientation, memory, and affect. Cranial nerves: Pupils are equal, round and reactive to light, EOMI, visual duarte are fall, face is symmetric, facial sensations are normal. Motor examination normal muscle tone, strength to 4 extremities. DTR are +2, planter's are flexor. Sensory exam; normal coordination, no ataxia, gait stable. Cerebellar exam: Gbncbg-ao-hspb and wfzo-ja-bmue is normal. Extrapyramidal system: No tremors, no rigidity with normal facial expressions. Pronator drift not present Course Reevaluation(s) Reevaluation #1: Patient is showing no confusion now, able to provide a reliable history, labs are unremarkable, head CT is unremarkable for acute pathology, patient now is AAO x3, and daughter at the bedside stated that these changes has been happening for the past few months patient do not have an official diagnosis of dementia, family stated that patient gets son down sometimes, has not appointment with PCP in 2 days. Family was instructed to follow-up with neurologist as well. I spoke in details with the family the patient has gun at home that anything that the patient can potentially hurt himself or hurt somebody else should be taken out of the house. Also car's kwan should be out of his reach Patient currently is AAO x3, no SI, no HI, no hallucination. Will start the patient on few pills of risperidone as per family request. Time: 12:00 Medical Decision Making Differential Diagnosis Differential Diagnoses: The differential diagnosis associated with the presentation includes (Dementia, intracranial pathology, electrolyte derangement, severe anemia, UTI.) Admission/Observation Consideration of admission/observation: Escalation of care including admission/observation considered Lab Data MDM Lab Attestation statement: I reviewed the patient's lab results. 01/21/25 04:47 01/21/25 04:47 Labs: Lab Results 01/21/25 01/21/25 01/21/25 Range/Units 04:25 04:47 05:01 WBC 5.3 (4.8-10.8) X10*3/uL RBC 4.07 L (4.60-5.80) X10*6/uL Hgb 11.8 L (14.0-18.0) g/dl Hct 35.5 L (42.0-52.0) % MCV 87.2 (80.0-98.0) fL MCH 29.0 (27.0-33.0) pg MCHC 33.2 (31.0-36.0) g/dl RDW 12.2 (11.0-16.0) % Plt Count 304 D (160-400) X10*3/uL MPV 8.6 L (9.4-12.4) fL Immature Gran % (Auto) 0.6 H (0.0-0.4) % Neut % (Auto) 77.4 H (45-73) % Lymph % (Auto) 11.8 L (20-40) % Love % (Auto) 9.2 (2-11) % Eos % (Auto) 0.6 (0-4) % Baso % (Auto) 0.4 (0-2) % Lymph # (Auto) 0.6 L (1.2-4.9) X10*3/uL Love # (Auto) 0.5 (0.1-1.2) X10*3/uL Eos # (Auto) 0.0 (0.0-0.4) X10*3/uL Baso # (Auto) 0.0 (0.0-0.2) X10*3/uL Abs Immat Gran (auto) 0.03 (0.00-0.03) X10*3/uL Absolute Neuts (auto) 4.1 (2.0-8.3) x10*3/uL Absolute Nucleated RBC 0.000 (0.0-0.012) X10*3/uL Nucleated RBC % (auto) 0.0 (0.0-0.2) /100WBC Sodium 137 (135-145) mmol/L Potassium 4.5 (3.3-5.1) mmol/L Chloride 102 (96-108) mmol/L Carbon Dioxide 26 (22-29) mmol/L Anion Gap 14 (12-20) BUN 22 H (9-16) mg/dL Creatinine 0.73 (0.5-1.4) mg/dL Estim Creat Clear Calc 71.8 Estimated GFR > 60 POC Glucose 283 H (60-115) mg/dL Random Glucose 309 H (60-115) mg/dL Calcium 8.8 (8.4-10.2) mg/dL Magnesium 2.0 (1.6-2.6) mg/dL Total Bilirubin 0.7 (0.0-1.0) mg/dL AST 30 (5-37) U/L ALT 8 (0-40) U/L Alkaline Phosphatase 120 H (39-117) U/L Troponin I High Sens 5.2 D (<3.5-35.0) ng/L Total Protein 7.0 (6.5-8.0) g/dL Albumin 3.9 (3.5-5.0) g/dL Urine Color Yellow Urine Appearance Clear Urine pH 6.0 (5.0-9.0) Ur Specific [place] >= 1.030 H (1.005-1.025) Urine Protein Trace (Neg-Trace) mg/dL Urine Glucose (UA) >=1000 H (Negative) mg/dL Urine Ketones 15 (Negative) mg/dL Urine Blood Negative (Negative) Urine Nitrite Negative (Negative) Ur Leukocyte Esterase Negative (Negative) Urine RBC 0-2 (0-2) /HPF Urine WBC 0-5 (0-5) /HPF Ur Squamous Epith Cells 0-2 (0-2) /HPF Urine Bacteria None Seen (None Seen) Hyaline Casts 0-2 (0-2) /LPF Urine Opiates Screen Not Detected (Not Detect) Ur Buprenorphine Scrn Not Detected (Not Detect) ng/mL Ur Oxycodone Screen Not Detected (Not Detect) ng/mL Urine Methadone Screen Not Detected (Not Detect) ng/mL Urine Fentanyl Screen Not Detected (Not Detect) Ur Barbiturates Screen Not Detected (Not Detect) Ur Phencyclidine Scrn Not Detected (Not Detect) Ur Amphetamines Screen Not Detected (Not Detect) U Benzodiazepines Scrn Not Detected (Not Detect) Urine Cocaine Screen Not Detected (Not Detect) U Marijuana (THC) Screen Not Detected (Not Detect) Independent Interpretation I performed an independent interpretation of an: CT Scan (Head: No acute intracranial pathology.) Radiology Impression Discussion of test interpretation with radiology: I have reviewed the radiologist's reading. Discharge Plan Discharge Clinical Impression: Dementia Patient Disposition: Home, Self-Care Instructions: Alzheimer Disease (DC), Dementia (ED) Prescriptions: New risperidone 0.25 mg tablet 0.25 mg PO DAILY Qty: 10 0RF No Action (DME) FreeStyle Bruce 3 Plus Sensor Device See Rx Instructions .ROUTE .MEDSUPPLY Qty: 6 4RF Rx Instructions: As directed every 15 days (DME) FreeStyle Bruce 3 [place] Misc See Rx Instructions .ROUTE .MEDSUPPLY Qty: 1 0RF Rx Instructions: As directed (DME) pen needle, diabetic 32 gauge x 1/4 needle Qty: 100 6RF Rx Instructions: Use four times a day or as directed. (DME) BD SafetyGlide Insulin Syringe 0.3 mL 31 gauge x 15/64 syringe See Rx Instructions .Route Qty: 100 7RF Rx Instructions: As directed to inject insulin 3 times a day insulin lispro [Humalog U-100 Insulin] 100 unit/mL solution See Rx Instructions subcut TID Qty: 10 5RF Rx Instructions: subcutaneously 3 times a day; up to 40 units per day aspirin 81 mg Tablet,Delayed Release (Dr/Ec) 81 mg PO DAILY ascorbic acid (vitamin C) [Vitamin C] 500 mg Tablet 500 mg PO DAILY omega 9-rfe-sfl-fish oil [Fish Oil] 1,200 (144-216) mg Capsule 1 cap PO DAILY acetaminophen 500 mg Tablet 1,000 mg PO DAILY PRN (Reason: Pain) acetaminophen 500 mg Tablet 1,000 mg PO BEDTIME triamcinolone acetonide 0.1 % cream 1 appl topical DAILY PRN (Reason: Rash) docusate sodium [Stool Softener] 100 mg Tablet 100 mg PO DAILY cholecalciferol (vitamin D3) [Vitamin D3] 50 mcg (2,000 unit) Tablet 50 mcg PO DAILY Centrum Silver Ultra Men's [id number] mcg Tablet 1 tab PO DAILY atorvastatin 20 mg tablet 20 mg PO DAILY balsalazide 750 mg capsule 2,250 mg PO DAILY (DME) FreeStyle Lite Strips Strip See Rx Instructions .ROUTE .MEDSUPPLY Qty: 10 Rx Instructions: As directed insulin glargine [Lantus Solostar U-100 Insulin] 100 unit/mL (3 mL) insulin pen 18 unit SUBCUT DAILY Qty: 15 4RF (DME) Ketone Urine Test Strip See Rx Instructions .Route Qty: 100 3RF Rx Instructions: As directed Referrals: Cliff Menjivar MD [Physician, Medical] Leah Hoang MD [Physician, Neurology] Print Language: Guinean
[2025-01-21 06:22] VITALS: BP 133/64; PULSE 87; RESP 16; TEMP 36.4; O2SAT 99
--- OUTSIDE RECORDS SUMMARY | 2025-01-21 06:45 | XMS_ITS | Clinical Summary ---
Author Organization [facility] Address [address] [place] [id number] Phone Care Team Providers Care Corporate Law Specialist Name Role Phone Cliff Menjivar MD Primary Care Provider Allergies No known active allergies Medications aspirin 81 mg chewable tablet 1 tablet Acti ve balsalazide (COLAZAL) 750 mg capsule 2 tabs Active calcium citrate 760 mg calcium /3.5 gram Gran as directed Act armani omega 8-xjj-bmz-fish oil 950 mg-320 mg- 630 mg-1,360 mg [...] to continue this, he also considered the [employer] CGM with the [employer]tronic 780G when he [...] vs recall, needs to discuss this with [facility], if due for upgrade this fall then [...] months, Antoni will return to meet with Sherirll Kinney in 3 months Assessment & Plan [...] this today, he is advised to contact [facility] to request order for this since he [...] next fall, and also his communication from [employer] regarding pump recall Has been encouraged to [...] 3 months for a visit with our food and beverage server staff and in 6 months for a [...] is encouraged to call with any questions Immunizations Immunization Administration Dates Next Due COVID-19 [...] PCV) 04/01/2017 04/01/2016 INFLUENZA VACCINE (#1) 2024 , 02/02/2023, 01/14/2022, Additional history exists COVID-19 VACCINE [...] Hemoglobin A1c 7.5(A) 4.2 - 5.6 % [employer] [facility] Other 08/08/2024 2:20 PM EDT Edith Braga MD POINT OF CARE TEST ORDERABLES F inal Result [employer] [facility] [address] [place] [address], [facility] from Last 3 Months or Most Recently Relevant to Health Maintenance Insurance [employer] H[employer] REPLACEMENT [facility] MEDICARE HMO REPLACEMENT [employer] [place] RE[employer] REPLACEMENT [facility] MEDICARE HMO RE[place]ACEMENT [place] [address] [place] [address] MEDICARE HMO REPLACEMENT [facility] MEDICARE HMO REPLACEMENT [facility] MEDICARE HMO REPLACEMENT [employer]EMENT Care Teams Corporate Law Specialist Relationship Specialty Start Date End Date Cliff Menjivar MD [address] [place] [id number] PCP - General Internal Medicine 02/09/17 Additional Source Comments The information contained in this document represents components of the legal health record. It is not the complete legal health record.[facility]
--- OUTSIDE RECORDS SUMMARY | 2025-01-21 06:45 | XMS_ITS | Encounter Summary ---
Author Organization [facility] Address [address] [place] [phone] Phone Care Team Providers Care Refrigerator Cabinetmaker Name Role Phone Cliff Menjivar MD Primary [...] on filedocumented in this encounter Care Teams Refrigerator Cabinetmaker Relationship Specialty Start Date End Date Cliff Menjivar MD [address] [place] [address] [place] [phone] PCP - General Internal Medicine 02/09/17 documented as of this encounter Additional Source Comments The information contained in this document represents components of the legal health record. It is not the complete legal health record.[facility]
[2025-01-21 08:36] VITALS: BP 165/78; PULSE 88; RESP 16; TEMP 36.9; O2SAT 99
[2025-01-21 10:04] VITALS: BP 164/76; PULSE 93; RESP 16; TEMP 36.8; O2SAT 99
[2025-01-21 12:00] VITALS: BP 141/62; PULSE 96; RESP 16; TEMP 36.3; O2SAT 97
[2025-01-21 14:37] VITALS: BP 141/62; PULSE 96; RESP 16; TEMP 36.3; O2SAT 97
== END 2025-01-21 14:45 | disposition home or self-care (01) ==
PROVIDERS: Emergency Provider Emergency Medicine
DX: F03.90 Unspecified dementia, unspecified severity, without behavioral disturbance, psychotic disturbance, mood disturbance, and anxiety (principal); E10.9 Type 1 diabetes mellitus without complications; Z79.899 Other long term (current) drug therapy
CPT/HCPCS: 36415; 70450; 80053; 80307; 81001; 82947; 83735; 84484; 85025; 93005; 99284; 99285

== ENCOUNTER → 2025-01-21 04:18 | Outpatient (BNV) | payer MEDICARE, SELFPAY | PROVIDERS: Emergency Provider Emergency Medicine; Visit Provider Internal Medicine Cardiovascular Disease | DX: I49.1 Atrial premature depolarization (principal) | CPT/HCPCS: 93010 ==

== ENCOUNTER → 2025-01-21 06:16 | Outpatient (BNV) | payer MEDICARE, SELFPAY | PROVIDERS: Emergency Provider Emergency Medicine; Visit Provider Radiology Vascular & Interventional Radiology | DX: I67.82 Cerebral ischemia (principal); J32.0 Chronic maxillary sinusitis | CPT/HCPCS: 70450 ==

== ENCOUNTER 2025-01-25 14:29 | Outpatient (REF) | payer MEDICARE, SELFPAY ==
[2025-01-25 19:43] LABS: Folate 9.8 ng/mL (> or = 4.0); Vitamin B12 1150 pg/mL (200-900)
== END 2025-01-25 14:30 | disposition home or self-care (01) ==
LOC: HO.LAB 14:29
PROVIDERS: PCP Internal Medicine; Visit Provider Psychiatry & Neurology Neurology
DX: G30.9 Alzheimer's disease, unspecified (principal); F02.80 Dementia in other diseases classified elsewhere, unspecified severity, without behavioral disturbance, psychotic disturbance, mood disturbance, and anxiety; E10.9 Type 1 diabetes mellitus without complications
CPT/HCPCS: 36415; 82607; 82746; 99202

== ENCOUNTER 2025-01-25 14:29 | Outpatient (AMB) | payer MEDICARE, SELFPAY ==
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
--- OUTSIDE RECORDS SUMMARY | 2025-01-25 20:39 | XMS_ITS | Encounter Summary ---
Author Organization [facility] Address [address] [place] [phone] Phone Care Team Providers Care Clinic Office Assistant Name Role Phone Cliff Menjivar MD [...] on filedocumented in this encounter Care Teams Clinic Office Assistant Relationship Specialty Start Date End Date Cliff Menjivar MD [address] [place] [address] [place] [id number] PCP - General Internal Medicine 02/09/17 documented as of this encounter Additional Source Comments The information contained in this document represents components of the legal health record. It is not the complete legal health record.[facility]
--- OUTSIDE RECORDS SUMMARY | 2025-01-25 20:39 | XMS_ITS | Clinical Summary ---
Author Organization [facility] Address [address] [facility] [address] [place] [phone] Phone Care Team Providers Care Coordinator Skill Training Program Name Role Phone Cliff Menjivar MD Primary Care Provider Allergies No known active allergies Medications aspirin 81 mg chewable tablet 1 tablet Acti ve balsalazide (COLAZAL) 750 mg capsule 2 tabs Active calcium citrate 760 mg calcium /3.5 gram Gran as directed Act armani omega 2-bkl-dyq-fish oil 950 mg-320 mg- 630 mg-1,360 mg [...] to continue this, he also considered the [employer] CGM with the Medtronic 780G when he [...] vs recall, needs to discuss this with [employer], if due for upgrade this fall then [...] this today, he is advised to contact [facility] to request order for this since he [...] next fall, and also his communication from [employer] regarding pump recall Has been encouraged to [...] evaluation of renal function or microalbuminuria but nAtoni reports that these are up to date [...] 3 months for a visit with our inclusion paraeducator staff and in 6 months for a [...] Hemoglobin A1c 7.5(A) 4.2 - 5.6 % [employer] [facility] Other 08/08/2024 2:20 PM EDT Edith Braga MD POINT OF CARE TEST ORDERABLES F inal Result [employer] [facility] [address] [place] [address], [facility] from Last 3 Months or Most Recently Relevant to Health Maintenance Insurance [employer] HMO REPLACEMENT [facility] MEDICARE HMO REPLACEMENT [employer] REPLACEMENT [employer] HMO REPLACEMENT [facility] MEDICARE HMO REPLACEMENT [address] [address] MEDICARE HMO REPLACEMENT [facility] MEDICARE HMO REPLACEMENT [facility] MEDICARE HMO REPLACEMENT [employer] H[employer] REPLACEMENT Care Teams Coordinator Skill Training Program Relationship Specialty Start Date End Date Cliff Menjivar MD [address] [place] [id number] PCP - General Internal Medicine 02/09/17 Additional Source Comments The information contained in this document represents components of the legal health record. It is not the complete legal health record.[facility]
== END 2025-01-25 15:25 | disposition home or self-care (01) ==
LOC: HO.HSM 14:30
PROVIDERS: Visit Provider Psychiatry & Neurology Neurology
DX: G30.9 Alzheimer's disease, unspecified (principal); F02.80 Dementia in other diseases classified elsewhere, unspecified severity, without behavioral disturbance, psychotic disturbance, mood disturbance, and anxiety
CPT/HCPCS: 99204

== ENCOUNTER 2025-01-27 02:02 | Emergency (ER) | payer MEDICARE, SELFPAY ==
[2025-01-27 02:10] VITALS: BP 154/62; BP 176/79; PULSE 86; PULSE 91; RESP 20; TEMP 36.7; O2SAT 100; O2SAT 99; BMI 21.1
--- NOTE | 2025-01-27 03:01 | ED.GENADULT ---
HPI - General Adult General Chief complaint: General Medical Stated complaint: DEMENTIA/FOUND WANDERING Time Seen by Provider: 01/27/25 03:01 History of Present Illness ED Provider: Jareth VALENZUELA narrative: The patient is an 79-year-old male who lives with his . He has a history of type 1 diabetes apparently recently the patient has been exhibiting signs of dementia. He had here in the emergency room 6 days ago after he has been brought to the hospital by ambulance after he has been found wandering in the streets. He has a head CT and other labs that were unremarkable and he was ultimately discharged with his family. At that visit he was prescribed risperidone. Two days ago he followed up with the neurologist Dr. Hoang. Dr. Hoang recommended stopping the risperidone and instead using sertraline and donepezil. The family has not yet started these medications. According to the patient's daughter the patient has a good day yesterday but tonight became paranoid and left the house and apparently knocked on a neighbor's door. The patient apparently told the neighbor that his mother and grandmother were in his house and were being held by kidnappers. The neighbor called police. [place] the patient should be brought to the hospital. The family was informed. The patient seems demented with some mild paranoid thoughts but has no complaints. I spoke to the patient's daughter who says that the patient has paranoid thoughts has been fairly constant recently. There was no report of any fever or any other symptoms exhibited by the patient. Related Data Home Medications ?Medication ?Instructions ?Recorded ?Confirmed atorvastatin 20 mg tablet 20 mg PO DAILY 03/13/20 12/20/24 balsalazide 750 mg capsule 2,250 mg PO DAILY 03/13/20 12/20/24 ascorbic acid (vitamin C) 500 mg 500 mg PO DAILY 12/03/20 12/20/24 tablet (Vitamin C) aspirin 81 mg tablet,delayed 81 mg PO DAILY 12/03/20 12/20/24 release omega 1-alz-buo-fish oil 1,200 mg 1 cap PO DAILY 12/03/20 12/20/24 (144 mg-216 mg) capsule (Fish Oil) blood sugar diagnostic (FreeStyle #10 ea 10/21/22 12/20/24 Lite Strips) acetaminophen 500 mg tablet 1,000 mg PO BEDTIME 09/22/24 12/20/24 acetaminophen 500 mg tablet 1,000 mg PO DAILY PRN Pain 09/22/24 12/20/24 cholecalciferol (vitamin D3) 50 50 mcg PO DAILY 09/22/24 12/20/24 mcg (2,000 unit) tablet (Vitamin D3) docusate sodium 100 mg tablet 100 mg PO DAILY 09/22/24 12/20/24 (Stool Softener) dzrvtryb-ag-mwnnw 300 mcg-K 60 1 tab PO DAILY 09/22/24 12/20/24 mcg-lycop 600 mcg-lutein 300 mcg tablet (Centrum Silver Ultra Men's) triamcinolone acetonide 0.1 % 1 appl topical DAILY PRN Rash 09/22/24 12/20/24 topical cream Previous Rx's ?Medication ?Instructions ?Recorded acetone (urine) test (Ketone Urine #100 ea 10/17/24 Test strips) insulin glargine 100 unit/mL (3 18 unit (0.18 mL) subcut DAILY #15 10/17/24 mL) subcutaneous pen (Lantus mL Solostar U-100 Insulin) blood-glucose sensor (FreeStyle #6 ea 11/08/24 Bruce 3 Plus Sensor device) blood-glucose,saw sharpener,cont #1 ea 11/08/24 (FreeStyle Bruce 3 Howells) insulin lispro 100 unit/mL See Rx Instructions subcut TID #10 12/01/24 subcutaneous solution (Humalog mL U-100 Insulin) insulin syringe,safety needle 0.3 #100 ea 12/01/24 mL 31 gauge x 15/64 (BD SafetyGlide Insulin Syringe) pen needle, diabetic 32 gauge x #100 ea 12/01/24 1/4 risperidone 0.25 mg tablet 0.25 mg PO DAILY #10 tabs 01/21/25 donepezil 5 mg tablet 5 mg PO DAILY #90 tabs 01/25/25 sertraline 25 mg tablet 25 mg PO DAILY #90 tabs 01/25/25 Allergies Allergy/AdvReac Type Severity Reaction Status Date / Time Seasonal Allergies Allergy Mild Unknown Verified 01/27/25 02:14 Review of Systems Review of Systems: Yes Unobtainable due to mental status PMFSH Past Medical History Medical History Type 1 diabetes mellitus COVID-19 vaccine series completed Elevated cholesterol Diabetes mellitus Ulcerative colitis Prostate cancer Ductal carcinoma in situ (DCIS) of right breast Surgical History History of penile implant History of prostate surgery (2000) History of appendectomy History of colonoscopy History of right total mastectomy Social History Social History Household Members: Spouse Housing: House Are you a primary day care home mother to a significant other at home: No Do you presently have visiting nurse or other home services: No Alcohol intake: never Comment: 1:1 sitter Patient Tobacco Use Status: Never used Tobacco Advance Directives: Yes Advance Directives on File: Yes Advance Directives Date on File: 07/12/21 Do you have a plan to hurt others: No Plan service: No Physical Exam ED Vital Signs: Vital Signs - 24 hr 01/27/25 02:10 01/27/25 04:43 01/27/25 06:15 Temperature 98.1 F Pulse Rate 91 84 83 Respiratory Rate 20 18 16 Blood Pressure 176/79 H 126/60 142/65 H Pulse Oximetry 100 97 99 Oxygen Delivery Method Room Air Room Air Room Air BMI result Body Mass Index 21.1 Const Other: The patient is an 79-year-old male who is awake and alert. He looks frail but not in acute distress. HENMT Other: The face is symmetrical. ?Mucous membranes moist. Eyes Other: Pupils are round equal, conjunctivae are clear, extraocular movements intact Neck Neck: Yes full ROM and Yes no JVD Resp Effort & Inspection: normal respiratory effort Auscultation: clear to auscultation bilaterally Cardio Rate: regular rate Rhythm: regular rhythm Heart sounds: S1 normal heart sound present and S2 normal heart sound present GI Other: Abdomen is soft and nontender Skin Other: The skin is dry and unremarkable Neuro Other: The patient is awake and alert. He seems to express some paranoid delusions but he was calm. He is poorly oriented. However cranial nerves 2-12 are intact and he moves his extremities symmetrically with the appropriate strength and coordination. No focal neurological deficits. Extrem Other: There is no calf swelling or tenderness. No asymmetry. No peripheral edema. Psych Other: The patient is an 79-year-old male who was reasonably well-kempt. He seems to express paranoid thoughts but he is reasonably calm. Course Course Course Narrative: Time: 10:40 Date: 01/27/25 Provider: HERMILO Rangel Physician observation ended at 1040. Case management spoke with patient, declining facility or referrals at this time. Family would like to take patient home in attempt to have him in a [facility] outpatient program. Patient was recently diagnosed with dementia with official diagnosis by Dr. Hoang started on donezepil and sertraline. Prescriptions have not yet been picked up by the pharmacy however patient did receive 1st dose of sertraline in the ED this morning. Plan for family to pickle cutter prescriptions when they leave the emergency department. With shared decision-making recommend starting the newly prescribed sertraline and donezepil for a few days to see their efficacy prior to initiating any additional medications. Recommended close Neurology/PCP follow-up. Family comfortable with plan. Results discussed with patient including worrisome signs and symptoms and strict return precautions, and when to return to the emergency department. They verbalized understanding and feel safe for discharge at this time. Medications Administered Discontinued Medications Generic Name Dose Route Start Last Admin Trade Name Vale PRN Reason Stop Dose Admin Donepezil HCl 5 mg 01/27/25 07:15 01/27/25 07:21 Donepezil Hcl 5 Mg Tablet PO 5 mg DAILY PASCUAL Administration Olanzapine 5 mg 01/27/25 03:35 01/27/25 03:46 Olanzapine 5 Mg Tablet PO 01/27/25 03:36 5 mg ONCE ONE Administration Sertraline HCl 25 mg 01/27/25 07:15 01/27/25 07:21 Sertraline Hcl 25 Mg Tablet PO 25 mg DAILY PASCUAL Administration Medical Decision Making Medical Decision Making [facility] Narrative: The patient is an 79-year-old male who was brought to the hospital after wondering from his home. He has recently been diagnosed with dementia. I believe this is an episode of dementia associated with some wandering behavior and also some paranoid thoughts. He was seen [address] Hoang who recommended the patient be started on sertraline 25 mg daily and donepezil 5 mg daily. At the moment the patient seems medically stable. He is a type 1 diabetic but he is not exhibiting any signs of a diabetic complication. Basic lab testing is not very remarkable. His blood sugars 200. His electrolytes are normal. His renal function is normal. The patient was given 5 mg of olanzapine and slept for awhile. I spoke to his daughter who says she will come to the hospital later today to try to come up with a plan for care. I think she is hoping to avoid psychiatric hospitalization. I will initiate the patient's new medications as recommended by Dr. Hoang. I will order sertraline and donepezil. I will also place a case management consult in case there are any Community Services which might be available for the family. The patient will be signed out at change of shift. Lab Data 01/27/25 03:50 01/27/25 03:50 Labs: Lab Results 01/27/25 Range/Units 03:50 WBC 6.7 (4.8-10.8) X10*3/uL RBC 4.15 L (4.60-5.80) X10*6/uL Hgb 12.0 L (14.0-18.0) g/dl Hct 36.4 L (42.0-52.0) % MCV 87.7 (80.0-98.0) fL MCH 28.9 (27.0-33.0) pg MCHC 33.0 (31.0-36.0) g/dl RDW 12.3 (11.0-16.0) % Plt Count 314 (160-400) X10*3/uL MPV 8.8 L (9.4-12.4) fL Immature Gran % (Auto) 0.4 (0.0-0.4) % Neut % (Auto) 83.6 H (45-73) % Lymph % (Auto) 7.9 L (20-40) % Antelope % (Auto) 7.1 (2-11) % Eos % (Auto) 0.6 (0-4) % Baso % (Auto) 0.4 (0-2) % Lymph # (Auto) 0.5 L (1.2-4.9) X10*3/uL Antelope # (Auto) 0.5 (0.1-1.2) X10*3/uL Eos # (Auto) 0.0 (0.0-0.4) X10*3/uL Baso # (Auto) 0.0 (0.0-0.2) X10*3/uL Abs Immat Gran (auto) 0.03 (0.00-0.03) X10*3/uL Absolute Neuts (auto) 5.6 (2.0-8.3) x10*3/uL Absolute Nucleated RBC 0.000 (0.0-0.012) X10*3/uL Nucleated RBC % (auto) 0.0 (0.0-0.2) /100WBC Sodium 141 (135-145) mmol/L Potassium 4.5 (3.3-5.1) mmol/L Chloride 104 (96-108) mmol/L Carbon Dioxide 29 (22-29) mmol/L Anion Gap 13 (12-20) BUN 10 (9-16) mg/dL Creatinine 0.72 (0.5-1.4) mg/dL Estim Creat Clear Calc 71.7 Estimated GFR > 60 Random Glucose 200 H (60-115) mg/dL Calcium 8.9 (8.4-10.2) mg/dL Total Bilirubin 0.6 (0.0-1.0) mg/dL Direct Bilirubin 0.3 (0.0-0.5) mg/dL AST 37 (5-37) U/L ALT 11 (0-40) U/L Alkaline Phosphatase 122 H (39-117) U/L Total Protein 7.2 (6.5-8.0) g/dL Albumin 3.9 (3.5-5.0) g/dL Urine Color Yellow Urine Appearance Clear Urine pH 7.5 (5.0-9.0) Ur Specific Orange 1.010 (1.005-1.025) Urine Protein Negative (Neg-Trace) mg/dL Urine Glucose (UA) Negative (Negative) mg/dL Urine Ketones Negative (Negative) mg/dL Urine Blood Negative (Negative) Urine Nitrite Negative (Negative) Ur Leukocyte Esterase Negative (Negative) Ethyl Alcohol 11 mg/dL Independent Interpretation I performed an independent interpretation of an: EKG Interpretation: EKG at 03:51 shows sinus rhythm with premature supraventricular complexes at 84 beats per minute. No ischemic changes. Significant change from previous EKG. Discharge Plan Discharge Clinical Impression: Dementia, Nocturnal wandering, Paranoia Type 1 diabetes mellitus Qualifiers: Diabetes mellitus complication status: with hyperglycemia Qualified Code(s): E10.65 - Type 1 diabetes mellitus with hyperglycemia Patient Disposition: Home, Self-Care Instructions: Dementia (ED) Additional Instructions: It is important for patient to be compliant with newly prescribed medications Please have close follow up with Neurology and primary care doctor If symptoms persist or worsen return to the emergency department Prescriptions: No Action (DME) FreeStyle Bruce 3 Plus Sensor Device See Rx Instructions .ROUTE .MEDSUPPLY Qty: 6 4RF Rx Instructions: As directed every 15 days (DME) FreeStyle Bruce 3 Howells Misc See Rx Instructions .ROUTE .MEDSUPPLY Qty: 1 0RF Rx Instructions: As directed (DME) pen needle, diabetic 32 gauge x 1/4 needle Qty: 100 6RF Rx Instructions: Use four times a day or as directed. (DME) BD SafetyGlide Insulin Syringe 0.3 mL 31 gauge x 15 syringe See Rx Instructions .Route Qty: 100 7RF Rx Instructions: As directed to inject insulin 3 times a day insulin lispro [Humalog U-100 Insulin] 100 unit/mL solution See Rx Instructions subcut TID Qty: 10 5RF Rx Instructions: subcutaneously 3 times a day; up to 40 units per day aspirin 81 mg Tablet,Delayed Release (Dr/Ec) 81 mg PO DAILY ascorbic acid (vitamin C) [Vitamin C] 500 mg Tablet 500 mg PO DAILY omega 0-jqm-ovr-fish oil [Fish Oil] 1,200 (144-216) mg Capsule 1 cap PO DAILY acetaminophen 500 mg Tablet 1,000 mg PO DAILY PRN (Reason: Pain) acetaminophen 500 mg Tablet 1,000 mg PO BEDTIME triamcinolone acetonide 0.1 % cream 1 appl topical DAILY PRN (Reason: Rash) docusate sodium [Stool Softener] 100 mg Tablet 100 mg PO DAILY cholecalciferol (vitamin D3) [Vitamin D3] 50 mcg (2,000 unit) Tablet 50 mcg PO DAILY Centrum Silver Ultra Men's [id number] mcg Tablet 1 tab PO DAILY risperidone 0.25 mg tablet 0.25 mg PO DAILY Qty: 10 0RF atorvastatin 20 mg tablet 20 mg PO DAILY balsalazide 750 mg capsule 2,250 mg PO DAILY (DME) FreeStyle Lite Strips Strip See Rx Instructions .ROUTE .MEDSUPPLY Qty: 10 Rx Instructions: As directed insulin glargine [Lantus Solostar U-100 Insulin] 100 unit/mL (3 mL) insulin pen 18 unit SUBCUT DAILY Qty: 15 4RF (DME) Ketone Urine Test Strip See Rx Instructions .Route Qty: 100 3RF Rx Instructions: As directed donepezil 5 mg tablet 5 mg PO DAILY Qty: 90 0RF sertraline 25 mg tablet 25 mg PO DAILY Qty: 90 1RF Referrals: Leah Hoang MD [Physician, Neurology] Physician,Unknown J [Primary Care Provider, Medical] Interventions: ED Discharge Assessment Last Done: 01/27/25 11:13 Discharge Date/Time: 01/27/25 11:41 Print Language: Eritrean
--- OUTSIDE RECORDS SUMMARY | 2025-01-27 03:29 | XMS_ITS | Encounter Summary ---
Author Organization [facility] Address [address] [place] [id number] Phone Care Team Providers Care Cloth Covered Helmet Puller Name Role Phone Cliff Menjivar MD Primary [...] on filedocumented in this encounter Care Teams Cloth Covered Helmet Puller Relationship Specialty Start Date End Date Cliff Menjivar MD [address] [place] [address] [place] [address] PCP - General Internal Medicine 02/09/17 documented as of this encounter Additional Source Comments The information contained in this document represents components of the legal health record. It is not the complete legal health record.[facility]
--- OUTSIDE RECORDS SUMMARY | 2025-01-27 03:30 | XMS_ITS | Clinical Summary ---
Author Organization [facility] Address [address] [facility] [address] [place] [id number] Phone Care Team Providers Care Shotgun Shell Assembly Machine Operator Name Role Phone Cliff Menjivar MD Primary Care Provider Allergies No known active allergies Medications aspirin 81 mg chewable tablet 1 tablet Acti ve balsalazide (COLAZAL) 750 mg capsule 2 tabs Active calcium citrate 760 mg calcium /3.5 gram Gran as directed Act armani omega 3-qst-vcm-fish oil 950 mg-320 mg- 630 mg-1,360 mg [...] to continue this, he also considered the Yeelionan CGM with the Medtronic 780G when he [...] vs recall, needs to discuss this with [employer], if due for upgrade this fall then [...] this today, he is advised to [facility] to request order for this since [...] next fall, and also his communication from [employer] regarding pump recall Has been encouraged to [...] 3 months for a visit with our coding educator staff and in 6 months for [...] Hemoglobin A1c 7.5(A) 4.2 - 5.6 % [facility] Other 08/08/2024 2:20 PM EDT Edith Braga MD POINT OF CARE TEST ORDERABLES F inal Result [facility] [address] [place] [address], [facility] from Last 3 Months or Most Recently Relevant to Health Maintenance Insurance [employer] H[employer] REPLACEMENT [facility] MEDICARE HMO REPLACEMENT [employer] REPLACEMENT [employer] REPLACEMENT [facility] MEDICARE HMO REPLACEMENT [place] [place] [address] MEDICARE HMO REPLACEMENT [facility] MEDICARE HMO REPLACEMENT [facility] MEDICARE HMO REPLACEMENT [employer] REPLACEMENT Care Teams Shotgun Shell Assembly Machine Operator Relationship Specialty Start Date End Date Cliff Menjivar MD [address] [place] [id number] PCP - General Internal Medicine 02/09/17 Additional Source Comments The information contained in this document represents components of the legal health record. It is not the complete legal health record.[facility]
--- NOTE | 2025-01-27 03:31 | ECG_ITS ---
Test Reason : AMS Blood Pressure : */* mmHG Vent. Rate : 84 BPM Atrial Rate : 84 BPM P-R Int : 140 ms QRS Dur : 88 ms QT Int : 388 ms P-R-T Axes : 66 68 63 degrees QTcB Int : 458 ms Sinus rhythm with Premature supraventricular complexes Otherwise normal ECG When compared with ECG of 21-Jan-2025 04:47, No significant change was found Referred By: Bc Templeton Electronically Signed By: THERON SANTIAGO MD
--- NOTE | 2025-01-27 03:32 | PC.NURSE ---
Pt with hx of dementia, eloped from his home tonight and went to a neighbors house. Pt with some paranoid delusions. Concerned someone is coming after my mom . Pt is calm and cooperative here. Alert to person and place but confused on time. Pt's family notified by provider. Given food and drink. Will obtain labs and family states they will likely pursue case management.
[2025-01-27 04:04] LABS: MANUAL DIFF FLAG NO
[2025-01-27 04:22] LABS: Alanine Aminotransferase 11 U/L (0-40); Albumin Level 3.9 g/dL (3.5-5.0); Alkaline Phosphatase 122 U/L (39-117); Anion Gap 13 (12-20); Appearance Urine Clear; Aspartate Amino Transferase 37 U/L (5-37); Blood Urea Nitrogen 10 mg/dL (9-16); Calcium 8.9 mg/dL (8.4-10.2); Carbon Dioxide 29 mmol/L (22-29); Chloride 104 mmol/L (96-108); Creatinine Clr Calc Pharmacy 71.7; Estimated Glomerular Filt Rate > 60; Glucose Urine UA Negative (Negative); PH 7.5 (5.0-9.0); Potassium 4.5 mmol/L (3.3-5.1); Sodium 141 mmol/L (135-145); Specific Gravity - Urine 1.010 (1.005-1.025); Total Protein 7.2 g/dL (6.5-8.0)
[2025-01-27 04:23] LABS: Hematocrit 36.4 % (42.0-52.0); Hemoglobin 12.0 g/dl (14.0-18.0); Imm Gran Abs Auto 0.03 X10*3/uL (0.00-0.03); Imm Gran Pct Auto 0.4 % (0.0-0.4); Lymphocytes Absolute Auto 0.5 X10*3/uL (1.2-4.9); Mean Corpuscular HGB Conc 33.0 g/dl (31.0-36.0); Mean Corpuscular Hemoglobin 28.9 pg (27.0-33.0); Mean Corpuscular Volume 87.7 fL (80.0-98.0); NRBC Abs Auto 0.000 X10*3/uL (0.0-0.012); NRBC Pct Auto 0.0 /100WBC (0.0-0.2); Platelet Count 314 X10*3/uL (160-400); Red Blood Count 4.15 X10*6/uL (4.60-5.80); White Blood Count 6.7 X10*3/uL (4.8-10.8)
[2025-01-27 04:43] VITALS: BP 126/60; PULSE 84; RESP 18; O2SAT 97
[2025-01-27 06:15] VITALS: BP 142/65; PULSE 83; RESP 16; O2SAT 99
--- NOTE | 2025-01-27 09:42 | PC.NURSE ---
Family at bedside with case management.
--- NOTE | 2025-01-27 10:05 | MHC.CM.ED ---
Received case management consult overnight from Dr Templeton. Patient eloped from his home and was brought to the ER via EMS. Patient was brought to the ER on 01/21 for getting confused at a gas. On 01/25, patient received formal diagnosis of dementia from Dr Hoang. Patient was started on donepezil and sertraline. These prescriptions were not picked up from the pharmacy. Met with patient, Arlette and daughter Marisela in regards to discharge planning. Marisela is hoping to get patient signed onto [employer]. She has not spoken to anyone at [employer] yet. T/W encouraged Marisela to reach out to determine if patient will qualify. Marisela is under the impression [employer] will only perform financial look back of 1 month. T/W explained typically [employer] asks for 5 years. Marisela will reach out to the [facility] [employer] program to verify their requirements. Patient sundowns at night and is now awake at night. This has been difficult for Arlette. Marisela and Arlette are essentially looking for help at home at night. T/W explained that would be privately paid at this point. Offered referral to [facility]. However, typically it is daily help. Not at night. Arlette and Marisela declining referral at this time. Requesting to speak to provider about medication plan. Payton AKHTAR aware. Anticipate patient will d/c home with Arlette and Marisela. Continue to monitor for d/c needs.
[2025-01-27 11:13] VITALS: BP 132/85; PULSE 83; RESP 16; TEMP 36.4; O2SAT 99
== END 2025-01-27 11:41 | disposition home or self-care (01) ==
PROVIDERS: Emergency Provider Emergency Medicine; PCP Internal Medicine
DX: F03.92 Unspecified dementia, unspecified severity, with psychotic disturbance (principal); E10.65 Type 1 diabetes mellitus with hyperglycemia; Z91.83 Wandering in diseases classified elsewhere; Z79.899 Other long term (current) drug therapy
CPT/HCPCS: 36415; 80048; 80076; 80307; 81003; 85025; 93005; 99283; 99284

== ENCOUNTER → 2025-01-27 03:31 | Outpatient (BNV) | payer MEDICARE, SELFPAY | PROVIDERS: Emergency Provider Emergency Medicine; Visit Provider Internal Medicine Cardiovascular Disease | DX: I49.3 Ventricular premature depolarization (principal) | CPT/HCPCS: 93010 ==

== ENCOUNTER 2025-02-02 12:28 | Outpatient (AMB) | payer MEDICARE, SELFPAY ==
--- NOTE | 2025-02-02 12:35 | A.OFFVIS_ITS ---
Vital Signs 3 02/02/25 12:38 Height 5 ft 8 in Weight 138 lb 14.259 oz BMI 21.1 BP 128/60 Blood Pressure Location Lt brachial Position Sitting Pulse 90 Pulse Source Pulse Oximeter Pulse Oximetry (%) 94 Oxygen Delivery Method Room Air Intake Visit Reasons: type 1 DM Intake Note: Patient presents today for a follow-up on Type 1 Diabetes Mellitus: Last Diabetic eye exam: Last exam was about 2 years ago but has upcoming appt, when? Still pending [facility] Recent HgA1C: 8.3%, 12/16/2024 Random Glucose: 189 mg/dL Accompanied by: Self / Same As Patient Allergies Seasonal Allergies Allergy (Mild, Verified 01/27/25 02:14) Unknown HPI Comments Details: 79-year-old male coming in today for follow up of type 1 diabetes mellitus. Here today with Arlette. Last seen 12/20/[address] Ruiz. This 1st time that I see this patient. History of diabetes Diagnosed at 17 years old [address] seeing Dr. Braga in [facility], changing care because of distance Prior therapy: Medtronic pump 780 g up until 21 September 2024, has had issues with dementia , unable to function with it , pump malfunction in September 2024, leading to DKA and hospitalization , he was checking fingersticks , he wasnt using the sensor Was in the hospital for hypoglycemia 4 times the last 2 years June 2024 severe hypoglycemia was in the hospital Current regimen: Lantus 18 units AM For insulin lispro / humalog scale <111 0 units 111-150: 2 units 151- 200: 4 units 201- 250: 6 units 251-300: 8 units 301- 350 : 10 units >350 : 10 units Complications Eye exam: Last eye exam was one year ago in 2023, [facility], Dr Doron España. It is due. Neuropathy: denies symptoms, 01/2025, DR Jd Jackson Kidney disease: no history of kidney disease Macrovascular complications: No history of macrovascular complications. Statin:atorvastatin 20 mg daily, 69 mg /d ldl 06/28 VLAD/ARB: none Exercise: not recently but was walking before Diet control: doesnt count carbs anymore just doing scale Saw CDE 11/21/2024 for CGM application Interval history 02/02/2025 Patient was without sensor for 15 days due to sensor falling off She was measuring BG but didn't bring the meter. No recent illness or hospitalization Per report he is having lows, specially at night, but unclear it he was symptomatic Reports normal appetite Physical exam General: Well appearing. CV: irregular irregular rhythm, no murmur. Bilateral 2+ edema. Resp: Lungs clear to auscultation bilaterally Abdomen: Soft, nontender. nondistended Extremities/Neuro: No weakness or tremor of outstretched hands Labs Laboratory Tests 06/09/24 01/27/25 02/02/25 08:00 03:50 12:44 Creatinine 0.72 Estimated GFR > 60 Glucose (Clinic) 189 H Urine Microalbumin < 5.0 CGM data Interpretation : scarce data. Unable to observe any specific patterns. [facility] Medical History Type 1 diabetes mellitus COVID-19 vaccine series completed Elevated cholesterol Diabetes mellitus Ulcerative colitis Prostate cancer Ductal carcinoma in situ (DCIS) of right breast Surgical History History of penile implant History of prostate surgery (2000) History of appendectomy History of colonoscopy History of right total mastectomy Social History Household Members: Spouse Housing: House Are you a primary urgent care to a significant other at home: No Do you presently have visiting nurse or other home services: No Alcohol intake: never Comment: 1:1 sitter Patient Tobacco Use Status: Never used Tobacco Advance Directives Date on File: 07/12/21 service: No Physical Exam Vital Signs: Last Vital Signs Pulse 90 02/02/25 12:38 BP 128/60 02/02/25 12:38 Pulse Ox 94 02/02/25 12:38 Oxygen Delivery Method Room Air 02/02/25 12:38 BMI result Body Mass Index 21.1 Office Procedures Glucose Monitoring Details Details: See [facility] [address] - Glucose Monitoring, continuous Procedure code (CPT) selection complete Assessment & Plan Assessment & Plan (1) Type 1 diabetes mellitus: Code(s): E10.9 - Type 1 diabetes mellitus without complications Category: Medical Qualifiers: Diabetes mellitus complication status: with hyperglycemia Qualified Code(s): E10.65 - Type 1 diabetes mellitus with hyperglycemia Plan: 79-year-old male coming in today for fup of 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 Diagnosed at 17 years of age. He has had recent hospitalization with diabetic ketoacidosis in September 2023, he has a issues with dementia, he was on a Medtronic 780 G pump but he has had issues with the operating it in the pump malfunctioned and he went into DKA. He has also had hospitalizations were severe hypoglycemia over the past year. He has a [employer] Bruce 3 since 11/21/2024 but forgot to bring reader today. They misunderstood and however has been checking fingersticks as well and did bring the meter to this time. He is not carb counting anymore. He is following a sliding scale. Fortunately patient had issues with CGM (sensor off for 15 days, just restarted 2 days ago), despite using the glucometer, they did not bring it so there is no data available for review. Plan: Continue Lantus 18 units daily in the morning. Continue Humalog per sliding scale as previously instructed. Reinforce importance of documenting hypoglycemic episodes (frequency, timing, symptoms, treatment). Instruct to confirm CGM-detected hypoglycemia with fingerstick, especially if <70 mg/dL or >300 mg/dL. Review and reinforce hypoglycemia management: prioritize fast-acting carbohydrates (juice, glucose tabs, etc.). Encourage consistent site rotation for insulin injections to prevent lipodystrophy. Schedule follow-up in 1 month to review CGM data and reassess insulin regimen. Ophthalmology referral placed Plan 35 minutes spent reviewing previous records, labs, imaging, patient education and documenting in the chart Orders: Orders 2 AMB Glucose Monitoring Today E10.65 - Type 1 diabetes mellitus with hyperglycemia Referrals 2 Ophthalmology Referral E10.65 - Type 1 diabetes mellitus with hyperglycemia Patient Instructions: Use Lantus 18 units AM For insulin lispro / humalog scale <111 0 units 111-150: 2 units 151- 200: 4 units 201- 250: 6 units 251-300: 8 units 301- 350 : 10 units >350 : 10 units Coding Level of Care Code Est Pt Level 4 (52535) Diagnoses Type 1 diabetes mellitus with hyperglycemia E10.65 Diabetes mellitus complication status: with hyperglycemia CPT Codes Details - CPT: 28695 - Glucose Monitoring, continuous ([id number])
[2025-02-02 12:38] VITALS: BP 128/60; PULSE 90; O2SAT 94; BMI 21.1
[2025-02-02 12:49] LABS: Glucose, Whole Blood 189 mg/dL (60-115)
--- OUTSIDE RECORDS SUMMARY | 2025-02-02 15:22 | XMS_ITS | Encounter Summary ---
Author Organization [facility] Address [address] [place] [phone] Phone Care Team Providers Care Laboratory Immunologist Name Role Phone Cliff Menjivar MD Primary [...] on filedocumented in this encounter Care Teams Laboratory Immunologist Relationship Specialty Start Date End Date Cliff Menjivar MD [address] [place] [address] [place] [address] PCP - General Internal Medicine 02/09/17 documented as of this encounter Additional Source Comments The information contained in this document represents components of the legal health record. It is not the complete legal health record.[facility]
--- OUTSIDE RECORDS SUMMARY | 2025-02-02 15:22 | XMS_ITS | Clinical Summary ---
Author Organization [facility] Address [address] [facility] [place] [phone] Phone Care Team Providers Care Finishing Supervisor Plastic Sheets Name Role Phone Cliff Menjivar MD Primary Care Provider Allergies No known active allergies Medications aspirin 81 mg chewable tablet 1 tablet Acti ve balsalazide (COLAZAL) 750 mg capsule 2 tabs Active calcium citrate 760 mg calcium /3.5 gram Gran as directed Act armani omega 2-ulc-lke-fish oil 950 mg-320 mg- 630 mg-1,360 mg [...] to continue this, he also considered the [employer] CGM with the Medtronic 780G when he [...] vs recall, needs to discuss this with [employer], if due for upgrade this fall then [...] this today, he is advised to contact [facility] to request order for this since [...] next fall, and also his communication from [employer] regarding pump recall Has been encouraged to [...] 3 months for a visit with our hospital educator staff and in 6 months for [...] Hemoglobin A1c 7.5(A) 4.2 - 5.6 % [facility] Other 08/08/2024 2:20 PM EDT Edith Braga MD POINT OF CARE TEST ORDERABLES F inal Result [facility] [address] [place] [address], [facility] from Last 3 Months or Most Recently Relevant to Health Maintenance Insurance [employer] [employer] HMO REPLACEMENT [facility] MEDICARE HMO REPLACEMENT [employer] HMO REPLACEMENT [employer] HMO REPLACEMENT [facility] MEDICARE HMO REPLACEMENT [place] [address] [place] [address] MEDICARE HMO REPLACEMENT [facility] MEDICARE HMO REPLACEMENT [facility] MEDICARE HMO REPLACEMENT [employer] HMO REPLACEMENT Care Teams Finishing Supervisor Plastic Sheets Relationship Specialty Start Date End Date Cliff Menjivar MD [address] [place] [id number] PCP - General Internal Medicine 02/09/17 Additional Source Comments The information contained in this document represents components of the legal health record. It is not the complete legal health record.[facility]
== END 2025-02-02 13:17 | disposition home or self-care (01) ==
LOC: HO.ENCR 12:29
PROVIDERS: Visit Provider Student in an Organized Health Care Education/Training Program
DX: E10.65 Type 1 diabetes mellitus with hyperglycemia (principal)
CPT/HCPCS: 99214

== ENCOUNTER → 2025-02-02 12:28 | Outpatient (BNVA) | payer MEDICARE, SELFPAY | PROVIDERS: Visit Provider Student in an Organized Health Care Education/Training Program | DX: E10.65 Type 1 diabetes mellitus with hyperglycemia (principal); E10.319 Type 1 diabetes mellitus with unspecified diabetic retinopathy without macular edema; Z96.41 Presence of insulin pump (external) (internal) | CPT/HCPCS: 82947; 95250; 99212 ==

== ENCOUNTER 2025-02-07 10:00 | Outpatient (AMB) | payer MEDICARE, SELFPAY ==
--- NOTE | 2025-02-07 11:01 | A.OFFVIS_ITS ---
Intake Intake Visit Reasons: DM Youth Development Specialist Required: No Accompanied by: Spouse Allergies Seasonal Allergies Allergy (Mild, Verified 01/27/25 02:14) Unknown HPI Comprehensive Diabetes Asmnt Most Recent Diabetes Results: 2 Cholesterol, (<200) 102 mg/dL 12/16/24 HDL Cholesterol, (>40) 47 mg/dL 12/16/24 Triglycerides, (<150) 49 mg/dL 12/16/24 Creatinine, (0.5-1.4) 0.72 mg/dL 01/27/25 BUN, (9-16) 10 mg/dL 01/27/25 Sodium, (135-145) 141 mmol/L 01/27/25 Potassium, (3.3-5.1) 4.5 mmol/L 01/27/25 Chloride, (96-108) 104 mmol/L 01/27/25 Carbon Dioxide, (22-29) 29 mmol/L 01/27/25 Calcium, (8.4-10.2) 8.9 mg/dL 01/27/25 AST, (5-37) 37 U/L 01/27/25 ALT, (0-40) 11 U/L 01/27/25 Total Protein, (6.5-8.0) 7.2 g/dL 01/27/25 Albumin, (3.5-5.0) 3.9 g/dL 01/27/25 [facility] Medical History Type 1 diabetes mellitus COVID-19 vaccine series completed Elevated cholesterol Diabetes mellitus Ulcerative colitis Prostate cancer Ductal carcinoma in situ (DCIS) of right breast Surgical History History of penile implant History of prostate surgery (2000) History of appendectomy History of colonoscopy History of right total mastectomy Social History Household Members: Spouse Housing: House Are you a primary healthcare sales representative to a significant other at home: No Do you presently have visiting nurse or other home services: No Alcohol intake: never Comment: 1:1 sitter Patient Tobacco Use Status: Never used Tobacco Advance Directives Date on File: 07/12/21 service: No Assessment & Plan Assessment & Plan (1) Type 1 diabetes mellitus: Code(s): E10.9 - Type 1 diabetes mellitus without complications Qualifiers: Diabetes mellitus complication status: with hyperglycemia Qualified Code(s): E10.65 - Type 1 diabetes mellitus with hyperglycemia Plan: Learning objectives: The patient was provided with verbal and written education on the following topics as outlined below. Assess patient education level/literacy/barriers, patient previously on insulin pump. Insulin pump therapy stopped after patient was hospitalized for DKA. Patient has history of emergency room visits for both hypo and hyperglycemia At this time patient is still has not picked up ketone strips from pharmacy Patient having postprandial hypoglycemia, patient's administers insulin. After discussion it appears that they may be taking rapid acting insulin doses too close together, which is leading to hypoglycemia Reviewed insulin action with patient. Instructed patient and his not to do 2 injections of rapid acting insulin in less than 3 hours. Patient's also stated that she has been estimating the amount of rapid excellent insulin given for correction dose. Will request from provider prescription for ketone strips, Baqsimi, and correction scale. The patient met all learning objectives and was able to verbalize understanding and provide teach back of education topics discussed . The patient was provided with the opportunity to ask questions and all questions were answered. Topics covered in today?s session included: Hypoglycemia and Hyperglycemia * Signs and symptoms? * Causes?? * Treatment? * Preventing hypoglycemia? * When to seek medical attention * Baqsimi is a nasal spray that contains the hormone glucagon. Glucagon is the hormone that increases blood sugar by working on the liver to release glucose into the blood. Baqsimi should only be given if you are unable to treat hypoglycemia by taking oral intervention Giving the dose Baqsimi * Hold Device between fingers and thumb. Do not push Plunger yet. * Insert Tip gently in one nostril until finger(s) touch the outside of the nose. * Push Plunger firmly all the way in * Once dose has been administered, call EMS or provider * If after 15 minutes patient is still unable to treat hypoglycemia orally give 2nd dose if available The most common side effects of BAQSIMI include: ? nausea ? vomiting ? headache ? runny nose ? discomfort in your nose ? stuffy nose ? redness in your eyes ? itchy nose, throat, and eyes ? watery eyes If patient is having frequent low blood sugars or has hypoglycemic event that requires assistance they should report it to their provider Diabetic ketoacidosis (DKA) Is serious condition that can lead to diabetic coma (passing out for a long time) or even . When your cells don't get the glucose they need for energy, your body begins to burn fat for energy, which produces ketones. Ketones are chemicals that the body creates when it breaks down fat to use for energy. The body does this when it doesn?t have enough insulin to use glucose, the body?s normal source of energy. When ketones build up in the blood, they make it more acidic. They are a warning sign that your diabetes is out of control or that you are getting sick. How to Test Urine for Ketones You can detect ketones with a simple urine test using a test strip, similar to a blood testing strip. Ask your health care provider when and how you should test for ketones. Many experts advise to check your urine for ketones when your blood glucose is more than 250 mg/dl. When you are ill (when you have a cold or the flu, for example), check for ketones every 4 to 6 hours. And check every 4 to 6 hours when your blood sugar is more than 250 mg/dl. Also, check for ketones when you have any symptoms of DKA. ?Patient was receptive to information provided and participated in the discussion. Asked?appropriate questions and demonstrated good understanding of the topics discussed.? ? Educational Materials: The patient was provided with the following written educational materials: How to treat hypoglycemia handout Patient Response to instructions: Comprehension of Instructions: poor Readiness to make changes:? Contemplation How confident they feel about making changes:poor Portions of this note were created using voice recognition software, please excuse any words or phrases that may have been misinterpreted. Patient Instructions: DIABETES PROBLEMS HOMECARE INSTRUCTIONS? for High Blood Sugar and When to Test for Ketones Hyperglycemia is the technical term for high blood glucose (blood sugar). High blood sugar happens when the body has too little insulin or when the body can't use insulin properly. What causes hyperglycemia? A number of things can cause hyperglycemia: * If you have type 1, you may not have given yourself enough insulin. ? If you have type 2, your body may have enough insulin, but it is not as effective as it should be. * You ate more than planned or exercised less than planned. * You have stress from an illness, such as a cold or flu. * You have other stress, such as family conflicts or school or dating problems. How to lower your blood sugar level. ? Take medications as directed by physician. ? Drink extra water or noncaffeinated, nonsugared drinks to prevented hydration. ? Exercise if you are not sick However, if your blood sugar is above 250 mg/dl, check your urine for ketones. I f you have ketones, do not exercise Exercising when ketones are present may make your blood sugar level go even higher. You'll need to work with your doctor to find the safest way for you to lower your blood sugar level. Regularly check blood sugar or urine for sugar and acetone during illness. Diabetic ketoacidosis (DKA) Is serious condition that can lead to diabetic coma (passing out for a long time) or even . When your cells don't get the glucose they need for energy, your body begins to burn fat for energy, which produces ketones. Ketones are chemicals that the body creates when it breaks down fat to use for energy. The body does this when it doesn?t have enough insulin to use glucose, the body?s normal source of energy. When ketones build up in the blood, they make it more acidic. They are a warning sign that your diabetes is out of control or that you are getting sick. Symptoms of Diabetic Ketoacidosis (DKA) ? DKA usually develops slowly. But when vomiting occurs, this life- threatening condition can develop in a few hours. Early symptoms include the following: ? Thirst or a very dry mouth ? Frequent urination ? High blood glucose (blood sugar) levels ? High levels of ketones in the urine ? Then, other symptoms appear: ? Constantly feeling tired ? Dry or flushed skin ? Nausea, vomiting, or abdominal pain ? (Vomiting can be caused by many illnesses, not just ketoacidosis. If vomiting continues for more than 2 hours, contact your health care provider.) ? Difficulty breathing ? Fruity odor on breath ? A hard time paying attention, or confusion When should you test for ketones? It is advisable to check for ketones under the following conditions when: Your blood glucose is higher than 250mg/dl. Feeling nauseated, throwing up, or have pains in your abdominal region. Have a cold or flu. Have general body fatigue. Feel thirsty or have a very dry mouth. Have flushed skin. Have a fruity breath or a hard time breathing. You feel perplexed or in fog. How to Test Urine for Ketones You can detect ketones with a simple urine test using a test strip, similar to a blood testing strip. Ask your health care provider when and how you should test for ketones. Many experts advise to check your urine for ketones when your blood glucose is more than 250 mg/dl. When you are ill (when you have a cold or the flu, for example), check for ketones every 4 to 6 hours. And check every 4 to 6 hours when your blood sugar is more than 250 mg/dl. Also, check for ketones when you have any symptoms of DKA. How to lower your blood sugar level. ? Take medications as directed by physician. ? Drink extra water or noncaffeinated, nonsugared drinks to prevented hydration. ? Exercise if you are not sick However, if your blood sugar is above 250 mg/dl, check your urine for ketones. I f you have ketones, do not exercise Exercising when ketones are present may make your blood sugar level go even higher. You'll need to work with your doctor to find the safest way for you to lower your blood sugar level. Regularly check blood sugar or urine for sugar and acetone during illness Coding Level of Care Code Est Pt Level 1 (57776) Diagnoses Type 1 diabetes mellitus with hyperglycemia E10.65 Diabetes mellitus complication status: with hyperglycemia
--- OUTSIDE RECORDS SUMMARY | 2025-02-07 11:32 | XMS_ITS | Encounter Summary ---
Author Organization [facility] Address [address] [place] [phone] Phone Care Team Providers Care Performance Instructor Name Role Phone Cliff Menjivar MD Primary [...] Lab (09/30/2016) us Historical Provider LAB BLOOD BKR ORDERABLES Final Result documented in this encounter Visit Diagnoses Not on filedocumented in this encounter Care Teams Performance Instructor Relationship Specialty Start Date End Date Cliff Menjivar MD [address] [place] [address] Dr VALDIVIA JEFFERY Mendez [id number] PCP - General Internal Medicine 02/09/17 documented as of this encounter Additional Source Comments The information contained in this document represents components of the legal health record. It is not the complete legal health record.[facility]
--- OUTSIDE RECORDS SUMMARY | 2025-02-07 11:32 | XMS_ITS | Clinical Summary ---
Author Organization [facility] Address [address] [place] [id number] Phone Care Team Providers Care Hot End Operator Name Role Phone Cliff Menjivar MD Primary Care Provider Allergies No known active allergies Medications aspirin 81 mg chewable tablet 1 tablet Acti ve balsalazide (COLAZAL) 750 mg capsule 2 tabs Active calcium citrate 760 mg calcium /3.5 gram Gran as directed Act armani omega 1-urk-muq-fish oil 950 mg-320 mg- 630 mg-1,360 mg [...] to continue this, he also considered the [employer] CGM with the Medtronic 780G when he [...] vs recall, needs to discuss this with [employer], if due for upgrade this fall then [...] this today, he is advised to contact [facility] to request order for this [...] next fall, and also his communication from [employer] regarding pump recall Has been encouraged to [...] 3 months for a visit with our in service educator staff and in 6 months for [...] Hemoglobin A1c 7.5(A) 4.2 - 5.6 % [employer] [facility] Other 08/08/2024 2:20 PM EDT us Edith Braga MD LAB POCT ENTER/EDIT ORDERABLES Final Result Performing Organization Address City/State/[facility] Co de Phone Number [employer] [facility] [address] [place] [address], [facility] from Last 3 Months or Most Recently Relevant to Health Maintenance Insurance [employer] HMO REPLACEMENT [facility] MEDICARE HMO REPLACEMENT [facility] MEDICARE HMO REPLACEMENT [facility] MEDICARE HMO REPLACEMENT [facility] MEDICARE HMO [place]EMENT [address] [address] [place] [phone] [address] [place] [address] [place] [address] MEDICARE HMO REPLACEMENT [facility] MEDICARE HMO REPLACEMENT [employer] HMO REPLACEMENT Care Teams Hot End Operator Relationship Specialty Start Date End Date Cliff Menjivar MD [address] [place] [id number] PCP - General Internal Medicine 02/09/17 Additional Source Comments The information contained in this document represents components of the legal health record. It is not the complete legal health record.[facility]
== END 2025-02-07 11:04 | disposition home or self-care (01) ==
LOC: HO.ENCR 10:00
PROVIDERS: Visit Provider Registered Nurse Diabetes Educator
DX: E10.65 Type 1 diabetes mellitus with hyperglycemia (principal)

== ENCOUNTER → 2025-02-07 10:00 | Outpatient (BNVA) | payer MEDICARE, SELFPAY | PROVIDERS: Visit Provider Registered Nurse Diabetes Educator | DX: E10.65 Type 1 diabetes mellitus with hyperglycemia (principal) | CPT/HCPCS: 99211 ==

== ENCOUNTER 2025-02-23 11:25 | Outpatient (AMB) | payer MEDICARE, SELFPAY ==
--- OUTSIDE RECORDS SUMMARY | 2024-09-01 04:36 | XMS_ITS ---
Author Organization Cliff Menjivar MD Address [address] [facility] [address] [place] [phone] Care Team Providers Care Mimeograph Operator Name Role Phone Cliff Menjivar Primary Care Provider [phone] REASON FOR VISIT appt cancelled Encounters Encounter Location Date Provider Diagnosis Cliff Menjivar MD [address] [facility] [address] [place] [phone] 09/01/2024 Cliff Menjivar Plan Of Treatment Next Appt Details Provider Name:Cliff Dangelo ier, 04/17/2025 11:15:00 AM, [address] [place] [address], [address], [phone], Provider Name:Cliff Dangelo ier, 06/12/2025 08:00:00 AM, [address] [place] [address], [address], [phone], Provider Name:Cliff Dangelo ielindy, 06/19/2025 02:30:00 PM, [address] [place] [address], [address], [phone], Progress Notes * Lit SHEPPARD JrDOB: [birth year] (78 yo M)Acc No.[id number]:09/01/2024 Patient: Brenda NJMelissaLit Jr :1945 A ge:78 Y S ex:Male Address:[address] [place] [address] * true * Date: Generated for Yelena price/Oneil/Catsmitting on: 04/25/2024 05:42 PM EST
--- OUTSIDE RECORDS SUMMARY | 2024-09-27 09:48 | XMS_ITS ---
Author Organization Cliff Menjivar MD Address [address] [facility] [address] [place] [id number] Care Team Providers Care Dry Color Mixer Name Role Phone Cliff Menjivar Primary Care Provider [phone] REASON FOR VISIT Discharge summary Encounters Encounter Location Date Provider Diagnosis Cliff Menjivar MD [address] [facility] [address] [place] [phone] 09/27/2024 Cliff Menjivar Plan Of Treatment Next Appt Details Provider Name:Cliff Dangelo ier, 04/17/2025 11:15:00 AM, [address] [place] [address], [address], [phone], Provider Name:Cliff Dangelo ier, 06/12/2025 08:00:00 AM, [address] [place] [address], [address], [phone], Provider Name:Cliff sarabia, 06/19/2025 02:30:00 PM, [address] [place] [address], [address], [phone], Progress Notes * Lit SHEPPARD JrDOB: [birth year] (78 yo M)Acc No.[id number]:09/27/2024 Patient: Lit IRENE Jr :1945 A ge:78 Y S ex:Male Address:[address] [place] [id number] * true * Date: Generated for Nataliiai albert/Oneil/Catsmitting on: 04/25/2024 05:41 PM EST
--- OUTSIDE RECORDS SUMMARY | 2024-09-30 08:45 | XMS_ITS ---
Author Organization Cliff Menjivar MD Address [address] [place] [phone] Care Team Providers Care Bi Report Developer Name Role Phone Otto Cliff Primary Care Provider Allergies No Known Allergies Reason For Referral Reason type 1 diabetes blade itus without complication Diagnosis 1 Type 1 diabetes blade itus without complication (E10.9) Referral Organization Cliff Menjivar MD Referring Provider First Name Cliff Referring Provider Last Name Otto Referring Provider Speciality Internal M edicine Referred Provider Lucila Lynch Referred Provider Specialty Endocrinolog y General Notes Natty Najera 10/06/2024 09:13:32 AM >APPT SCHEDULED WITH DR CHE FOR 10/17/25, Natty Najera 10/21/2024 10:44:07 AM >OFFICE NOTE RECD Referral Priority Routine Referral Appointment Date 10/17/2024 REASON FOR VISIT PH/TCM Rash, Rash upper thighs groin and penis x 4days, Audio [phone] Medications Medication SIG (Take, Route, Frequency, Duration) Notes Start Date End Date Status Diflucan 150 MG 1 tablet Orally cody y for 14 days 09/30/2024 Active Triamcinolone Acetonide 0.1 % 1 application Externally daily for 30 days 06/16/2024 Active Ketoconazole 2 % 1 application to affected area Externally Once a day Not-Taking Fluticasone Propionate 50 MCG/ACT INSTILL 1 SPRAY IN EACH NOSTRIL ONCE DAILY for 90 Not-Taking Cyclobenzaprine HCl 10 MG as directed Or ally twice a day for 10 days 09/12/2019 Not-Taking Lantus SoloStar 100 UNIT/ML 20 units QD Subcutaneous Active Triamcinolone Acetonide 0.1 % 1 application Externally Once a day for 30 days 04/09/2021 Active Fluticasone Propionate 50 MCG/ACT 1 spray in each nostril Nasally Once a day for 30 day(s) 06/15/2023 Active Atorvastatin Calcium 20 MG TAKE 1 TABLET BY MOUTH EVERY DAY Active HumaLOG 100 UNIT/ML 1-8 units three time s a day Subcutaneous Active Diprolene AF 0.05 % 1 application to affected area Externally Once a day for 30 days 06/14/2013 Active Fish Oil 500 MG 1 capsule Orally Onc e a day Active Aspirin 81 MG 1 tablet Orally Once a day for 30 day(s) Active Magnesium 400 MG 1 capsule with a alex l Orally every other day Active Loratadine 10 MG 1 tablet Orally Once a day for 30 day(s) Active Balsalazide Disodium 750 MG 3 capsules Orally once a day Active Senior Multivitamin Plus as directed Orally Active Calcium 500 MG 1 tablet with meals Orally Twice a day for 30 day(s) Active Vitamin C 500 MG 1 tablet Orally ever y 2 days Active Tylenol 8 Hour 650 MG 2 tablets as neede d Orally every 8 hrs Active Vital Signs Height 65.5 in 09/30/2024 Weight 146 lbs 09/30/2024 BMI 23.92 kg/m2 09/30/2024 weight is 146 at home BP not taken today Encounters Encounter Location Date Provider Diagnosis Cliff Menjivar MD [address] [place] [address] [place] [phone] 09/30/2024 Cliff Menjivar Type 1 diabetes mellitus without complication E10.9 and Yeast infection B37.9 Assessments Encounter Date Diagnosis (ICD Code) Assessment Notes Treatment Notes Treatment Clinical Notes Section Notes 09/30/2024 Type 1 diabetes mellitus without complication (ICD-10 - E10.9) needs referral to dr hernandez and send copy of last visit note./REFERRAL AND LAST OFFICE NOTE FAXED TO DR Marysol BELL @ [facility] 09/30/2024 Yeast infection (ICD-10 - B37.9) patient/ verbalized understanding of medication and directions for use 09/30/2024 Other to hold atorvastin while on this Plan Of Treatment Medication Medication Name Sig Start Date Stop Date Notes Diflucan 150 MG 1 tablet Orally cody y for 14 days 09/30/2024 Lantus SoloStar 100 UNIT/ML 20 units QD Subcutaneous HumaLOG 100 UNIT/ML 1-8 units three time s a day Subcutaneous Treatment Notes Assessment Notes Type 1 diabetes mellitus wit hout complication needs referral to dr hernandez and send copy of last visit note./REFERRAL AND LAST OFFICE NOTE FAXED TO DR Marysol BELL @ [facility] Yeast infection patient/ verbali zed understanding of medication and directions for use Other to hold atorvastin atno maguire on this Referrals Referral Date Details 09/30/2024 09/30/2024, type 1 d iabetes mellitus without complication, Lucila Lynch Next Appt Details Follow Up: 2 Weeks, Reason: Provider Name:Cliff sarabia, 04/17/2025 11:15:00 AM, [address] [place] [address], [phone], Provider Name:Cliff sarabia, 06/12/2025 08:00:00 AM, [address] [place] [address], [phone], Provider Name:Cliff sarabia, 06/19/2025 02:30:00 PM, [address] [place] [address], [address], [phone], Progress Notes * Lit SHEPPARD JrDOB: (78 yo M)Acc No.[id number]:09/30/2024 Patient: Lit IRENE Jr Provider: Lester Menjivar MD :1945 A ge:78 Y S ex:Male Date:09/30/2024 Address:[address] [facility] [id number] Subjective: * Chief Complaints: * P H/TCM RashRash upper thighs groin and penis x 4daysAudio [phone] * HPI: S ymptom(s): Telehealth L ocation of provider rendering services: [address], [address], L ocation of patient: a t address listed in demographics for today's visit, P atient identification confirmed using: Rob yost, GIOVANNA, T elehealth method: T elephone only. Patient not visible to care provider., C onsent: P atient verbally consented to treatment, Patient verbally consented to billing insurance company, Patient informed of any privacy concerns related to method of visit, T otal time spend talking with patient (minutes) 1 8. patient is a 78 yo male here for follow up from hospital transitional care management visit. Discharge suummary has been reviewed and medicatins reconcilled. . no longer on pump. had been in ketoacidosis.s ugars are good now on injected insulin. is giving insulin according to the sliding scale. sugars are well controlled. does not have CGM refuses it. feels that his mentation is not back to normal. has a rash in groin/. * ROS: G eneral/Constitutional: Denies C hills. D enies F atigue. D enies F ever. D enies H eadache. E NT: Denies S ore throat. R espiratory: Denies C ough. D enies S hortness of breath at rest. D enies S hortness of breath with exertion. G astrointestinal: Denies D iarrhea. D enies N ausea. * Medical History: * Surgical History: * Hospitalization/Major Diagno stic Procedure: * Medications: T akingHumaLOG 100 UNIT/ML Solution Cartridge 1-8 units three times a day Subcutaneous Lantus SoloStar 100 UNIT/ML Solution Pen-injector 20 units QD Subcutaneous Tylenol 8 Hour 650 MG Tablet Extended Release 2 tablets as needed Orally every 8 hrs Loratadine 10 MG Tablet 1 tablet Orally Once a day Balsalazide Disodium 750 MG Capsule 3 capsules Orally once a day Senior Multivitamin Plus Tablet as directed Orally Calcium 500 MG Tablet 1 tablet with meals Orally Twice a day Vitamin C 500 MG Tablet 1 tablet Orally every 2 days Aspirin 81 MG Tablet Chewable 1 tablet Orally Once a day Magnesium 400 MG Capsule 1 capsule with a meal Orally every other day Diprolene AF 0.05 % Cream 1 application to affected area Externally Once a day Fish Oil 500 MG Capsule 1 capsule Orally Once a day Triamcinolone Acetonide 0.1 % Cream 1 application Externally Once a day Fluticasone Propionate 50 MCG/ACT Suspension 1 spray in each nostril Nasally Once a day Atorvastatin Calcium 20 MG Tablet TAKE 1 TABLET BY MOUTH EVERY DAY Triamcinolone Acetonide 0.1 % Cream 1 application Externally daily Taking HumaLOG 100 UNIT/ML Solution Cartridge 1-8 units three times a day Subcutaneous Taking Lantus SoloStar 100 UNIT/ML Solution Pen-injector 20 units QD Subcutaneous Taking Tylenol 8 Hour 650 MG Tablet Extended Release 2 tablets as needed Orally every 8 hrs Taking Loratadine 10 MG Tablet 1 tablet Orally Once a day Taking Balsalazide Disodium 750 MG Capsule 3 capsules Orally once a day Taking Senior Multivitamin Plus Tablet as directed Orally Taking Calcium 500 MG Tablet 1 tablet with meals Orally Twice a day Taking Vitamin C 500 MG Tablet 1 tablet Orally every 2 days Taking Aspirin 81 MG Tablet Chewable 1 tablet Orally Once a day Taking Magnesium 400 MG Capsule 1 capsule with a meal Orally every other day Taking Diprolene AF 0.05 % Cream 1 application to affected area Externally Once a day Taking Fish Oil 500 MG Capsule 1 capsule Orally Once a day Taking Triamcinolone Acetonide 0.1 % Cream 1 application Externally Once a day Taking Fluticasone Propionate 50 MCG/ACT Suspension 1 spray in each nostril Nasally Once a day Taking Atorvastatin Calcium 20 MG Tablet TAKE 1 TABLET BY MOUTH EVERY DAY Taking Triamcinolone Acetonide 0.1 % Cream 1 application Externally daily Not-Taking/PRNKetoconazole 2 % Cream 1 application to affected area Externally Once a day Fluticasone Propionate 50 MCG/ACT Suspension INSTILL 1 SPRAY IN EACH NOSTRIL ONCE DAILY Cyclobenzaprine HCl 10 MG Tablet as directed Orally twice a day Not-Taking/PRN Ketoconazole 2 % Cream 1 application to affected area Externally Once a day Not-Taking/PRN Fluticasone Propionate 50 MCG/ACT Suspension INSTILL 1 SPRAY IN EACH NOSTRIL ONCE DAILY Not-Taking/PRN Cyclobenzaprine HCl 10 MG Tablet as directed Orally twice a day DiscontinuedInsulin Pump Eng/Gambian R1000 Medication List reviewed and reconciled with the patientDiscontinued Insulin Pump Eng/Gambian R1000 Medication List reviewed and reconciled with the patient * Allergies: N .K.D.A.yes[Allergies Verified] Objective: * Vitals: H t: 65.5, Wt: 146, BMI:23.92, Wt-k.23. weight is 146 at home B P not taken today. Assessment: * Assessment: 1. T ype 1 diabetes mellitus without complication - E10.9 (Primary) 2 . Y east infection - B37.9 Plan: * Treatment: 2. Y east infection Start Diflucan Tablet, 150 MG, 1 tablet, Orally, daily, 14 days, 14 Tablet. Notes: patient/ verbalized understanding of medication and directions for use 3. O thers Notes: to hold atorvastin while on this * Procedure Codes: * Follow Up: 2 Weeks * * Sign off status: Completed true * Provider: Lester Menjivar MD Date: 0 09/30/2024 Generated for Yelena price/Oneil/eTransmitting on: 1 04/25/2024 05:42 PM EST History and Physical Notes * HPI (History of Present Illness) Category Sub-Category Detail Notes Category Not es Symptom(s) Telehealth Location of [facility] services:: [address], [address] patient is a 78 yo male here for follow up from hospital transitional care management visit. Discharge suummary has been reviewed and medicatins reconcilled. . no longer on pump. had been in ketoacidosis.s ugars are good now on injected insulin. is giving insulin according to the sliding scale. sugars are well controlled. does not have CGM refuses it. feels that his mentation is not back to normal. has a rash in groin/ Location of patient:: at address listed in demographics for today's visit Patient identification confirmed using:: Name, Telehealth method:: Telephone only. Noreen ent not visible to care provider. Consent:: Patient verbally c onsented to treatment, Patient verbally consented to billing insurance company, Patient informed of any privacy concerns related to method of visit Total time spend talking with patient (m inutes): 18 Consultation Request Notes Referral Date Referring Provider Referred Provider Not es 09/30/2024 Cliff Menjivar Sarah type 1 adam betfidel mellitus without complication
--- OUTSIDE RECORDS SUMMARY | 2024-10-17 06:45 | XMS_ITS ---
Author Organization Cliff Menjivar MD Address [address] [place] [phone] Care Team Providers Care Hosted Services Analyst Name Role Phone Cliff Menjivar Primary Care Provider [phone] Allergies No Known Allergies Results Component Value Reference Range Notes Glucose, finger stick Reviewed date:10/17/2024 11:41:31 AM Interpretation: Performing Lab: Notes/Report: Value 379 REASON FOR VISIT 2 WK F/U, Accompanied by Medications Medication SIG (Take, Route, Frequency, Duration) Notes Start Date End Date Status Lantus SoloStar 100 UNIT/ML 20 units QD Subcutaneous Active HumaLOG 100 UNIT/ML 1-8 units three time s a day Subcutaneous Active Cyclobenzaprine HCl 10 MG as directed Or ally twice a day for 10 days 09/12/2019 Not-Taking Ketoconazole 2 % 1 application to affected area Externally Once a day Not-Taking Fluticasone Propionate 50 MCG/ACT INSTILL 1 SPRAY IN EACH NOSTRIL ONCE DAILY for 90 Not-Taking Atorvastatin Calcium 20 MG TAKE 1 TABLET BY MOUTH EVERY DAY Active Triamcinolone Acetonide 0.1 % 1 application Externally daily for 30 days 06/16/2024 Active Triamcinolone Acetonide 0.1 % 1 application Externally Once a day for 30 days 04/09/2021 Active Fluticasone Propionate 50 MCG/ACT 1 spray in each nostril Nasally Once a day for 30 day(s) 06/15/2023 Active Vitamin C 500 MG 1 tablet Orally ever y 2 days Active Aspirin 81 MG 1 tablet Orally Once a day for 30 day(s) Active Diprolene AF 0.05 % 1 application to affected area Externally Once a day for 30 days 06/14/2013 Active Fish Oil 500 MG 1 capsule Orally Onc e a day Active Magnesium 400 MG 1 capsule with a alex l Orally every other day Active Loratadine 10 MG 1 tablet Orally Once a day for 30 day(s) Active Balsalazide Disodium 750 MG 3 capsules Orally once a day Active Tylenol 8 Hour 650 MG 2 tablets as neede d Orally every 8 hrs Active Senior Multivitamin Plus as directed Orally Active Calcium 500 MG 1 tablet with meals Orally Twice a day for 30 day(s) Active Vital Signs Blood pressure systolic 142 mm Hg 10/18/19 25 Blood pressure diastolic 60 mm Hg 025 Height 65.5 in 10/17/2024 Weight 144 lbs 10/17/2024 BMI 23.6 kg/m2 10/17/2024 weight is down 2 pounds [facility] 09-30-24 Encounters Encounter Location Date Provider Diagnosis Cliff Menjivar MD [address] [place] [address] [address] [place] [phone] 10/17/2024 Cliff Menjivar Type 1 diabetes mellitus without complication E10.9 and Yeast infection B37.9 Assessments Encounter Date Diagnosis (ICD Code) Assessment Notes Treatment Notes Treatment Clinical Notes Section Notes 10/17/2024 Type 1 diabetes mellitus without complication (ICD-10 - E10.9) has not had his sugar today/ states there there is still some confusion 10/17/2024 Yeast infection (ICD-10 - B37.9) feeling better now. Plan Of Treatment Treatment Notes Assessment Notes Type 1 diabetes mellitus wit hout complication has not had his sugar today/ states there there is still some confusion Yeast infection feeling better now. Next Appt Details Follow Up: 3 Months, Reason: Provider Name:Cliff sarabia, 04/17/2025 11:15:00 AM, [address], [address], [place], [place], [phone], Provider Name:Cliff Dangelo ier, 06/12/2025 08:00:00 AM, [address], [address], [place], [phone], Provider Name:Cliff Dangelo ier, 06/19/2025 02:30:00 PM, [address], [address], [place], [phone], Progress Notes * Lit SHEPPARD JrDOB: (78 yo M)Acc No.[id number]:10/17/2024 Progress Notes Patient: Lit IRENE Provider: Lester Menjivar MD :1945 A ge:78 Y S ex:Male Date:10/17/2024 Address: [facility] Subjective: * Chief Complaints: * 2 WK F/UAccompanied by * HPI: S ymptom(s): patient is a 78 yo male here for 2 week follow up visit/ feels 100% better since being in the hospital. using humulog and lantus. has sliding scal and they are checking before meals and treating with sliding scale. * ROS: G eneral/Constitutional: Denies C hills. D enies F atigue. D enies F ever. D enies H eadache. E NT: Denies S ore throat. E ndocrine: Denies D ifficulty sleeping. D enies D izziness.?Denies E xcessive sweating. D enies E xcessive thirst. D enies F requent urination. R espiratory: Denies C ough. D enies S hortness of breath at rest. D enies S hortness of breath with exertion. G astrointestinal: Denies D iarrhea. D enies N ausea. * Medical History: * Surgical History: * Hospitalization/Major Diagno stic Procedure: * Medications: T akingTylenol 8 Hour 650 MG Tablet Extended Release [...] 0.1 % Cream 1 application Externally daily HumaLOG 100 UNIT/ML Solution Cartridge 1-8 units [...] UNIT/ML Solution Pen-injector 20 units QD Subcutaneous Not-Taking/PRNKetoconazole 2 % Cream 1 application to [...] Tablet as directed Orally twice a day DiscontinuedDiflucan 150 MG Tablet 1 tablet Orally daily Medication List reviewed and reconciled with the patientDiscontinued Diflucan 150 MG Tablet 1 tablet Orally daily Medication List reviewed and reconciled with the patient * Allergies: N .K.D.A.yes[Allergies Verified] Objective: * Vitals: H t: 65.5, Wt: 144, BMI:23.6, BP:142/60, Repeat BP:120/60, Wt-k.32. weight is down 2 pounds since 09-30-24. * Examination: G eneral Examination: GENERAL APPEARANCE: w ell developed, well nourished. HEAD: n ormocephalic. SKIN: g ood turgor. HEART: n o murmurs, rubs, gallops, regular rate and rhythm.? LUNGS: n o wheezes, rales, rhonchi, good air movement, clear to auscultation bilaterally. Assessment: * Assessment: 1. T ype 1 diabetes mellitus without complication - E10.9 (Primary) 2 . Y east infection - B37.9 Plan: * Treatment: Value Reference Range V alue 379 Notes: has not had his sugar today/ states there there is still some confusion??2.?Yeast infection? Notes: feeling better now. ?? * Procedure Codes: 8 [id number] ASSAY, GLUCOSE, BLOOD QUANT, Modifiers: QW * Follow Up: 3 Months * * Sign off status: Completed true * Provider: Lester Menjivar MD Date: 0 10/17/2024 Generated for Yelena price/Oneil/Joshitting on: 04/25/2024 05:40 PM EST History and Physical Notes * HPI (History of Present Illness) Category Sub-Category Detail Notes Category Not es Symptom(s) patient is a 78 yo male here for 2 week follow up visit/ feels 100% better since being in the hospital. using humulog and lantus. has sliding scal and they are checking before meals and treating with sliding scale. Examination Category Sub-Category Detail Notes Category Not es General Examination GENERAL APPEARANCE: well developed , well nourished HEAD: normocephalic HEART: no murmurs, rubs, ga llops, regular rate and rhythm LUNGS: no wheezes, rales, r honchi, good air movement, clear to auscultation bilaterally SKIN: good turgor
--- OUTSIDE RECORDS SUMMARY | 2024-12-16 03:00 | XMS_ITS ---
Author Organization Cliff Menjivar MD Address [address] [place] [phone] Care Team Providers Care Repair Service Clerk Name Role Phone Cliff Menjivar Primary Care Provider [phone] Results Component Value Reference Range Notes Liver Panel Reviewed date:12/18/2024 05:35:08 PM Interpretation: Performing Lab:[facility], [address] [place] [phone] Notes/Report: Bilirubin Total 0.6 0.0-1.0 mg/dL Bilirubin Direct 0.2 0.0-0.5 mg/dL Aspartate Amino Transferase 36 5-37 U/L Alanine Aminotransferase 12 0-40 U/L Total Protein 6.9 6.5-8.0 g/dL Albumin Level 4.1 3.5-5.0 g/dL Alkaline Phosphatase 100 39-117 U/L Glucose Fasting Reviewed date:12/18/2024 05:34:46 PM Interpretation: Performing Lab:[facility], [address] [place] [phone] Notes/Report: Glucose Fasting 227 60-99 mg/dL A fasting glucose of 126 mg/dl or greater on more than one occasion is considered diagnostic of diabetes. Lipid Panel with Reflex Reviewed date:12/18/2024 05:38:51 PM Interpretation: Performing Lab:[facility], [address] [place] [phone] Notes/Report: Triglycerides 49 <150 mg/dL Desirable Triglyceride: less than 150 mg/dL Borderline High Triglyceride 150-199 mg/dL High Triglyceride: 200-499 mg/dL Very High Triglyceride: greater than or equal to 5OO mg/dL Cholesterol 102 <200 mg/dL Desirable Cholesterol: less than 200 mg/dL Borderline High Cholesterol: 200-239 mg/dL High Cholesterol: greater than 239 mg/dL LDL Cholesterol Calculated 46 <100 mg/dL Desirable LDL: less than 100 mg/dL Near Optimal/Above Optimal LDL: 110-129 mg/dL Borderline High LDL: 130-159 mg/dL High LDL: 160-189 mg/dL Very High LDL: greater than or equal to 190 mg/dL HDL Cholesterol 47 >40 mg/dL Desirable HDL: greater than 40 mg/dL Note: This HDL assay may give artificially low results in patients with liver disease. Hemoglobin A1c Reviewed date:12/16/2024 12:30:55 PM Interpretation: Performing Lab:[facility], [address] [place] [phone] Notes/Report: Hemoglobin A1c % 8.3 <6.0 % Hemoglobin A1C Reference Range Adults: 4.8 - 6.0 % Non diabetic: < 6.0 % Goal: < 7.0 % Additional Action Suggested: > 8.0 % Note: Hemoglobin A1c results are invalid for patients with abnormal amounts of HbF. Blood transfusions may impact the HbA1c concentration in the patient sample. Estimated Average Glucose 192 eAG = Estimated average glucose which is %A1C expressed as average glucose, using the formula of the F1P-Guuqrin Average Glucose study (ADAG), Diabetes Care, Vol.31,#8, 2007 REASON FOR VISIT FASTING LIPIDS, LIVER PANEL Encounters Encounter Location Date Provider Diagnosis Cliff Menjivar MD [address] [place] [address] Drive [address] [place], [place] [phone] 12/16/2024 Cliff Menjivar Type 1 diabetes blade itus without complication E10.9 and Pure hypercholesterolemia E78.00 Assessments Encounter Date Diagnosis (ICD Code) Assessment Notes Treatment Notes Treatment Clinical Notes Section Notes 12/16/2024 Type 1 diabetes blade itus without complication (ICD-10 - E10.9) 12/16/2024 Pure hypercholesterolemia (ICD-10 - E78.00) Plan Of Treatment Next Appt Details Provider Name:Cliff Dangelo ier, 04/17/2025 11:15:00 AM, [address] [place] [address], Suite [facility], [place], [place], [phone], Provider Name:Cliff Dangelo ier, 06/12/2025 08:00:00 AM, [address] [place] [address], Suite [facility], [place], [place], [phone], Provider Name:Cliff Dangelo ier, 06/19/2025 02:30:00 PM, [address] [place] [address], [place] [address], [place], [place], [phone], Progress Notes * SILVERLit Torres DOB: (79 yo M)Acc No.[id number]:12/16/2024 Progress Note Patient: Lit IRENE Provider: Lester Menjivar MD :1945 A ge:79 Y S ex:Male Date:12/16/2024 Address:[address] [place], [place] [phone] Subjective: * Chief Complaints: * 1 . FASTING LIPIDS, LIVER PANEL. * Medical History: Objective: * Vitals: Assessment: * Assessment: 1. T ype 1 diabetes mellitus without complication - E10.9 (Primary) 2 . P ure hypercholesterolemia - E78.00 Plan: * Treatment: 2. P ure hypercholesterolemia L AB: Liver Panel (Collection Date & Time - 12/16/2024 08:00 AM) L AB: Glucose Fasting (Collection Date & Time - 12/16/2024 08:00 AM) L AB: Lipid Panel with Reflex (Collection Date & Time - 12/16/2024 08:00 AM) L AB: Hemoglobin A1c (Collection Date & Time - 12/16/2024 08:00 AM) * Procedure Codes: 3 6415 VENIPUNCT, ROUTINE* * * The named appointment provid er may or may not be the originator of this progress note, and it is not deemed complete until electronically signed by the appointment provider. Sign off status: Pending * Provider: Lester Menjivar MD Date: 0 12/16/2024 Generated for Yelena price/Oneil/Nirali on: 04/25/2024 05:41 PM EST
--- OUTSIDE RECORDS SUMMARY | 2024-12-22 08:30 | XMS_ITS ---
Author Organization Cliff Menjivar MD Address [address] [place] [id number] Care Team Providers Care Horseback Riding Instructor Name Role Phone Cliff Menjivar Primary Care Provider Allergies No Known Allergies REASON FOR VISIT 6 MO F/U, stopped Atorvastatin a few weeks ago not too sure of his meds Medications Medication SIG (Take, Route, Frequency, Duration) Notes Start Date End Date Status Vitamin C 500 MG 1 tablet Orally [...] alex l Orally every other day Active Calcium 500 MG 1 tablet with meals Orally Twice a day for 30 day(s) Active Senior Multivitamin Plus as directed Orally Active Loratadine 10 MG 1 tablet Orally Once a day for 30 day(s) Active Balsalazide Disodium 750 MG 3 capsules Orally Three times a day Active Tylenol 8 Hour 650 MG 2 tablets as neede d Orally every 8 hrs Active Ketoconazole 2 % 1 application to affected area Externally Once a day Not-Taking Fluticasone Propionate 50 MCG/ACT INSTILL 1 SPRAY IN EACH NOSTRIL ONCE DAILY for 90 Not-Taking HumaLOG 100 UNIT/ML 1-8 units three time s a day Subcutaneous Active Cyclobenzaprine HCl 10 MG as directed Or ally twice a day for 10 days 09/12/2019 Not-Taking Lantus SoloStar 100 UNIT/ML 20 units QD Subcutaneous Active Atorvastatin Calcium 20 MG TAKE 1 TABLET BY MOUTH EVERY DAY Not-Taking Triamcinolone Acetonide 0.1 % 1 application Externally daily for 30 days 06/16/2024 Active Triamcinolone Acetonide 0.1 % 1 application Externally Once a day for 30 days 04/09/2021 Active Fluticasone Propionate 50 MCG/ACT 1 spray in each nostril Nasally Once a day for 30 day(s) 06/15/2023 Active Vital Signs Blood pressure systolic 138 mm Hg 12/23/19 25 Blood pressure diastolic 60 mm Hg 025 Height 65.5 in 12/22/2024 Weight 152 lbs 12/22/2024 BMI 24.91 kg/m2 12/22/2024 weight is up 8 pounds since 10-17-24 Encounters Encounter Location Date Provider Diagnosis Cliff Menjivar MD [address] [facility] [address] [place], [place] [id number] 12/22/2024 Cliff Menjivar History of ulcerativ e colitis Z87.19 ; Type 1 diabetes mellitus without complication E10.9 and Pure hypercholesterolemia E78.00 Assessments Encounter Date Diagnosis (ICD Code) Assessment Notes Treatment Notes Treatment Clinical Notes Section Notes 12/22/2024 History of ulcerativ e colitis (ICD-10 - Z87.19) sounds like is getting better. maybe a little blood. if any shows will get him back to dr rivera 12/22/2024 Type 1 diabetes blade itus without complication (ICD-10 - E10.9) not doing well since stopping pump, advisd on diet, exercise and medication, will cntinue to monitor 12/22/2024 Pure hypercholesterolemia (ICD-10 - E78.00) well controlled, will continue to monitor Plan Of Treatment Medication Medication Name Sig Start Date Stop Date Notes HumaLOG 100 UNIT/ML 1-8 units three time s a day Subcutaneous Lantus SoloStar 100 UNIT/ML 20 units QD Subcutaneous Treatment Notes Assessment Notes History of ulcerative colitis sounds lik e is getting better. maybe a little blood. if any shows will get him back to dr rivera Type 1 diabetes mellitus without complic ation not doing well since stopping pump, advisd on diet, exercise and medication, will cntinue to monitor Pure hypercholesterolemia well controlle d, will continue to monitor Next Appt Details Follow Up: 3 Months, Reason: Provider Name:Cliff Dangelo ier, 04/17/2025 11:15:00 AM, [address] [place] [address], [address], [phone], Provider Name:Cliff Daneglo ier, 06/12/2025 08:00:00 AM, [address] [place] [address], [address], [phone], Provider Name:Cliff Dangelo ier, 06/19/2025 02:30:00 PM, [address] [place] [address], [address], [phone], Progress Notes * Lit SHEPPARD JrDOB: 4 (79 yo M)Acc No.[id number]:12/22/2024 Progress Notes Patient: Brenda MAUROMelissaLit Provider: Lester Menjivar MD :1945 A ge:79 Y S ex:Male Date:12/22/2024 Address:[address] [place], [place] [id number] Subjective: * Chief Complaints: * 6 MO F/Ustopped Atorvastatin a few weeks ago not too sure of his meds * HPI: S ymptom(s): patient is a 79 yo male here for 6 month follow up visit, had diarrhea for a long time. couple weeks ago./ thinks there may have been some blood in diarrhea. he does not think so. had colonoscopy 3 years ago. * ROS: G eneral/Constitutional: Denies [place]. [...] Disodium 750 MG Capsule 3 capsules Orally Three times a day Senior Multivitamin Plus Tablet as [...] in each nostril Nasally Once a day Triamcinolone Acetonide 0.1 % [...] Disodium 750 MG Capsule 3 capsules Orally Three times a day Taking Senior Multivitamin Plus Tablet [...] each nostril Nasally Once a day Taking Triamcinolone Acetonide 0.1 % Cream 1 application Externally daily Taking HumaLOG 100 UNIT/ML Solution Cartridge 1-8 units three times a day Subcutaneous Taking Lantus SoloStar 100 UNIT/ML Solution Pen-injector 20 units QD Subcutaneous Not- Taking/PRNAtorvastatin Calcium 20 MG Tablet TAKE 1 TABLET BY MOUTH EVERY DAY Ketoconazole 2 % Cream 1 application to affected area Externally Once a day Fluticasone Propionate 50 MCG/ACT Suspension INSTILL 1 SPRAY IN EACH NOSTRIL ONCE DAILY Cyclobenzaprine HCl 10 MG Tablet as directed Orally twice a day Medication List reviewed and reconciled with the patientNot-Taking/PRN Atorvastatin Calcium 20 MG Tablet TAKE 1 TABLET BY MOUTH EVERY DAY Not-Taking/PRN Ketoconazole 2 % Cream 1 application to affected area Externally Once a day Not-Taking/PRN Fluticasone Propionate 50 MCG/ACT Suspension INSTILL 1 SPRAY IN EACH NOSTRIL ONCE DAILY Not-Taking/PRN Cyclobenzaprine HCl 10 MG Tablet as directed Orally twice a day Medication List reviewed and reconciled with the patient * Allergies: N .K.D.A.yes[Allergies Verified] Objective: * Vitals: H t: 65.5, Wt: 152, BMI:24.91, BP:138/60, Wt-k.95. weight is up 8 pounds since 10-17-24. * P ast Orders: L ab:Hemoglobin A1c (Order Date - 12/16/2024) (Collection Date & Time - 12/16/2024 08:00 AM) Value Reference Range Hemoglobin A1c % 8.3 H <6.0 - % Estimated Average Glucose 192 - mg/dL L ab:Glucose Fasting (Order Date - 12/16/2024) (Collection Date & Time - 12/16/2024 08:00 AM) Value Reference Range Glucose Fasting 227 H 60-99 - mg/dL L ab:Lipid Panel with Reflex (Order Date - 12/16/2024) (Collection Date & Time - 12/16/2024 08:00 AM) Value Reference Range Triglycerides 49 <150 - mg/dL Cholesterol 102 <200 - mg/dL LDL Cholesterol Calculated 46 <100 - mg/dL HDL Cholesterol 47 >40 - mg/dL * Examination: G eneral Examination: GENERAL APPEARANCE: a lert, well hydrated, in no distress.? HEAD: n ormocephalic. SKIN: g ood turgor. HEART: n o murmurs, rubs, gallops, regular rate and rhythm.? LUNGS: n o wheezes, rales, rhonchi, good air movement, clear to auscultation bilaterally. Assessment: * Assessment: 1. H istory of ulcerative colitis - Z87.19 (Primary) 2 . T ype 1 diabetes mellitus without complication - E10.9 3 . P ure hypercholesterolemia - E78.00? Plan: * Treatment: 2. T ype 1 diabetes mellitus without complication Continue HumaLOG Solution Cartridge, 100 UNIT/ML, 1-8 units three times a day, Subcutaneous; C ontinue Lantus SoloStar Solution Pen-injector, 100 UNIT/ML, 20 units QD, Subcutaneous. Notes: not doing well since stopping pump, advisd on diet, exercise and medication, will cntinue to monitor 3. P ure hypercholesterolemia Notes: well controlled, will continue to monitor * Procedure Codes: * Follow Up: 3 Months * * Sign off status: Completed true * Provider: Lester Menjivar MD Date: 0 12/22/2024 Generated for Yelena price/Oneil/Catsmitting on: 04/25/2024 05:42 PM EST History and Physical Notes * HPI (History of Present Illness) Category Sub-Category Detail Notes Category Not es Symptom(s) patient is a 79 yo male here for 6 month follow up visit, had diarrhea for a long time. couple weeks ago./ thinks there may have been some blood in diarrhea. he does not think so. had colonoscopy 3 years ago Examination Category Sub-Category Detail Notes Category Not es General Examination GENERAL APPEARANCE: alert, w ell hydrated, in no distress HEAD: normocephalic HEART: no murmurs, rubs, ga llops, regular rate and rhythm LUNGS: no wheezes, rales, r honchi, good air movement, clear to auscultation bilaterally SKIN: good turgor
--- OUTSIDE RECORDS SUMMARY | 2025-01-23 06:30 | XMS_ITS ---
Author Organization Cliff Menjivar MD Address [address] [place] [phone] Care Team Providers Care Home Economics Expert Name Role Phone Cliff Menjivar Primary Care Provider Allergies No Known Allergies Results Component Value Reference Range Notes Glucose, finger stick Reviewed date:01/23/2025 11:28:55 AM Interpretation: Performing Lab: Notes/Report: Value 167 Reason For Referral Reason dementia Diagnosis 1 Dementia (F03.90) Referral Organization Cliff Menjivar MD Referring Provider First Name Cliff Referring Provider Last Name Otto Referring Provider Speciality Internal M edicine Referred Provider Miguel Hoang Referred Provider Specialty Neurology General Notes Rema Fan 1 12:04:24 PM >referral info faxed, Rema Fan 01/31/2025 09:56:05 AM >was told by office patient is aware of appt Referral Priority Routine Referral Appointment Date 02/23/2025 REASON FOR VISIT NOT FEELING WELL, INCREASED DEMENTIA, Accompanied by daughter and granddaughter Medications Medication SIG (Take, Route, Frequency, Duration) Notes Start Date End Date Status HumaLOG 100 UNIT/ML 1-8 units three time s a day Subcutaneous Active Tylenol 8 Hour 650 MG 2 tablets as neede d Orally every 8 hrs Active Loperamide HCl 2 MG 1 capsule as needed Orally Four times a day Active risperiDONE 0.25 MG 1 tablet Orally Once a day Active Lantus SoloStar 100 UNIT/ML 18 units SC QD Subcutaneous QD Active Cyclobenzaprine HCl 10 MG as directed Or ally twice a day for 10 days 09/12/2019 Not-Taking Magnesium 400 MG 1 capsule with a alex l Orally every other day Not-Takin g Calcium 500 MG 1 tablet with meals Orally Twice a day for 30 day(s) Not-Taking Fluticasone Propionate 50 MCG/ACT INSTILL 1 SPRAY IN EACH NOSTRIL ONCE DAILY for 90 Not-Taking Ketoconazole 2 % 1 application to affected area Externally Once a day Not-Taking Atorvastatin Calcium 20 MG TAKE 1 TABLET BY MOUTH EVERY DAY Active Triamcinolone Acetonide 0.1 % 1 application Externally Once a day for 30 days 04/09/2021 Active Fish Oil 500 MG 1 capsule Orally Onc e a day Active Triamcinolone Acetonide 0.1 % 1 application Externally daily for 30 days 06/16/2024 Active Fluticasone Propionate 50 MCG/ACT 1 spray in each nostril Nasally Once a day for 30 day(s) 06/15/2023 Active Senior Multivitamin Plus as directed Orally Active Balsalazide Disodium 750 MG 3 capsules Orally Three times a day Active Vitamin C 500 MG 1 tablet Orally ever y 2 days Active Diprolene AF 0.05 % 1 application to affected area Externally Once a day for 30 days 06/14/2013 Active Aspirin 81 MG 1 tablet Orally Once a day for 30 day(s) Active Loratadine 10 MG 1 tablet Orally Once a day for 30 day(s) Active Problems Problem Type SNOMED Code ICD Code Onset Dates Problem Status W/U Status Risk Notes Problem Dementia (56138608) Dementia (F03.90) Active confirmed Vital Signs Blood pressure systolic 92 mm Hg 01/24/20 25 Blood pressure diastolic 40 mm Hg 025 Height 65.5 in 01/23/2025 Weight 142 lbs 01/23/2025 BMI 23.27 kg/m2 01/23/2025 weight is down 10 pounds sin 12-22-24 Encounters Encounter Location Date Provider Diagnosis Cliff Menjivar MD [address] [place] [phone] 01/23/2025 Cliff Menjivar Type 1 diabetes mellitus without complication E10.9 ; Dementia F03.90 and Colitis K52.9 Assessments Encounter Date Diagnosis (ICD Code) Assessment Notes Treatment Notes Treatment Clinical Notes Section Notes 01/23/2025 Type 1 diabetes mellitus without complication (ICD-10 - E10.9) 01/23/2025 Dementia (ICD-10 - F03.90) referral to neurology at [facility] [place]/ taking risperidone 01/23/2025 Colitis (ICD-10 - K52.9) appt with Dr. Li 02-09-2025 at 11am Plan Of Treatment Medication Medication Name Sig Start Date Stop Date Notes HumaLOG 100 UNIT/ML 1-8 units three time s a day Subcutaneous risperiDONE 0.25 MG 1 tablet Orally Once a day Lantus SoloStar 100 UNIT/ML 18 units SC QD Subcutaneous QD Treatment Notes Assessment Notes Dementia referral to neurolog y at [facility] [place]/ taking risperidone Colitis appt with Dr. Li 02-09-2025 at 11am Referrals Referral Date Details 01/23/2025 01/23/2025, dementia , Miguel Hoang Next Appt Details Follow Up: 2 Weeks, Reason: Provider Name:Cliff sarabia, 04/17/2025 11:15:00 AM, [address] [place] [address], [address], [phone], Provider Name:Cliff sarabia, 06/12/2025 08:00:00 AM, [address] [place] [address], [address], [phone], Provider Name:Cliff sarabia, 06/19/2025 02:30:00 PM, [address] [place] [address], [address], [phone], Progress Notes * Lit SHEPPARD JrDOB: 4 (79 yo M)Acc No.[id number]:01/23/2025 Progress Notes Patient: Brenda NJMelissa Lit Demarco Provider: Lester Menjivar MD :1945 A ge:79 Y S ex:Male Date:01/23/2025 Address: , [place] [id number] Subjective: * Chief Complaints: * N OT FEELING WELL, INCREASED DEMENTIAAccompanied by daughter and granddaughter * HPI: S ymptom(s): patient is a 79 yo male here as emergency for increasing dementia. has some hallucinations. did not have respridone that he didn't get that helped him to sleep.3 days ago he went out at night. having a lot of diarrhea for a few months. 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 the er gave him some respradone./ they are thinking of pace program./ guns have been removed from the house. * ROS: G eneral/Constitutional: Denies C hills. D enies F atigue. D enies F ever. D enies H eadache. E NT: Denies S ore throat. R espiratory: Denies C ough. D enies S hortness of breath at rest. D enies S hortness of breath with exertion. G astrointestinal: Admits D iarrhea. D enies N ausea. * Medical History: * Surgical History: * Hospitalization/Major Diagno stic Procedure: * Medications: T akingrisperiDONE 0.25 MG Tablet 1 tablet Orally Once a day Loperamide HCl 2 MG Capsule 1 capsule as needed Orally Four times a day Tylenol 8 Hour 650 MG Tablet Extended Release 2 tablets as needed Orally every 8 hrs Loratadine 10 MG Tablet 1 tablet Orally Once a day Balsalazide Disodium 750 MG Capsule 3 capsules Orally Three times a day Senior Multivitamin Plus Tablet as directed Orally Vitamin C 500 MG Tablet 1 tablet Orally every 2 days Aspirin 81 MG Tablet Chewable 1 tablet Orally Once a day Diprolene AF 0.05 % Cream 1 [...] Subcutaneous Lantus SoloStar 100 UNIT/ML Solution Pen-injector 18 units SC QD Subcutaneous QD Atorvastatin Calcium 20 MG Tablet TAKE 1 TABLET BY MOUTH EVERY DAY Taking risperiDONE 0.25 MG Tablet 1 tablet Orally Once a day Taking Loperamide HCl 2 MG Capsule 1 capsule as needed Orally Four times a day Taking Tylenol 8 Hour 650 MG Tablet Extended Release 2 tablets as needed Orally every 8 hrs Taking Loratadine 10 MG Tablet 1 tablet Orally Once a day Taking Balsalazide Disodium 750 MG Capsule 3 capsules Orally Three times a day Taking Senior Multivitamin Plus Tablet as directed Orally Taking Vitamin C 500 MG Tablet 1 tablet Orally every 2 days Taking Aspirin 81 MG Tablet Chewable 1 tablet Orally Once a day Taking Diprolene AF 0.05 % Cream [...] Taking Lantus SoloStar 100 UNIT/ML Solution Pen-injector 18 units SC QD Subcutaneous QD Taking Atorvastatin Calcium 20 MG Tablet TAKE 1 TABLET BY MOUTH EVERY DAY Not-Taking/PRNCalcium 500 MG Tablet 1 tablet with meals Orally Twice a day Magnesium 400 MG Capsule 1 capsule with a meal Orally every other day Ketoconazole 2 % Cream 1 application to affected area Externally Once a day Fluticasone Propionate 50 MCG/ACT Suspension INSTILL 1 SPRAY IN EACH NOSTRIL ONCE DAILY Cyclobenzaprine HCl 10 MG Tablet as directed Orally twice a day Not- Taking/PRN Calcium 500 MG Tablet 1 tablet with meals Orally Twice a day Not-Taking/PRN Magnesium 400 MG Capsule 1 capsule with a meal Orally every other day Not-Taking/PRN Ketoconazole 2 % Cream 1 application to affected area Externally Once a day Not-Taking/PRN Fluticasone Propionate 50 MCG/ACT Suspension INSTILL 1 SPRAY IN EACH NOSTRIL ONCE DAILY Not-Taking/PRN Cyclobenzaprine HCl 10 MG Tablet as directed Orally twice a day * Allergies: N .K.D.A.yes[Allergies Verified] Objective: * Vitals: H t: 65.5, Wt: 142, BMI:23.27, BP:92/40, Wt-k.41. weight is down 10 pounds since 12-22-24. * Examination: G eneral Examination: GENERAL APPEARANCE: a lert, well hydrated, in no distress.? HEAD: n ormocephalic. SKIN: g ood turgor. HEART: r egular rate and rhythm, no murmurs, rubs, gallops.? LUNGS: n o wheezes, rales, rhonchi, good air movement, clear to auscultation bilaterally. Assessment: * Assessment: 1. T ype 1 diabetes mellitus without complication - E10.9 (Primary) 2 . D ementia - F03.90 3 . C olitis - K52.9 Plan: * Treatment: Value Reference Range V alue 167 2.?Dementia? Continue risperiDONE Tablet, 0.25 MG, 1 tablet, Orally, Once a day.?? Notes: referral to neurology at [facility] [place]/ taking risperidone? Referral To:Miguel Hoang??Neurology ?Reason:dementia 3.?Colitis? Notes: appt with Dr. Li 02-09-2025 at 11am ?? * Procedure Codes: 8 2947 ASSAY, GLUCOSE, BLOOD QUANT, Modifiers: QW * Follow Up: 2 Weeks * * Sign off status: Completed true * Provider: Lester Menjivar MD Date: Generated for Nataliiai albert/Oneil/eTransmitting on: 04/25/2024 05:41 PM EST History and Physical Notes * Examination Category Sub-Category Detail Notes Category Not es General Examination GENERAL APPEARANCE: alert, w ell hydrated, in no distress HEAD: normocephalic HEART: regular rate and rhy thm, no murmurs, rubs, gallops LUNGS: no wheezes, rales, r honchi, good air movement, clear to auscultation bilaterally SKIN: good turgor Consultation Request Notes Referral Date Referring Provider Referred Provider Not es 01/23/2025 Cliff Menjivar Muhammed dementi a
--- OUTSIDE RECORDS SUMMARY | 2025-01-31 09:15 | XMS_ITS ---
Author Organization Cliff Menjivar MD Address [address] [place] [phone] Care Team Providers Care Box Person Name Role Phone Cliff Menjivar Primary Care Provider [phone] Allergies No Known Allergies REASON FOR VISIT bilateral foot edema Medications Medication SIG (Take, Route, Frequency, Duration) Notes Start Date End Date Status Fish Oil 500 MG 1 capsule Orally Onc e a day Active Diprolene AF 0.05 % 1 application to affected area Externally Once a day for 30 days 06/14/2013 Active Aspirin 81 MG 1 tablet Orally Once a day for 30 day(s) Active Vitamin C 500 MG 1 tablet Orally ever y 2 days Active Senior Multivitamin Plus as directed Orally Active Balsalazide Disodium 750 MG 3 capsules Orally Three times a day Active Loratadine 10 MG 1 tablet Orally Once a day for 30 day(s) Active Tylenol 8 Hour 650 MG 2 tablets as neede d Orally every 8 hrs Active Loperamide HCl 2 MG 1 capsule as needed Orally Four times a day Active Cyclobenzaprine HCl 10 MG as directed Or ally twice a day for 10 days 09/12/2019 Not-Taking Fluticasone Propionate 50 MCG/ACT INSTILL 1 SPRAY IN EACH NOSTRIL ONCE DAILY for 90 Not-Taking Ketoconazole 2 % 1 application to affected area Externally Once a day Not-Taking Magnesium 400 MG 1 capsule with a alex l Orally every other day Not-Takin g Calcium 500 MG 1 tablet with meals Orally Twice a day for 30 day(s) Not-Taking risperiDONE 0.25 MG 1 tablet Orally Once a day Active Lantus SoloStar 100 UNIT/ML 18 units SC QD Subcutaneous QD Active HumaLOG 100 UNIT/ML 1-8 units three time s a day Subcutaneous Active Atorvastatin Calcium 20 MG TAKE 1 TABLET BY MOUTH EVERY DAY Active Triamcinolone Acetonide 0.1 % 1 application Externally daily for 30 days 06/16/2024 Active Fluticasone Propionate 50 MCG/ACT 1 spray in each nostril Nasally Once a day for 30 day(s) 06/15/2023 Active Triamcinolone Acetonide 0.1 % 1 application Externally Once a day for 30 days 04/09/2021 Active Vital Signs Blood pressure systolic 120 mm Hg 02/01/20 25 Blood pressure diastolic 50 mm Hg 025 Height 65.5 in 01/31/2025 Weight 144 lbs 01/31/2025 BMI 23.6 kg/m2 01/31/2025 weight is up 2 pounds since 01-23-25 Encounters Encounter Location Date Provider Diagnosis Cliff Menjivar MD [address] [place] [phone] 01/31/2025 Cliff Menjivar Edema R60.9 Assessments Encounter Date Diagnosis (ICD Code) Assessment Notes Treatment Notes Treatment Clinical Notes Section Notes 01/31/2025 Edema (ICD-10 - R60.9) is from sitting all the time. will observe if it gets worse will try low dose furosemide Plan Of Treatment Treatment Notes Assessment Notes Edema is from sitting all the time. will observe if it gets worse will try low dose furosemide Next Appt Details Provider Name:Cliff sarabia, 04/17/2025 11:15:00 AM, [address] [place] [address], [phone], Provider Name:Cliff sarabia, 06/12/2025 08:00:00 AM, [address] [place] [address], [place], [place], [phone], Provider Name:Cliffrebecca Dangelo ier, 06/19/2025 02:30:00 PM, [address], [address], [place], [place], [phone], Progress Notes * Lit SHEPPARD JrDOB: 4 (79 yo M)Acc No.[id number]:01/31/2025 Progress Notes Patient: Lit IRENE Provider: Lester Menjivar MD :1945 A ge:79 Y S ex:Male Date:01/31/2025 Address: [facility] Subjective: * Chief Complaints: * B ilateral foot edema * HPI: S ymptom(s): patient is a 79 yo male with complaint feet have been swollen for 2 days, n o shortness of breath. * ROS: G eneral/Constitutional: Denies C hills. D enies F atigue. D enies F ever. D enies H eadache. E NT: Denies S ore throat. R espiratory: Denies C ough. D enies S hortness of breath at rest. D enies S hortness of breath with exertion. C ardiovascular: Admits F luid accumulation in the legs. G astrointestinal: Denies D iarrhea. D enies N ausea. * Medical History: * Surgical History: * Hospitalization/Major Diagno stic Procedure: * Medications: T akingLoperamide HCl 2 MG Capsule 1 capsule as [...] 0.1 % Cream 1 application Externally daily Atorvastatin Calcium 20 MG Tablet TAKE 1 TABLET BY MOUTH EVERY DAY HumaLOG 100 UNIT/ML Solution Cartridge 1-8 units three times a day Subcutaneous Lantus SoloStar 100 UNIT/ML Solution Pen-injector 18 units SC QD Subcutaneous QD risperiDONE 0.25 MG Tablet 1 tablet Orally [...] % Cream 1 application Externally daily Taking Atorvastatin Calcium 20 MG Tablet TAKE 1 TABLET BY MOUTH EVERY DAY Taking HumaLOG 100 UNIT/ML Solution Cartridge 1-8 units three times a day Subcutaneous Taking Lantus SoloStar 100 UNIT/ML Solution Pen-injector 18 units SC QD Subcutaneous QD Taking risperiDONE 0.25 MG Tablet 1 tablet Orally Once a day Not-Taking/PRNCalcium 500 MG Tablet 1 tablet with [...] List reviewed and reconciled with the patientNot-Taking/PRN Calcium 500 MG Tablet 1 tablet with [...] Vitals: H t: 65.5, Wt: 144, BMI:23.6, BP:120/50, Wt-k.32. weight is up 2 pounds since 01-23-25. * Examination: G eneral Examination: GENERAL APPEARANCE: a lert, well hydrated, in no distress.? HEAD: n ormocephalic. SKIN: g ood turgor. HEART: n o murmurs, rubs, gallops, regular rate and rhythm.? LUNGS: g ood air movement, good air movement, clear to auscultation bilaterally. EXTREMITIES: t race edema of feet. Assessment: * Assessment: 1. E yuli - R60.9 (Primary) Plan: * Treatment: * Procedure Codes: * * Sign off status: Completed true * Provider: Lester Menjivar MD Date: Generated for Yelena price/Oneil/Nirali on: 04/25/2024 05:40 PM EST History and Physical Notes * Examination Category Sub-Category Detail Notes Category Not es General Examination GENERAL APPEARANCE: alert, w ell hydrated, in no distress HEAD: normocephalic HEART: no murmurs, rubs, ga llops, regular rate and rhythm LUNGS: good air movement, g ood air movement, clear to auscultation bilaterally SKIN: good turgor EXTREMITIES: trace edema of feet
--- OUTSIDE RECORDS SUMMARY | 2025-02-06 05:00 | XMS_ITS ---
Author Organization Cliff Menjivar MD Address [address] [place] [phone] Care Team Providers Care Funeral Home Manager Name Role Phone Cliff Menjivar Primary Care Provider REASON FOR VISIT HDF Immunizations Vaccine Route Administration Date Status Comme nts Influenza High Dose IM Intramuscular 02/06/2025 Administer ed Encounters Encounter Location Date Provider Diagnosis Cliff Menjivar MD [address] [place] [address] [place] [phone] 02/06/2025 Cliff Menjivar Encounter for administration of vaccine Z23 Assessments Encounter Date Diagnosis (ICD Code) Assessment Notes Treatment Notes Treatment Clinical Notes Section Notes 02/06/2025 Encounter for administration of vaccine (ICD-10 - Z23) Plan Of Treatment Next Appt Details Provider Name:Cliff sarabia, 04/17/2025 11:15:00 AM, [address] [place] [address], [phone], Provider Name:Cliff sarabia, 06/12/2025 08:00:00 AM, [address] [place] [address], [phone], Provider Name:Cliff Dangelo ier, 06/19/2025 02:30:00 PM, [address], [address], [place], [place], [phone], Progress Notes * Lit SHEPPARD JrDOB: 4 (79 yo M)Acc No.[id number]:02/06/2025 Progress Note Patient: Lit IRENE Jr Provider: Lester Menjivar MD :1945 A ge:79 Y S ex:Male Date:02/06/2025 Address:[address] [place], [place] [phone] Subjective: * Chief Complaints: * 1 . HDF. * Medical History: Objective: * Vitals: Assessment: * Assessment: 1. E ncounter for administration of vaccine - Z23 (Primary) Plan: * Treatment: * Immunizations: Influenza High Dose : 0.5 mL (Dose No:1) (Route: Intramuscular) given by Julissa Mittal , Office Staff on Left Deltoid * Procedure Codes: 9 0662 FLU VACC PRSV FREE INC ANTIG, G0008 ADMN FLU VAC NO FEE SCHED SAME DAY * * The named appointment provid er may or may not be the originator of this progress note, and it is not deemed complete until electronically signed by the appointment provider. Sign off status: Pending * Provider: Lester Menjivar MD Date: 04/08/2024 Generated for Yelena price/Oneil/Joshitting on: 04/25/2024 05:40 PM EST
--- OUTSIDE RECORDS SUMMARY | 2025-02-09 06:00 | XMS_ITS ---
Author Organization [facility] Address [address] [place] [id number] Care Team Providers Care Upper Trimmer Name Role Phone Otto MCCRACKEN, Cliff Primary Care Provider Raul Bhatt [phone] Allergies No Known Allergies REASON FOR VISIT ER VISIT FOR COLITIS Medications Medication SIG (Take, Route, Frequency, Duration) Notes Start Date End Date Status Sertraline HCl 25 MG Tablet 1 tablet Orally Once a day Active risperiDONE 0.25 MG Tablet 1 tablet Orally Once a day Active Multi Vitamin/Minerals - 250mcg Tablet senior Orally once in am Active Donepezil HCl 5 MG Tablet 1 tablet at bedtime Orally Once a day Active Loperamide HCl Not-T aking/PRN Imodium A-D 2 MG Tablet Use 1 or 2 every 4 to 6 hours as needed for diarrhea Orally Four times a day; Duration: 30 days 01/03/2025 Not-Taking/PRN Balsalazide Disodium 750 MG Capsule TAKE 3 CAPSULES Orally Three times a day; Duration: 90 days Active Lisinopril 2.5 MG Tablet 1 tablet Orally Once a day Not-Taking/PRN Mesalamine ER 0.375 GM Capsule Extended Release 24 Hour 4 capsules in the morning Orally Once a day; Duration: 90 days 12/11/2024 Not-Takin g/PRN Vitamin E 400 UNIT Capsule 1 capsule Orally Once a day Active HumaLOG 100 UNIT/ML Solution Cartridge Subcutaneous Active Fish Oil 1200 MG Capsule 1 capsule Orally Once a day Active Aspirin 81 MG Tablet Delayed Release 1 tablet Orally Once a day Not-Taking/PRN Simvastatin 20 MG Tablet 1 tablet in the evening Orally Once a day Not-Taking/PRN Calcium Citrate 630mg 1 tablet Orally ev tao other day Not-Taking/PRN Vitamin C 500 MG Tablet Chewable 1 tablet Orally Once a day Active Social History Social History Drug/Alcohol: Social Info Question Answer Notes AUDIT-C (Standard) Did you have a drink containing alcohol in the past year? No Points 0 Interpretation Negative Additional Details Category Social Info Options Details Miscellaneous: Marital status: Occupation: Retired Section Notes: Nonsmoker; occasional alcoho l Vital Signs Temperature 96 degrees Fahrenheit 02/09/2025 Blood pressure systolic 001 mm Hg 02/10/20 25 Blood pressure diastolic 01 mm Hg 025 Height 66 in 02/09/2025 Weight 138.6 lbs 02/09/2025 BMI 22.37 kg/m2 02/09/2025 Encounters Encounter Location Date Provider Diagnosis [facility] [address] [place] [address] 02/09/2025 Raul Li Ulcerative colitis K 51.90 and 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 The balsalazide seems to have worked in getting his colitis back in remission. I did review with him and his family the need to remain on that long-term. I did advise them to let me know if they suddenly have difficulty in obtaining it for what ever reason. At this point I do not think he needs any changes to his regimen given the significant improvement of his colitis as compared to what it was back in December. I do not think he needs any further colonoscopies given his age and overall medical condition. If things remain stable I have advised him to see me on a as needed basis. Again, I did advise Antoni and his family to remain on the balsalazide long-term and to definitely keep in touch with me as needed for any flareup of his symptoms. They were all comfortable with this plan. Thank you again for allowing me to participate in Antoni's care. I shall continue to keep you advised of his progress. 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 The balsalazide seems to have worked in getting his colitis back in remission. I did review with him and his family the need to remain on that long-term. I did advise them to let me know if they suddenly have difficulty in obtaining it for what ever reason. At this point I do not think he needs any changes to his regimen given the significant improvement of his colitis as compared to what it was back in December. I do not think he needs any further colonoscopies given his age and overall medical condition. If things remain stable I have advised him to see me on a as needed basis. Again, I did advise Antoni and his family to remain on the balsalazide long-term and to definitely keep in touch with me as needed for any flareup of his symptoms. They were all comfortable with this plan. Thank you again for allowing me to participate in Antoni's care. I shall continue to keep you advised of his progress. 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 He was accompanied by his and daughter. Antoni has developed some dementia and they provided the great majority of the history I last saw Antoni in 2022. At that time things were stable on the regimen of balsalazide. His colonoscopy the year before that did not show any active colitis. He stopped the balsalazide at some point due to what sounds like difficulty with the insurance and a high cost of the medication. Currently things are stable but a couple of months ago they called me that he was having a lot of diarrhea with some bleeding. Stool specimens were negative for any infection including C. difficile. He did have a very high fecal calprotectin level of over 2400 consistent with active colitis. I was able to start him back on his balsalazide 2.25 g 3 times daily and that gradually improved things to the point where now things are much better. He is having 1 or 2 formed stools per day without any further bleeding. He is not having any abdominal pain, jaundice, nausea, or vomiting. He had been using some Imodium but is no longer needing that. He did not require prednisone. His other evaluation in December included a normal liver profile, normal CBC except for a hemoglobin of 13.2 but with a normal MCV, a C-reactive protein of 0.3, and a sed rate of only 12. Antoni has been eating fairly well but his appetite does seem to come and go. He did lose about 10 pounds during this flare of the colitis. Progress Notes * BRADLEY SHEPPARDDOB:1945 ( 79 yo M)Acc No.[id number]:02/09/2025 Progress Notes Patient: BRADLEY IRENE Provider: Nati Li MD :1945 A ge:79 Y S ex:Male Date:02/09/2025 Address:[address] [place], [place] [id number] Pcp:Cliff Menjivar MD Subjective: * Chief Complaints: * E R VISIT FOR COLITIS * HPI: i ncontinence: I saw Antoni in follow-up today to his underlying history of ulcerative colitis and recent flare. He was accompanied by his and daughter. Antoni has developed some dementia and they provided the great majority of the history I last saw Antoni in 2022. At that time things were stable on the regimen of balsalazide. His colonoscopy the year before that did not show any active colitis. He stopped the balsalazide at some point due to what sounds like difficulty with the insurance and a high cost of the medication. Currently things are stable but a couple of months ago they called me that he was having a lot of diarrhea with some bleeding. Stool specimens were negative for any infection including C. difficile. He did have a very high fecal calprotectin level of over 2400 consistent with active colitis. I was able to start him back on his balsalazide 2.25 g 3 times daily and that gradually improved things to the point where now things are much better. He is having 1 or 2 formed stools per day without any further bleeding. He is not having any abdominal pain, jaundice, nausea, or vomiting. He had been using some Imodium but is no longer needing that. He did not require prednisone. His other evaluation in December included a normal liver profile, normal CBC except for a hemoglobin of 13.2 but with a normal MCV, a C-reactive protein of 0.3, and a sed rate of only 12. Antoni has been eating fairly well but his appetite does seem to come and go. He did lose about 10 pounds during this flare of the colitis. * Medical History: Colonoscopy 06-05-2009-no active colitis, polyps, dysplasia-just some diverticulosis and internal hemorrhoids Ulcerative colitis-dx'd in the s-came off the 6-MP in mid-2010 IDDM with insulin pump Prostate cancer treated with radioactive seed implants-2000 Denies LA,CVA,Lung disease,renal disease Hyperlipidemia Colonoscopy 08/2012-no active colitis, no polyps, bx neg for dysplasia Colonoscopy 07/2015- no acrtive colitis, no polyps, biopsies negative for dysplasia Breast cancer on right breast- had surgery with Dr. Hinojosa- no chemo, no XRT Colonoscopy 07/2021- no active colitis, no polyps; biopsies negataive for dysplasia Alzheimers disease Medical History Verified * Surgical History: Appendectomy Penile implant, with subsequent removal Cataract surgery Prostatectomy Right breast cancer surgery as above 02/03/2018 Surgical History verified. * Hospitalization/Major Diagno stic Procedure: diabetes 09/2024 Hospitalization Verified. * Family History: F ather: . M other: , diagnosed with HTN (hypertension). C hilryan: Son has Crohn's disease. F amily History Verified.. There is no family history of colorectal cancer or liver cancer. * Social History: T obacco Use: T obacco Use/Smoking A re you a: nonsmoker. D rugs/Alcohol: A lcohol Screen P oints: 1, Interpretation: Negative. M iscellaneous: M arital status: . Occupation: Retired. D rug/Alcohol: A ETHAN-C (Standard) D id you have a drink containing alcohol in the past year? N o,?Points 0 , I nterpretation N egative. Social History Verified. N onsmoker; occasional alcohol. * Medications: T akingDonepezil HCl 5 MG Tablet 1 tablet at bedtime Orally Once a day risperiDONE 0.25 MG Tablet 1 tablet Orally Once a day Sertraline HCl 25 MG Tablet 1 tablet Orally Once a day Multi Vitamin/Minerals - 250mcg Tablet senior Orally once in am Vitamin C 500 MG Tablet Chewable 1 tablet Orally Once a day Fish Oil 1200 MG Capsule 1 capsule Orally Once a day HumaLOG 100 UNIT/ML Solution Cartridge Subcutaneous Vitamin E 400 UNIT Capsule 1 capsule Orally Once a day Balsalazide Disodium 750 MG Capsule TAKE 3 CAPSULES Orally Three times a day Taking Donepezil HCl 5 MG Tablet 1 tablet at bedtime Orally Once a day Taking risperiDONE 0.25 MG Tablet 1 tablet Orally Once a day Taking Sertraline HCl 25 MG Tablet 1 tablet Orally Once a day Taking Multi Vitamin/Minerals - 250mcg Tablet senior Orally once in am Taking Vitamin C 500 MG Tablet Chewable 1 tablet Orally Once a day Taking Fish Oil 1200 MG Capsule 1 capsule Orally Once a day Taking HumaLOG 100 UNIT/ML Solution Cartridge Subcutaneous Taking Vitamin E 400 UNIT Capsule 1 capsule Orally Once a day Taking Balsalazide Disodium 750 MG Capsule TAKE 3 CAPSULES Orally Three times a day Not-Taking/PRNLoperamide HCl Aspirin 81 MG Tablet Delayed Release 1 tablet Orally Once a day Calcium Citrate 630mg 1 tablet Orally every other day Simvastatin 20 MG Tablet 1 tablet in the evening Orally Once a day Mesalamine ER 0.375 GM Capsule Extended Release 24 Hour 4 capsules in the morning Orally Once a day Imodium A-D 2 MG Tablet Use 1 or 2 every 4 to 6 hours as needed for diarrhea Orally Four times a day Lisinopril 2.5 MG Tablet 1 tablet Orally Once a day Medication List reviewed and reconciled with the patientNot-Taking/PRN Loperamide HCl Not-Taking/PRN Aspirin 81 MG Tablet Delayed Release 1 tablet Orally Once a day Not-Taking/PRN Calcium Citrate 630mg 1 tablet Orally every other day Not-Taking/PRN Simvastatin 20 MG Tablet 1 tablet in the evening Orally Once a day Not-Taking/PRN Mesalamine ER 0.375 GM Capsule Extended Release 24 Hour 4 capsules in the morning Orally Once a day Not-Taking/PRN Imodium A-D 2 MG Tablet Use 1 or 2 every 4 to 6 hours as needed for diarrhea Orally Four times a day Not-Taking/PRN Lisinopril 2.5 MG Tablet 1 tablet Orally Once a day Medication List reviewed and reconciled with the patient * Allergies: N .K.D.A.yesAllergies Verified. Objective: * Vitals: W t:138.6lbs, Ht: 66 in, BMI:22.37Index, BP:001/01mm Hg, Temp:96F, Wt-k.87 kg. Assessment: * Assessment: 1. U lcerative colitis - K51.90 (Primary) 2 . U lcerative rectosigmoiditis without complication - K51.30 Overall, Antoni appears clinica lly stable at this time. The balsalazide seems to have worked in getting his colitis back in remission. I did review with him and his family the need to remain on that long-term. I did advise them to let me know if they suddenly have difficulty in obtaining it for what ever reason. At this point I do not think he needs any changes to his regimen given the significant improvement of his colitis as compared to what it was back in December. I do not think he needs any further colonoscopies given his age and overall medical condition. If things remain stable I have advised him to see me on a as needed basis. Again, I did advise Antoni and his family to remain on the balsalazide long-term and to definitely keep in touch with me as needed for any flareup of his symptoms. They were all comfortable with this plan. Thank you again for allowing me to participate in Antoni's care. I shall continue to keep you advised of his progress. Plan: * Treatment: * Preventive Medicine: Screenings: F all Risk Screening F all Risk Assessment: T wo or more falls with injury in the past year, S creening: T wo or more falls with injury in the past year,?Assessment: N ot performed, no reason specified, P rebel of Care: D ocumented, T ype of fall plan of care: B alance, strength and gait training or instruction provided. Billing Information: * Procedure Codes: * The named appointment provid er may or may not be the originator of this progress note, and it is not deemed complete until electronically signed by the appointment provider. Sign off status: Pending * Provider: Nati Li MD Date: 04/11/2024 Generated for Yelena price/Oneil/Nirali on: 04/25/2024 05:42 PM EST
--- OUTSIDE RECORDS SUMMARY | 2025-02-10 05:00 | XMS_ITS ---
Author Organization Cliff Menjivar MD Address [address] [place] [phone] Care Team Providers Care Recovery Advocate Name Role Phone Cliff Menjivar Primary Care Provider Allergies No Known Allergies REASON FOR VISIT 2 week, Accompanied by and daughter, Patient had a high BS this AM of 481 Medications Medication SIG (Take, Route, Frequency, Duration) Notes Start Date End Date Status Atorvastatin Calcium 20 MG TAKE 1 TABLET BY MOUTH EVERY DAY Active HumaLOG 100 UNIT/ML 1-8 units three time s a day Subcutaneous Active Lantus SoloStar 100 UNIT/ML 18 units SC QD Subcutaneous QD Active risperiDONE 0.25 MG 1 tablet Orally Once a day Active Calcium 500 MG 1 tablet with meals Orally Twice a day for 30 day(s) Not-Taking Diprolene AF 0.05 % 1 application [...] Externally daily for 30 days 06/16/2024 Active Aspirin 81 MG 1 tablet Orally Once a day for 30 day(s) Active Loratadine 10 MG 1 tablet Orally Once a day for 30 day(s) Active Balsalazide Disodium 750 MG 3 capsules Orally Three times a day Active Senior Multivitamin Plus as directed Orally Active Vitamin C 500 MG 1 tablet Orally ever y 2 days Active Ketoconazole 2 % 1 application to affected area Externally Once a day Not-Taking Fluticasone Propionate 50 MCG/ACT INSTILL 1 SPRAY IN EACH NOSTRIL ONCE DAILY for 90 Not-Taking Cyclobenzaprine HCl 10 MG as directed Or ally twice a day for 10 days 09/12/2019 Not-Taking Loperamide HCl 2 MG 1 capsule as needed Orally Four times a day Active Tylenol 8 Hour 650 MG 2 tablets as neede d Orally every 8 hrs Active Magnesium 400 MG 1 capsule with a alex l Orally every other day Not-Brionna spaulding Vital Signs Blood pressure systolic 102 mm Hg 02/11/20 25 Blood pressure diastolic 50 mm Hg 025 Height 65.5 in 02/10/2025 Weight 140 lbs 02/10/2025 BMI 22.94 kg/m2 02/10/2025 weight is down 4 pounds [facility] 01-31-25 Encounters Encounter Location Date Provider Diagnosis Cliff Menjivar MD [address] [facility] [address] [place], [place] [phone] 02/10/2025 Cliff Menjivar Diarrhea R19.7 ; Edema R60.9 and Type 1 diabetes mellitus without complication E10.9 Assessments Encounter Date Diagnosis (ICD Code) Assessment Notes Treatment Notes Treatment Clinical Notes Section Notes 02/10/2025 Diarrhea (ICD-10 - R19.7) doing better off lactose 02/10/2025 Edema (ICD-10 - R60.9) has resolved 02/10/2025 Type 1 diabetes mellitus without complication (ICD-10 - E10.9) his sugars are all over the place. has a certified adapted physical educator that is trying to control the sugars. having trouble with his confusion and was not able to manage the new pump. his has a coverage for the elevated sugars that seems appropriate and will observe for hypoglycemia. the confusion is making it difficult to manage the sugars Plan Of Treatment Treatment Notes Assessment Notes Diarrhea doing better off lac tose Edema has resolved Type 1 diabetes mellitus wit hout complication his sugars are all over the place. has a certified adapted physical educator that is trying to control the sugars. having trouble with his confusion and was not able to manage the new pump. his has a coverage for the elevated sugars that seems appropriate and will observe for hypoglycemia. the confusion is making it difficult to manage the sugars Next Appt Details Follow Up: 2 Months, Reason: Provider Name:Cliff Dangelo ier, 04/17/2025 11:15:00 AM, [address] [place] [address], [address], [phone], Provider Name:Cliff marier, 06/12/2025 08:00:00 AM, [address] [place] [address], [place] [address], [place], [place], [phone], Provider Name:Cliff marier, 06/19/2025 02:30:00 PM, [address] [place] [address], [address], [phone], Progress Notes * Lit SHEPPARD JrDOB: 4 (79 yo M)Acc No.[id number]:02/10/2025 Patient: Brenda OSPINALit Jr Provider: Lester Menjivar MD :1945 A ge:79 Y S ex:Male Date:02/10/2025 Address: [facility] Subjective: * Chief Complaints: * 1 . 2 week. 2. Accompanied by and daughter. 3. Patient had a high BS this AM of 481. * HPI: S ymptom(s): patient is a 79yo male here for 2 month follow up visit/ here for follow up of edema. sugar was good during the night. was almost 300 at awakening. got 8 units. early this morning. . 8 units before 6 oclock. and 2 hours later was 480. now at 10 is down to 300. gave 10 units at 8:30 and sugar is coming down. * ROS: G eneral/Constitutional: Denies C hills. D enies F brandy. D enies F ever. D enies H eadache. E NT: Denies S ore throat. R espiratory: Denies C ough. D enies S hortness of breath at rest. D enies S hortness of breath with exertion. G astrointestinal: Denies D iarrhea. D enies N ausea. * Medical History: D iabetes mellitus, type I diabetes, Ulcerative colitis, Prostate cancer with seed implant 2000, colonoscopy 2009 due in 4 or 5 years; colonoscopy done 07/2015 - [place] [address] Li: 07/12/21 colonoscopy done, no further needed., Intertriginous candidiasis. * Medications: T aking Loperamide HCl 2 MG Capsule 1 capsule as needed Orally Four times a day , Taking Tylenol 8 Hour 650 MG Tablet Extended Release 2 tablets as needed Orally every 8 hrs , Taking Loratadine 10 MG Tablet 1 tablet Orally Once a day , Taking Balsalazide Disodium 750 MG Capsule 3 capsules Orally Three times a day , Taking Senior Multivitamin Plus Tablet as directed Orally , Taking Vitamin C 500 MG Tablet 1 tablet Orally every 2 days , Taking Aspirin 81 MG Tablet Chewable 1 tablet Orally Once a day , Taking Diprolene AF 0.05 % Cream 1 application to affected area Externally Once a day , Taking Fish Oil 500 MG Capsule 1 capsule Orally Once a day , Taking Triamcinolone Acetonide 0.1 % Cream 1 application Externally Once a day , Taking Fluticasone Propionate 50 MCG/ACT Suspension 1 spray in each nostril Nasally Once a day , Taking Triamcinolone Acetonide 0.1 % Cream 1 application Externally daily , Taking Atorvastatin Calcium 20 MG Tablet TAKE 1 TABLET BY MOUTH EVERY DAY , Taking HumaLOG 100 UNIT/ML Solution Cartridge 1-8 units three times a day Subcutaneous , Taking Lantus SoloStar 100 UNIT/ML Solution Pen-injector 18 units SC QD Subcutaneous QD , Taking risperiDONE 0.25 MG Tablet 1 tablet Orally Once a day , Not-Taking/PRN Calcium 500 MG Tablet 1 tablet with meals Orally Twice a day , Not-Taking/PRN Magnesium 400 MG Capsule 1 capsule with a meal Orally every other day , Not-Taking/PRN Ketoconazole 2 % Cream 1 application to affected area Externally Once a day , Not-Taking/PRN Fluticasone Propionate 50 MCG/ACT Suspension INSTILL 1 SPRAY IN EACH NOSTRIL ONCE DAILY , Not-Taking/PRN Cyclobenzaprine HCl 10 MG Tablet as directed Orally twice a day , Medication List reviewed and reconciled with the patient * Allergies: N .K.D.A. Objective: * Vitals: H t: 65.5, Wt: 140, BMI:22.94, BP:102/50, Wt-k.5. weight is down 4 pounds since 01-31-25. * Examination: G eneral Examination: GENERAL APPEARANCE: w ell developed, well nourished. HEAD: n ormocephalic. SKIN: g ood turgor. HEART: r egular rate and rhythm, no murmurs, rubs, gallops.? LUNGS: n o wheezes, rales, rhonchi, clear to auscultation bilaterally. EXTREMITIES: n o edema. Assessment: * Assessment: 1. D iarrhea - R19.7 (Primary) 2 . E yuli - R60.9 3 . T ype 1 diabetes mellitus without complication - E10.9 Plan: * Treatment: 2. E yuli Notes: has resolved 3. T ype 1 diabetes mellitus without complication Notes: his sugars are all over the place. has a certified adapted physical educator that is trying to control the sugars. having trouble with his confusion and was not able to manage the new pump. his has a coverage for the elevated sugars that seems appropriate and will observe for hypoglycemia. the confusion is making it difficult to manage the sugars * Follow Up: 2 Months * * The named appointment provid er may or may not be the originator of this progress note, and it is not deemed complete until electronically signed by the appointment provider. Sign off status: Pending * Provider: Lester Menjivar MD Date: 04/12/2024 Generated for Yelena price/Oneil/Joshitting on: 04/25/2024 05:41 PM EST History and Physical Notes * HPI (History of Present Illness) Category Sub-Category Detail Notes Category Not es Symptom(s) patient is a 79 yo male here for 2 month follow up visit/ here for follow up of edema. sugar was good during the night. was almost 300 at awakening. got 8 units. early this morning. . 8 units before 6 oclock. and 2 hours later was 480. now at 10 is down to 300. gave 10 units at 8:30 and sugar is coming down Examination Category Sub-Category Detail Notes Category Not es General Examination GENERAL APPEARANCE: well developed , well nourished HEAD: normocephalic HEART: regular rate and rhy thm, no murmurs, rubs, gallops LUNGS: no wheezes, rales, r honchi, clear to auscultation bilaterally SKIN: good turgor EXTREMITIES: no edema
--- NOTE | 2025-02-23 11:28 | A.OFFVIS_ITS ---
Intake Visit Reasons: 1m ok per mzk Allergies Seasonal Allergies Allergy (Mild, Verified 01/27/25 02:14) Unknown HPI Comments Details: The patient is an 79-year-old male presenting with concerns related to dementia management and related cognitive and functional issues. He has moderate dementia characterized by significant memory problems and issues with orientation, such as difficulty recalling dates, months, seasons, and specific locations. The patient also experiences symptoms of anxiety and possibly depression. He has a history of Type 1 Diabetes Mellitus from the age of 17 and a fall in September, after which a precautionary CT scan showed significant changes associated with Alzheimer's disease. Currently, the patient resides at home with his and two cats and receives extensive support from family members living nearby. There is an observed pattern of behavioral changes, where anxiety and depression are notable, and he has been on occasional risperidone to help with sleeping issues. He recently reported a chronic diarrhea issue persisting for two months, further complicating his condition. Driving has been discontinued based on his cognitive status and safety concerns. [facility] Medical History Type 1 diabetes mellitus COVID-19 vaccine series completed Elevated cholesterol Diabetes mellitus Ulcerative colitis Prostate cancer Ductal carcinoma in situ (DCIS) of right breast Surgical History History of penile implant History of prostate surgery (2000) History of appendectomy History of colonoscopy History of right total mastectomy Social History Household Members: Spouse Housing: House Are you a primary healthcare social worker to a significant other at home: No Do you presently have visiting nurse or other home services: No Alcohol intake: never Comment: 1:1 sitter Patient Tobacco Use Status: Never used Tobacco Advance Directives Date on File: 07/12/21 service: No Review of Systems Narrative - Neurological: Reports memory difficulties, disorientation, and difficulty recalling dates and locations. - Mood: Reports anxiety and possible depression. - Gastrointestinal: Reports chronic diarrhea for two months. - General: Denies recent alcohol use, previous heavy consumption noted but no longer drinks. Physical Exam Neuro Other: Mental Status: Alert and oriented to person, place, and time. Normal attention. Normal spontaneous speech, fluency, and comprehension. Cranial Nerves: CN II: Visual duarte full to confrontation, visual acuity intact. CN III, IV, : Pupils equal, round, reactive to light and accommodation. Extraocular movements are normal. CN V: Facial sensation is normal. CN VII: Facial movements symmetrical. CN VIII: Hearing intact to bedside conversation is normal. CN IX, X: Palate elevates symmetrically. CN XI: Shoulder shrug and head turn symmetrical. CN XII: Tongue midline without atrophy or fasciculations. Extrapyramidal: Full facial expressions and blinking. No rigidity. Movements are appropriate with no tremor or abnormality. Speech: Normal; no dysarthria or tremor. Results Reviewed Results Reviewed: Laboratory Tests 01/25/25 01/27/25 02/02/25 15:44 03:50 12:44 Glucose (Clinic) 189 H Vitamin B12 1150 H Folate 9.8 Ethyl Alcohol 11 Assessment & Plan Assessment & Plan (1) Alzheimer disease: Code(s): G30.9 - Alzheimer's disease, unspecified; F02.80 - Dementia in other diseases classified elsewhere, unspecified severity, without behavioral disturbance, psychotic disturbance, mood disturbance, and anxiety Category: Medical Plan Impression: Moderately severe dementia, probably of Alzheimer type with some behavioral symptoms including anxiety Recommendations: 1. Reassurance and education. 2. Donepezil 10 mg with breakfast 3. Sertraline 25 mg with breakfast 4. Risperidone 0.25mg one at bedtime Medications: New donepezil 10 mg orally with breakfast; 90 tabs 1RF Changed From risperidone 0.25 mg PO DAILY 90 tabs 0RF To risperidone 0.25 mg orally one at bedtime; 90 tabs 1RF From sertraline 25 mg PO DAILY 90 tabs 1RF To sertraline 25 mg orally one with breakfast; 90 tabs 1RF Discontinued donepezil Discontinued Reason: Doctor's Order 5 mg PO DAILY 90 tabs 0RF Coding Level of Care Code Est Pt Level 3 (64381) Diagnoses Alzheimer disease G30.9; F02.80
--- OUTSIDE RECORDS SUMMARY | 2025-02-23 17:41 | XMS_ITS | Encounter Summary ---
Author Organization [facility] Address [address] [place] [address] Phone Care Team Providers Care Precipitation Equipment Tender Name Role Phone Cliff Menjivar MD Primary [...] on filedocumented in this encounter Care Teams Precipitation Equipment Tender Relationship Specialty Start Date End Date Cliff Menjivar MD [address] [place] [address] Dr VALDIVIA JEFFERY Mendez [id number] PCP - General Internal Medicine 02/09/17 documented as of this encounter Additional Source Comments The information contained in this document represents components of the legal health record. It is not the complete legal health record.[facility]
--- OUTSIDE RECORDS SUMMARY | 2025-02-23 17:41 | XMS_ITS | Patient Health Record ---
Author Organization [facility] Address [address] [place] [address] Care Team Providers Care Special Effects Person Name Role Phone Otto MCCRACKEN, Cliff Primary Care Provider Raul Bhatt Unavailable [phone] Allergies No Known Allergies Results Component Value Reference Range Flag Notes Lipase Reviewed date:12/11/2024 08:30:44 PM Interpretation: Performing Lab:[facility], [address] [place] [phone] Notes/Report: Lipase 68 8-78 U/L N Calprotectin, Fecal Reviewed date:12/23/2024 07:17:47 PM Interpretation: Performing Lab:[facility], [address] [place] [phone] Notes/Report: Calprotectin, Fecal 2430 A Reference Range: <50 Normal 50-120 Borderline >120 Elevated Calprotectin in Crohn's disease and ulcerative colitis can be five to several thousand times above the reference population (50 mcg/g or less). Levels are usually 50 mcg/g or less in healthy patients and with irritable bowel syndrome. Repeat testing in 4-6 weeks is suggested for borderline values. THIS TEST WAS PERFORMED AT: [email or web address] [id number] [place] [address] RODO VIEIRA MD,PHD,YSABEL GI PANEL Reviewed date:12/23/2024 07:12:39 PM Interpretation: Performing Lab:[facility], [address] [place] [phone] Notes/Report: Campylobacter Not Detected Not Detect. Plesiomonas shigelloides Not Detected Not Detect. Salmonella Not Detected Not Detect. Vibrio Not Detected Not Detect. Vibrio Cholerae Not Detected Not Detect. Yersinia enterocolitica Not Detected Not Detect. E. coli EAEC Not Detected Not Detect. E. coli EPEC Not Detected Not Detect. E. coli ETEC Not Detected Not Detect. E. coli STEC Not Detected Not Detect. E. coli O157 Not applicable Not Detect. E. coli containing the O157 antigen are a subset of Shiga-like toxin-producing E. coli (STEC). Shigella sp./EIEC Not Detected Not Detect. Cryptosporidium Not Detected Not Detect. Cyclospora cayetanensis Not Detected Not Detect. Entamoeba histolytica Not Detected Not Detect. Giardia lamblia Not Detected Not Detect. Adenovirus F 40/41 Not Detected Not Detect. Astrovirus Not Detected Not Detect. Norovirus GI/GII Not Detected Not Detect. Rotavirus A Not Detected Not Detect. Sapovirus Not Detected Not Detect. All results must be correlated with clinical findings. Negative results do not exclude the possibility of gastrointestinal infection and should not be used as the sole basis for diagnosis, treatment, or other management decisions. Virus, bacteria, and parasite nucleic acid may persist in vivo independently of organism viability. Additionally, some organisms may be carried asymptomatically. Detection of organism targets does not imply that the corresponding organisms are infectious or are the causative agents for clinical symptoms. There is a risk of false negative values due to the presence of sequence variants in the gene targets of the assay, amplification inhibitors in specimens, or inadequate numbers of organisms for amplification. The identification of several diarrheagenic E. coli pathotypes has historically relied upon phenotypic characteristics. This panel targets genetic determinants characteristic of most pathogenic strains, but may not detect all strains having phenotypic characteristics of a pathotype. The performance of this test has not been established for monitoring treatment of infection with any of the panel organisms. This assay is performed by Multiplexed PCR, utilizing the Bounce Imaging Array. Complete Blood Count Auto Di ff Reviewed date:12/11/2024 10:27:16 PM Interpretation: Performing Lab:[facility], [address] [place] [phone] Notes/Report: White Blood Count 5.6 4.8-10.8 X10*3/uL N Red Blood Count 4.25 4.60-5.80 X10*6/uL L Hemoglobin 13.2 14.0-18.0 g/dl L Hematocrit 37.9 42.0-52.0 % L Mean Corpuscular Volume 89.2 80.0-98.0 fL N Mean Corpuscular Hemoglobin 31.1 27.0-33.0 pg N Mean Corpuscular HGB Conc 34.8 31.0-36.0 g/dl N Red Cell Distribution Width 12.4 11.0-16.0 % N Platelet Count 230 160-400 X10*3/uL N Mean Platelet Volume 9.2 9.4-12.4 fL L Neutrophils Percent Auto 62.0 45-73 % N Imm Gran Pct Auto 0.4 0.0-0.4 % N Lymphocytes Percent Auto 18.8 20-40 % L Monocytes Percent Auto 12.5 2-11 % H Eosinophils Percent Auto 6.1 0-4 % H Basophils Percent Auto 0.2 0-2 % N NRBC Pct Auto 0.0 0.0-0.2 /100WBC N Neutrophils Absolute Auto 3.5 2.0-8.3 x10*3/uL N Imm Gran Abs Auto 0.02 0.00-0.03 X10*3/uL N Lymphocytes Absolute Auto 1.1 1.2-4.9 X10*3/uL L Monocytes Absolute Auto 0.7 0.1-1.2 X10*3/uL N Eosinophils Absolute Auto 0.3 0.0-0.4 X10*3/uL N Basophils Absolute Auto 0.0 0.0-0.2 X10*3/uL N NRBC Abs Auto 0.000 0.0-0.012 X10*3/uL N Erythrocyte Sedimentation Ra te Reviewed date:12/11/2024 10:28:24 PM Interpretation: Performing Lab:[address] [phone] Notes/Report: Erythrocyte Sedimentation Rate 12 0-15 MM/HR N Patients with polycythemia and many hemoglobin abnormalities may have depressed sed rates whereas patients with anemia may have elevated sed rates. Liver Panel Reviewed date:12/11/2024 10:27:28 PM Interpretation: Performing Lab:[facility], [address] [place] [phone] Notes/Report: Bilirubin Total 0.6 0.0-1.0 mg/dL N Bilirubin Direct 0.2 0.0-0.5 mg/dL N Aspartate Amino Transferase 29 5-37 U/L N Alanine Aminotransferase 12 0-40 U/L N Total Protein 6.7 6.5-8.0 g/dL N Albumin Level 4.0 3.5-5.0 g/dL N Alkaline Phosphatase 89 39-117 U/L N Basic Metabolic Panel Reviewed date:12/11/2024 10:28:12 PM Interpretation: Performing Lab:[address] [phone] Notes/Report: Sodium 138 135-145 mmol/L N Potassium 4.2 3.3-5.1 mmol/L N Chloride 104 96-108 mmol/L N Carbon Dioxide 30 22-29 mmol/L H Anion Gap 8 12-20 L Blood Urea Nitrogen 15 9-16 mg/dL N Creatinine 0.73 0.5-1.4 mg/dL N Estimated Glomerular Filt Rate > 60 Chronic Kidney Disease: Estimated GFR < 60 mL/min/1.73m2 Severe Kidney Disease: Estimated GFR < 15 mL/min/1.73m2 Glucose Random 225 60-115 mg/dL H Calcium 8.9 8.4-10.2 mg/dL N C Reactive Protein Reviewed date:12/11/2024 10:27:38 PM Interpretation: Performing Lab:[address] [phone] Notes/Report: C Reactive Protein 0.30 < or = 0.50 mg/dL N CDiff Gene PCR Reviewed date:12/15/2024 06:42:55 PM Interpretation: Performing Lab:[address] [phone] Notes/Report: CDiff Gene PCR NEGATIVE Negative If C. difficile strongly suspected despite one negative test, a second test may be sent vs. empiric treatment for C. difficile infection. Reason For Referral No Information Medications Medication SIG (Take, Route, Frequency, Duration) Notes Start Date End Date Status Sertraline HCl 25 MG Tablet 1 tablet Orally Once a day Active Imodium A-D 2 MG Tablet Use 1 or 2 every 4 to 6 hours as needed for diarrhea Orally Four times a day; Duration: 30 days 01/03/2025 Not-Taking/PRN risperiDONE 0.25 MG Tablet 1 tablet Orally Once a day Active Balsalazide Disodium 750 MG Capsule TAKE 3 CAPSULES Orally Three times a day; Duration: 90 days Active Vitamin C 500 MG Tablet Chewable 1 tablet Orally Once a day Active Multi Vitamin/Minerals - 250mcg Tablet senior Orally once in am Active Lisinopril 2.5 MG Tablet 1 tablet Orally Once a day Not-Taking/PRN HumaLOG 100 UNIT/ML Solution Cartridge Subcutaneous Active Fish Oil 1200 MG Capsule 1 capsule Orally Once a day Active Donepezil HCl 5 MG Tablet 1 tablet at bedtime Orally Once a day Active Mesalamine ER 0.375 GM Capsule Extended Release 24 Hour 4 capsules in the morning Orally Once a day; Duration: 90 days 12/11/2024 Not-Takin g/PRN Loperamide HCl Not-T aking/PRN Vitamin E 400 UNIT Capsule 1 capsule Orally Once a day Active Aspirin 81 MG Tablet Delayed Release 1 tablet Orally Once a day Not-Taking/PRN Simvastatin 20 MG Tablet 1 tablet in the evening Orally Once a day Not-Taking/PRN Calcium Citrate 630mg 1 tablet Orally ev tao other day Not-Taking/PRN Immunizations Vaccine Route Administration Date Status Comme nts Influenza Unknown 01/12/2018 Administered Influenza Unknown 01/05/2020 Administered Influenza Unknown 02/10/2024 Administered Social History Social History Drug/Alcohol: Social Info Question Answer Notes AUDIT-C (Standard) Did you have a drink containing alcohol in the past year? No Points 0 Interpretation Negative Additional Details Category Social Info Options Details Miscellaneous: Marital status: Occupation: Retired Section Notes: Nonsmoker; occasional alcoho l Nonsmoker; occasional alcoho l Nonsmoker; occasional alcoho l Nonsmoker; occasional alcoho l Nonsmoker; occasional alcoho l Nonsmoker; occasional alcoho l Nonsmoker; occasional alcoho l Nonsmoker; occasional alcoho l Problems Problem Type SNOMED Code ICD Code Onset Dates Problem Status W/U Status Risk Notes Problem Screening for malignant neoplasm of colon (029591890) Encounter for screening for malignant neoplasm of colon (Z12.11) Active confirmed Problem Diarrhea (47515427) Diarrhea (R19.7) Active con firmed Problem 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) 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 Problem Ulcerative colitis (74899018) Ulcerative colitis (K51.90) Active confirmed Problem Diverticulosis of colon (155026517) Diverticulosis of colon (K57.30) Active confirmed Problem Generalized abdominal pain (581978314) Abdominal pain, acute, generalized (R10.84) Active confirmed Vital Signs Temperature 96 degrees Fahrenheit 02/09/2025 Blood pressure diastolic 01 mm Hg 02/09/2025 Height 66 in 02/09/2025 Blood pressure systolic 001 mm Hg 02/09/2025 Weight 138.6 lbs 02/09/2025 BMI 22.37 kg/m2 02/09/2025 Encounters Encounter Location Date Provider Diagnosis [facility] [address] [place] [phone] 02/09/2025 Raul Li Ulcerative colitis K 51.90 and Ulcerative rectosigmoiditis without complication K51.30 [facility] [address] [place] [phone] 08/31/2024 Raul Li [facility] [address] [place] [phone] 10/21/2024 Raul Li [facility] [address] [place] [phone] 12/07/2024 Raul Li Abdominal pain, acut e, generalized R10.84 ; Diarrhea R19.7 and Ulcerative colitis K51.90 [facility] [address] [place] [phone] 12/15/2024 Raul Li [facility] [address] [place] [phone] 12/23/2024 Raul Li [facility] [address] [place] [phone] 01/03/2025 Raul Li Assessments Encounter Date Diagnosis (ICD Code) Assessment Notes Treatment Notes Treatment Clinical Notes Section Notes 02/09/2025 Ulcerative colitis (ICD-10 - K51.90) Continue the same Balsalazide detention Overall, Antoni appears clinically stable at this [...] to keep you advised of his progress. 12/07/2024 Diarrhea (ICD-10 - R19.7) 12/07/2024 Abdominal pain, acute, generalized (ICD-10 - R10.84) 02/09/2025 Ulcerative rectosigmoiditis without complication (ICD-10 - [...] to keep you advised of his progress. 12/07/2024 Ulcerative colitis (ICD-10 - K51.90) Plan Of Treatment Pending Test Test Name Order Date CHEM 7 PROFILE 12/07/2024 LIVER PROFILE 12/07/2024 CRP 12/07/2024 CBC w DIFF 12/07/2024 SED RATE (ESR) 12/07/2024 C DIFFICILE RFLX PCR 12/07/2024 Future Test Test Name Order Date COLONOSCOPY 02/21/2015 COLONOSCOPY 10/24/2020 Insurance Providers Payer Name Payer Address Payer Phone Subscriber Number Group Number Insured Name Patient Relationship to Insured Coverage Start Date Coverage End Date [facility] [address] [facility] [place] [phone] [id number] BRADLEY SHEPPARD Self - patient is the insured Medical (General) History Medical History History ICD Code Colonoscopy 06-05-2009-no acti ve colitis, polyps, dysplasia-just some diverticulosis and internal hemorrhoids Ulcerative colitis-dx'd in the 1969's-ca me off the 6-MP in mid-2010 IDDM with insulin pump Prostate cancer treated with radioactive seed implants-2000 Denies PR,CVA,Lung disease,renal disease Hyperlipidemia Colonoscopy 08/2012-no active colitis, no polyps, bx neg for dysplasia Colonoscopy 07/2015- no acrti ve colitis, no polyps, biopsies negative for dysplasia Breast cancer on right breas t- had surgery with Dr. Hinojosa- no chemo, no XRT Colonoscopy 07/2021- no activ e colitis, no polyps; biopsies negataive for dysplasia Alzheimers disease Surgical History Surgery Date(Month/Year) Appendectomy Penile implant, with subsequent removal Cataract surgery Prostatectomy Right breast cancer surgery as above Hospitalization History Reason Date(Month/Year) diabetes 09/2024
--- OUTSIDE RECORDS SUMMARY | 2025-02-23 17:43 | XMS_ITS | Patient Health Record ---
Author Organization Cliff Menjivar MD Address [address] [place] [phone] Care Team Providers Care Winch Operator Name Role Phone Cliff Menjivar Primary Care Provider Allergies No Known Allergies Results Component Value Reference Range Notes Complete Blood Count Auto Di ff Reviewed date:06/09/2024 12:32:38 PM Interpretation: Performing Lab:[facility], [address] [place] [phone] Notes/Report: White Blood Count 4.9 4.8-10.8 X10*3/uL [...] 0.0-0.2 /100WBC Neutrophils Absolute Auto 2.6 2.0-8.3 x10*3/uL Imm Gran Abs Auto 0.02 0.00-0.03 X10*3/uL Lymphocytes Absolute Auto 1.4 1.2-4.9 X10*3/uL Monocytes Absolute Auto 0.7 0.1-1.2 X10*3/uL Eosinophils Absolute Auto 0.2 0.0-0.4 X10*3/uL Basophils Absolute Auto 0.0 0.0-0.2 X10*3/uL NRBC Abs Auto 0.000 0.0-0.012 X10*3/uL Comprehensive [place]. Panel Fa st Reviewed date:06/09/2024 12:30:41 PM Interpretation: Performing Lab:[facility], [address] [place] [phone] Notes/Report: Sodium 138 135-145 mmol/L Potassium 4.5 [...] Alkaline Phosphatase 82 39-117 U/L Lipid Panel Reviewed date:06/09/2024 11:52:20 AM Interpretation: Performing Lab:[facility], [address] [place] [phone] Notes/Report: Triglycerides 85 <150 mg/dL Desirable Triglyceride: [...] patients with liver disease. PSA,Total (Free>4and<10) Reviewed date:06/09/2024 12:42:29 PM Interpretation: Performing Lab:[facility], [address] [place] [phone] Notes/Report: PSA,Total (Free>4and<10) < 0.10 0.00-4.00 ng/mL [...] Chemiluminescent Microparticle Immunoassay (CMIA) Microalbumin, Random Reviewed date:06/09/2024 12:20:00 PM Interpretation: Performing Lab:[facility], [address] [place] [phone] Notes/Report: Creatinine Urine 56.32 Microalbumin Urine < 5.0 Microalbum/Creatinine Ratio Ur TNP <30 ug/mg cr Unable to calculate albumin/creatinine ratio due to low microalbumin or creatinine result. Hemoglobin A1c Reviewed date:06/09/2024 12:20:31 PM Interpretation: Performing Lab:[facility], [address] [place] [phone] Notes/Report: Hemoglobin A1c % 6.9 <6.0 % [...] average glucose, using the formula of the V7O-Yicxwej Average Glucose study (ADAG), Diabetes Care, Vol.31,#8, Nov. 2007 UA ClnCatch+Micro w/rflx Cul t Reviewed date:06/09/2024 12:55:15 PM Interpretation: Performing Lab:[facility], [address] [place] [phone] Notes/Report: Urine, Clean Catch Color Urine Yellow Appearance Urine Clear PH 7.5 5.0-9.0 Glucose Urine UA Negative Negative mg/dL Urine Blood Negative Negative Specific [place] - Urine 1.010 1.005-1.025 Urine Protein Negative Neg-Trace mg/dL Urine Ketones Negative Negative mg/dL Nitrite Urine Negative Negative Leukocyte Esterase Urine Negative Negative RBC Urine 0-2 0-2 /HPF WBC Urine 0-5 0-5 /HPF Squamous Epithelial Cell Urine 0-2 0-2 /HPF Bacteria Urine None Seen None Seen Hyaline Casts Urine 0-2 0-2 /LPF Liver Panel Reviewed date:12/18/2024 05:35:08 PM Interpretation: Performing Lab:[facility], [address] [place] [phone] Notes/Report: Bilirubin Total 0.6 0.0-1.0 mg/dL Bilirubin Direct 0.2 0.0-0.5 mg/dL Aspartate Amino Transferase 36 5-37 U/L Alanine Aminotransferase 12 0-40 U/L Total Protein 6.9 6.5-8.0 g/dL Albumin Level 4.1 3.5-5.0 g/dL Alkaline Phosphatase 100 39-117 U/L Glucose Fasting Reviewed date:12/18/2024 05:34:46 PM Interpretation: Performing Lab:[address] [address] Notes/Report: Glucose Fasting 227 60-99 mg/dL A fasting glucose of 126 mg/dl or greater on more than one occasion is considered diagnostic of diabetes. Lipid Panel with Reflex Reviewed date:12/18/2024 05:38:51 PM Interpretation: Performing Lab:[address] [address] Notes/Report: Triglycerides 49 <150 mg/dL Desirable Triglyceride: [...] A1c Reviewed date:12/16/2024 12:30:55 PM Interpretation: Performing Lab:[address] [address] Notes/Report: Hemoglobin A1c % 8.3 <6.0 % [...] average glucose, using the formula of the O2M-Xwyjmzg Average Glucose study (ADAG), Diabetes Care, Vol.31,#8, Nov. 2007 Occult Blood, Stool, Guaiac Reviewed date:06/16/2024 02:13:28 PM Interpretation:Negative Performing Lab: Notes/Report: Negative Occult Blood, Stool, Guaiac Neg Glucose, finger stick Reviewed date:06/28/2024 10:57:30 AM Interpretation: Performing Lab: Notes/Report: Value 128 Glucose, finger stick Reviewed date:10/17/2024 11:41:31 AM Interpretation: Performing Lab: Notes/Report: Value 379 Glucose, finger stick Reviewed date:01/23/2025 11:28:55 AM Interpretation: Performing Lab: Notes/Report: Value 167 Glucose, Whole Blood Reviewed date:06/20/2024 12:03:18 PM Interpretation: Performing Lab:[facility], [address] [place] [phone] Notes/Report: Glucose, Whole Blood 186 60-115 mg/dL METER # : [id number] CT head/brain wo con Reviewed date:06/20/2024 11:03:34 AM Interpretation: Performing Lab: Notes/Report: [address] [address] [address] Scan Report Signed Patient: Lit Burnham Jr MR#: [id number] [birth year] : 1945 Acct:[id number] Age/Sex: 78 / M ADM Date: 06/20/24 Loc: HO.ED Attending Dr: Ordering Physician: Alfreda Jasso MD Date of Service: 06/20/24 Procedure(s): CT head/brain wo IV con Accession Number(s): [id number] cc: Cliff Menjivar MD; Alfreda Jasso MD Report Number: [id number]: Total DLP = 682.00 mGy-cm CLINICAL HISTORY: fall CT head without contrast Comparison: None Findings: There is no acute intracranial hemorrhage. Ventricles are within normal limits in size. No mass effect or midline shift is present. The wise-white matter differentiation appears normal. There is generalized cerebral atrophy. Hypoattenuation in the deep cerebral white matter is consistent with chronic small vessel ischemic disease. The visualized portions of the orbits, paranasal sinuses, and mastoids are unremarkable. No fractures are identified. IMPRESSION: No acute intracranial abnormality. This document has been electronically signed by: Pascual Dawson MD on 06/20/2024 02:33:35 Dictated By: Pascual Dawson MD Signed By: <Electronically signed by Pascual Dawson MD in OV> 06/20/24233 DD/ 2 TD/TT: 06/20/24232 Chief Port Director: [address] [address] [address] Scan Report Signed Patient: Lit Burnham Jr MR#: [id number] [birth year] : 1945 Acct:[id number] Age/Sex: 78 / M ADM Date: 06/20/24 Loc: HO.ED Attending Dr: Ordering Physician: Alfreda Jasso MD Date of Service: 06/20/24 Procedure(s): CT head/brain wo IV con Accession Number(s): [id number] cc: Cliff Menjivar MD; Alfreda Jasso MD Report Number: [id number]: Total DLP = 682.00 mGy-cm CLINICAL HISTORY: fall CT head without contrast Comparison: None Findings: There is no acute intracranial hemorrhage. Ventricles are within normal limits in size. No m ass effect or midline shift is present. The wise-white matter differentiati on appears normal. There is generalized cerebral atrophy. Hypoattenuation in the deep cerebral white matter is consistent with chronic small vessel ischemic disease. The visualized porti ons of the orbits, paranasal sinuses, and mastoids are unremarkable. No fractures are identified. IMPRESSION: No acute intracrania l abnormality. This document has be en electronically signed by: Pascual Dawson MD on 06/20/2024 02:33:35 Dictated By: Pascual Dawson MD Signed By: <Electronically signed by Pascual Dawson MD in OV> 06/20/24233 DD/ 2 TD/TT: 06/20/24232 Chief Port Director: Glucose, Whole Blood Reviewed date:06/20/2024 11:02:42 AM Interpretation: Performing Lab:[facility], [address] [place] [phone] Notes/Report: Glucose, Whole Blood 265 60-115 mg/dL METER # : [id number] Basic Metabolic Panel Reviewed date:09/22/2024 01:05:30 PM Interpretation: Performing Lab:[facility], [address] [place] [phone] Notes/Report: Sodium 140 135-145 mmol/L Potassium 4.3 3.3-5.1 mmol/L Chloride 102 96-108 mmol/L Carbon Dioxide 8 22-29 mmol/L Critical value for test(s): BIC Results called to and read back by: MARIA GUADALUPE Person calling: [employer] Date: [id number] Time:033 Anion Gap 34 12-20 Blood Urea Nitrogen 33 9-16 mg/dL Creatinine 1.39 0.5-1.4 mg/dL Creatinine Clr Calc Pharmacy 39.2 eGFR (calculated from the MDRD study equation) and eCrCl (calculated from the Cockcroft-Gault equation) are based on different parameters and may not yield comparable results. If eCrCl result is absurd, please check patient's height/weight. Estimated Glomerular Filt Rate 49 Chronic Kidney Disease: Estimated GFR < 60 mL/min/1.73m2 Severe Kidney Disease: Estimated GFR < 15 mL/min/1.73m2 Glucose Random 645 60-115 mg/dL Critical value for test(s): GLUCR Results called to and read back by: MARIA GUADALUPE Person calling: [employer] Date: [id number] Time:337 Calcium 9.1 8.4-10.2 mg/dL Lactic Acid Reviewed date:09/22/2024 01:05:30 PM Interpretation: Performing Lab:[facility], [address] [place] [phone] Notes/Report: Lactic Acid 5.1 0.5-2.0 mmol/L Critical value for test(s): LACTA Results called to and read back by: FELICIA Person calling: [employer] Date: [id number] Time:0549 Glucose, Whole Blood Reviewed date:09/22/2024 01:05:30 PM Interpretation: Performing Lab:[facility], [address] [place] [phone] Notes/Report: Glucose, Whole Blood 501 60-115 mg/dL METER # : [id number] Hemoglobin A1c Reviewed date:09/22/2024 01:05:30 PM Interpretation: Performing Lab:[address] [address] Notes/Report: Hemoglobin A1c % 9.6 <6.0 % Hemoglobin A1C Reference Range Adults: 4.8 - 6.0 % Non diabetic: < 6.0 % Goal: < 7.0 % Additional Action Suggested: > 8.0 % Note: Hemoglobin A1c results are invalid for patients with abnormal amounts of HbF. Blood transfusions may impact the HbA1c concentration in the patient sample. Estimated Average Glucose 229 eAG = Estimated average glucose which is %A1C expressed as average glucose, using the formula of the G4R-Dpuxlkt Average Glucose study (ADAG), Diabetes Care, Vol.31,#8, 2007 UA CC w/rflx Micro + Cult Reviewed date:09/22/2024 01:05:30 PM Interpretation: Performing Lab:[address] [address] Notes/Report: Urine, Clean Catch Color Urine Yellow Appearance Urine Clear PH 5.0 5.0-9.0 Glucose Urine UA >=1000 Negative mg/dL Urine Blood Negative Negative Specific [place] - Urine 1.025 1.005-1.025 Urine Protein Negative Neg-Trace mg/dL Urine Ketones 80 Negative mg/dL Nitrite Urine Negative Negative Leukocyte Esterase Urine Negative Negative Blood Culture (First) Reviewed date:09/27/2024 08:52:43 AM Interpretation: Performing Lab:[address] [address] Notes/Report: Blood Culture (First) No growth after 5 days. Blood Culture (Second) Reviewed date:09/27/2024 08:52:33 AM Interpretation: Performing Lab:[address] [address] Notes/Report: Blood Culture (Second) No growth after 5 days. Lactic Acid-LAB USE ONLY Reviewed date:09/22/2024 01:05:30 PM Interpretation: Performing Lab:[address] [address] Notes/Report: Lactic Acid-LAB USE ONLY 2.5 0.5-2.0 mmol/L Critical value for test(s):LACTA Results called to and read back by:ELOY Person calling: PAM Date: 09/22/24 Time:0836 UA ClnCatch+Micro w/rflx Cul t Reviewed date:09/22/2024 01:05:30 PM Interpretation: Performing Lab:[address] [address] Notes/Report: Urine, Clean Catch Color Urine Yellow Appearance Urine Clear PH 5.0 5.0-9.0 Glucose Urine UA >=1000 Negative mg/dL Urine Blood Negative Negative Specific [place] - Urine 1.025 1.005-1.025 Urine Protein Negative Neg-Trace mg/dL Urine Ketones 80 Negative mg/dL Nitrite Urine Negative Negative Leukocyte Esterase Urine Negative Negative RBC Urine 0-2 0-2 /HPF WBC Urine 0-5 0-5 /HPF Squamous Epithelial Cell Urine 0-2 0-2 /HPF Bacteria Urine None Seen None Seen Hyaline Casts Urine 0-2 0-2 /LPF Venous Blood Gases - POC Reviewed date:09/22/2024 01:05:30 PM Interpretation: Performing Lab:[address] [address] Notes/Report: VBG pH 7.20 7.32-7.43 METER #: [id number] comment: Doctor Notified additional_comment: WILDER Hamiltonri [employer] VBG pCO2 22 METER #: [id number] comment: Doctor Notified additional_comment: CB Alfonsori [employer] [place] VBG pO2 64 METER #: [id number] comment: Doctor Notified additional_comment: CB Alfonsori [facility] [employer] VBG Base Excess -17.0 METER #: [id number] comment: Doctor Notified additional_comment: CB Alfonsori CTR[facility] [place] VBG HCO3 9 22-26 mmol/L METER #: [id number] comment: Doctor Notified additional_comment: WILDER Hamiltonri [employer] [employer] VBG O2 % Saturation 84.0 METER #: [id number] comment: Doctor Notified additional_comment: WILDER Alfonsori [employer] [employer] Lactic Acid-LAB USE ONLY Reviewed date:09/22/2024 01:05:30 PM Interpretation: Performing Lab:[address] [address] Notes/Report: Lactic Acid-LAB USE ONLY 10.4 0.5-2.0 mmol/L Critical value for test(s):LACTA Results called to and read back by:[employer] Person calling:PAM Date:09/22/24 Time:1115 CT cervical spine wo con Reviewed date:09/22/2024 01:05:30 PM Interpretation: Performing Lab: Notes/Report: [address] [address] [address] Scan Report Signed Patient: Lit Burnham Jr MR#: [id number] 79 : 1945 Acct:[id number] Age/Sex: 78 / M ADM Date: 09/22/24 [facility]: Avery AKHTAR Ordering Physician: Le Menchaca MD Date of Service: 09/22/24 Procedure(s): CT cervical spine wo IV con Accession Number(s): [id number] cc: Cliff Menjivar MD; Le Menchaca MD Report Number: [id number]: Total DLP = 306.00 mGy-cm CLINICAL HISTORY: fall, AMS CT Cervical Spine WO Contrast COMPARISON: None FINDINGS: No acute fracture or malalignment. Degenerative changes in the spine. Soft tissues are normal. Normal variant azygos fissure/lobe noted. IMPRESSION: No acute findings. This document has been electronically signed by: Unruly Bellamy MD on 09/22/2024 04:13:34 Dictated By: Unruly Bellamy MD Signed By: <Electronically signed by Unruly Bellamy MD in OV> 09/22/245 DD/ 2 TD/TT: 09/22/24412 Chief Port Director: [address] [address] [address] Scan Report Signed Patient: Lit Burnham Jr MR#: [id number] [birth year] : 1945 Acct:[id number] Age/Sex: 78 / M ADM Date: 09/22/24 [facility]: Avery AKHTAR Ordering Physician: Le Menchaca MD Date of Service: 09/22/24 Procedure(s): CT cervical spine wo IV con Accession Number(s): [id number] cc: Cliff Menjivar MD; Le Menchaca MD Report Number: [id number]: Total DLP = 306.00 mGy-cm CLINICAL HISTORY: fa ll, AMS CT Cervical Spine WO Contrast COMPARISON: None FINDINGS: No acute fracture or malalignment. Degenerative changes in the spine. Soft tissues are normal. Normal variant azygo s fissure/lobe noted. IMPRESSION: No acute findings. This document has be en electronically signed by: Unruly Bellamy MD on 09/22/2024 04:13:34 Dictated By: Unruly Bellamy MD Signed By: <Electronically signed by Unruly Bellamy MD in OV> 09/22/24414 DD/ 2 TD/TT: 09/22/24412 Chief Port Director: CT head/brain wo con Reviewed date:09/22/2024 01:05:30 PM Interpretation: Performing Lab: Notes/Report: [place] [address] [address] Scan Report Signed Patient: Lit Burnham Jr MR#: [id number] [birth year] : 1945 Acct:[id number] Age/Sex: 78 / M ADM Date: 09/22/24 Loc: [facility] 261-[address]: Avery AKHTAR Ordering Physician: Le Menchaca MD Date of Service: 09/22/24 Procedure(s): CT head/brain wo IV con Accession Number(s): [id number] cc: Cliff Menjivar MD; Le Menchaca MD Report Number: [id number]: Total DLP = 710.00 mGy-cm CLINICAL HISTORY: fall, AMS CT Head WO Contrast COMPARISON: CT/SR - CT HEAD/BRAIN WO IV CON - 06/20/24 01:17 EDT FINDINGS: No acute intracranial hemorrhage. No evidence of acute infarction. Diffuse cortical volume loss. Nonspecific white matter hypodensities, most commonly associated with chronic microangiopathic changes. No mass-effect or midline shift. No hydrocephalus. Visualized orbits are normal. Clear paranasal sinuses. Clear mastoid air cells. No acute fracture. Unremarkable soft tissues. IMPRESSION: No acute intracranial findings. Nonemergent/incidental findings in the report. This document has been electronically signed by: Unruly Bellamy MD on 09/22/2024 04:15:47 Dictated By: Unruly Bellamy MD Signed By: <Electronically signed by Unruly Bellamy MD in OV> 09/22/24416 DD/ 4 TD/TT: 09/22/24414 Chief Port Director: [address] [address] [address] Scan Report Signed Patient: Lit Burnham Jr MR#: [id number] [birth year] : 1945 Acct:[id number] Age/Sex: 78 / M ADM Date: 09/22/24 Loc: .[facility] 261-[address]: Avery KAHTAR Ordering Physician: Le Menchaca MD Date of Service: 09/22/24 Procedure(s): CT head/brain wo IV con Accession Number(s): [id number] cc: Cliff Menjivar MD; Le Menchaca MD Report Number: [id number]: Total DLP = 710.00 mGy-cm CLINICAL HISTORY: fa ll, AMS CT Head WO Contrast COMPARISON: CT/SR - CT HEAD/BRAIN WO IV CON - 06/20/24 01:17 EDT FINDINGS: No acute intracrania l hemorrhage. No evidence of acute infarction. Diffuse cortical volume loss . Nonspecific white matter hypodensities, most commonly associated with chronic microangiopathic changes. No mass-effect or midline shift. No hydrocephalus. Visualized orbits ar e normal. Clear paranasal sinuses. Clear mastoid air cells. No acute fracture. Unremarkable soft tissues. IMPRESSION: No acute intracrania l findings. Nonemergent/incident al findings in the report. This document has be en electronically signed by: Unruly Bellamy MD on 09/22/2024 04:15:47 Dictated By: Urnuly Bellamy MD Signed By: <Electronically signed by Unruly Bellamy MD in OV> 09/22/24416 DD/ 4 TD/TT: 09/22/24414 Chief Port Director: XR chest 1V Reviewed date:09/22/2024 01:05:30 PM Interpretation: Performing Lab: Notes/Report: [address] [place] [address] XRay Report Signed Patient: Lit Burnham Jr MR#: [id number] 79 : 1945 Acct:[id number] Age/Sex: 78 / M ADM Date: 09/22/24 [facility]: Avery AKHTAR Ordering Physician: Avery Gaming Date of Service: 09/22/24 Procedure(s): XR chest 1V Accession Number(s): [id number] cc: Cliff Menjivar MD; Avery Gaming CLINICAL HISTORY: dka r o pna 1 view chest x-ray. Comparison: None provided. Findings: The lungs are adequately expanded. No focal consolidation. No effusion or pneumothorax. Cardiac and mediastinal contours are within normal limits. No acute osseous abnormality Impression: No focal consolidation or overt edema. This document has been electronically signed by: Anupam Shelton MD on 09/22/2024 05:48:22 Dictated By: Anupam Shelton MD Signed By: <Electronically signed by Anupam Shelton MD in OV> 09/22/24 0549 DD/ 0548 TD/TT: 09/22/24 0548 Chief Port Director: [address] [address] XRay Report Signed Patient: Lit Burnham Jr MR#: [id number] [birth year] : 1945 Acct:[id number] Age/Sex: 78 / M ADM Date: 09/22/24 [facility]: Avery AKHTAR Ordering Physician: Avery Gaming Date of Service: 09/22/24 Procedure(s): XR mallorie st 1V Accession Number(s): [id number] cc: Cliff Menjivar MD; Avery Gaming CLINICAL HISTORY: dk a r o pna 1 view chest x-ray. Comparison: None provided. Findings: The lungs are adequately expanded. No focal consolidati on. No effusion or pneumothorax. Cardiac and mediasti nal contours are within normal limits. No acute osseous abnormality Impression: No focal consolidati on or overt edema. This document has be en electronically signed by: Anupam Shelton MD on 09/22/2024 05:48:22 Dictated By: Anupam Shelton MD Signed By: <Electronically signed by Anupam Shelton MD in OV> 09/22/2449 DD/ 7 TD/TT: 09/22/24547 Chief Port Director: Glucose, Whole Blood Reviewed date:09/22/2024 01:05:30 PM Interpretation: Performing Lab:[facility], [address] [place] [phone] Notes/Report: Glucose, Whole Blood 390 60-115 mg/dL METER # : [id number] Glucose, Whole Blood Reviewed date:09/22/2024 01:05:30 PM Interpretation: Performing Lab:[facility], [address] [place] [address] Notes/Report: Glucose, Whole Blood 414 60-115 mg/dL METER # : [id number] Basic Metabolic Panel Reviewed date:09/22/2024 01:05:30 PM Interpretation: Performing Lab:[facility], [address] [place] [phone] Notes/Report: Sodium 141 135-145 mmol/L Potassium 4.0 3.3-5.1 mmol/L Chloride 107 96-108 mmol/L Carbon Dioxide 12 22-29 mmol/L Anion Gap 26 12-20 Blood Urea Nitrogen 31 9-16 mg/dL Creatinine 1.25 0.5-1.4 mg/dL Creatinine Clr Calc Pharmacy 44.7 eGFR (calculated from the MDRD study equation) and eCrCl (calculated from the Cockcroft-Gault equation) are based on different parameters and may not yield comparable results. If eCrCl result is absurd, please check patient's height/weight. Estimated Glomerular Filt Rate 56 Chronic Kidney Disease: Estimated GFR < 60 mL/min/1.73m2 Severe Kidney Disease: Estimated GFR < 15 mL/min/1.73m2 Glucose Random 461 60-115 mg/dL Critical value for test(s): GLUCR Results called to and read back by: FELICIA Person calling: [employer] Date: [id number] Time:547 Calcium 9.0 8.4-10.2 mg/dL Glucose, Whole Blood Reviewed date:09/22/2024 01:05:30 PM Interpretation: Performing Lab:[facility], [address] [place] [address] Notes/Report: Glucose, Whole Blood 401 60-115 mg/dL METER # : [id number] Glucose, Whole Blood Reviewed date:09/22/2024 01:05:30 PM Interpretation: Performing Lab:[facility], [address] [place] [address] Notes/Report: Glucose, Whole Blood 359 60-115 mg/dL METER # : [id number] Glucose, Whole Blood Reviewed date:09/22/2024 01:05:30 PM Interpretation: Performing Lab:[facility], [address] [place] [phone] Notes/Report: Glucose, Whole Blood 336 60-115 mg/dL METER # : [id number] Glucose, Whole Blood Reviewed date:09/22/2024 01:05:30 PM Interpretation: Performing Lab:[facility], [address] [place] [phone] Notes/Report: Glucose, Whole Blood 309 60-115 mg/dL METER # : [id number] Glucose, Whole Blood Reviewed date:09/22/2024 01:05:30 PM Interpretation: Performing Lab:[facility], [address] [place] [phone] Notes/Report: Glucose, Whole Blood 295 60-115 mg/dL METER # : [id number] Glucose, Whole Blood Reviewed date:09/22/2024 01:05:30 PM Interpretation: Performing Lab:[facility], [address] [place] [address] Notes/Report: Glucose, Whole Blood 252 60-115 mg/dL METER # : [id number] Basic Metabolic Panel Reviewed date:09/22/2024 01:05:30 PM Interpretation: Performing Lab:[facility], [address] [place] [phone] Notes/Report: Sodium 141 135-145 mmol/L Potassium 3.5 3.3-5.1 mmol/L Chloride 109 96-108 mmol/L Carbon Dioxide 22 22-29 mmol/L Anion Gap 14 12-20 Blood Urea Nitrogen 32 9-16 mg/dL Creatinine 1.09 0.5-1.4 mg/dL Creatinine Clr Calc Pharmacy 51.2 eGFR (calculated from the MDRD study equation) and eCrCl (calculated from the Cockcroft-Gault equation) are based on different parameters and may not yield comparable results. If eCrCl result is absurd, please check patient's height/weight. Estimated Glomerular Filt Rate > 60 Chronic Kidney Disease: Estimated GFR < 60 mL/min/1.73m2 Severe Kidney Disease: Estimated GFR < 15 mL/min/1.73m2 Glucose Random 274 60-115 mg/dL Calcium 9.1 8.4-10.2 mg/dL Glucose, Whole Blood Reviewed date:09/22/2024 01:05:30 PM Interpretation: Performing Lab:[facility], [address] [place] [phone] Notes/Report: Glucose, Whole Blood 174 60-115 mg/dL METER # : [id number] Glucose, Whole Blood Reviewed date:09/22/2024 01:05:30 PM Interpretation: Performing Lab:[facility], [address] [place] [phone] Notes/Report: Glucose, Whole Blood 188 60-115 mg/dL METER # : [id number] Glucose, Whole Blood Reviewed date:09/22/2024 01:05:30 PM Interpretation: Performing Lab:[facility], [address] [place] [phone] Notes/Report: Glucose, Whole Blood 161 60-115 mg/dL METER # : [id number] Glucose, Whole Blood Reviewed date:09/22/2024 01:05:30 PM Interpretation: Performing Lab:[facility], [address] [place] [phone] Notes/Report: Glucose, Whole Blood 127 60-115 mg/dL METER # : [id number] Glucose, Whole Blood Reviewed date:09/23/2024 02:05:52 PM Interpretation: Performing Lab:[facility], [address] [place] [phone] Notes/Report: Glucose, Whole Blood 109 60-115 mg/dL METER # : [id number] Basic Metabolic Panel Reviewed date:09/23/2024 02:05:52 PM Interpretation: Performing Lab:[facility], [address] [place] [phone] Notes/Report: Sodium 142 135-145 mmol/L Potassium 3.2 3.3-5.1 mmol/L Chloride 112 96-108 mmol/L Carbon Dioxide 22 22-29 mmol/L Anion Gap 11 12-20 Blood Urea Nitrogen 28 9-16 mg/dL Creatinine 0.87 0.5-1.4 mg/dL Creatinine Clr Calc Pharmacy 64.2 eGFR (calculated from the MDRD study equation) and eCrCl (calculated from the Cockcroft-Gault equation) are based on different parameters and may not yield comparable results. If eCrCl result is absurd, please check patient's height/weight. Estimated Glomerular Filt Rate > 60 Chronic Kidney Disease: Estimated GFR < 60 mL/min/1.73m2 Severe Kidney Disease: Estimated GFR < 15 mL/min/1.73m2 Glucose Random 113 60-115 mg/dL Calcium 8.3 8.4-10.2 mg/dL Glucose, Whole Blood Reviewed date:09/23/2024 02:05:52 PM Interpretation: Performing Lab:[facility], [address] [place] [address] Notes/Report: Glucose, Whole Blood 89 60-115 mg/dL METER # : [id number] Glucose, Whole Blood Reviewed date:09/23/2024 02:05:52 PM Interpretation: Performing Lab:[facility], [address] [place] [phone] Notes/Report: Glucose, Whole Blood 113 60-115 mg/dL METER # : [id number] Lactic Acid Reviewed date:09/23/2024 02:05:52 PM Interpretation: Performing Lab:[facility], [address] [place] [phone] Notes/Report: Lactic Acid 1.7 0.5-2.0 mmol/L Glucose, Whole Blood Reviewed date:09/23/2024 02:05:52 PM Interpretation: Performing Lab:[facility], [address] [place] [phone] Notes/Report: Glucose, Whole Blood 87 60-115 mg/dL METER # : [id number] Basic Metabolic Panel Reviewed date:09/23/2024 02:05:52 PM Interpretation: Performing Lab:[address] [address] Notes/Report: Sodium 144 135-145 mmol/L Potassium 3.4 3.3-5.1 mmol/L Chloride 113 96-108 mmol/L Carbon Dioxide 22 22-29 mmol/L Anion Gap 12 12-20 Blood Urea Nitrogen 28 9-16 mg/dL Creatinine 0.80 0.5-1.4 mg/dL Creatinine Clr Calc Pharmacy 69.8 eGFR (calculated from the MDRD study equation) and eCrCl (calculated from the Cockcroft-Gault equation) are based on different parameters and may not yield comparable results. If eCrCl result is absurd, please check patient's height/weight. Estimated Glomerular Filt Rate > 60 Chronic Kidney Disease: Estimated GFR < 60 mL/min/1.73m2 Severe Kidney Disease: Estimated GFR < 15 mL/min/1.73m2 Glucose Random 90 60-115 mg/dL Calcium 8.6 8.4-10.2 mg/dL Glucose, Whole Blood Reviewed date:09/23/2024 02:05:52 PM Interpretation: Performing Lab:[address] [phone] Notes/Report: Glucose, Whole Blood 138 60-115 mg/dL METER # : [id number] Basic Metabolic Panel Reviewed date:09/23/2024 02:05:52 PM Interpretation: Performing Lab:[address] [phone] Notes/Report: Sodium 142 135-145 mmol/L Potassium 4.0 3.3-5.1 mmol/L Chloride 113 96-108 mmol/L Carbon Dioxide 22 22-29 mmol/L Anion Gap 11 12-20 Blood Urea Nitrogen 28 9-16 mg/dL Creatinine 0.84 0.5-1.4 mg/dL Creatinine Clr Calc Pharmacy 66.5 eGFR (calculated from the MDRD study equation) and eCrCl (calculated from the Cockcroft-Gault equation) are based on different parameters and may not yield comparable results. If eCrCl result is absurd, please check patient's height/weight. Estimated Glomerular Filt Rate > 60 Chronic Kidney Disease: Estimated GFR < 60 mL/min/1.73m2 Severe Kidney Disease: Estimated GFR < 15 mL/min/1.73m2 Glucose Random 152 60-115 mg/dL Calcium 8.4 8.4-10.2 mg/dL Glucose, Whole Blood Reviewed date:09/26/2024 05:31:20 PM Interpretation: Performing Lab:[facility], [address] [place] [phone] Notes/Report: Glucose, Whole Blood > 600 60-115 mg/dL METER # : [id number] Complete Blood Count Auto Di ff Reviewed date:09/23/2024 02:05:52 PM Interpretation: Performing Lab:[facility], [address] [place] [phone] Notes/Report: White Blood Count 14.3 4.8-10.8 X10*3/uL Red Blood Count 3.49 4.60-5.80 X10*6/uL Hemoglobin 10.8 14.0-18.0 g/dl Hematocrit 30.3 42.0-52.0 % Mean Corpuscular Volume 86.8 80.0-98.0 fL Mean Corpuscular Hemoglobin 30.9 27.0-33.0 pg Mean Corpuscular HGB Conc 35.6 31.0-36.0 g/dl Red Cell Distribution Width 13.5 11.0-16.0 % Platelet Count 194 160-400 X10*3/uL Mean Platelet Volume 9.3 9.4-12.4 fL Neutrophils Percent Auto 82.0 45-73 % Imm Gran Pct Auto 0.6 0.0-0.4 % Lymphocytes Percent Auto 10.4 20-40 % Monocytes Percent Auto 6.6 2-11 % Eosinophils Percent Auto 0.3 0-4 % Basophils Percent Auto 0.1 0-2 % NRBC Pct Auto 0.0 0.0-0.2 /100WBC Neutrophils Absolute Auto 11.8 2.0-8.3 x10*3/uL Imm Gran Abs Auto 0.08 0.00-0.03 X10*3/uL Lymphocytes Absolute Auto 1.5 1.2-4.9 X10*3/uL Monocytes Absolute Auto 1.0 0.1-1.2 X10*3/uL Eosinophils Absolute Auto 0.1 0.0-0.4 X10*3/uL Basophils Absolute Auto 0.0 0.0-0.2 X10*3/uL NRBC Abs Auto 0.000 0.0-0.012 X10*3/uL Comprehensive Met. Panel Reviewed date:09/23/2024 02:05:52 PM Interpretation: Performing Lab:[facility], [address] [place] [phone] Notes/Report: Sodium 140 135-145 mmol/L Potassium 3.7 3.3-5.1 mmol/L Chloride 112 96-108 mmol/L Carbon Dioxide 24 22-29 mmol/L Anion Gap 8 12-20 Blood Urea Nitrogen 24 9-16 mg/dL Creatinine 0.77 0.5-1.4 mg/dL Creatinine Clr Calc Pharmacy 72.5 eGFR (calculated from the MDRD study equation) and eCrCl (calculated from the Cockcroft-Gault equation) are based on different parameters and may not yield comparable results. If eCrCl result is absurd, please check patient's height/weight. Estimated Glomerular Filt Rate > 60 Chronic Kidney Disease: Estimated GFR < 60 mL/min/1.73m2 Severe Kidney Disease: Estimated GFR < 15 mL/min/1.73m2 Glucose Random 138 60-115 mg/dL Calcium 8.5 8.4-10.2 mg/dL Bilirubin Total 0.6 0.0-1.0 mg/dL Aspartate Amino Transferase 85 5-37 U/L Alanine Aminotransferase 25 0-40 U/L Total Protein 5.2 6.5-8.0 g/dL Albumin Level 3.1 3.5-5.0 g/dL Alkaline Phosphatase 74 39-117 U/L Phosphorus Reviewed date:09/23/2024 02:05:52 PM Interpretation: Performing Lab:[facility], [address] [place] [phone] Notes/Report: Phosphorus 1.3 2.7-4.5 mg/dL Magnesium Reviewed date:09/23/2024 02:05:52 PM Interpretation: Performing Lab:[facility], [address] [place] [phone] Notes/Report: Magnesium 2.1 1.6-2.6 mg/dL Glucose, Whole Blood Reviewed date:09/23/2024 02:05:52 PM Interpretation: Performing Lab:[facility], [address] [place] [phone] Notes/Report: Glucose, Whole Blood 130 60-115 mg/dL METER # : [id number] Glucose, Whole Blood Reviewed date:09/23/2024 12:09:25 PM Interpretation: Performing Lab:[facility], [address] [place] [address] Notes/Report: Glucose, Whole Blood 215 60-115 mg/dL METER # : [id number] Glucose, Whole Blood Reviewed date:09/23/2024 04:18:41 PM Interpretation: Performing Lab:[facility], [address] [place] [phone] Notes/Report: Glucose, Whole Blood 161 60-115 mg/dL METER # : [id number] Glucose, Whole Blood Reviewed date:09/25/2024 07:44:33 PM Interpretation: Performing Lab:[facility], [address] [place] [phone] Notes/Report: Glucose, Whole Blood 189 60-115 mg/dL METER # : [id number] Basic Metabolic Panel Reviewed date:09/25/2024 07:44:33 PM Interpretation: Performing Lab:[facility], [address] [place] [phone] Notes/Report: Sodium 139 135-145 mmol/L Potassium 4.1 3.3-5.1 mmol/L Chloride 103 96-108 mmol/L Carbon Dioxide 21 22-29 mmol/L Anion Gap 19 12-20 Blood Urea Nitrogen 11 9-16 mg/dL Creatinine 0.65 0.5-1.4 mg/dL Creatinine Clr Calc Pharmacy 82.5 eGFR (calculated from the MDRD study equation) and eCrCl (calculated from the Cockcroft-Gault equation) are based on different parameters and may not yield comparable results. If eCrCl result is absurd, please check patient's height/weight. Estimated Glomerular Filt Rate > 60 Chronic Kidney Disease: Estimated GFR < 60 mL/min/1.73m2 Severe Kidney Disease: Estimated GFR < 15 mL/min/1.73m2 Glucose Random 398 60-115 mg/dL Critical [Glucose] sent by a secure message and confirmed by (Dr. Carroll, 09/24/24 [id number]) Tech: GALENSA Calcium 8.7 8.4-10.2 mg/dL Glucose, Whole Blood Reviewed date:09/25/2024 07:44:33 PM Interpretation: Performing Lab:[facility], [address] [place] [phone] Notes/Report: Glucose, Whole Blood 254 60-115 mg/dL METER # : [id number] Glucose, Whole Blood Reviewed date:09/25/2024 07:44:33 PM Interpretation: Performing Lab:[facility], [address] [place] [phone] Notes/Report: Glucose, Whole Blood 395 60-115 mg/dL METER # : [id number] Glucose, Whole Blood Reviewed date:09/25/2024 07:44:33 PM Interpretation: Performing Lab:[facility], [address] [place] [phone] Notes/Report: Glucose, Whole Blood 271 60-115 mg/dL METER # : [id number] Glucose, Whole Blood Reviewed date:09/25/2024 07:44:33 PM Interpretation: Performing Lab:[facility], [address] [place] [phone] Notes/Report: Glucose, Whole Blood 226 60-115 mg/dL METER # : [id number] Complete Blood Count no Diff Reviewed date:09/25/2024 07:44:33 PM Interpretation: Performing Lab:[facility], [address] [place] [phone] Notes/Report: White Blood Count 4.9 4.8-10.8 X10*3/uL Red Blood Count 4.47 4.60-5.80 X10*6/uL Hemoglobin 13.8 14.0-18.0 g/dl Hematocrit 39.5 42.0-52.0 % Mean Corpuscular Volume 88.4 80.0-98.0 fL Mean Corpuscular Hemoglobin 30.9 27.0-33.0 pg Mean Corpuscular HGB Conc 34.9 31.0-36.0 g/dl Red Cell Distribution Width 13.5 11.0-16.0 % Platelet Count 188 160-400 X10*3/uL Mean Platelet Volume 9.2 9.4-12.4 fL NRBC Pct Auto 0.0 0.0-0.2 /100WBC NRBC Abs Auto 0.000 0.0-0.012 X10*3/uL Liver Panel Reviewed date:09/25/2024 07:44:33 PM Interpretation: Performing Lab:[address] [phone] Notes/Report: Bilirubin Total 1.0 0.0-1.0 mg/dL Bilirubin Direct 0.4 0.0-0.5 mg/dL Aspartate Amino Transferase 81 5-37 U/L Alanine Aminotransferase 42 0-40 U/L Total Protein 6.6 6.5-8.0 g/dL Albumin Level 3.8 3.5-5.0 g/dL Alkaline Phosphatase 108 39-117 U/L Basic Metabolic Panel Reviewed date:09/25/2024 07:44:33 PM Interpretation: Performing Lab:[address] [phone] Notes/Report: Sodium 142 135-145 mmol/L Potassium 3.4 3.3-5.1 mmol/L Slight Hemolysis.Interpret result with caution. Chloride 109 96-108 mmol/L Carbon Dioxide 22 22-29 mmol/L Anion Gap 14 12-20 Blood Urea Nitrogen 15 9-16 mg/dL Creatinine 0.59 0.5-1.4 mg/dL Creatinine Clr Calc Pharmacy 89.6 eGFR (calculated from the MDRD study equation) and eCrCl (calculated from the Cockcroft-Gault equation) are based on different parameters and may not yield comparable results. If eCrCl result is absurd, please check patient's height/weight. Estimated Glomerular Filt Rate > 60 Chronic Kidney Disease: Estimated GFR < 60 mL/min/1.73m2 Severe Kidney Disease: Estimated GFR < 15 mL/min/1.73m2 Glucose Random 154 60-115 mg/dL Calcium 8.5 8.4-10.2 mg/dL Ammonia Reviewed date:09/25/2024 07:44:33 PM Interpretation: Performing Lab:[address] [phone] Notes/Report: Ammonia 18 13-55 umol/L Vitamin B12 and Folate Reviewed date:09/25/2024 07:44:33 PM Interpretation: Performing Lab:[address] [phone] Notes/Report: Vitamin B12 1656 200-900 pg/mL NORMAL 200-900 PG/ML INDETERMINATE 160-199 PG/ML DEFICIENT < 160 PG/ML Folate 12.6 > or = 4.0 ng/mL Reference Values: > or = 4.0 ng/mL < 4.0 ng/mL suggests folate deficiency Methotrexate, aminopterin and folinic acid (leucovorin) are chemotherapeutic agents whose molecular structures are similar to folate; therefore, the Dietitian Teacher folate assay cannot be used for patients using these drugs. TSH reflex Free T4 Reviewed date:09/25/2024 07:44:33 PM Interpretation: Performing Lab:[address] [phone] Notes/Report: TSH reflex Free T4 1.26 0.32-4.0 uIU/mL Glucose, Whole Blood Reviewed date:09/25/2024 07:44:33 PM Interpretation: Performing Lab:[address] [phone] Notes/Report: Glucose, Whole Blood 143 60-115 mg/dL METER # : [id number] Hemoglobin A1c Reviewed date:09/25/2024 07:44:33 PM Interpretation: Performing Lab:[address] [phone] Notes/Report: Hemoglobin A1c % 9.6 <6.0 % Hemoglobin A1C Reference Range Adults: 4.8 - 6.0 % Non diabetic: < 6.0 % Goal: < 7.0 % Additional Action Suggested: > 8.0 % Note: Hemoglobin A1c results are invalid for patients with abnormal amounts of HbF. Blood transfusions may impact the HbA1c concentration in the patient sample. Estimated Average Glucose 229 eAG = Estimated average glucose which is %A1C expressed as average glucose, using the formula of the B1O-Juddyrw Average Glucose study (ADAG), Diabetes Care, Vol.31,#8, 2007 Glucose, Whole Blood Reviewed date:09/25/2024 07:44:33 PM Interpretation: Performing Lab:[facility], [address] [place] [phone] Notes/Report: Glucose, Whole Blood 160 60-115 mg/dL METER # : [id number] Glucose, Whole Blood Reviewed date:09/25/2024 07:44:32 PM Interpretation: Performing Lab:[facility], [address] [place] [phone] Notes/Report: Glucose, Whole Blood 263 60-115 mg/dL METER # : [id number] Glucose, Whole Blood Reviewed date:09/25/2024 07:44:32 PM Interpretation: Performing Lab:[facility], [address] [place] [phone] Notes/Report: Glucose, Whole Blood 303 60-115 mg/dL METER # : [id number] Basic Metabolic Panel Reviewed date:09/26/2024 05:24:13 PM Interpretation: Performing Lab:[facility], [address] [place] [phone] Notes/Report: Sodium 142 135-145 mmol/L Potassium 3.6 3.3-5.1 mmol/L Chloride 104 96-108 mmol/L Carbon Dioxide 29 22-29 mmol/L Anion Gap 13 12-20 Blood Urea Nitrogen 22 9-16 mg/dL Creatinine 0.67 0.5-1.4 mg/dL Creatinine Clr Calc Pharmacy 79.7 eGFR (calculated from the MDRD study equation) and eCrCl (calculated from the Cockcroft-Gault equation) are based on different parameters and may not yield comparable results. If eCrCl result is absurd, please check patient's height/weight. Estimated Glomerular Filt Rate > 60 Chronic Kidney Disease: Estimated GFR < 60 mL/min/1.73m2 Severe Kidney Disease: Estimated GFR < 15 mL/min/1.73m2 Glucose Random 203 60-115 mg/dL Calcium 9.0 8.4-10.2 mg/dL Glucose, Whole Blood Reviewed date:09/26/2024 05:23:55 PM Interpretation: Performing Lab:[facility], [address] [place] [phone] Notes/Report: Glucose, Whole Blood 173 60-115 mg/dL METER # : [id number] Glucose, Whole Blood Reviewed date:09/26/2024 12:31:36 PM Interpretation: Performing Lab:[facility], [address] [place] [phone] Notes/Report: Glucose, Whole Blood 261 60-115 mg/dL METER # : [id number] Glucose, Whole Blood Reviewed date:09/26/2024 05:17:39 PM Interpretation: Performing Lab:[facility], [address] [place] [phone] Notes/Report: Glucose, Whole Blood 253 60-115 mg/dL METER # : [id number] Glucose, Whole Blood Reviewed date:09/27/2024 08:52:07 AM Interpretation: Performing Lab:[facility], [address] [place] [phone] Notes/Report: Glucose, Whole Blood 218 60-115 mg/dL METER # : [id number] Glucose, Whole Blood Reviewed date:09/27/2024 08:52:17 AM Interpretation: Performing Lab:[facility], [address] [place] [phone] Notes/Report: Glucose, Whole Blood 135 60-115 mg/dL METER # : [id number] Glucose, Whole Blood Reviewed date:10/18/2024 12:34:41 PM Interpretation: Performing Lab:[facility], [address] [place] [phone] Notes/Report: Glucose, Whole Blood 472 60-115 mg/dL METER #: [id number] Testing performed [facility] , [address], [place]AVE[place] Glucose, Whole Blood Reviewed date:11/15/2024 03:42:17 PM Interpretation: Performing Lab:[facility], [address] [place] [phone] Notes/Report: Glucose, Whole Blood 260 60-115 mg/dL METER #: [id number] Testing performed in the [facility] , [address], [place] Reviewed date:12/16/2024 12:30:39 PM Interpretation: Performing Lab:[facility], [address] [place] [phone] Notes/Report: Hold Gold See Note Specimen held untested for 24 hours; Call to request Chemistry testing. Glucose, Whole Blood Reviewed date:12/20/2024 11:22:42 AM Interpretation: Performing Lab:[address] [address] Notes/Report: Glucose, Whole Blood 177 60-115 mg/dL METER #: [id number] Testing performed in the [facility], [facility]. Vitamin B12 and Folate Reviewed date:01/26/2025 07:37:09 PM Interpretation: Performing Lab:[address] [phone] Notes/Report: Vitamin B12 1150 200-900 pg/mL NORMAL 200-900 PG/ML INDETERMINATE 160-199 PG/ML DEFICIENT < 160 PG/ML Folate 9.8 > or = 4.0 ng/mL Reference Values: > or = 4.0 ng/mL < 4.0 ng/mL suggests folate deficiency Methotrexate, aminopterin and folinic acid (leucovorin) are chemotherapeutic agents whose molecular structures are similar to folate; therefore, the Dietitian Teacher folate assay cannot be used for patients using these drugs. Reason For Referral Reason type 1 diabetes [...] Referral Priority Routine Referral Appointment Date 10/17/2024 Reason dementia Diagnosis 1 Dementia (F03.90) Referral Organization Cliff Menjivar MD Referring Provider First Name Cliff Referring Provider Last Name Otto Referring Provider Speciality Internal M edicine Referred Provider Miguel Hoang Referred Provider Specialty Neurology General Notes Rema Fan 1 12:04:24 PM >referral info rgbeckyMita wilson Annette 01/31/2025 09:56:05 AM >was told by office patient is aware of appt Referral Priority Routine Referral Appointment Date 02/23/2025 Medications Medication SIG (Take, Route, Frequency, Duration) Notes Start Date End Date Status Ketoconazole 2 % 1 application to affected area Externally Once a day Not-Taking Fluticasone Propionate 50 MCG/ACT INSTILL 1 SPRAY IN EACH NOSTRIL ONCE DAILY for 90 Not-Taking Cyclobenzaprine HCl 10 MG as directed Or ally twice a day for 10 days 09/12/2019 Not-Taking Fluticasone Propionate 50 MCG/ACT 1 spray in each nostril Nasally Once a day for 30 day(s) 06/15/2023 Active Loperamide HCl 2 MG 1 capsule as needed Orally Four times a day Active Triamcinolone Acetonide 0.1 % 1 application Externally daily for 30 days 06/16/2024 Active Tylenol 8 Hour 650 MG 2 tablets as neede d Orally every 8 hrs Active Atorvastatin Calcium 20 MG TAKE 1 TABLET BY MOUTH EVERY DAY Active Loratadine 10 MG 1 tablet Orally Once a day for 30 day(s) Active HumaLOG 100 UNIT/ML 1-8 units three time s a day Subcutaneous Active Balsalazide Disodium 750 MG 3 capsules Orally Three times a day Active Lantus SoloStar 100 UNIT/ML 18 units SC QD Subcutaneous QD Active Senior Multivitamin Plus as directed Orally Active risperiDONE 0.25 MG 1 tablet Orally Once a day Active Vitamin C 500 MG 1 tablet Orally ever y 2 days Active Calcium 500 MG 1 tablet with meals Orally Twice a day for 30 day(s) Not-Taking Magnesium 400 MG 1 capsule with a alex l Orally every other day Not-Takin g Aspirin 81 MG 1 tablet Orally Once a day for 30 day(s) Active Diprolene AF 0.05 % 1 application to affected area Externally Once a day for 30 days 06/14/2013 Active Fish Oil 500 MG 1 capsule Orally Onc e a day Active Triamcinolone Acetonide 0.1 % 1 application Externally Once a day for 30 days 04/09/2021 Active Immunizations Vaccine Route Administration Date Status Comme nts Flu Vaccine IM Intramuscular 12/17/2010 Administered Flu Vaccine Unknown 12/26/2010 Administered Shingles IM Intramuscular 07/14/2011 Administered Flu Vaccine IM Intramuscular 01/13/2012 Administered Flu Vaccine IM Intramuscular 01/11/2013 Administered Prevnar 13 IM Intramuscular 01/11/2013 Administered PPSV23 (Pnemovax) Unknown 08/15/2006 Administered zzz Unknown 01/11/2013 Administered Fluarix Quadrivalent IM Intramuscular 01/09/2014 Adminhussain red Fluarix Quadrivalent IM Intramuscular 01/11/2015 Administe red Fluarix Quadrivalent IM Intramuscular 02/04/2016 Administe red PPSV23 (Pnemovax) IM Intramuscular 04/01/2016 Administered Fluarix Quadrivalent IM Intramuscular 12/29/2016 Admindonnye red TDaP Unknown 08/05/2011 Administered Fluarix Quadrivalent [...] High Dose IM Intramuscular 02/02/2023 Administer ed Influenza High Dose IM Intramuscular 02/01/2024 Administer ed Influenza High Dose IM Intramuscular 02/06/2025 Administer ed Flu Vaccine Unknown 01/09/2014 Pending Social History Tobacco Use: Social History Observation Description Date Details (start date - stop date) Never Smoker NA - NA Tobacco Use/Smoking Question Answer Notes Patient is a nonsmoker Additional Findings: Tobacco Non-User Cu rrent non-smoker, currently using no form of tobacco Alcohol Screen Question Answer Notes Did you have a drink containing alcohol in the p ast year? No Points 0 Interpretation Negative Problems Problem Type SNOMED Code ICD Code Onset Dates Problem Status W/U Status Risk Notes Problem 88665572 Chronic rhinitis (J31.0) Active confirmed Problem 390912192 Prostate cancer (C61) Active confirme d Problem 980724497 Type 1 diabetes mellitus without complication (E10.9) Active confirmed Problem Dementia (46290082) Dementia (F03.90) Active confirmed Problem Hypoglycemia (282343757) Hypoglycemia (E16.2) Active confirmed Problem 579907268 Pure hypercholesterolemia (E78.00) Active confirmed Problem 690679879 History of ulcer ative colitis (Z87.19) Active confirmed Problem [id number] 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 Problem 300855289 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) Active confirmed Vital Signs Blood pressure diastolic 50 mm Hg 02/10/2025 belkis ght is down 4 pounds since 01-31-25 Height 65.5 in 02/10/2025 weight is down 4 pounds since 01-31-25 Blood pressure systolic 102 mm Hg 02/10/2025 weig ht is down 4 pounds since 01-31-25 Weight 140 lbs 02/10/2025 weight is down 4 pounds since 01-31-25 BMI 22.94 kg/m2 02/10/2025 weight is down 4 pounds since 01-31-25 Encounters Encounter Location Date Provider Diagnosis Cliff Menjivar MD [address] [place] [phone] 06/09/2024 Cliff Menjivar Blood tests for rout ine general physical examination Z00.00 ; Type 1 diabetes mellitus without complication E10.9 and Pure hypercholesterolemia E78.00 Cliff Menjivar MD [address] [place] [phone] 12/16/2024 Cliff Menjivar Type 1 diabetes blade itus without complication E10.9 and Pure hypercholesterolemia E78.00 Cliff Menjivar MD [address] [place] [address] [id number] 02/06/2025 Cliff Menjivar Encounter for administration of vaccine Z23 Cliff Menjivar MD [address] [place] [address] [id number] 02/10/2025 Cliff Menjivar Diarrhea R19.7 ; Ponce ma R60.9 and Type 1 diabetes mellitus without complication E10.9 Cliff Menjivar MD [address] [place] [address] [id number] 06/16/2024 Cliff Menjivar Prostate cancer C61 ; Annual physical exam Z00.00 ; Type 1 diabetes mellitus without complication E10.9 ; History of ulcerative colitis Z87.19 ; Pure hypercholesterolemia E78.00 ; Colon cancer screening Z12.11 and Depression screening Z13.31 Cliff Menjivar MD [address] [place] [address] [id number] 06/28/2024 Cliff Menjivar Type 1 diabetes blade itus without complication E10.9 and Hypoglycemia E16.2 Cliff Menjivar MD [address] [place] [address] [id number] 09/30/2024 Cliff Menjivar Type 1 diabetes blade itus without complication E10.9 and Yeast infection B37.9 Cliff Menjivar MD [address] [place] [address] [id number] 10/17/2024 Cliff Menjivar Type 1 diabetes blade itus without complication E10.9 and Yeast infection B37.9 Cliff Menjivar MD [address] [place] [address] [id number] 12/22/2024 Cliff Menjviar History of ulcerativ e colitis Z87.19 ; Type 1 diabetes mellitus without complication E10.9 and Pure hypercholesterolemia E78.00 Cliff Menjivar MD [address] [place] [address] [id number] 01/23/2025 Cliff Menjivar Type 1 diabetes blade itus without complication E10.9 ; Dementia F03.90 and Colitis K52.9 Cliff Menjivar MD [address] [place] [address] [id number] 01/31/2025 Cliff Menjivar Edema R60.9 Cliff Menjivar MD [address] [place] [address] [id number] 05/12/2024 Cliff Menjivar MD [address] [place] [address] [id number] 06/16/2024 Cliff Menjivar MD [address] [place] [address] [id number] 06/22/2024 Cliff Menjivar MD [address] [place] [address] [id number] 09/01/2024 Cliff Menjivar MD [address] [place] [address] [id number] 09/27/2024 Cliff Menjivar Assessments Encounter Date Diagnosis (ICD Code) Assessment Notes Treatment Notes Treatment Clinical Notes Section Notes 06/09/[address] ine general physical examination (ICD-10 - Z00.00) 12/16/2024 Type 1 diabetes mellitus without complication (ICD-10 - E10.9) 02/06/2025 Encounter for administration of vaccine (ICD-10 - Z23) 02/10/2025 Diarrhea (ICD-10 - R19.7) doing better off lactose 02/10/2025 Edema (ICD-10 - R60.9) has resolved 06/16/2024 Prostate cancer (ICD -10 - C61) no sign of recurrence, will continue to monitor 06/16/2024 Annual physical exam (ICD-10 - Z00.00) labs reviewed and discussed with patient 06/28/2024 Type 1 diabetes mellitus without complication (ICD-10 - E10.9) 06/28/2024 Hypoglycemia (ICD-10 - E16.2) advised not to bolus when he is having his snack at night. 09/30/2024 Type 1 diabetes mellitus without complication (ICD-10 - E10.9) needs referral to dr hernandez and send copy of last visit note./REFERRAL AND LAST OFFICE NOTE FAXED TO DR Marysol BELL @ [facility] 09/30/2024 Yeast infection (ICD -10 - B37.9) patient/ verbalized understanding of medication and directions for use 10/17/2024 Type 1 diabetes mellitus without complication (ICD-10 - E10.9) has not had his sugar today/ states there there is still some confusion 12/22/2024 History of ulcerativ e colitis (ICD-10 - Z87.19) sounds like is getting better. maybe a little blood. if any shows will get him back to dr rivera 01/23/2025 Type 1 diabetes mellitus without complication (ICD-10 - E10.9) 01/23/2025 Dementia (ICD-10 - F03.90) referral to neurology at [facility]/ taking risperidone 01/31/2025 Edema (ICD-10 - R60.9) is fr om sitting all the time. will observe if it gets worse will try low dose furosemide 06/09/2024 Type 1 diabetes mellitus without complication (ICD-10 - E10.9) 12/16/2024 Pure hypercholesterolemia (ICD-10 - E78.00) 02/10/2025 Type 1 diabetes mellitus without complication (ICD-10 - E10.9) his sugars are all over the place. has a clinical unit educator that is trying to control the sugars. having trouble with his confusion and was not able to manage the new pump. his has a coverage for the elevated sugars that seems appropriate and will observe for hypoglycemia. the confusion is making it difficult to manage the sugars 06/16/2024 Type 1 diabetes mellitus without complication (ICD-10 - E10.9) doing well on meds, will contijue current regiment 10/17/2024 Yeast infection (ICD -10 - B37.9) feeling better now. 12/22/2024 Type 1 diabetes mellitus without complication (ICD-10 - E10.9) not doing well since stopping pump, advisd on diet, exercise and medication, will cntinue to monitor 01/23/2025 Colitis (ICD-10 - K52.9) appt with Dr. Rivera 02-09-2025 at 11am 06/09/2024 Pure hypercholesterolemia (ICD-10 - E78.00) 06/16/2024 History of ulcerativ e colitis (ICD-10 - Z87.19) no difficulty, will continue current regiment and will continue to monitor 12/22/2024 Pure hypercholesterolemia (ICD-10 - E78.00) well controlled, will continue to monitor 06/16/2024 Pure hypercholesterolemia (ICD-10 - E78.00) well controlled, will continue current regiment 06/16/2024 Colon cancer screeni ng (ICD-10 - Z12.11) guaiac negative 06/16/2024 Depression screening (ICD-10 - Z13.31) negative screen 09/30/2024 Other to hold atorvastin while on this Plan Of Treatment Pending Test Test Name Order Date Electrocardiogram (EKG) 04/24/2017 Electrocardiogram (EKG) 03/12/2015 Electrocardiogram (EKG) 05/13/2018 Electrocardiogram (EKG) 05/19/2019 XR CHEST 2 VIEW PA & LAT 10/16/2020 Future Test Test Name Order Date BREAST RIGHT ([facility] 018 Next Appt Details Provider Name:Cliff sarabia, 04/17/2025 11:15:00 AM, [address] [place] [address], [address], [place], [place], [phone], Provider Name:Cliff sarabia, 06/12/2025 08:00:00 AM, [address] [facility], [address], [place], [place], [phone], Provider Name:Cliff sarabia, 06/19/2025 02:30:00 PM, [address], [address], [place], [phone], Insurance Providers Payer Name Payer Address Payer Phone Subscriber Number Group Number Insured Name Patient Relationship to Insured Coverage Start Date Coverage End Date [employer] [facility] [address] [place] [phone] [id number] Lit [place] Self - patient is the insured Medical (General) History Medical History History ICD Code diabetes mellitus type I diabetes ulcerative colitis prostate cancer with seed implant 2000 colonoscopy 2009 due in 4 or 5 years; colonoscopy done 07/2015 - due in [address] Rivera: 07/12/21 colonoscopy done, no further needed. Intertriginous candidiasis
--- OUTSIDE RECORDS SUMMARY | 2025-02-23 17:43 | XMS_ITS | Clinical Summary ---
Author Organization [facility] Address [address] [place] [id number] Phone Care Team Providers Care Television Technician Name Role Phone Cliff Menjivar MD Primary Care Provider Allergies No known active allergies Medications aspirin 81 mg chewable tablet 1 tablet Acti ve balsalazide (COLAZAL) 750 mg capsule 2 tabs Active calcium citrate 760 mg calcium /3.5 gram Gran as directed Act armani omega 2-mpr-gyk-fish oil 950 mg-320 mg- 630 mg-1,360 mg [...] to continue this, he also considered the Letan CGM with the Medtronic 780G when he [...] vs recall, needs to discuss this with [employer], if due for upgrade this fall then [...] this today, he is advised to contact [facility] to request order for this since he [...] next fall, and also his communication from [employer] regarding pump recall Has been encouraged to [...] 3 months for a visit with our 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 and in 6 months for a [...] A1c 7.5(A) 4.2 - 5.6 % MARI [employer] [facility] Other 08/08/2024 2:20 PM EDT us Edith Braga MD LAB POCT ENTER/EDIT ORDERABLES Final Result Performing Organization Address City/State/[facility] Co de Phone Number MARIMad Mimi [facility] [address] [place] [address], [facility] from Last 3 Months or Most Recently Relevant to Health Maintenance Insurance [employer] [place] MEDIC[employer] HMO REPLACEMENT [facility] MEDICARE HMO REPLACEMENT [facility] MEDICARE HMO REPLACEMENT [facility] MEDICARE HMO REPLACEMENT [facility] MEDICARE [place] [address] [place] [address] [place] [place] [address] MEDICARE HMO REPLACEMENT [facility] MEDICARE HMO REPLACEMENT [facility] MEDIC[employer] HMO REPLACEMENT Care Teams Television Technician Relationship Specialty Start Date End Date Cliff Menjivar MD [address] [place] [id number] PCP - General Internal Medicine 02/09/17 Additional Source Comments The information contained in this document represents components of the legal health record. It is not the complete legal health record.[facility]
== END 2025-02-23 11:39 | disposition home or self-care (01) ==
LOC: HO.HSM 11:26
PROVIDERS: Visit Provider Psychiatry & Neurology Neurology
DX: G30.9 Alzheimer's disease, unspecified (principal); F02.80 Dementia in other diseases classified elsewhere, unspecified severity, without behavioral disturbance, psychotic disturbance, mood disturbance, and anxiety
CPT/HCPCS: 99213

== ENCOUNTER → 2025-02-23 11:25 | Outpatient (BNVA) | payer MEDICARE, SELFPAY | PROVIDERS: Visit Provider Psychiatry & Neurology Neurology | DX: G30.9 Alzheimer's disease, unspecified (principal); F02.80 Dementia in other diseases classified elsewhere, unspecified severity, without behavioral disturbance, psychotic disturbance, mood disturbance, and anxiety | CPT/HCPCS: 99212 ==

== ENCOUNTER 2025-03-09 13:08 | Outpatient (AMB) | payer MEDICARE, SELFPAY ==
[2025-03-09 13:10] VITALS: BP 118/68; PULSE 75; O2SAT 97; BMI 23.1
--- NOTE | 2025-03-09 13:10 | MHC.OFFVIS ---
Vital Signs 03/09/25 13:10 Height 5 ft 8 in Weight 151 lb 14.376 oz BMI 23.1 BP 118/68 Blood Pressure Location Rt brachial Position Sitting Pulse 75 Pulse Source Pulse Oximeter Pulse Oximetry (%) 97 Oxygen Delivery Method Room Air Intake Visit Reasons: type 1 dm Intake Note: Patient presents today for a follow-up on Type 1 Diabetes Mellitus: Last Diabetic eye exam: Last exam was about 2 years ago but has upcoming appt in April. Last Podiatry Visit: DR Jd Jackson Last seen 3 weeks ago. Most Recent HgA1C: 8.3%, 12/16/2024 Random Glucose: 228 mg/dL Furnace Charger Required: No Accompanied by: Spouse and grandchild Allergies Seasonal Allergies Allergy (Mild, Verified 03/09/25 13:17) Unknown HPI Comments Details: 79-year-old male coming in today for follow up of type 1 diabetes mellitus. Here today with Arlette. Last seen 12/20/[address] Ruiz. This 1st time that I see this patient. History of diabetes Diagnosed at 17 years old Was seeing Dr. Braga in [facility], changing care because of distance Prior therapy: Medtronic pump 780 g up until 21 September 2024, has had issues with dementia , unable to function with it , pump malfunction in September 2024, leading to DKA and hospitalization , he was checking fingersticks , he wasnt using the sensor Was in the hospital for hypoglycemia 4 times the last 2 years June 2024 severe hypoglycemia was in the hospital Current regimen: Lantus 18 units AM For insulin lispro / humalog scale <111 0 units 111-150: 2 units 151- 200: 4 units 201- 250: 6 units 251-300: 8 units 301- 350 : 10 units >350 : 10 units Complications Eye exam: Last eye exam was one year ago in 2023, [facility], Dr Doron España. It is due. Neuropathy: denies symptoms, 01/2025, DR Jd Jackson Kidney disease: no history of kidney disease Macrovascular complications: No history of macrovascular complications. Statin:atorvastatin 20 mg daily, 69 mg /d ldl 06/28 VLAD/ARB: none Exercise: not recently but was walking before Diet control: doesnt count carbs anymore just doing scale Saw CDE 11/21/2024 for CGM application Interval history 03/09/25 Patient reports doing well overall He has increased appetite, thirst, polyuria No recent medications added to his regimen Lantus 18 units, has used 2o units in the last 2 days Lispro based on SS Patient misses multiple insulin doses Physical exam General: Well appearing. CV: irregular irregular rhythm, no murmur. Bilateral 2+ edema. Resp: Lungs clear to auscultation bilaterally Abdomen: Soft, nontender. nondistended Extremities/Neuro: No weakness or tremor of outstretched hands Labs Laboratory Tests 06/09/24 01/27/25 02/02/25 08:00 03:50 12:44 Creatinine 0.72 Estimated GFR > 60 Glucose (Clinic) 189 H Urine Microalbumin < 5.0 CGM data Interpretation : Persistent hyperglycemia, with ocassional nocturnal hypoglycemia. [facility] Medical History Type 1 diabetes mellitus COVID-19 vaccine series completed Elevated cholesterol Diabetes mellitus Ulcerative colitis Prostate cancer Ductal carcinoma in situ (DCIS) of right breast Surgical History History of penile implant History of prostate surgery (2000) History of appendectomy History of colonoscopy History of right total mastectomy Social History Household Members: Spouse Housing: House Are you a primary nurse behavioral health care to a significant other at home: No Do you presently have visiting nurse or other home services: No Alcohol intake: never Comment: 1:1 sitter Patient Tobacco Use Status: Never used Tobacco Advance Directives Date on File: 07/12/21 service: No Physical Exam Vital Signs: Last Vital Signs Pulse 75 03/09/25 13:10 BP 118/68 03/09/25 13:10 Pulse Ox 97 03/09/25 13:10 Oxygen Delivery Method Room Air 03/09/25 13:10 BMI result Body Mass Index 23.1 Office Procedures Glucose Monitoring Details Details: see HPI 78817 - Glucose Monitoring, continuous Procedure code (CPT) selection complete Results Reviewed Results Reviewed: Laboratory Last Values Glucose (Clinic) 228 mg/dL (60-115) H 03/09/25 13:20 Assessment & Plan Assessment & Plan (1) Type 1 diabetes mellitus: Code(s): E10.9 - Type 1 diabetes mellitus without complications Category: Medical Qualifiers: Diabetes mellitus complication status: with hyperglycemia Qualified Code(s): E10.65 - Type 1 diabetes mellitus with hyperglycemia Plan: 79-year-old male coming in today for fup of 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 Diagnosed at 17 years of age. He has had recent hospitalization with diabetic ketoacidosis in September 2023, he has a issues with dementia, he was on a Medtronic 780 G pump but he has had issues with the operating it in the pump malfunctioned and he went into DKA. He has also had hospitalizations were severe hypoglycemia over the past year. He has a [employer] Bruce 3 since 11/21/2024 but forgot to bring reader today. They misunderstood and however has been checking fingersticks as well and did bring the meter to this time. He is not carb counting anymore. He is following a sliding scale. Patient forgets multiple meal doses, which is leading to poorly controlled DM. He had a medtronic pump in the past, which failed (last September 2024). We discussed restarting insulin pump therapy as this would be best for him, specially if he forgets to bolus (Omnipod or Tandem-Tandem likely better given that it can be fixed faster to correct either hyper or hypoglycemia). He is snacking all the time, but during sleep periods he is going low, which make me think that he might need less Lantus. Plan: Decrease Lantus to 16 units daily in the morning. Continue Humalog per sliding scale in pt Reinforce importance of documenting hypoglycemic episodes (frequency, timing, symptoms, treatment). Instruct to confirm CGM-detected hypoglycemia with fingerstick, especially if <70 mg/dL or >300 mg/dL. Review and reinforce hypoglycemia management: prioritize fast-acting carbohydrates (juice, glucose tabs, etc.). Encourage consistent site rotation for insulin injections to prevent lipodystrophy. Ophthalmology appointment in Diabetes education referral Follow up in 3 months Plan 35 minutes spent reviewing previous records, labs, imaging, patient education and documenting in the chart Orders: Orders AMB Glucose Monitoring Today E10.65 - Type 1 diabetes mellitus with hyperglycemia Referrals Diabetes Education Referral E10.65 - Type 1 diabetes mellitus with hyperglycemia Patient Instructions: Decrease Lantus to 16 units Use humolog/Lispro based on this sliding scale: Coding Level of Care Code Est Pt Level 4 (23418) Diagnoses Type 1 diabetes mellitus with hyperglycemia E10.65 Diabetes mellitus complication status: with hyperglycemia CPT Codes Details - CPT: 52783 - Glucose Monitoring, continuous ([id number])
[2025-03-09 13:24] LABS: Glucose, Whole Blood 228 mg/dL (60-115)
== END 2025-03-09 13:56 | disposition home or self-care (01) ==
PROVIDERS: Visit Provider Student in an Organized Health Care Education/Training Program
DX: E10.65 Type 1 diabetes mellitus with hyperglycemia (principal)
CPT/HCPCS: 99214

== ENCOUNTER → 2025-03-09 13:08 | Outpatient (BNVA) | payer MEDICARE, SELFPAY | PROVIDERS: Visit Provider Student in an Organized Health Care Education/Training Program | DX: E10.65 Type 1 diabetes mellitus with hyperglycemia (principal); Z96.41 Presence of insulin pump (external) (internal) | CPT/HCPCS: 82947; 95250; 99212 ==